=== PATIENT | male | born 1960 | race Caucasian/White ===

== ENCOUNTER 2016-07-09 17:53 | Inpatient (IN) | payer OTHER, MEDICARE ==
[~2016-07-09] VITALS: Ht 167.6 cm; Wt 82.0 kg
[2016-07-09] VITALS (10 sets, daily range): BP systolic 96–157; BP diastolic 60–84; PULSE 72–106; RESP 16; TEMP 97.8–98.2; O2SAT 98–100
[~2016-07-09 17:53] MED LIST: ADDE30TA PO; BUPR150CR PO; KLON2TAB PO; NEUR800T PO; SERO100T PO; SERO400T PO
[2016-07-09] MEDS ORDERED: PROPOFOL 1000 MG/100 ML INJ 100 ML ONE (17:58)
[2016-07-09] MEDS ORDERED: DEXTROSE 10% INJ 1,000 ML IV SCH (18:21)
[2016-07-09 18:30] LABS: BLOOD GAS BASE EXCESS -3.7 mmol/L (-2-2); BLOOD GAS CARBOXYHEMOGLOBIN 3.8 % (0-4); BLOOD GAS HCO3 22 mmol/L (22-26); BLOOD GAS METHEMOGLOBIN 1.9 % (0-2); BLOOD GAS O2 HGB SATURATION 91 % (90-100); BLOOD GAS PCO2 48 mmHg (38-42); BLOOD GAS PO2 96 mmHG (61-120); BLOOD GAS TOTAL HGB 14.8 G/DL (12.0-16.0); CRITICAL VALUE YES; DRAW SITE LT FEMORAL; FIO2 50 %; NUMBER OF ARTERIAL PUNCTURES 1; OXYGEN DEVICE VENTILATOR; STAT YES; TEMP CORR TO 98.6
[2016-07-09] MEDS ORDERED: POTASSIUM CL 40 MEQ/30 ML LIQ UDC PO/TUBE PRN ×2 (18:30)
[2016-07-09] MEDS ORDERED: MISCELLANEOUS NURSING INFORMATION XX SCH (18:30)
[2016-07-09] MEDS ORDERED: MAGNESIUM OXIDE 400 MG TAB PO PRN (18:30)
[2016-07-09] MEDS ORDERED: CHLORHEXIDINE GLUCONATE 2 % 1 PACK (2 CLOTHS) TOP PRN (18:30)
[2016-07-09] MEDS ORDERED: SODIUM CHLORIDE 0.9% FLUSH 5 ML FLUSH IV FLUSH PRN (18:30)
[2016-07-09] MEDS ORDERED: POTASSIUM PHOSPHATE MONOBASIC 500 MG TAB PO/TUBE PRN (18:30)
[2016-07-09] MEDS ORDERED: MAGNESIUM SULFATE INJ 2 GM in SODIUM CHLORIDE 0.9% INJ 96 ML IV PRN (18:30)
[2016-07-09] MEDS ORDERED: MAGNESIUM SULFATE INJ 4 GM in SODIUM CHLORIDE 0.9% INJ 92 ML IV PRN (18:30)
[2016-07-09] MEDS ORDERED: POTASSIUM CHLOR 20 MEQ PREMIX 100 ML IV PRN (18:30)
[2016-07-09] MEDS ORDERED: DEXTROSE 50% IN WATER 50 ML VIAL(D50) IV PUSH PRN (18:30)
[2016-07-09] MEDS ORDERED: RESP: ALBUTEROL 2.5 MG/IPRATROPIUM 0.5 MG NEB (PRN) INH (18:30)
[2016-07-09] MEDS ORDERED: SODIUM PHOSPHATE INJ 30 MMOL in SODIUM CHLOR 0.9% 250 ML INJ 240 ML IV PRN (18:30)
[2016-07-09] MEDS ORDERED: POTASSIUM PHOSPHATE INJ 30 MMOL in SODIUM CHLOR 0.9% 250 ML INJ 250 ML IV PRN (18:30)
[2016-07-09] MEDS ORDERED: POTASSIUM PHOSPHATE MONOBASIC 500 MG TAB PO PRN (18:30)
[2016-07-09] MEDS ORDERED: POTASSIUM CHLOR 40 MEQ PREMIX 100 ML IV PRN ×2 (18:30)
[2016-07-09] MEDS ORDERED: SODIUM CHLOR 0.9% 1000 ML INJ 2,000 ML IV ONE (18:45)
[2016-07-09 19:16] LABS: AUTOMATED NEUTROPHIL # 4.5 TH/MM3 (1.8-7.7); BASOPHIL % 0.6 % (0.0-2.0); EOSINOPHIL # 0.1 TH/MM3 (0-0.4); HEMATOCRIT 45.1 % (39.0-51.0); HEMO FLAGS DIFF FINAL; LYMPH % 31.4 % (9.0-44.0); LYMPHOCYTE # 2.4 TH/MM3 (1.0-4.8); MEAN CELL VOLUME 96.6 FL (80.0-100.0); MEAN CORPUSCULAR HEMOGLOBIN 32.2 PG (27.0-34.0); MEAN CORPUSCULAR HGB CONC 33.3 % (32.0-36.0); MONO % 7.5 % (0.0-8.0); NEUT % 59.5 % (16.0-70.0); PLATELET COUNT 160 TH/MM3 (150-450); RED BLOOD COUNT 4.66 MIL/MM3 (4.50-5.90); RED CELL DISTRIBUTION WIDTH 14.5 % (11.6-17.2); WHITE BLOOD COUNT 7.6 TH/MM3 (4.0-11.0)
--- NOTE | 2016-07-09 19:26 | RADRPT ---
EXAM DATE/TIME: 07/09/2016 19:10 [facility] COMPARISON: CHEST SINGLE AP, December 25, 2015, 2:31. INDICATIONS : Post intubation. MEDICAL HISTORY : Hepatitis C. SURGICAL HISTORY : None. ENCOUNTER: Initial ACUITY: 1 day PAIN SCORE: Non-responsive. LOCATION: Bilateral chest FINDINGS: Endotracheal tube and nasogastric tube are present satisfactory position. Lungs are symmetrically aer ated and grossly clear. Cardiomediastinal contours are satisfactory. CONCLUSION: Satisfactory chest appearance. Fermín More MD on July 09, 2016 at 19:24 Board Certified Radiologist. This report was verified electronically.
[2016-07-09 19:30] LABS: APTT (PATIENT) 25.7 SEC (24.3-30.1); PROTHROMBIN TIME - PATIENT 10.7 SEC (9.8-11.6)
[2016-07-09 19:35] LABS: AMPHETAMINE, URINE NEG (NEG); BARBITURATES, URINE NEG (NEG)
--- NOTE | 2016-07-09 19:35 | HHI.HP ---
[facility] Service Critical Care Medicine Primary Care Physician No Primary Care Physician Admission Diagnosis Overdose Diagnosis: Chief Complaint: Altered Mental Status Travel History International Travel<30 Days: No Contact w/Intl Traveler <30 Da: No Traveled to Known Affected Are: No History of Present Illness This is a 55-year-old male who was found unresponsive after reportedly smoking K2. EMS brought the patient in with a GCS of 3, with active bag valve mask support his respirations. There is visible signs of emesis and probable aspiration at the scene. Patient was emergently intubated in the emergency department. Nothing else is known about the patient, and he is unable to tell us any past medical history given his current clinical status. Critical care medicine was consulted to evaluate and manage his altered mental status and presumed toxic encephalopathy, drug overdose. Review of Systems ROS Limitations: Clinical Condition, Intoxication, Intubated, Altered Mental Status, Unresponsive Past Family Social History Allergies: Coded Allergies: *MDRO Multi-Drug Resistant Organism (Verified Adverse Reaction, Unknown, ) MRSA (elbow & knee wound) - 04/18/16 Past Medical History Unknown secondary to clinical condition of patient Past Surgical History Unknown secondary to clinical condition of patient Reported Medications Unknown secondary to clinical condition of patient Active Ordered Medications See MAR Family History Unknown secondary to clinical condition of patient Social History Unknown secondary to clinical condition of patient Physical Exam Vital Signs Vital Signs Date Time Temp Pulse Resp B/P Pulse Ox O2 Delivery O2 Flow Rate FiO2 07/09/16 19:03 50 07/09/16 19:02 72 16 96/60 100 Ventilator 07/09/16 18:29 98.2 77 16 109/67 99 Ventilator 50 07/09/16 18:29 79 16 99 Ventilator 50 07/09/16 18:00 99 50 07/09/16 17:55 98.2 106 16 138/84 98 Physical Exam GENERAL: Middle-aged male, lying in bed, intubated, sedated. Critically ill HEENT: Normocephalic. Atraumatic. Pupils pinpoint, equal, round, conjugate. Mucous members are dry. NECK: Trachea is midline. No JVD. CHEST: Equal chest rise. Clear to auscultation. Intubated. CARDIOVASCULAR: Normal rate, regular rhythm. S1 and S2 without appreciable murmurs. ABDOMEN: Soft, nontender, nondistended. No guarding. MUSCULOSKELETAL: No peripheral edema. Distal pulses 2+. NEUROLOGICAL: RASS -5. GCS 3. Laboratory Laboratory Tests Test 07/09/16 07/09/16 18:15 18:17 White Blood Count 7.6 Red Blood Count 4.66 Hemoglobin 15.0 Hematocrit 45.1 Mean Corpuscular Volume 96.6 Mean Corpuscular Hemoglobin 32.2 Mean Corpuscular Hemoglobin 33.3 Concent Red Cell Distribution Width 14.5 Platelet Count 160 Mean Platelet Volume 8.3 Neutrophils (%) (Auto) 59.5 Lymphocytes (%) (Auto) 31.4 Monocytes (%) (Auto) 7.5 Eosinophils (%) (Auto) 1.0 Basophils (%) (Auto) 0.6 Neutrophils # (Auto) 4.5 Lymphocytes # (Auto) 2.4 Monocytes # (Auto) 0.6 Eosinophils # (Auto) 0.1 Basophils # (Auto) 0.0 CBC Comment DIFF FINAL Differential Comment Blood Gas Puncture Site LT FEMORAL Blood Gas Patient Temperature 98.6 Blood Gas HCO3 22 Blood Gas Base Excess -3.7 Blood Gas Oxygen Saturation 91 Arterial Blood pH 7.28 Arterial Blood Partial 48 Pressure CO2 Arterial Blood Partial 96 Pressure O2 Arterial Blood Oxygen Content 19.0 Arterial Blood 3.8 Carboxyhemoglobin Arterial Blood Methemoglobin 1.9 Blood Gas Hemoglobin 14.8 Oxygen Delivery Device VENTILATOR Blood Gas Ventilator Setting SEE NOTE Blood Gas Inspired Oxygen 50 Result Diagram: 07/09/161814 Assessment and Plan Assessment and Plan Assessment: This is a 55-year-old male who was brought in by EMS in respiratory arrest with active [id number] reportedly secondary to an overdose of K2. He is intubated and very critically ill. Plan by systems: Neurologic: Toxic encephalopathy Alcohol abuse K2 abuse RASS goal -2 Propofol for goal RASS We'll follow-up urine drug screen Follow-up Tylenol level, aspirin level, ethanol level 500 mg IV daily Daily multivitamin Respiratory: Acute hypoxic and hypercarbic respiratory failure Intubated and sedated. Vent bundle Head of bed 30 Wean FiO2 for goal SPO2 greater than 92% Low tidal volume ventilation targeting 6 cc/kg ideal body weight Does not SBT criteria today given altered mental status Stat ABG and a.m. ABG A.m. chest x-ray Nebs every 6 and every 2 when necessary Cardiovascular: Sinus tachycardia Possible hypovolemic shock Continue telemetry Stat EKG Stat lactic acid and serial lactate at midnight Renal: Possible rhabdomyolysis Place Bland for accurate I's and O's. Every hour urine outputs -- Strict I/Os Stat CK and follow-up CK at midnight FEN/GI: Acute protein calorie malnutritionmild Acute Intravascular hypovolemia Metabolic acidosis Nothing by mouth ICU electric protocol 2 L normal saline IV bolus Maintenance fluids: Lactated Ringer's at 200 cc an hour D10 at 30 cc an hour for dextrose source Stat BMP, LFTs Daily BMP Heme/ID: Leukocytosis Probable aspiration pneumonitis Stat CBC, coags Daily CBC No infectious etiology suspected this time. If the patient spikes a fever after 48 hours we will cover him with antibiotics for presumed aspiration pneumonia. Endocrine: Hyperglycemia of critical illness -- SSI, medium scale, every 6 hours D10 at 30 cc an hour to prevent hypoglycemia. Prophylaxis: GI Prophylaxis Protonix 40 g IV every 24 hours: Anticipated mechanical ventilation of greater than 48 hours duration DVT Prophylaxis -- SCDs Subcutaneous heparin 5000 every 8 Lines: Peripheral IVs. We will maintain 2 large for peripheral IVs at all time. Bland Dispo: admit the patient to the ICU. He is very critically ill this time. This patient remains critically ill with one or more organ systems which are or may become a threat to life. I have spent in excess of 35 minutes discontinuously in the care and management of this patient. This time is exclusive of procedures, and includes, but is not limited to, evaluation of the patient, review of the medical record, discussions with family, consultants, nursing staff, or respiratory therapy, and documentation in the medical record. Code Status Full code Mariusz Burton MD Jul 09, 2016 19:35
--- NOTE | 2016-07-09 19:37 | PD.PROCEDR ---
Procedure Note Procedure Endotracheal Intubation Diagnosis: Toxic overdose Indications: Acute hypoxic respiratory failure Consent: Consent cannot be obtained. Consent is deemed emergent or medically necessary Anesthesia: None. The patient was a GCS of 3 with active [id number] assistance for respiratory arrest Description of the Procedure: The patient was positioned in the sniffing position. Pre-oxygenation was performed using a [id number]-ayqs. A Peyton #4 was used for laryngoscopy and a Grade II view was obtained. A 8.0 cuffed endotracheal tube was inserted atraumatically through the vocal cords. Confirmation of correct endotracheal tube placement was made by equal and bilateral breath sounds and colorimetric CO2 detection. The endotracheal tube was secured at 23 cm at the teeth. There were no immediate complications noted. The patient remained hemodynamically stable throughout the procedure. A chest x-ray has been ordered. I personally performed the procedure. Mariusz Burton MD Jul 09, 2016 19:37
[2016-07-09 19:44] LABS: COCAINE, URINE POS (NEG)
--- NOTE | 2016-07-09 19:56 | PD ---
HPI Chief Complaint: Altered Mental Status Time Seen by Provider: 18:08 Travel History International Travel<30 days: No Contact w/Intl Traveler<30days: No Traveled to known affect area: No History of Present Illness HPI Patient is a 55-year-old male brought in by EMS, unresponsive. Per EMS patient was using K2 and alcohol and was found unresponsive with 2 other people the same symptoms. Patient is being bagged by EMS on arrival. He is unable to provide any history. PFSH Past Medical History Hx Anticoagulant Therapy: No ADD: Yes ADHD: Yes Arthritis: No Asthma: No Blood Disorders: No Bipolar Disorder: Yes Anxiety: Yes Depression: Yes Heart Rhythm Problems: No Cancer: No Cardiovascular Problems: No High Cholesterol: No Chemotherapy: No Chest Pain: No Congestive Heart Failure: No COPD: No Cerebrovascular Accident: No Diabetes: No Diminished Hearing: No Endocrine: No Gastrointestinal Disorders: No (has not ate well since in hospital) GERD: No Genitourinary: Yes (nocturia) Headaches: Yes Hepatitis: Yes (HEP C) Hiatal Hernia: No Hypertension: No Implanted Vascular Access Dvce: No Insomnia: Yes Musculoskeletal: No Neurologic: Yes Psychiatric: Yes Reproductive: No Respiratory: No Immunizations Current: Yes Migraines: Yes Radiation Therapy: No Seizures: No Sleep Apnea: No Thyroid Disease: No Ulcer: No Past Surgical History Abdominal Surgery: Yes AICD: No Arteriovenous Shunt: No Cardiac Surgery: No Ear Surgery: No Endocrine Surgery: No Eye Surgery: No Genitourinary Surgery: No Gynecologic Surgery: No Hysterectomy: No Insulin Pump: No Joint Replacement: No Neurologic Surgery: Yes Oral Surgery: No Pacemaker: No Thoracic Surgery: No Other Surgery: Yes (ABDOMINAL HERNIA REPAIR 10/2014) Social History Alcohol Use: Yes (EVERYDAY, ABOUT 2 LITERS) Tobacco Use: Yes Substance Use: Yes (marijauna) Allergies-Medications (Allergen,Severity, Reaction): Coded Allergies: *MDRO Multi-Drug Resistant Organism (Verified Adverse Reaction, Unknown, ) MRSA (elbow & knee wound) - 04/18/16 Reported Meds & Prescriptions Reported Meds & Active Scripts Active Reported Adderall (Amphetamine-Dextroamphetamine) 30 Mg Tab 90 Mg PO DAILY Avoid late evening doses. Space doses at least 4 to 6 hours if more than once/day dosing. Seroquel (Quetiapine Fumarate) 100 Mg Tab 100 Mg PO DAILY Seroquel (Quetiapine Fumarate) 400 Mg Tab 400 Mg PO HS Wellbutrin SR 12 HR (Bupropion HCl) 150 Mg Tab 150 Mg PO Q12HR Klonopin (Clonazepam) 2 Mg Tab 4 Mg PO DAILY Neurontin (Gabapentin) 800 Mg Tab 800 Mg PO BID Review of Systems ROS Limitations: Clinical Condition, Intoxication, Altered Mental Status Physical Exam Narrative GENERAL: Unresponsive SKIN: Warm and dry. HEAD: Atraumatic. Normocephalic. EYES: Pupils equal and round. No scleral icterus. Pinpoint pupils. ENT: No nasal bleeding or discharge. Mucous membranes pink and moist. NECK: Trachea midline. No JVD. CARDIOVASCULAR: Regular rate and rhythm. No murmur appreciated. RESPIRATORY: No accessory muscle use. Clear to auscultation. Breath sounds equal bilaterally. GASTROINTESTINAL: Abdomen soft, non-tender, nondistended. MUSCULOSKELETAL: No obvious deformities. No clubbing. No cyanosis. No edema. NEUROLOGICAL: Unresponsive, no gag reflex. Data Data Last Documented VS Vital Signs Date Time Temp Pulse Resp B/P Pulse Ox O2 Delivery O2 Flow Rate FiO2 07/09/16 18:00 99 50 07/09/16 17:55 98.2 106 16 138/84 Orders Propofol 1000 Mg/100 Ml Inj (Diprivan 10 (07/09/16 17:58) Admit Order (Ed Use Only) (07/09/16 ) Labs Laboratory Tests Test 07/09/16 18:15 White Blood Count 7.6 TH/MM3 Red Blood Count 4.66 MIL/MM3 Hemoglobin 15.0 GM/DL Hematocrit 45.1 % Mean Corpuscular Volume 96.6 FL Mean Corpuscular Hemoglobin 32.2 PG Mean Corpuscular Hemoglobin 33.3 % Concent Red Cell Distribution Width 14.5 % Platelet Count 160 TH/MM3 Mean Platelet Volume 8.3 FL Neutrophils (%) (Auto) 59.5 % Lymphocytes (%) (Auto) 31.4 % Monocytes (%) (Auto) 7.5 % Eosinophils (%) (Auto) 1.0 % Basophils (%) (Auto) 0.6 % Neutrophils # (Auto) 4.5 TH/MM3 Lymphocytes # (Auto) 2.4 TH/MM3 Monocytes # (Auto) 0.6 TH/MM3 Eosinophils # (Auto) 0.1 TH/MM3 Basophils # (Auto) 0.0 TH/MM3 CBC Comment DIFF FINAL Differential Comment Prothrombin Time 10.7 SEC Prothromb Time International 1.0 RATIO Ratio Activated Partial 25.7 SEC Thromboplast Time Lactic Acid Level 2.5 mmol/L Urine Opiates Screen NEG Urine Barbiturates Screen NEG Urine Amphetamines Screen NEG Urine Benzodiazepines Screen POS Urine Cocaine Screen POS Urine Cannabinoids Screen POS MDM Medical Decision Making Medical Screen Exam Complete: Yes Emergency Medical Condition: Yes Differential Diagnosis Drug intoxication versus electrolyte abnormality versus infection Narrative Course Patient is a 55-year-old male brought in by EMS unresponsive. Patient was intubated on arrival by director of consumer affairs, Dr. Burton. Patient started on propofol for sedation. Labs sent show no acute abnormalities. Patient admitted for further management. Diagnosis Primary Impression: Unresponsive Additional Impression: Intoxication by drug Qualified Code: F19.929 - Intoxication by drug, with unspecified complication Admitting Information Admitting Physician Requests: Admit Alecia Villalobos MD Jul 09, 2016 19:56
[2016-07-09] MEDS ORDERED: ONDANSETRON HCL 4 MG/2 ML VIAL IV PRN (20:00)
[2016-07-09] MEDS: DOCUSATE SODIUM 50 MG/SENNA 8.6 MG TAB PO SCH (21:00)
[2016-07-09] MEDS: POLYETHYLENE GLYCOL 17 GM PKG PO SCH (21:00)
[2016-07-09] MEDS ORDERED: MULTIVITAMIN INJ 10 ML, THIAMINE INJ 100 MG, FOLIC ACID INJ 1 MG in SODIUM CHLOR 0.45% ... IV ONE (21:00)
[2016-07-09] MEDS: SODIUM CHLORIDE 0.9% FLUSH 5 ML FLUSH IV FLUSH SCH (21:00)
[2016-07-09] MEDS: RESP: ALBUTEROL 2.5 MG/IPRATROPIUM 0.5 MG NEB (SCH) INH (21:04)
[2016-07-09] MEDS ORDERED: HEPARIN SODIUM - SQ 10,000 UNITS/ML VIAL SQ SCH (22:00)
[2016-07-09] MEDS: PROPOFOL 1000 MG/100 ML INJ 100 ML IV SCH (22:45)
[2016-07-09] MEDS: CHLORHEXIDINE 0.12% (ORAL KIT) 15 ML CUP MT SCH (23:00)
[2016-07-09] MEDS: LACTATED RINGER'S 1000 ML INJ 1,000 ML IV SCH (23:21)
[2016-07-10] VITALS (18 sets, daily range): BP systolic 105–162; BP diastolic 63–91; PULSE 53–98; RESP 16–41; TEMP 97.5–102; O2SAT 92–100
[2016-07-10] MEDS: LACTATED RINGER'S 1000 ML INJ 1,000 ML IV SCH ×4 (00:04→13:08)
[2016-07-10 00:53] LABS: ANION GAP 12 MEQ/L (5-15); AST (GOT) 61 U/L (15-37); BICARBONATE 21.8 MEQ/L (21.0-32.0); CHLORIDE 111 MEQ/L (98-107); GLOMERULAR FILTRATION RATE 101 ML/MIN (>89); POTASSIUM 3.7 MEQ/L (3.5-5.1); SODIUM (NA) 145 MEQ/L (136-145)
[2016-07-10 00:57] LABS: ACETAMINOPHEN LESS THAN 2.0 MCG/ML (10.0-30.0); ALKALINE PHOSPHATASE 50 U/L (45-117); ALT (GPT) 83 U/L (12-78); BLOOD UREA NITROGEN 9 MG/DL (7-18); CREATINE KINASE 149 U/L (39-308); TOTAL BILIRUBIN ADULT 0.3 MG/DL (0.2-1.0)
--- NOTE | 2016-07-10 02:53 | RADRPT ---
EXAM DATE/TIME: 07/10/2016 02:25 [facility] COMPARISON: CHEST SINGLE AP, July 09, 2016, 19:10. INDICATIONS : Atelectasis MEDICAL HISTORY : Hepatitis C. SURGICAL HISTORY : None. ENCOUNTER: Subsequent ACUITY: 3 days PAIN SCORE: Non-responsive. LOCATION: Bilateral chest FINDINGS: A single portable frontal view the chest shows an endotracheal tube with the tip 2 cm cephalad to the krystina. Nasogastric tube courses off the inferior margin of the film. Lungs are clear without infilt rate or effusion. The costophrenic angles are omitted from the film. Heart is normal in size. CONCLUSION: Lines and tubes. Clear lungs. Fabrice Bernabe Jr., MD on July 10, 2016 at 2:51 Board Certified Radiologist. This report was verified electronically.
[2016-07-10] MEDS: RESP: ALBUTEROL 2.5 MG/IPRATROPIUM 0.5 MG NEB (SCH) INH ×2 (03:36→07:44)
[2016-07-10] MEDS: PROPOFOL 1000 MG/100 ML INJ 100 ML IV SCH ×2 (03:50→07:46)
[2016-07-10] MEDS: THIAMINE INJ 100 MG in SODIUM CHLORIDE 0.9% INJ 100 ML IV SCH (03:52)
[2016-07-10] MEDS: CHLORHEXIDINE GLUCONATE 2 % 1 PACK (2 CLOTHS) TOP SCH (04:00)
[2016-07-10 04:38] LABS: HEMATOCRIT 45.2 % (39.0-51.0); MEAN CELL VOLUME 95.2 FL (80.0-100.0); MEAN CORPUSCULAR HEMOGLOBIN 32.1 PG (27.0-34.0); MEAN CORPUSCULAR HGB CONC 33.7 % (32.0-36.0); PLATELET COUNT 144 TH/MM3 (150-450); RED BLOOD COUNT 4.75 MIL/MM3 (4.50-5.90); RED CELL DISTRIBUTION WIDTH 14.5 % (11.6-17.2); REVIEW FLAG FINAL; WHITE BLOOD COUNT 9.7 TH/MM3 (4.0-11.0)
[2016-07-10] MEDS: INSULIN NovoLIN REGULAR SUPPLEMENTAL SCALE SQ SCH ×4 (06:00→17:35)
[2016-07-10] MEDS ORDERED: DEXMEDETOMIDINE INJ 50 ML IV SCH (07:30)
[2016-07-10] MEDS: DEXMEDETOMIDINE INJ 50 ML IV SCH ×5 (07:45→15:06)
[2016-07-10] MEDS: CHLORHEXIDINE 0.12% (ORAL KIT) 15 ML CUP MT SCH ×2 (08:00→20:00)
[2016-07-10] MEDS: SODIUM CHLORIDE 0.9% FLUSH 5 ML FLUSH IV FLUSH SCH ×2 (08:46→20:24)
[2016-07-10] MEDS: HEPARIN SODIUM - SQ 10,000 UNITS/ML VIAL SQ SCH ×3 (08:47→23:06)
[2016-07-10] MEDS: POLYETHYLENE GLYCOL 17 GM PKG PO SCH ×2 (08:47→20:24)
[2016-07-10] MEDS: MULTIVITAMIN TAB PO SCH (08:47)
[2016-07-10] MEDS: DOCUSATE SODIUM 50 MG/SENNA 8.6 MG TAB PO SCH ×2 (08:48→20:24)
[2016-07-10] MEDS: QUEtiapine FUMARATE 100 MG TAB PO SCH ×2 (08:51→13:08)
[2016-07-10] MEDS ORDERED: PANTOPRAZOLE SODIUM 40 MG VIAL IV SCH (09:00)
--- NOTE | 2016-07-10 11:39 | EKG ---
Date Performed: 07/09/2016 Time Performed: 18:34:44 PTAGE: 55 years EKG: Sinus rhythm NORMAL ECG NO PREVIOUS TRACING DOCTOR: Deandre Perez Interpretating Date/Time 07/10/2016 11:37:45
--- NOTE | 2016-07-10 15:52 | RADRPT ---
EXAM DATE/TIME: 07/10/2016 15:19 [facility] COMPARISON: No previous studies available for comparison. INDICATIONS : Tremors. RADIATION DOSE: 56.35 CTDIvol (mGy) MEDICAL HISTORY : Hepatitis C. Methicillin-resistant Staphylococcus aureus. SURGICAL HISTORY : None. ENCOUNTER: Initial ACUITY: 1 day PAIN SCALE: Non-responsive LOCATION: cranial TECHNIQUE: Multiple contiguous axial images were obtained of the head. Using automated exposure control and adj ustment of the mA and/or kV according to patient size, radiation dose was kept as low as reasonably a chievable to obtain optimal diagnostic quality images. FINDINGS: No intracranial mass, hemorrhage or midline shift. No undersurface but no evidence for recent infarct . There is mucosal thickening in the left frontal sinus, ethmoid air cells and maxillary sinuses. The re is also mucosal thickening in the sphenoid sinus. CONCLUSION: 1. No acute intracranial abnormalities. Pansinus mucosal thickening. Sal Scales MD on July 10, 2016 at 15:48 Board Certified Radiologist. This report was verified electronically.
[2016-07-10] MEDS ORDERED: HALOPERIDOL LACTATE 5 MG/ML AMP IV PRN (16:15)
--- NOTE | 2016-07-10 16:40 | HHI.CCPN ---
Subjective Remarks/Hospital Course Hospital Course: This is a 55-year-old male who was found unresponsive after reportedly smoking K2. EMS brought the patient in with a GCS of 3, with active bag valve mask support his respirations. There is visible signs of emesis and probable aspiration at the scene. Patient was emergently intubated in the emergency department. Nothing else is known about the patient, and he is unable to tell us any past medical history given his current clinical status. Critical care medicine was consulted to evaluate and manage his altered mental status and presumed toxic encephalopathy, drug overdose. Subjective: 07/10: I evaluated the patient at 07:30 and again at 1200. patient remains encephalopathic. the other 2 patients that presented with him are clinically improving neurologically, so it appears that on this time course, the patient should be more awake and alert than he is. hemodynamically, he is stable. his lactate is clearing. his uop is adequate. Objective Vital Signs Date Time Temp Pulse Resp B/P Pulse Ox O2 Delivery O2 Flow Rate FiO2 07/10/16 12:00 97.5 53 16 162/91 100 07/10/16 11:54 35 07/10/16 07:00 Mechanical Ventilator Result Diagram: 07/10/16 0341 07/10/16 0010 Other Results Laboratory Tests Test 07/09/16 18:17 Blood Gas Puncture Site LT FEMORAL Blood Gas Patient Temperature 98.6 Blood Gas HCO3 22 mmol/L (22-26) Blood Gas Base Excess -3.7 mmol/L (-2-2) Blood Gas Oxygen Saturation 91 % (90-100) Arterial Blood pH 7.28 (7.380-7.420) Arterial Blood Partial 48 mmHg (38-42) Pressure CO2 Arterial Blood Partial 96 mmHG Pressure O2 (61-120) Arterial Blood Oxygen Content 19.0 Vol % (12.0-20.0) Arterial Blood 3.8 % (0-4) Carboxyhemoglobin Arterial Blood Methemoglobin 1.9 % (0-2) Blood Gas Hemoglobin 14.8 G/DL (12.0-16.0) Oxygen Delivery Device VENTILATOR Blood Gas Ventilator Setting SEE NOTE Blood Gas Inspired Oxygen 50 % Objective Remarks GENERAL: Middle-aged male, lying in bed, intubated, sedated. Critically ill HEENT: Normocephalic. Atraumatic. Pupils pinpoint, equal, round, conjugate. Mucous members are dry. NECK: Trachea is midline. No JVD. CHEST: Equal chest rise. Clear to auscultation. Intubated. CARDIOVASCULAR: Normal rate, regular rhythm. S1 and S2 without appreciable murmurs. ABDOMEN: Soft, nontender, nondistended. No guarding. MUSCULOSKELETAL: No peripheral edema. Distal pulses 2+. NEUROLOGICAL: RASS -4. moves all extremities spontaneously, but does not withdraw to pain. not purposeful. does not follow commands. +cough, +gag. + corneals. A/P Assessment and Plan Assessment: This is a 55-year-old male who was brought in by EMS in respiratory arrest with active [id number]-fmla reportedly secondary to an overdose of K2. He remains intubated. Based on the other 2 patients that arrived with him who it is suspected overdosed on the same drug, he is not on pathway and has not improved neurologically in the same timecourse. We will send serum ammonia level. we will obtain noncontrasted head CT. if his head CT is normal, we will check a portable EEG. He remains critically ill. We will swap him from propofol to precedex to lighten his sedation and prevent agitated delirium. Plan by systems: Neurologic: Toxic encephalopathy Alcohol abuse K2 abuse RASS goal 0 Precedex for goal RASS UDS positive for benzos, cocaine, cannabinoids. --etoh level 53 at midnight. --tylenol, ASA levels negative. Thiamine 100 mg IV daily Daily multivitamin --f/u head CT --if head CT normal, will order EEG --f/u ammonia level. Respiratory: Acute hypoxic and hypercarbic respiratory failure Intubated and sedated. Vent bundle Head of bed 30 Wean FiO2 for goal SPO2 greater than 92% Low tidal volume ventilation targeting 6 cc/kg ideal body weight Does not SBT criteria today given persistent encephalopathy. Nebs every 6 and every 2 when necessary Cardiovascular: Sinus tachycardia- resolved. Possible hypovolemic shock- resolved. Continue telemetry --lactate downtrending. will stop checking. --continue MIVF. Renal: --continue Bland catheter. Every hour urine outputs -- Strict I/Os FEN/GI: Acute protein calorie malnutritionmild Acute Intravascular hypovolemia Metabolic acidosis if his mental status does not improve, will start tube feeds. ICU electric protocol Maintenance fluids: Lactated Ringer's at 200 cc an hour D10 at 30 cc an hour for dextrose source. will d/c this once TF at goal. Daily BMP Heme/ID: Probable aspiration pneumonitis Daily CBC No infectious etiology suspected this time. If the patient spikes a fever after 48 hours we will cover him with antibiotics for presumed aspiration pneumonia. Endocrine: Hyperglycemia of critical illness -- SSI, medium scale, every 6 hours D10 at 30 cc an hour to prevent hypoglycemia. Prophylaxis: GI Prophylaxis Protonix 40 g IV every 24 hours: Anticipated mechanical ventilation of greater than 48 hours duration DVT Prophylaxis -- SCDs Subcutaneous heparin 5000 every 8 Lines: Peripheral IVs. Bland Dispo: remain in the ICU. he is not on pathway as I would expect. he remains critically ill for now. This patient remains critically ill with one or more organ systems which are or may become a threat to life. I have spent in excess of 38 minutes discontinuously in the care and management of this patient. This time is exclusive of procedures, and includes, but is not limited to, evaluation of the patient, review of the medical record, discussions with family, consultants, nursing staff, or respiratory therapy, and documentation in the medical record. Mariusz Burton MD Jul 10, 2016 16:40
[2016-07-10] MEDS ORDERED: LORazepam 2 MG/ML VIAL IV PUSH PRN ×2 (17:00)
[2016-07-10] MEDS ORDERED: FLUMAZENIL 1 MG/10 ML VIAL IV PUSH PRN (17:00)
[2016-07-10] MEDS ORDERED: LORazepam 1 MG TAB PO PRN (17:00)
[2016-07-10] MEDS ORDERED: LORazepam 2 MG TAB PO PRN (17:00)
[2016-07-10] MEDS: LORazepam 2 MG/ML VIAL IV PUSH PRN ×6 (17:08→23:49)
[2016-07-10] MEDS: HYDROmorphone HCL PF 1 MG/ML VIAL IV PUSH PRN (20:25)
[2016-07-10] MEDS: HALOPERIDOL LACTATE 5 MG/ML AMP IV PRN ×2 (20:50→23:49)
[2016-07-10] MEDS ORDERED: MIDAZOLAM HCL 2 MG/2 ML VIAL IV SCH (21:15)
[2016-07-11] VITALS (14 sets, daily range): BP systolic 90–158; BP diastolic 52–77; PULSE 62–123; RESP 15–24; TEMP 97.8–102; O2SAT 91–97
[2016-07-11] MEDS: HALOPERIDOL LACTATE 5 MG/ML AMP IV PRN ×7 (00:59→15:09)
[2016-07-11] MEDS: LORazepam 2 MG/ML VIAL IV PUSH PRN ×8 (00:59→15:28)
[2016-07-11] MEDS: HYDROmorphone HCL PF 1 MG/ML VIAL IV PUSH PRN ×2 (01:52→06:11)
[2016-07-11] MEDS: THIAMINE INJ 100 MG in SODIUM CHLORIDE 0.9% INJ 100 ML IV SCH (03:53)
[2016-07-11] MEDS: CHLORHEXIDINE GLUCONATE 2 % 1 PACK (2 CLOTHS) TOP SCH (04:00)
[2016-07-11] MEDS ORDERED: ACETAMINOPHEN 1000 MG/100 ML VIAL IV SCH (04:15)
[2016-07-11 05:15] LABS: HEMATOCRIT 42.4 % (39.0-51.0); MEAN CELL VOLUME 94.7 FL (80.0-100.0); MEAN CORPUSCULAR HGB CONC 33.7 % (32.0-36.0); PLATELET COUNT 132 TH/MM3 (150-450); RED BLOOD COUNT 4.48 MIL/MM3 (4.50-5.90); RED CELL DISTRIBUTION WIDTH 14.2 % (11.6-17.2); REVIEW FLAG FINAL
[2016-07-11 05:29] LABS: BICARBONATE 27.3 MEQ/L (21.0-32.0); POTASSIUM 3.5 MEQ/L (3.5-5.1)
[2016-07-11] MEDS: INSULIN NovoLIN REGULAR SUPPLEMENTAL SCALE SQ SCH ×3 (05:35→12:00)
[2016-07-11] MEDS: CHLORHEXIDINE 0.12% (ORAL KIT) 15 ML CUP MT SCH ×2 (07:44→20:00)
[2016-07-11] MEDS: POLYETHYLENE GLYCOL 17 GM PKG PO SCH ×2 (07:46→21:00)
[2016-07-11] MEDS: HEPARIN SODIUM - SQ 10,000 UNITS/ML VIAL SQ SCH ×3 (07:54→23:20)
[2016-07-11] MEDS: DOCUSATE SODIUM 50 MG/SENNA 8.6 MG TAB PO SCH ×2 (08:05→21:00)
[2016-07-11] MEDS: SODIUM CHLORIDE 0.9% FLUSH 5 ML FLUSH IV FLUSH SCH ×2 (08:05→21:00)
[2016-07-11] MEDS: MULTIVITAMIN TAB PO SCH (08:05)
--- NOTE | 2016-07-11 13:32 | HHI.PR ---
Subjective Remarks Patient seen in follow-up for multi-substance overdose. He is still encephalopathy. He gets combative and tries to get out of bed but is very unsteady on his feet. Objective Vitals Vital Signs Date Time Temp Pulse Resp B/P Pulse Ox O2 Delivery O2 Flow Rate FiO2 07/11/16 12:00 98.3 109 22 149/67 91 07/11/16 12:00 109 07/11/16 10:00 100 07/11/16 08:00 107 07/11/16 08:00 99.0 100 15 90/52 96 07/11/16 07:15 94 Nasal Cannula 2.00 07/11/16 06:00 123 07/11/16 04:00 101.4 116 22 122/65 96 07/11/16 04:00 116 07/11/16 02:30 92 Venturi Mask 50 07/11/16 02:00 103 07/11/16 00:00 102.0 109 23 158/77 93 07/11/16 00:00 109 07/10/16 22:00 98 07/10/16 20:24 93 Nasal Cannula 4.00 07/10/16 20:00 98 07/10/16 20:00 102.0 98 41 124/65 92 07/10/16 19:00 94 Nasal Cannula 5.00 07/10/16 18:00 88 07/10/16 16:35 99 Nasal Cannula 3 07/10/16 16:35 96 Nasal Cannula 3.00 07/10/16 16:00 50 07/10/16 16:00 97.7 76 23 161/75 92 07/10/16 16:00 76 07/10/16 15:00 100 100 07/10/16 14:00 67 I/O 07/10/16 07/10/16 07/10/16 07/11/16 07/11/16 07/11/16 07:00 15:00 23:00 07:00 15:00 23:00 Intake Total 1386 ml 2128 ml 510 ml 250 ml Output Total 1875 ml 1050 ml 1075 ml 425 ml Balance -489 ml 1078 ml -565 ml -175 ml Intake IV Total 1386 ml 2128 ml 510 ml 250 ml Output Urine Total 1575 ml 1000 ml 1075 ml 425 ml Gastric Drainage Total 300 ml 50 ml # Bowel Movements 0 0 0 0 Result Diagram: 07/11/16 0413 07/11/16 0413 Imaging Last Impressions Chest X-Ray 07/10/16 0600 Signed Impressions: Service Date/Time: Sunday, July 10, 2016 02:25 - CONCLUSION: Lines and tubes. Clear lungs. Fabrice Bernabe Jr., MD Head CT 07/10/16 0000 Signed Impressions: Service Date/Time: Sunday, July 10, 2016 15:19 - CONCLUSION: 1. No acute intracranial abnormalities. Pansinus mucosal thickening. Sal Scales MD Objective Remarks GENERAL: Confused and at times combative. Does not always follow commands. CARDIOVASCULAR: Normal rate and regular rhythm without murmurs, gallops, or rubs. RESPIRATORY: Good respiratory efforts. Breath sounds equal and clear to auscultation bilaterally. GASTROINTESTINAL: Abdomen soft, non-tender, non-distended. Normal active bowel sounds MUSCULOSKELETAL: Extremities without cyanosis, or edema. NEURO: He is alert to self. He does not answer questions when asked. Attempts to get out of bed on his own and walk to the chair. Moves all ext x4 PSYCH: Anxious A/P Assessment and Plan 55-year-old male who was brought in by EMS in respiratory arrest with active bag -valve-mask reportedly secondary to an overdose of K2. He remains intubated. 2 other patient arrived with him with the same drug overdose. They have since improved. Patient remained encephalopathic. Toxic encephalopathy Alcohol abuse K2 abuse. UDS positive for benzos, cocaine, cannabinoids. - Patient is more awake but remained confused and at times combative. Head CT unremarkable. - Continue supportive care with daily multivitamin, thiamine. - Consult PT - CIWA protocol Acute hypoxic and hypercarbic respiratory failure Patient is not extubated. Doing well on room air. Nebs every 6 and every 2 when necessary Sinus tachycardia-likely related to withdrawal from alcohol and other substance. - Continue hydration with IV fluid. Continue to monitor Continue telemetry Probable aspiration pneumonitis Daily CBC He had a couple episodes of fevers overnight but is afebrile today. Monitor closely. Low threshold to start antibiotics if fever persists. GI Prophylaxis Protonix DVT Prophylaxis -- SCDs Subcutaneous heparin 5000 every 8 Discharge Planning Improving overall but remained encephalopathic. Not sure what his baseline is. Okay to transfer to floor with a sitter. Remove Bland and discontinue Accu- Cheks. Rimpel,Ricardy MD Jul 11, 2016 13:32
[2016-07-11] MEDS ORDERED: MIDAZOLAM HCL 5 MG/ML VIAL (1 ML) ONE (15:33)
[2016-07-11] MEDS ORDERED: QUEtiapine FUMARATE 200 MG TAB PO SCH ×2 (16:00→21:00)
[2016-07-11] MEDS ORDERED: DEXMEDETOMIDINE 200 MCG/50 ML NS IV SCH (16:00)
[2016-07-11] MEDS ORDERED: MIDAZOLAM HCL 10 MG/10 ML VIAL IVP ONE (16:00)
--- NOTE | 2016-07-11 16:14 | HHI.CCPN ---
Subjective Remarks/Hospital Course Hospital Course: This is a 55-year-old male who was found unresponsive after reportedly smoking K2. EMS brought the patient in with a GCS of 3, with active bag valve mask support his respirations. There is visible signs of emesis and probable aspiration at the scene. Patient was emergently intubated in the emergency department. Nothing else is known about the patient, and he is unable to tell us any past medical history given his current clinical status. Critical care medicine was consulted to evaluate and manage his altered mental status and presumed toxic encephalopathy, drug overdose. Subjective: 07/10: I evaluated the patient at 07:30 and again at 1200. patient remains encephalopathic. the other 2 patients that presented with him are clinically improving neurologically, so it appears that on this time course, the patient should be more awake and alert than he is. hemodynamically, he is stable. his lactate is clearing. his uop is adequate. 07/11: was transferred to the hospitalist group and stable for transfer to the floor, but this afternoon was acutely agitated, delirious, RASS +2 and becoming a harm to himself and others due to agitated delirium. initially given 2mg ativan q15m, added 5mg haldol iv, and then transitioned to 10mg versed and seroquel 100mg. despite this, he is still RASS +2, and he was started on a precedex infusion. Objective Vital Signs Date Time Temp Pulse Resp B/P Pulse Ox O2 Delivery O2 Flow Rate FiO2 07/11/16 14:00 100 07/11/16 12:00 98.3 22 149/67 91 07/11/16 07:15 Nasal Cannula 2.00 07/11/16 02:30 50 Intake and Output 07/10/16 07/10/16 07/11/16 08:00 16:00 00:00 Intake Total 1386 ml 2128 ml 510 ml Output Total 1875 ml 1050 ml 1075 ml Balance -489 ml 1078 ml -565 ml Result Diagram: 07/11/16 0413 07/11/16 0413 Objective Remarks GENERAL: Middle-aged male, lying in bed, severely agitated. HEENT: Normocephalic. Atraumatic. mucous membranes moist. NECK: Trachea is midline. No JVD. CHEST: Equal chest rise. tachypneic CARDIOVASCULAR: tachycardic rate, regular rhythm. hypertensive 150s/90s ABDOMEN: Soft, nontender, nondistended. No guarding. MUSCULOSKELETAL: No peripheral edema. Distal pulses 2+. NEUROLOGICAL: RASS +2. CAM +. moves all extremities spontaneously. A/P Assessment and Plan Assessment: This is a 55-year-old male who was brought in by EMS in respiratory arrest with active [id number] reportedly secondary to an overdose of K2. Intubated on 07/10. Was initially doing well and stable for transfer to the floor , but now with severe, life-threatening agitated delirium. This is most likely delirium tremens secondary to STEFAN-ergic withdraw, most likely etoh. The patient was started on CIWA yesterday, but it appears that did not provide adequate STEFAN coverage, and he is now in acute life-threatening agitated delirium. He is now, again, critically ill. Plan by systems: Neurologic: Toxic encephalopathy- resolved. Acute Life-threatening Agitated Delirium Alcohol Withdraw Alcohol abuse K2 abuse RASS goal 0 --ativan 4mg iv q15min prn --haldol 5mg iv q15min prn --restart home Seroquel 100mg qAM, 400mg qHS --Precedex infusion. UDS positive for benzos, cocaine, cannabinoids. Thiamine 100 mg IV daily Daily multivitamin --if we cannot get control of his delirium, he may require intubation and mechanical ventilation for his safety. Respiratory: Acute hypoxic and hypercarbic respiratory failure- resolving. --wean o2 by NC for goal spo2 > 90%. Nebs every 6 and every 2 when necessary Cardiovascular: Sinus tachycardia Hypertension Possible hypovolemic shock- resolved. Continue telemetry --tachycardia and hypertension likely secondary to etoh withdraw Renal: --strict I/Os. FEN/GI: Acute protein calorie malnutritionmild Acute Intravascular hypovolemia Metabolic acidosis continue regular basic diet. If the patient becomes to sedated to tolerate PO, will place him on mivf. ICU electrolyte protocol Daily BMP Heme/ID: Probable aspiration pneumonitis Daily CBC No infectious etiology suspected this time. If the patient spikes a fever after 48 hours we will cover him with antibiotics for presumed aspiration pneumonia. Endocrine: Hyperglycemia of critical illness -- SSI, medium scale, every 6 hours Prophylaxis: GI Prophylaxis -- no evidence based indication for GI prophylaxis at this time. DVT Prophylaxis -- SCDs Subcutaneous heparin 5000 every 8 Lines: Peripheral IVs. Baldo Dispo: remain in the ICU. He remains critically ill given his acute life-threatening agitated delirium. This patient remains critically ill with one or more organ systems which are or may become a threat to life. I have spent in excess of 57 minutes discontinuously in the care and management of this patient. This time is exclusive of procedures, and includes, but is not limited to, evaluation of the patient, review of the medical record, discussions with family, consultants, nursing staff, or respiratory therapy, and documentation in the medical record. Mariusz Burton MD Jul 11, 2016 16:14
[2016-07-11] MEDS: DEXMEDETOMIDINE INJ 1,000 MCG in SODIUM CHLOR 0.9% 250 ML INJ 240 ML IV SCH ×2 (16:16→21:16)
[2016-07-11] MEDS: DIAZEPAM 10 MG TAB PO SCH ×2 (21:05→22:00)
[2016-07-12] VITALS (13 sets, daily range): BP systolic 103–149; BP diastolic 68–86; PULSE 66–148; RESP 22–37; TEMP 97.4–98.7; O2SAT 93–98
[2016-07-12] MEDS: CHLORHEXIDINE GLUCONATE 2 % 1 PACK (2 CLOTHS) TOP SCH (03:49)
[2016-07-12 04:11] LABS: HEMATOCRIT 43.7 % (39.0-51.0); MEAN CELL VOLUME 94.4 FL (80.0-100.0); MEAN CORPUSCULAR HEMOGLOBIN 32.1 PG (27.0-34.0); PLATELET COUNT 133 TH/MM3 (150-450); RED BLOOD COUNT 4.63 MIL/MM3 (4.50-5.90); RED CELL DISTRIBUTION WIDTH 13.8 % (11.6-17.2); REVIEW FLAG FINAL; WHITE BLOOD COUNT 7.2 TH/MM3 (4.0-11.0)
[2016-07-12 04:38] LABS: BICARBONATE 25.7 MEQ/L (21.0-32.0); POTASSIUM 3.5 MEQ/L (3.5-5.1)
[2016-07-12] MEDS: DIAZEPAM 10 MG TAB PO SCH ×3 (06:22→20:54)
[2016-07-12] MEDS: HALOPERIDOL LACTATE 5 MG/ML AMP IV PRN ×4 (07:57→23:58)
[2016-07-12] MEDS: CHLORHEXIDINE 0.12% (ORAL KIT) 15 ML CUP MT SCH ×2 (08:00→20:00)
[2016-07-12] MEDS: POLYETHYLENE GLYCOL 17 GM PKG PO SCH ×2 (08:42→20:54)
[2016-07-12] MEDS: QUEtiapine FUMARATE 100 MG TAB PO SCH (08:43)
[2016-07-12] MEDS: DOCUSATE SODIUM 50 MG/SENNA 8.6 MG TAB PO SCH ×2 (08:43→20:54)
[2016-07-12] MEDS: SODIUM CHLORIDE 0.9% FLUSH 5 ML FLUSH IV FLUSH SCH ×2 (08:43→20:54)
[2016-07-12] MEDS: MULTIVITAMIN TAB PO SCH (08:43)
[2016-07-12] MEDS: HEPARIN SODIUM - SQ 10,000 UNITS/ML VIAL SQ SCH ×3 (08:43→23:23)
[2016-07-12] MEDS: LORazepam 2 MG/ML VIAL IV PUSH PRN ×9 (11:00→23:23)
--- NOTE | 2016-07-12 17:56 | HHI.PR ---
Subjective Remarks Patient in DT. He is very agitated requiring restraints, Haldol, and Ativan. Very confused. Objective Vitals Vital Signs Date Time Temp Pulse Resp B/P Pulse Ox O2 Delivery O2 Flow Rate FiO2 07/12/16 16:00 133 07/12/16 16:00 98.7 133 33 148/73 93 07/12/16 14:00 132 07/12/16 12:00 97.5 137 35 129/68 97 07/12/16 12:00 137 07/12/16 10:00 148 07/12/16 09:58 98 Nasal Cannula 4.00 07/12/16 08:00 113 07/12/16 08:00 98.1 103 25 103/78 97 07/12/16 07:00 95 Nasal Cannula 4.00 07/12/16 06:00 68 07/12/16 04:00 68 07/12/16 04:00 97.4 68 24 136/75 97 07/12/16 02:00 68 07/12/16 00:00 66 07/12/16 00:00 97.9 66 22 149/86 98 07/11/16 22:00 62 07/11/16 20:54 97 Nasal Cannula 4.00 07/11/16 20:00 64 07/11/16 20:00 97.8 64 22 117/65 97 07/11/16 19:00 96 Nasal Cannula 4.00 07/11/16 18:00 75 I/O 07/11/16 07/11/16 07/11/16 07/12/16 07/12/16 07/12/16 07:00 15:00 23:00 07:00 15:00 23:00 Intake Total 250 ml 250 ml 260 ml 295 ml 100 ml Output Total 425 ml 60 ml 300 ml 400 ml 1050 ml Balance -175 ml 190 ml -40 ml -105 ml -950 ml Intake Oral 250 ml 0 ml 60 ml 100 ml IV Total 250 ml 260 ml 235 ml 0 ml Output Urine Total 425 ml 60 ml 300 ml 400 ml 1050 ml # Voids 1 1 # Bowel Movements 0 0 0 0 0 Result Diagram: 07/12/1634607/12/16346 Objective Remarks GENERAL: Confused and combative. Does not always follow commands. CARDIOVASCULAR: Normal rate and regular rhythm without murmurs, gallops, or rubs. RESPIRATORY: Good respiratory efforts. Breath sounds equal and clear to auscultation bilaterally. GASTROINTESTINAL: Abdomen soft, non-tender, non-distended. Normal active bowel sounds MUSCULOSKELETAL: Extremities without cyanosis, or edema. NEURO: He is alert to self. He does not answer questions when asked. Moves all ext x4 PSYCH: Anxious A/P Assessment and Plan 55-year-old male who was brought in by EMS in respiratory arrest with active bag -valve-mask reportedly secondary to an overdose of K2. 2 other patient arrived with him with the same drug overdose. They have since improved. Patient remained encephalopathic and apparently in DTs. Yesterday afternoon he required Precedex drip. Currently maintaining on Haldol, Valium, Ativan. Toxic encephalopathy/DTs Alcohol abuse K2 abuse. UDS positive for benzos, cocaine, cannabinoids. - Head CT unremarkable. - Currently getting Haldol, Valium, Ativan - Continue supportive care with daily multivitamin, thiamine. - CIWA protocol Acute hypoxic and hypercarbic respiratory failure Patient is extubated. Doing well on room air. Nebs every 6 and every 2 when necessary Sinus tachycardia-likely related to withdrawal from alcohol and other substance. - Continue hydration with IV fluid. Continue to monitor Continue telemetry GI Prophylaxis Protonix DVT Prophylaxis -- SCDs Subcutaneous heparin 5000 every 8 Discharge Planning Keep in ICU for Delirium mayi, Ander Castorena MD Jul 12, 2016 17:56
[2016-07-12] MEDS: D5-1/2 NS + KCL 20 MEQ INJ 1,000 ML IV SCH (18:12)
[2016-07-12] MEDS: QUEtiapine FUMARATE 200 MG TAB PO SCH (20:54)
[2016-07-12] MEDS: HYDROmorphone HCL PF 1 MG/ML VIAL IV PUSH PRN (20:55)
--- NOTE | 2016-07-12 22:52 | EKG ---
Date Performed: 07/12/2016 Time Performed: 10:47:02 PTAGE: 55 years EKG: Sinus tachycardia. Possible right atrial abnormality Inferior infarct - age undetermined Ab normal ECG Compared to the PREVIOUS TRACING , rate has increased DOCTOR: Mathew Donohue Interpretating Date/Time 07/12/2016 22:50:56
[2016-07-13] VITALS (13 sets, daily range): BP systolic 125–170; BP diastolic 79–88; PULSE 72–109; RESP 14–25; TEMP 97–99.2; O2SAT 92–99
[2016-07-13] MEDS: HALOPERIDOL LACTATE 5 MG/ML AMP IV PRN ×4 (00:16→23:33)
[2016-07-13] MEDS: D5-1/2 NS + KCL 20 MEQ INJ 1,000 ML IV SCH ×3 (00:27→18:33)
[2016-07-13] MEDS: LORazepam 2 MG/ML VIAL IV PUSH PRN ×7 (00:27→06:33)
[2016-07-13] MEDS: CHLORHEXIDINE GLUCONATE 2 % 1 PACK (2 CLOTHS) TOP SCH (01:34)
[2016-07-13 04:23] LABS: HEMATOCRIT 40.6 % (39.0-51.0); MEAN CELL VOLUME 94.9 FL (80.0-100.0); MEAN CORPUSCULAR HEMOGLOBIN 32.3 PG (27.0-34.0); PLATELET COUNT 130 TH/MM3 (150-450); RED BLOOD COUNT 4.27 MIL/MM3 (4.50-5.90); REVIEW FLAG FINAL; WHITE BLOOD COUNT 5.2 TH/MM3 (4.0-11.0)
[2016-07-13 04:49] LABS: BICARBONATE 23.8 MEQ/L (21.0-32.0); POTASSIUM 3.1 MEQ/L (3.5-5.1)
[2016-07-13] MEDS: DIAZEPAM 10 MG TAB PO SCH ×3 (05:11→20:24)
[2016-07-13] MEDS: POTASSIUM CHLOR 20 MEQ PREMIX 100 ML IV PRN ×4 (05:33→12:50)
[2016-07-13] MEDS: HYDROmorphone HCL PF 1 MG/ML VIAL IV PUSH PRN (05:33)
[2016-07-13] MEDS: CHLORHEXIDINE 0.12% (ORAL KIT) 15 ML CUP MT SCH ×2 (08:00→20:00)
[2016-07-13] MEDS: POLYETHYLENE GLYCOL 17 GM PKG PO SCH ×2 (09:00→20:28)
[2016-07-13] MEDS: DOCUSATE SODIUM 50 MG/SENNA 8.6 MG TAB PO SCH ×2 (10:49→20:24)
[2016-07-13] MEDS: THIAMINE HCL 100 MG TAB PO SCH (10:49)
[2016-07-13] MEDS: MULTIVITAMIN TAB PO SCH (10:50)
[2016-07-13] MEDS: QUEtiapine FUMARATE 100 MG TAB PO SCH (10:50)
[2016-07-13] MEDS: SODIUM CHLORIDE 0.9% FLUSH 5 ML FLUSH IV FLUSH SCH ×2 (10:50→20:28)
[2016-07-13] MEDS: HEPARIN SODIUM - SQ 10,000 UNITS/ML VIAL SQ SCH ×3 (10:55→23:33)
--- NOTE | 2016-07-13 12:28 | HHI.PR ---
Subjective Remarks Patient seen in follow-up for delirium tremens, multiple substance abuse He is improving, requiring less sedating medication. He is aware or self and city. Otherwise he remains confused. Objective Vitals Vital Signs Date Time Temp Pulse Resp B/P Pulse Ox O2 Delivery O2 Flow Rate FiO2 07/13/16 08:27 94 Nasal Cannula 5.00 07/13/16 07:15 99 Nasal Cannula 5.00 07/13/16 06:00 77 07/13/16 04:00 97.0 93 21 128/83 97 07/13/16 04:00 79 07/13/16 02:00 104 07/13/16 00:00 91 07/13/16 00:00 97.9 109 25 125/83 92 07/12/16 22:00 104 07/12/16 21:25 26 07/12/16 20:00 Nasal Cannula 5.00 07/12/16 20:00 120 07/12/16 20:00 97.8 120 37 149/73 95 07/12/16 18:00 135 07/12/16 16:00 133 07/12/16 16:00 98.7 133 33 148/73 93 07/12/16 14:00 132 I/O 07/12/16 07/12/16 07/12/16 07/13/16 07/13/16 07/13/16 07:00 15:00 23:00 07:00 15:00 23:00 Intake Total 295 ml 100 ml 1023 ml 1241 ml Output Total 400 ml 1050 ml 300 ml 500 ml Balance -105 ml -950 ml 723 ml 741 ml Intake Oral 60 ml 100 ml 360 ml 120 ml IV Total 235 ml 0 ml 663 ml 1121 ml Output Urine Total 400 ml 1050 ml 300 ml 500 ml # Voids 1 # Bowel Movements 0 0 0 0 Result Diagram: 07/13/1633007/13/16 033 Objective Remarks GENERAL: Confused. Follows some commands CARDIOVASCULAR: Normal rate and regular rhythm without murmurs, gallops, or rubs. RESPIRATORY: Good respiratory efforts. Breath sounds equal and clear to auscultation bilaterally. GASTROINTESTINAL: Abdomen soft, non-tender, non-distended. Normal active bowel sounds MUSCULOSKELETAL: Extremities without cyanosis, or edema. NEURO: He is alert to self and the city. Moves all ext x4 PSYCH: Anxious A/P Assessment and Plan 55-year-old male who was brought in by EMS in respiratory arrest with active bag -valve-mask reportedly secondary to an overdose of K2. 2 other patient arrived with him with the same drug overdose. They have since improved. Patient remained encephalopathic and apparently in DTs. Yesterday afternoon he required Precedex drip. Currently maintaining on Haldol, Valium, Ativan. Toxic encephalopathy/DTs Alcohol abuse K2 abuse. UDS positive for benzos, cocaine, cannabinoids. - Head CT unremarkable. - Currently getting Haldol, Valium, Ativan. Decrease Valium to 5 mg every 8 hours. Give Ativan when necessary. - Continue supportive care with daily multivitamin, thiamine. - CIWA protocol Acute hypoxic and hypercarbic respiratory failure Patient is extubated. Doing well on room air. Nebs every 6 and every 2 when necessary Sinus tachycardia-likely related to withdrawal from alcohol and other substance. - Continue hydration with IV fluid. Continue to monitor Continue telemetry GI Prophylaxis Protonix DVT Prophylaxis -- SCDs Subcutaneous heparin 5000 every 8 Discharge Planning Okay to transfer to floor with a sitter. Ander Castorena MD Jul 13, 2016 12:28
[2016-07-13] MEDS: QUEtiapine FUMARATE 200 MG TAB PO SCH (20:24)
[2016-07-14] VITALS: BP 127/70; PULSE 109; RESP 18; TEMP 100.4; O2SAT 96
[2016-07-14] MEDS: D5-1/2 NS + KCL 20 MEQ INJ 1,000 ML IV SCH ×2 (02:00)
[2016-07-14] MEDS: HALOPERIDOL LACTATE 5 MG/ML AMP IV PRN (03:06)
[2016-07-14 04:00] VITALS: BP 146/80; PULSE 102; RESP 18; TEMP 99; O2SAT 96
[2016-07-14] MEDS: CHLORHEXIDINE GLUCONATE 2 % 1 PACK (2 CLOTHS) TOP SCH (04:00)
[2016-07-14] MEDS: DIAZEPAM 10 MG TAB PO SCH ×3 (05:22→20:59)
[2016-07-14 08:00] VITALS: BP 154/82; PULSE 102; PULSE 106; RESP 20; TEMP 99; O2SAT 96
[2016-07-14] MEDS: SODIUM CHLORIDE 0.9% FLUSH 5 ML FLUSH IV FLUSH SCH ×2 (08:17→21:00)
[2016-07-14] MEDS: MULTIVITAMIN TAB PO SCH (08:17)
[2016-07-14] MEDS: QUEtiapine FUMARATE 100 MG TAB PO SCH (08:17)
[2016-07-14] MEDS: DOCUSATE SODIUM 50 MG/SENNA 8.6 MG TAB PO SCH ×2 (08:17→20:59)
[2016-07-14] MEDS: THIAMINE HCL 100 MG TAB PO SCH (08:17)
[2016-07-14] MEDS: HEPARIN SODIUM - SQ 10,000 UNITS/ML VIAL SQ SCH ×3 (08:17→23:56)
[2016-07-14] MEDS: POLYETHYLENE GLYCOL 17 GM PKG PO SCH ×2 (08:18→21:00)
[2016-07-14 08:49] LABS: HEMATOCRIT 42.4 % (39.0-51.0); MEAN CORPUSCULAR HEMOGLOBIN 32.3 PG (27.0-34.0); MEAN CORPUSCULAR HGB CONC 34.4 % (32.0-36.0); PLATELET COUNT 180 TH/MM3 (150-450); RED BLOOD COUNT 4.51 MIL/MM3 (4.50-5.90); RED CELL DISTRIBUTION WIDTH 13.6 % (11.6-17.2); REVIEW FLAG FINAL; WHITE BLOOD COUNT 5.6 TH/MM3 (4.0-11.0)
[2016-07-14 09:18] LABS: BICARBONATE 22.3 MEQ/L (21.0-32.0); POTASSIUM 3.5 MEQ/L (3.5-5.1)
[2016-07-14 12:00] VITALS: BP 135/63; PULSE 104; RESP 18; TEMP 99; O2SAT 99
[2016-07-14 16:00] VITALS: BP 122/78; PULSE 97; RESP 18; TEMP 97.7; O2SAT 100
[2016-07-14] MEDS: CHLORHEXIDINE 0.12% (ORAL KIT) 15 ML CUP MT SCH (20:00)
[2016-07-14 20:37] VITALS: BP 134/85; PULSE 96; RESP 18; TEMP 99.7; O2SAT 97
[2016-07-14] MEDS: QUEtiapine FUMARATE 200 MG TAB PO SCH (21:00)
--- NOTE | 2016-07-14 22:21 | HHI.PR ---
Subjective Remarks Patient seen in follow-up for delirium tremens, multiple substance abuse Patient is still agitated and uncooperative most of the time. No acute issues overnight. Objective Vitals Vital Signs Date Time Temp Pulse Resp B/P Pulse Ox O2 Delivery O2 Flow Rate FiO2 07/14/16 20:37 99.7 96 18 134/85 97 07/14/16 16:00 97.7 97 18 122/78 100 07/14/16 12:00 99.0 104 18 135/63 99 07/14/16 08:00 99.0 106 20 154/82 96 07/14/16 08:00 96 Nasal Cannula 3.00 50 07/14/16 08:00 102 07/14/16 04:00 99.0 102 18 146/80 96 07/14/16 00:16 Nasal Cannula 4.00 07/14/16 00:00 100.4 109 18 127/70 96 I/O 07/13/16 07/13/16 07/13/16 07/14/16 07/14/16 07/14/16 07:00 15:00 23:00 07:00 15:00 23:00 Intake Total 1241 ml 1145 ml 2642 ml 0 ml 240 ml Output Total 500 ml 0 ml 1300 ml 1000 ml 600 ml Balance 741 ml 1145 ml 1342 ml -1000 ml -360 ml Intake Oral 120 ml 0 ml 0 ml 240 ml IV Total 1121 ml 1145 ml 2642 ml Output Urine Total 500 ml 1300 ml 1000 ml 600 ml Stool Total 0 ml # Voids 2 # Bowel Movements 0 0 0 Result Diagram: 07/14/16 0652 07/14/16 0652 Objective Remarks GENERAL: Confused. Does not follow commands CARDIOVASCULAR: Normal rate and regular rhythm without murmurs, gallops, or rubs. RESPIRATORY: Good respiratory efforts. Breath sounds equal and clear to auscultation bilaterally. GASTROINTESTINAL: Abdomen soft, non-tender, non-distended. Normal active bowel sounds MUSCULOSKELETAL: Extremities without cyanosis, or edema. NEURO: He is alert to self and the city. Moves all ext x4 PSYCH: Agitated A/P Assessment and Plan 55-year-old male who was brought in by EMS in respiratory arrest with active bag -valve-mask reportedly secondary to an overdose of K2. 2 other patient arrived with him with the same drug overdose. They have since improved. Patient remained encephalopathic and apparently in DTs. Yesterday afternoon he required Precedex drip. Currently maintaining on Haldol, Valium, Ativan. Toxic encephalopathy/DTs Alcohol abuse K2 abuse. UDS positive for benzos, cocaine, cannabinoids. - Head CT unremarkable. - Currently getting Haldol, Valium, Ativan. Decrease Valium to 2 mg every 8 hours. Give Ativan when necessary. - Continue supportive care with daily multivitamin, thiamine. - [facility] protocol Acute hypoxic and hypercarbic respiratory failure Patient is extubated. Doing well on room air. Nebs every 6 and every 2 when necessary Sinus tachycardia-likely related to withdrawal from alcohol and other substance. - Continue hydration with IV fluid. Continue to monitor Continue telemetry GI Prophylaxis Protonix DVT Prophylaxis -- SCDs Subcutaneous heparin 5000 every 8 Ander Castorena MD Jul 14, 2016 22:21
[2016-07-15 00:12] VITALS: BP 125/85; PULSE 125; RESP 18; TEMP 99.7; O2SAT 96
[2016-07-15 04:00] VITALS: BP 124/71; PULSE 115; RESP 18; TEMP 100.3; O2SAT 95
[2016-07-15] MEDS: CHLORHEXIDINE GLUCONATE 2 % 1 PACK (2 CLOTHS) TOP SCH (04:00)
[2016-07-15] MEDS: CHLORHEXIDINE 0.12% (ORAL KIT) 15 ML CUP MT SCH ×2 (08:00→20:00)
[2016-07-15 08:56] VITALS: O2SAT 95
[2016-07-15] MEDS: THIAMINE HCL 100 MG TAB PO SCH (09:00)
[2016-07-15] MEDS: MULTIVITAMIN TAB PO SCH (09:00)
[2016-07-15] MEDS: POLYETHYLENE GLYCOL 17 GM PKG PO SCH ×2 (09:00→20:10)
[2016-07-15] MEDS: DOCUSATE SODIUM 50 MG/SENNA 8.6 MG TAB PO SCH ×2 (09:00→20:10)
[2016-07-15] MEDS: SODIUM CHLORIDE 0.9% FLUSH 5 ML FLUSH IV FLUSH SCH ×2 (09:00→20:10)
[2016-07-15] MEDS: QUEtiapine FUMARATE 100 MG TAB PO SCH (09:53)
[2016-07-15] MEDS: HEPARIN SODIUM - SQ 10,000 UNITS/ML VIAL SQ SCH ×2 (09:54→15:01)
[2016-07-15] MEDS: D5-1/2 NS + KCL 20 MEQ INJ 1,000 ML IV SCH ×3 (11:44→18:00)
[2016-07-15 12:09] VITALS: BP 118/70; PULSE 104; RESP 20; TEMP 97.5; O2SAT 92
[2016-07-15] MEDS: DIAZEPAM 2 MG TAB PO SCH ×2 (15:01→20:10)
--- NOTE | 2016-07-15 15:13 | HHI.PR ---
Subjective Remarks Patient is much more alert and cooperative today. He inquired about going to rehabilitation for alcoholism after his hospitalization. He is aware of self and place. He reports that he still feel drowsy. Discuss with RN. Objective Vitals Vital Signs Date Time Temp Pulse Resp B/P Pulse Ox O2 Delivery O2 Flow Rate FiO2 07/15/16 12:09 97.5 104 20 118/70 92 07/15/16 10:54 Nasal Cannula 3.50 07/15/16 08:56 95 Nasal Cannula 3.50 07/15/16 04:00 100.3 115 18 124/71 95 07/15/16 00:12 99.7 125 18 125/85 96 07/14/16 21:00 Nasal Cannula 3.00 07/14/16 20:37 99.7 96 18 134/85 97 07/14/16 16:00 97.7 97 18 122/78 100 I/O 07/14/16 07/14/16 07/14/16 07/15/16 07/15/16 07/15/16 07:00 15:00 23:00 07:00 15:00 23:00 Intake Total 0 ml 240 ml 1202 ml Output Total 1000 ml 600 ml 400 ml 600 ml Balance -1000 ml -360 ml 802 ml -600 ml Intake Oral 0 ml 240 ml IV Total 1202 ml Output Urine Total 1000 ml 600 ml 400 ml 600 ml # Voids 2 # Bowel Movements 0 0 Result Diagram: 07/14/16 0652 07/14/16 0652 Objective Remarks GENERAL: Awake and Alert. Somewhat drowsy CARDIOVASCULAR: Normal rate and regular rhythm without murmurs, gallops, or rubs. RESPIRATORY: Good respiratory efforts. Breath sounds equal and clear to auscultation bilaterally. GASTROINTESTINAL: Abdomen soft, non-tender, non-distended. Normal active bowel sounds MUSCULOSKELETAL: Extremities without cyanosis, or edema. NEURO: Alert and oriented to self and place. Moves all extremities. Somewhat drowsy. PSYCH: Calm A/P Assessment and Plan 55-year-old male who was brought in by EMS in respiratory arrest with active bag -valve-mask reportedly secondary to an overdose of K2. 2 other patient arrived with him with the same drug overdose. They have since improved. Patient encephalopathy persisted and apparently went in DTs. Patient required Precedex drip. He is improving Currently maintaining on Haldol, Valium, Ativan. Toxic encephalopathy/DTs Alcohol abuse K2 abuse. UDS positive for benzos, cocaine, cannabinoids. - Encephalopathy much improved. - Head CT unremarkable. -Discontinue Valium. Keep Haldol and Give Ativan when necessary. - Continue supportive care with daily multivitamin, thiamine. - CIWA protocol Acute hypoxic and hypercarbic respiratory failure Patient is extubated. Doing well on room air. Nebs every 6 and every 2 when necessary Sinus tachycardia-likely related to withdrawal from alcohol and other substance. - Continue hydration with IV fluid. Continue to monitor Continue telemetry GI Prophylaxis Protonix DVT Prophylaxis -- SCDs Subcutaneous heparin 5000 every 8 Ander Castorena MD Jul 15, 2016 15:13
[2016-07-15 16:13] VITALS: BP 120/76; PULSE 101; RESP 20; TEMP 98.5; O2SAT 92
[2016-07-15 20:00] VITALS: BP 129/77; PULSE 105; RESP 18; TEMP 99; O2SAT 92
[2016-07-15] MEDS: QUEtiapine FUMARATE 200 MG TAB PO SCH (20:10)
[2016-07-15] MEDS ORDERED: DIAZEPAM 2 MG TAB PO PRN (20:30)
[2016-07-16] VITALS (8 sets, daily range): BP systolic 100–134; BP diastolic 56–76; PULSE 82–100; RESP 16–18; TEMP 97.2–98.2; O2SAT 92–95
[2016-07-16] MEDS: HEPARIN SODIUM - SQ 10,000 UNITS/ML VIAL SQ SCH ×3 (00:31→16:10)
[2016-07-16] MEDS: D5-1/2 NS + KCL 20 MEQ INJ 1,000 ML IV SCH ×4 (02:00→21:39)
[2016-07-16] MEDS: CHLORHEXIDINE GLUCONATE 2 % 1 PACK (2 CLOTHS) TOP SCH (03:54)
[2016-07-16 07:47] LABS: HEMATOCRIT 42.2 % (39.0-51.0); MEAN CELL VOLUME 93.9 FL (80.0-100.0); MEAN CORPUSCULAR HEMOGLOBIN 31.8 PG (27.0-34.0); MEAN CORPUSCULAR HGB CONC 33.9 % (32.0-36.0); PLATELET COUNT 203 TH/MM3 (150-450); RED BLOOD COUNT 4.49 MIL/MM3 (4.50-5.90); RED CELL DISTRIBUTION WIDTH 13.8 % (11.6-17.2); REVIEW FLAG FINAL; WHITE BLOOD COUNT 8.8 TH/MM3 (4.0-11.0)
[2016-07-16 08:02] LABS: BICARBONATE 24.3 MEQ/L (21.0-32.0); POTASSIUM 3.7 MEQ/L (3.5-5.1)
[2016-07-16] MEDS: POLYETHYLENE GLYCOL 17 GM PKG PO SCH ×2 (09:12→21:41)
[2016-07-16] MEDS: THIAMINE HCL 100 MG TAB PO SCH (09:12)
[2016-07-16] MEDS: DOCUSATE SODIUM 50 MG/SENNA 8.6 MG TAB PO SCH ×2 (09:13→21:41)
[2016-07-16] MEDS: MULTIVITAMIN TAB PO SCH (09:13)
[2016-07-16] MEDS: QUEtiapine FUMARATE 100 MG TAB PO SCH (09:13)
[2016-07-16] MEDS: CHLORHEXIDINE 0.12% (ORAL KIT) 15 ML CUP MT SCH ×2 (09:20→20:00)
[2016-07-16] MEDS: SODIUM CHLORIDE 0.9% FLUSH 5 ML FLUSH IV FLUSH SCH ×2 (09:21→21:00)
[2016-07-16] MEDS ORDERED: INFLUENZA VIRUS VACCINE (QUADRIVALENT) 0.5 ML SYR IM ONE (10:00)
--- NOTE | 2016-07-16 12:05 | HHI.PR ---
Subjective Remarks Patient is awake and alert. Still somewhat confused but he reiterated again that he needs rehabilitation for his drug and alcohol problems. Objective Vitals Vital Signs Date Time Temp Pulse Resp B/P Pulse Ox O2 Delivery O2 Flow Rate FiO2 07/16/16 10:14 94 Nasal Cannula 3.50 07/16/16 09:25 Nasal Cannula 3.00 07/16/16 08:00 98.2 88 16 107/76 94 07/16/16 04:00 97.5 93 18 110/63 92 07/16/16 00:00 98.2 100 18 104/56 95 07/15/16 21:50 Nasal Cannula 3.50 07/15/16 20:10 Nasal Cannula 3.00 07/15/16 20:00 99.0 105 18 129/77 92 07/15/16 16:13 98.5 101 20 120/76 92 07/15/16 12:09 97.5 104 20 118/70 92 I/O 07/15/16 07/15/16 07/15/16 07/16/16 07/16/16 07/16/16 07:00 15:00 23:00 07:00 15:00 23:00 Intake Total 1924 ml 821 ml 1288 ml Output Total 600 ml 700 ml 400 ml Balance -600 ml 1224 ml 821 ml 888 ml Intake Oral 840 ml 120 ml 360 ml IV Total 1084 ml 701 ml 928 ml Output Urine Total 600 ml 700 ml 400 ml # Voids 3 4 # Bowel Movements 0 0 0 0 Result Diagram: 07/16/16 0621 07/16/16626 Objective Remarks GENERAL: Awake and Alert. Somewhat drowsy CARDIOVASCULAR: Normal rate and regular rhythm without murmurs, gallops, or rubs. RESPIRATORY: Good respiratory efforts. Breath sounds equal and clear to auscultation bilaterally. GASTROINTESTINAL: Abdomen soft, non-tender, non-distended. Normal active bowel sounds MUSCULOSKELETAL: Extremities without cyanosis, or edema. NEURO: Oriented to self and place. Moves all extremities. Somewhat drowsy. At times confused. PSYCH: Calm A/P Assessment and Plan 55-year-old male who was brought in by EMS in respiratory arrest with active bag -valve-mask reportedly secondary to an overdose of K2. 2 other patient arrived with him with the same drug overdose. They have since improved. Patient encephalopathy persisted and apparently went in DTs. Patient required Precedex drip. He is improving Currently maintaining on Haldol, Valium, Ativan. Toxic encephalopathy/DTs Alcohol abuse K2 abuse. UDS positive for benzos, cocaine, cannabinoids. - Encephalopathy improving - Head CT unremarkable. -Discontinue Valium. Keep Haldol and Give Ativan when necessary. - Continue supportive care with daily multivitamin, thiamine. - CIOR protocol - DW RN to get him up and start sitting on the chair. Acute hypoxic and hypercarbic respiratory failure Patient is extubated. Doing well on room air. Nebs every 6 and every 2 when necessary Sinus tachycardia-likely related to withdrawal from alcohol and other substance. - Continue hydration with IV fluid. Continue to monitor Continue telemetry GI Prophylaxis Protonix DVT Prophylaxis -- SCDs Subcutaneous heparin 5000 every 8 Discharge Planning Will likely need rehab. CM following. Ander Castorena MD Jul 16, 2016 12:05
[2016-07-16] MEDS: QUEtiapine FUMARATE 200 MG TAB PO SCH (21:42)
[2016-07-17] VITALS (7 sets, daily range): BP systolic 94–115; BP diastolic 58–70; PULSE 82–93; RESP 17–20; TEMP 97.2–98.6; O2SAT 93–97
[2016-07-17] MEDS: HEPARIN SODIUM - SQ 10,000 UNITS/ML VIAL SQ SCH ×3 (02:12→16:01)
[2016-07-17] MEDS: CHLORHEXIDINE GLUCONATE 2 % 1 PACK (2 CLOTHS) TOP SCH (03:12)
[2016-07-17] MEDS: CHLORHEXIDINE 0.12% (ORAL KIT) 15 ML CUP MT SCH ×2 (08:00→20:00)
[2016-07-17] MEDS: POLYETHYLENE GLYCOL 17 GM PKG PO SCH ×2 (08:17→20:56)
[2016-07-17] MEDS: QUEtiapine FUMARATE 100 MG TAB PO SCH (08:18)
[2016-07-17] MEDS: THIAMINE HCL 100 MG TAB PO SCH (08:18)
[2016-07-17] MEDS: DOCUSATE SODIUM 50 MG/SENNA 8.6 MG TAB PO SCH ×2 (08:18→20:56)
[2016-07-17] MEDS: SODIUM CHLORIDE 0.9% FLUSH 5 ML FLUSH IV FLUSH SCH ×2 (08:18→20:56)
[2016-07-17] MEDS: MULTIVITAMIN TAB PO SCH (08:18)
[2016-07-17] MEDS: D5-1/2 NS + KCL 20 MEQ INJ 1,000 ML IV SCH ×2 (08:19→16:01)
[2016-07-17] MEDS ORDERED: KLON2TAB PO (11:06)
[2016-07-17] MEDS ORDERED: THERTAB15 PO (11:07)
--- NOTE | 2016-07-17 11:07 | HHI.DS ---
Discharge Summary Admission Date Jul 09, 2016 at 18:15 Discharge Date: Jul 17, 2016 Admitting Diagnosis Overdose (1) Toxic encephalopathy ICD Code: G92 (2) Alcohol dependence ICD Code: F10.20 (3) Polysubstance overdose ICD Code: T50.901A (4) Bipolar disorder ICD Code: F31.9 (5) Tobacco abuse ICD Code: Z72.0 Procedures Intubation/extubation Brief History - From Admission This is a 55-year-old male who was found unresponsive after reportedly smoking K2. EMS brought the patient in with a GCS of 3, with active bag valve mask support his respirations. There is visible signs of emesis and probable aspiration at the scene. Patient was emergently intubated in the emergency department. Nothing else is known about the patient, and he is unable to tell us any past medical history given his current clinical status. Critical care medicine was consulted to evaluate and manage his altered mental status and presumed toxic encephalopathy, drug overdose. CBC/BMP: 07/16/16 0621 07/16/16 0627 Significant Findings Laboratory Tests Test 07/16/16 07/16/16 06:21 06:27 Red Blood Count 4.49 MIL/MM3 (4.50-5.90) Estimat Glomerular Filtration 86 ML/MIN (>89) Rate Random Glucose 127 MG/DL (74-106) Imaging Last Impressions Chest X-Ray 07/10/16 0600 Signed Impressions: Service Date/Time: Sunday, July 10, 2016 02:25 - CONCLUSION: Lines and tubes. Clear lungs. Fabrice Bernabe Jr., MD Head CT 07/10/16 0000 Signed Impressions: Service Date/Time: Sunday, July 10, 2016 15:19 - CONCLUSION: 1. No acute intracranial abnormalities. Pansinus mucosal thickening. Sal Scales MD PE at Discharge GENERAL: Awake, alert and oriented CARDIOVASCULAR: Normal rate and regular rhythm without murmurs, gallops, or rubs. RESPIRATORY: Good respiratory efforts. Breath sounds equal and clear to auscultation bilaterally. GASTROINTESTINAL: Abdomen soft, non-tender, non-distended. Normal active bowel sounds MUSCULOSKELETAL: Extremities without cyanosis, or edema. NEURO: Oriented to self place and time and situation. PSYCH: Calm Pt update on day of discharge Patient reports that he is feeling much better today. He understand that he needs physical rehabilitation. He also inquired about rehabilitation for his alcohol and drug addiction. We had a long discussion about the detrimental effects of drugs on his health. Case management advised to help him identify a rehabilitation facility. Hospital Course 55-year-old male who was brought in by EMS in respiratory arrest with active bag -valve-mask reportedly secondary to an overdose of K2. 2 other patient arrived with him with the same drug overdose. They have since improved. Patient encephalopathy persisted and apparently went in DTs. Patient required Precedex drip. The patient eventually improved on Haldol, volume, and Ativan. These were weaned off. However he remains physically decondition. His discharge to rehabilitation. The patient will certainly benefit from alcohol and drug rehabilitation program. Evaluation and treatment course detailed below: Toxic encephalopathy/DTs Alcohol abuse K2 abuse. UDS positive for benzos, cocaine, cannabinoids. - Encephalopathy resolved - Head CT unremarkable. -Valium, Ativan, and Haldol were weaned off. Patient was treated per [facility] protocol. Acute hypoxic and hypercarbic respiratory failure Patient was intubated on arrival. He was later extubated and weaned down to nasal cannula. I suspect some COPD. He can continue breathing treatments as needed. The patient was extensively counseled on the need for alcohol and drug rehabilitation program. Pt Condition on Discharge: Good Discharge Disposition: Discharge to SNF Discharge Time: > 30 minutes Discharge Instructions DIET: Follow Instructions for: As Tolerated, No Restrictions Speech Therapy-Diet Recommends: Regular Activities you can perform: See Additionl Instruction Other Activity Instructions: Per PT instructions. Use assistance. Follow up Referrals: Psychiatry Adult - 2 Weeks New Medications: Multiple Vitamin (Thera/Beta-Carotene) 1 Tab Tab 1 TAB PO DAILY #30 TAB Changed Medications: Clonazepam (Klonopin) 2 Mg Tab 2 MG PO DAILY #20 Ref 0 TAB (Changed from: 4 MG; 60) Continued Medications: Bupropion HCl ER 12 HR (Wellbutrin SR 12 HR) 150 Mg Tab 150 MG PO Q12HR Control Depression Ref 0 TAB Gabapentin (Neurontin) 800 Mg Tab 800 MG PO BID #90 Ref 0 TAB Quetiapine (Seroquel) 400 Mg Tab 400 MG PO HS #30 Ref 0 TAB Quetiapine (Seroquel) 100 Mg Tab 100 MG PO DAILY #60 Ref 0 TAB Discontinued Medications: Amphetamine-Dextroamphetamine (Adderall) 30 Mg Tab 90 MG PO DAILY Avoid late evening doses. Space doses at least 4 to 6 hours if more than once/day dosing. Hyperactivity Control #60 Ref 0 TAB Ander Castorena MD Jul 17, 2016 11:07
[2016-07-17] MEDS: QUEtiapine FUMARATE 200 MG TAB PO SCH (20:58)
[2016-07-18] VITALS: BP 98/53; PULSE 89; RESP 18; TEMP 98.2; O2SAT 92
[2016-07-18] MEDS: HEPARIN SODIUM - SQ 10,000 UNITS/ML VIAL SQ SCH ×4 (01:09→23:18)
[2016-07-18 04:00] VITALS: BP 92/53; PULSE 82; RESP 18; TEMP 97.1; O2SAT 92
[2016-07-18] MEDS: CHLORHEXIDINE GLUCONATE 2 % 1 PACK (2 CLOTHS) TOP SCH (04:00)
[2016-07-18] MEDS: D5-1/2 NS + KCL 20 MEQ INJ 1,000 ML IV SCH ×3 (04:45→16:32)
[2016-07-18 08:00] VITALS: BP 127/74; PULSE 89; RESP 20; TEMP 97.9; O2SAT 95
[2016-07-18] MEDS: CHLORHEXIDINE 0.12% (ORAL KIT) 15 ML CUP MT SCH ×2 (08:00→20:00)
[2016-07-18] MEDS: DOCUSATE SODIUM 50 MG/SENNA 8.6 MG TAB PO SCH ×2 (09:08→21:18)
[2016-07-18] MEDS: SODIUM CHLORIDE 0.9% FLUSH 5 ML FLUSH IV FLUSH SCH ×2 (09:09→21:19)
[2016-07-18] MEDS: THIAMINE HCL 100 MG TAB PO SCH (09:09)
[2016-07-18] MEDS: MULTIVITAMIN TAB PO SCH (09:09)
[2016-07-18] MEDS: QUEtiapine FUMARATE 100 MG TAB PO SCH (09:09)
[2016-07-18] MEDS: POLYETHYLENE GLYCOL 17 GM PKG PO SCH ×2 (09:09→21:00)
--- NOTE | 2016-07-18 11:02 | HHI.PR ---
Subjective Remarks resting comfortably with no distress. denies pain, sob. no fever. Objective Vitals Vital Signs Date Time Temp Pulse Resp B/P Pulse Ox O2 Delivery O2 Flow Rate FiO2 07/18/16 08:00 97.9 89 20 127/74 95 07/18/16 08:00 Nasal Cannula 3.00 07/18/16 04:00 97.1 82 18 92/53 92 07/18/16 00:00 98.2 89 18 98/53 92 07/17/16 20:00 98.4 93 18 114/70 94 07/17/16 20:00 Nasal Cannula 3.00 07/17/16 16:00 97.3 86 20 115/60 97 07/17/16 12:00 97.5 90 20 94/59 94 I/O 07/17/16 07/17/16 07/17/16 07/18/16 07/18/16 07/18/16 07:00 15:00 23:00 07:00 15:00 23:00 Intake Total 1753 ml 720 ml 240 ml 2046 ml Output Total 900 ml 400 ml 400 ml 725 ml Balance 853 ml 320 ml -160 ml 1321 ml Intake Oral 100 ml 720 ml 240 ml 240 ml IV Total 1653 ml 1806 ml Output Urine Total 900 ml 400 ml 400 ml 725 ml # Voids 1 # Bowel Movements 0 1 0 0 Result Diagram: 07/16/16 0621 07/16/16 0627 Imaging Last Impressions Chest X-Ray 07/10/16 0600 Signed Impressions: Service Date/Time: Sunday, July 10, 2016 02:25 - CONCLUSION: Lines and tubes. Clear lungs. Fabrice Bernabe Jr., MD Head CT 07/10/16 0000 Signed Impressions: Service Date/Time: Sunday, July 10, 2016 15:19 - CONCLUSION: 1. No acute intracranial abnormalities. Pansinus mucosal thickening. Sal Scales MD Objective Remarks GENERAL: This is a well-nourished, well-developed patient, in no apparent distress. CARDIOVASCULAR: Regular rate and regular rhythm without murmurs, gallops, or rubs. RESPIRATORY: Clear to auscultation. Breath sounds equal bilaterally. No wheezes , rales, or rhonchi. GASTROINTESTINAL: Abdomen soft, non-tender, nondistended. Normal, active bowel sounds MUSCULOSKELETAL: Extremities without clubbing, cyanosis, or edema. NEURO: awake and alert.oriented to person, place and partly to time. Procedures Intubation/extubation Medications and IVs Current Medications Propofol (Diprivan 1000 Mg/100ml Inj) 100 ml @ As Directed STK-MED ONCE .ROUTE Last administered on 07/09/16 18:38; Start 07/09/16 at 17:58; Stop 07/09/16 at 17:59; Status DC Magnesium Oxide 800 mg 800 mg UNSCH PRN PO For Magnesium 1.2 - 1.6 mg/dL; Start 07/09/16 at 18:30; Stop 07/14/16 at 10:15; Status DC Magnesium Sulfate 4 gm/Sodium Chloride 100 ml @ 50 mls/hr UNSCH PRN IV For Magnesium 0.9 - 1.1 mg/dL; Start 07/09/16 at 18:30; Stop 07/14/16 at 10:15; Status DC Magnesium Sulfate 2 gm/Sodium Chloride 100 ml @ 50 mls/hr UNSCH PRN IV For Magnesium 1.2 - 1.6 mg/dL; Start 07/09/16 at 18:30; Stop 07/14/16 at 10:15; Status DC Potassium Chloride 100 ml @ 50 mls/hr Q2H PRN IV For Potassium 2.8 - 3.2 mEq/ L Last administered on 07/13/16 12:50; Start 07/09/16 at 18:30; Stop 07/14/16 at 10:15; Status DC Potassium Chloride 100 ml @ 50 mls/hr Q2H PRN IV For Potassium 3.3 - 3.5 mEq/L ; Start 07/09/16 at 18:30; Stop 07/14/16 at 10:15; Status DC Potassium Chloride 100 ml @ 50 mls/hr Q2H PRN IV For Potassium 2.8 - 3.2 mEq/L ; Start 07/09/16 at 18:30; Stop 07/14/16 at 10:15; Status DC Potassium Chloride (KCl 40 Meq Premix Inj) 100 ml @ 25 mls/hr UNSCH PRN IV For Potassium 3.3 - 3.5 mEq/L; Start 07/09/16 at 18:30; Stop 07/14/16 at 10:15; Status DC Potassium Chloride (KCl 40 Meq/30 ml Liq) 40 meq UNSCH PRN PO/TUBE For Potassium 3.3 - 3.5 mEq/L; Start 07/09/16 at 18:30; Stop 07/14/16 at 10:15; Status DC Potassium Chloride (KCl 40 Meq/30 ml Liq) 40 meq UNSCH PRN PO/TUBE SEE LABEL COMMENTS; Start 07/09/16 at 18:30; Stop 07/14/16 at 10:15; Status DC Potassium Phosphate (K-Phos) 2,000 mg Q4H PRN PO For Phosphorus < 2.5 mg/dL; Start 07/09/16 at 18:30; Stop 07/14/16 at 10:15; Status DC Potassium Phosphate 2000 mg 2,000 mg UNSCH PRN PO/TUBE SEE LABEL COMMENTS; Start 07/09/16 at 18:30; Stop 07/14/16 at 10:15; Status DC Potassium Phosphate 30 mmol/ Sodium Chloride 260 ml @ 42 mls/hr UNSCH PRN IV SEE LABEL COMMENTS; Start 07/09/16 at 18:30; Stop 07/14/16 at 10:15; Status DC Sodium Phosphate/ Sodium Chloride (Sodium Phosphate Inj/NS 250 ml Inj) 250 ml @ 42 mls/hr UNSCH PRN IV For Phosphorus < 2.5 mg/dL; Start 07/09/16 at 18:30; Stop 07/14/16 at 10:15; Status DC Dextrose (D50w (Vial) Inj) 25 ml UNSCH PRN IV PUSH HYPOGLYCEMIA-SEE COMMENTS; Start 07/09/16 at 18:30; Stop 07/11/16 at 13:25; Status DC Insulin Human Regular (NovoLIN R SUPPLEMENTAL SCALE) 1 Q6HR SQ ; Start 07/10/16 at 00:00; Stop 07/11/16 at 13:25; Status DC Albuterol/ Ipratropium (Duoneb Neb) 1 ampule Q6HR NEB INH Last administered on 07/10/16 07:44; Start 07/09/16 at 22:00; Stop 07/10/16 at 16:45; Status DC Albuterol/ Ipratropium 1 ampule 1 ampule Q2HR NEB PRN INH WHEEZING; Start at 18:30 Propofol 100 ml @ 0 mls/hr TITRATE IV Last administered on 07/10/16 07:46; Start 07/09/16 at 18:30; Stop 07/10/16 at 16:45; Status DC Dextrose 1,000 ml @ 30 mls/hr Q24H IV Last administered on 07/10/16 00:04; Start 07/09/16 at 18:21; Stop 07/10/16 at 16:45; Status DC Lactated Ringer's 1,000 ml @ 200 mls/hr Q5H IV Last administered on 07/10/16 13:08; Start 07/09/16 at 18:21; Stop 07/10/16 at 16:46; Status DC Thiamine HCl/ Sodium Chloride (Thiamine Inj/NS Inj) 101 ml @ 101 mls/hr Q24H IV Last administered on 07/11/16 03:53; Start 07/10/16 at 02:00; Stop 07/11/16 at 02:59; Status DC Thiamine HCl 100 mg 100 mg DAILY PO Last administered on 07/18/16 09:09; Start 07/13/16 at 09:00 Multivitamins/ Thiamine HCl/ Folic Acid/Sodium Chloride (Mvi-12 Inj/ Thiamine Inj/ Folvite Inj/1/2 NS 500 ml Inj) 511.2 ml @ 125 mls/hr ONCE ONCE IV Last administered on 07/10/16 00:38; Start 07/09/16 at 21:00; Stop 07/10/16 at 01:05; Status DC Multivitamins (Theragran) 1 tab DAILY PO Last administered on 07/18/16 09:09; Start 07/10/16 at 09:00 IV Flush (NS Flush) 2 ml UNSCH PRN IV FLUSH FLUSH AFTER USING IV ACCESS; Start 07/09/16 at 18:30 IV Flush (NS Flush) 2 ml BID IV FLUSH Last administered on 07/18/16 09:09; Start 07/09/16 at 21:00 Pantoprazole Sodium (Protonix Inj) 40 mg DAILY IV Last administered on 08:46; Start 07/10/16 at 09:00; Stop 07/10/16 at 16:46; Status DC Ondansetron HCl (Zofran Inj) 4 mg Q6HR PRN IV NAUSEA OR VOMITING; Start at 20:00 Senna/Docusate Sodium (Candy-Colace) 2 tab BID PO Last administered on 09:08; Start 07/09/16 at 21:00 Miscellaneous Information 1 Q361D XX ; Start 07/09/16 at 18:30 Chlorhexidine Gluconate (Chlorhexidine 2% Cloth) Taper DAILY@04 TOP Last administered on 07/14/16 04:00; Start 07/10/16 at 04:00; Stop 07/06/17 at 03:59 Chlorhexidine Gluconate (Chlorhexidine 2% Cloth) 3 pack UNSCH PRN TOP HYGIENIC CARE; Start 07/09/16 at 18:30 Chlorhexidine Gluconate (Peridex 0.12% Liq) 15 ml BID@08,20 MT Last administered on 07/17/16 08:00; Start 07/09/16 at 20:00 Polyethylene Glycol 17 gm 17 gm BID PO Last administered on 07/18/16 09:09; Start 07/09/16 at 21:00 Sodium Chloride (NS 1000 ml Inj) 2,000 ml @ 999 mls/hr BOLUS ONCE IV ; Start 07/09/16 at 18:45; Stop 07/09/16 at 20:45; Status DC Heparin Sodium (Porcine) (Heparin Inj) 5,000 units Q8HR SQ Last administered on 07/10/16 00:21; Start 07/09/16 at 22:00; Stop 07/10/16 at 05:11; Status DC Heparin Sodium (Porcine) 5000 units 5,000 units Q8H SQ Last administered on 09:09; Start 07/10/16 at 08:00 Dexmedetomidine HCl (Precedex Inj) 50 ml @ 0 mls/hr TITRATE IV Last administered on 07/10/16 15:06; Start 07/10/16 at 05:15; Stop 07/10/16 at 16:46; Status DC Quetiapine Fumarate 150 mg 150 mg Q8HR PO Last administered on 07/10/16 13:08; Start 07/10/16 at 08:00; Stop 07/10/16 at 16:04; Status DC Dexmedetomidine HCl (Precedex Inj) 50 ml @ 0 mls/hr TITRATE IV ; Start 07/10/16 at 07:30; Stop 07/10/16 at 16:46; Status DC Haloperidol Lactate (Haldol Inj) 5 mg Q4H PRN IV agitation Last administered on 07/10/16 16:46; Start 07/10/16 at 16:15; Stop 07/10/16 at 16:46; Status DC Haloperidol Lactate (Haldol Inj) 5 mg Q15M PRN IV agitation Last administered on 07/14/16 03:06; Start 07/10/16 at 16:45 Oxycodone HCl (Roxicodone) 5 mg Q4H PRN PO pain 1-7 Last administered on 20:55; Start 07/10/16 at 16:30 Hydromorphone HCl (Dilaudid Pf Inj) 0.5 mg Q4H PRN IV PUSH pain 8-10 or not taking po Last administered on 07/13/16 05:33; Start 07/10/16 at 16:30 Flumazenil (Romazicon Inj) 0.2 mg Q1M PRN IV PUSH SEE LABEL COMMENTS; Start 07/10/16 at 17:00; Stop 07/10/16 at 17:19; Status DC Lorazepam (Ativan) 1 mg Q4H PRN PO CIWA 8 - 10; Start 07/10/16 at 17:00 Lorazepam (Ativan Inj) 1 mg Q4H PRN IV PUSH CIWA 8 - 10 Last administered on 09:46; Start 07/10/16 at 17:00 Lorazepam (Ativan) 2 mg Q2H PRN PO CIWA 11-14; Start 07/10/16 at 17:00 Lorazepam (Ativan Inj) 2 mg Q2H PRN IV PUSH CIWA 11-14 Last administered on 07/11 14:28; Start 07/10/16 at 17:00 Lorazepam (Ativan Inj) 2 mg Q1H PRN IV PUSH CIWA 15-20 Last administered on 07/13 06:33; Start 07/10/16 at 17:00 Lorazepam (Ativan Inj) 2 mg Q15M PRN IV PUSH CIWA > 20 Last administered on 07/11 15:28; Start 07/10/16 at 17:00; Stop 07/11/16 at 15:51; Status DC Midazolam HCl (Versed Inj) 2 mg NOW IV Last administered on 07/10/16 22:42; Start 07/10/16 at 21:15; Stop 07/10/16 at 23:29; Status DC Acetaminophen (Ofirmev Inj) DOSE PER MD NOW IV Last administered on 07/11/16 05 :34; Start 07/11/16 at 04:15; Stop 07/11/16 at 05:20; Status DC Quetiapine Fumarate (SEROquel) 400 mg HS PO ; Start 07/11/16 at 21:00; Stop at 21:00; Status DC Quetiapine Fumarate (SEROquel) 100 mg DAILY PO Last administered on 07/18/16 09:09; Start 07/12/16 at 09:00 Quetiapine Fumarate (SEROquel) 400 mg HS PO Last administered on 07/11/16 15:47 ; Start 07/11/16 at 16:00; Stop 07/11/16 at 16:01; Status DC Quetiapine Fumarate (SEROquel) 400 mg HS PO Last administered on 07/17/16 20: 58; Start 07/12/16 at 21:00 Midazolam HCl (Versed Inj) 10 mg STK-MED ONCE .ROUTE Last administered on 15:47; Start 07/11/16 at 15:33; Stop 07/11/16 at 15:34; Status DC Diazepam (Valium) 10 mg Q8HR PO Last administered on 07/13/16 05:11; Start 07/11 at 22:00; Stop 07/13/16 at 12:25; Status DC Midazolam HCl (Versed Inj) 10 mg NOW ONCE IVP ; Start 07/11/16 at 16:00; Stop at 16:01; Status DC Lorazepam 4 mg 4 mg Q15M PRN IV PUSH CIWA > 20 Last administered on 07/13/16 01 :04; Start 07/11/16 at 15:51 Dexmedetomidine HCl 50 ml @ 0 mls/hr TITRATE IV ; Start 07/11/16 at 16:00; Stop 07/11/16 at 16:14; Status DC Dexmedetomidine HCl 1000 mcg/ Sodium Chloride 250 ml @ 0 mls/hr TITRATE IV Last administered on 07/11/16 21:16; Start 07/11/16 at 16:15; Stop 07/13/16 at 12: 24; Status DC Potassium Chloride/Dextrose/ Sod Cl (D5-1/2 NS + KCl 20 Meq Inj) 1,000 ml @ 125 mls/hr Q8H IV Last administered on 07/18/16 10:00; Start 07/12/16 at 18:00 Diazepam (Valium) 5 mg Q8HR PO Last administered on 07/14/16 20:59; Start at 14:00; Stop 07/14/16 at 22:17; Status DC Diazepam (Valium) 2 mg Q8HR PO Last administered on 07/15/16 20:10; Start at 06:00; Stop 07/15/16 at 20:26; Status DC Influenza Virus Vaccine (Flu (Quadrivalent) Vaccine Inj) 0.5 ml ONCE ONCE IM ; Start 07/16/16 at 10:00; Stop 07/16/16 at 10:01; Status DC Diazepam (Valium) 2 mg Q8HR PRN PO AGITATION/WITHDRAWAL; Start 07/15/16 at 20:30 A/P Assessment and Plan A/P Toxic encephalopathy/DTs Alcohol abuse K2 abuse. UDS positive for benzos, cocaine, cannabinoids. - Encephalopathy improving - Head CT unremarkable. - Keep Haldol and Give Ativan when necessary. - Continue supportive care with daily multivitamin, thiamine. Acute hypoxic and hypercarbic respiratory failure-resolved -s/p intubation/ extubation Nebs every 6 and every 2 when necessary Sinus tachycardia-likely related to withdrawal from alcohol and other substance. - Continue to monitor Continue telemetry GI Prophylaxis Protonix DVT Prophylaxis -- SCDs Subcutaneous heparin 5000 every 8 Discharge Planning not a safe discharge at this time. continue with PT. d/w case management. Michelle Reyes MD Jul 18, 2016 11:02
[2016-07-18 12:00] VITALS: BP 110/57; PULSE 98; RESP 18; TEMP 98; O2SAT 97
[2016-07-18 16:00] VITALS: BP 132/78; PULSE 96; RESP 18; TEMP 97; O2SAT 94
[2016-07-18 20:00] VITALS: BP 115/80; PULSE 103; RESP 18; TEMP 98.4; O2SAT 93
[2016-07-18] MEDS: QUEtiapine FUMARATE 200 MG TAB PO SCH (21:19)
[2016-07-19] VITALS (7 sets, daily range): BP systolic 107–121; BP diastolic 61–71; PULSE 92–98; RESP 17–18; TEMP 97.8–98.7; O2SAT 91–96
[2016-07-19] MEDS: D5-1/2 NS + KCL 20 MEQ INJ 1,000 ML IV SCH ×3 (01:38→17:45)
[2016-07-19] MEDS: CHLORHEXIDINE GLUCONATE 2 % 1 PACK (2 CLOTHS) TOP SCH (04:00)
--- NOTE | 2016-07-19 07:47 | HHI.PR ---
Subjective Remarks overall doing fine. no new complaints. Objective Vitals Vital Signs Date Time Temp Pulse Resp B/P Pulse Ox O2 Delivery O2 Flow Rate FiO2 07/19/16 04:00 97.8 95 18 114/61 94 07/19/16 00:00 98.1 98 18 110/64 96 07/18/16 20:00 Nasal Cannula 3.00 07/18/16 20:00 98.4 103 18 115/80 93 07/18/16 16:00 97.0 96 18 132/78 94 07/18/16 12:00 98.0 98 18 110/57 97 07/18/16 08:00 97.9 89 20 127/74 95 07/18/16 08:00 Nasal Cannula 3.00 I/O 07/18/16 07/18/16 07/18/16 07/19/16 07/19/16 07/19/16 07:00 15:00 23:00 07:00 15:00 23:00 Intake Total 2046 ml 2211 ml 1360 ml 1000 ml Output Total 725 ml 1700 ml 600 ml Balance 1321 ml 511 ml 760 ml 1000 ml Intake Oral 240 ml 960 ml 360 ml IV Total 1806 ml 1251 ml 1000 ml 1000 ml Output Urine Total 725 ml 1700 ml 600 ml # Bowel Movements 0 1 1 Result Diagram: 07/16/16 0621 07/16/16 0627 Imaging Last Impressions Chest X-Ray 07/10/16 0600 Signed Impressions: Service Date/Time: Sunday, July 10, 2016 02:25 - CONCLUSION: Lines and tubes. Clear lungs. Fabrice Bernabe Jr., MD Head CT 07/10/16 0000 Signed Impressions: Service Date/Time: Sunday, July 10, 2016 15:19 - CONCLUSION: 1. No acute intracranial abnormalities. Pansinus mucosal thickening. Sal Scales MD Objective Remarks GENERAL: This is a well-nourished, well-developed patient, in no apparent distress. CARDIOVASCULAR: Regular rate and regular rhythm without murmurs, gallops, or rubs. RESPIRATORY: Clear to auscultation. Breath sounds equal bilaterally. No wheezes , rales, or rhonchi. GASTROINTESTINAL: Abdomen soft, non-tender, nondistended. Normal, active bowel sounds MUSCULOSKELETAL: Extremities without clubbing, cyanosis, or edema. NEURO: awake and alert.oriented to person, place and partly to time. Procedures Intubation/extubation Medications and IVs Current Medications Propofol (Diprivan 1000 Mg/100ml Inj) 100 ml @ As Directed STK-MED ONCE .ROUTE Last administered on 07/09/16 18:38; Start 07/09/16 at 17:58; Stop 07/09/16 at 17:59; Status DC Magnesium Oxide 800 mg 800 mg UNSCH PRN PO For Magnesium 1.2 - 1.6 mg/dL; Start 07/09/16 at 18:30; Stop 07/14/16 at 10:15; Status DC Magnesium Sulfate 4 gm/Sodium Chloride 100 ml @ 50 mls/hr UNSCH PRN IV For Magnesium 0.9 - 1.1 mg/dL; Start 07/09/16 at 18:30; Stop 07/14/16 at 10:15; Status DC Magnesium Sulfate 2 gm/Sodium Chloride 100 ml @ 50 mls/hr UNSCH PRN IV For Magnesium 1.2 - 1.6 mg/dL; Start 07/09/16 at 18:30; Stop 07/14/16 at 10:15; Status DC Potassium Chloride 100 ml @ 50 mls/hr Q2H PRN IV For Potassium 2.8 - 3.2 mEq/ L Last administered on 07/13/16 12:50; Start 07/09/16 at 18:30; Stop 07/14/16 at 10:15; Status DC Potassium Chloride 100 ml @ 50 mls/hr Q2H PRN IV For Potassium 3.3 - 3.5 mEq/L ; Start 07/09/16 at 18:30; Stop 07/14/16 at 10:15; Status DC Potassium Chloride 100 ml @ 50 mls/hr Q2H PRN IV For Potassium 2.8 - 3.2 mEq/L ; Start 07/09/16 at 18:30; Stop 07/14/16 at 10:15; Status DC Potassium Chloride (KCl 40 Meq Premix Inj) 100 ml @ 25 mls/hr UNSCH PRN IV For Potassium 3.3 - 3.5 mEq/L; Start 07/09/16 at 18:30; Stop 07/14/16 at 10:15; Status DC Potassium Chloride (KCl 40 Meq/30 ml Liq) 40 meq UNSCH PRN PO/TUBE For Potassium 3.3 - 3.5 mEq/L; Start 07/09/16 at 18:30; Stop 07/14/16 at 10:15; Status DC Potassium Chloride (KCl 40 Meq/30 ml Liq) 40 meq UNSCH PRN PO/TUBE SEE LABEL COMMENTS; Start 07/09/16 at 18:30; Stop 07/14/16 at 10:15; Status DC Potassium Phosphate (K-Phos) 2,000 mg Q4H PRN PO For Phosphorus < 2.5 mg/dL; Start 07/09/16 at 18:30; Stop 07/14/16 at 10:15; Status DC Potassium Phosphate 2000 mg 2,000 mg UNSCH PRN PO/TUBE SEE LABEL COMMENTS; Start 07/09/16 at 18:30; Stop 07/14/16 at 10:15; Status DC Potassium Phosphate 30 mmol/ Sodium Chloride 260 ml @ 42 mls/hr UNSCH PRN IV SEE LABEL COMMENTS; Start 07/09/16 at 18:30; Stop 07/14/16 at 10:15; Status DC Sodium Phosphate/ Sodium Chloride (Sodium Phosphate Inj/NS 250 ml Inj) 250 ml @ 42 mls/hr UNSCH PRN IV For Phosphorus < 2.5 mg/dL; Start 07/09/16 at 18:30; Stop 07/14/16 at 10:15; Status DC Dextrose (D50w (Vial) Inj) 25 ml UNSCH PRN IV PUSH HYPOGLYCEMIA-SEE COMMENTS; Start 07/09/16 at 18:30; Stop 07/11/16 at 13:25; Status DC Insulin Human Regular (NovoLIN R SUPPLEMENTAL SCALE) 1 Q6HR SQ ; Start 07/10/16 at 00:00; Stop 07/11/16 at 13:25; Status DC Albuterol/ Ipratropium (Duoneb Neb) 1 ampule Q6HR NEB INH Last administered on 07/10/16 07:44; Start 07/09/16 at 22:00; Stop 07/10/16 at 16:45; Status DC Albuterol/ Ipratropium 1 ampule 1 ampule Q2HR NEB PRN INH WHEEZING; Start at 18:30 Propofol 100 ml @ 0 mls/hr TITRATE IV Last administered on 07/10/16 07:46; Start 07/09/16 at 18:30; Stop 07/10/16 at 16:45; Status DC Dextrose 1,000 ml @ 30 mls/hr Q24H IV Last administered on 07/10/16 00:04; Start 07/09/16 at 18:21; Stop 07/10/16 at 16:45; Status DC Lactated Ringer's 1,000 ml @ 200 mls/hr Q5H IV Last administered on 07/10/16 13:08; Start 07/09/16 at 18:21; Stop 07/10/16 at 16:46; Status DC Thiamine HCl/ Sodium Chloride (Thiamine Inj/NS Inj) 101 ml @ 101 mls/hr Q24H IV Last administered on 07/11/16 03:53; Start 07/10/16 at 02:00; Stop 07/11/16 at 02:59; Status DC Thiamine HCl 100 mg 100 mg DAILY PO Last administered on 07/18/16 09:09; Start 07/13/16 at 09:00 Multivitamins/ Thiamine HCl/ Folic Acid/Sodium Chloride (Mvi-12 Inj/ Thiamine Inj/ Folvite Inj/1/2 NS 500 ml Inj) 511.2 ml @ 125 mls/hr ONCE ONCE IV Last administered on 07/10/16 00:38; Start 07/09/16 at 21:00; Stop 07/10/16 at 01:05; Status DC Multivitamins (Theragran) 1 tab DAILY PO Last administered on 07/18/16 09:09; Start 07/10/16 at 09:00 IV Flush (NS Flush) 2 ml UNSCH PRN IV FLUSH FLUSH AFTER USING IV ACCESS; Start 07/09/16 at 18:30 IV Flush (NS Flush) 2 ml BID IV FLUSH Last administered on 07/18/16 21:19; Start 07/09/16 at 21:00 Pantoprazole Sodium (Protonix Inj) 40 mg DAILY IV Last administered on 08:46; Start 07/10/16 at 09:00; Stop 07/10/16 at 16:46; Status DC Ondansetron HCl (Zofran Inj) 4 mg Q6HR PRN IV NAUSEA OR VOMITING; Start at 20:00 Senna/Docusate Sodium (Candy-Colace) 2 tab BID PO Last administered on 21:18; Start 07/09/16 at 21:00 Miscellaneous Information 1 Q361D XX ; Start 07/09/16 at 18:30 Chlorhexidine Gluconate (Chlorhexidine 2% Cloth) Taper DAILY@04 TOP Last administered on 07/14/16 04:00; Start 07/10/16 at 04:00; Stop 07/06/17 at 03:59 Chlorhexidine Gluconate (Chlorhexidine 2% Cloth) 3 pack UNSCH PRN TOP HYGIENIC CARE; Start 07/09/16 at 18:30 Chlorhexidine Gluconate (Peridex 0.12% Liq) 15 ml BID@08,20 MT Last administered on 07/17/16 08:00; Start 07/09/16 at 20:00 Polyethylene Glycol 17 gm 17 gm BID PO Last administered on 07/18/16 09:09; Start 07/09/16 at 21:00 Sodium Chloride (NS 1000 ml Inj) 2,000 ml @ 999 mls/hr BOLUS ONCE IV ; Start 07/09/16 at 18:45; Stop 07/09/16 at 20:45; Status DC Heparin Sodium (Porcine) (Heparin Inj) 5,000 units Q8HR SQ Last administered on 07/10/16 00:21; Start 07/09/16 at 22:00; Stop 07/10/16 at 05:11; Status DC Heparin Sodium (Porcine) 5000 units 5,000 units Q8H SQ Last administered on 23:18; Start 07/10/16 at 08:00 Dexmedetomidine HCl (Precedex Inj) 50 ml @ 0 mls/hr TITRATE IV Last administered on 07/10/16 15:06; Start 07/10/16 at 05:15; Stop 07/10/16 at 16:46; Status DC Quetiapine Fumarate 150 mg 150 mg Q8HR PO Last administered on 07/10/16 13:08; Start 07/10/16 at 08:00; Stop 07/10/16 at 16:04; Status DC Dexmedetomidine HCl (Precedex Inj) 50 ml @ 0 mls/hr TITRATE IV ; Start 07/10/16 at 07:30; Stop 07/10/16 at 16:46; Status DC Haloperidol Lactate (Haldol Inj) 5 mg Q4H PRN IV agitation Last administered on 07/10/16 16:46; Start 07/10/16 at 16:15; Stop 07/10/16 at 16:46; Status DC Haloperidol Lactate (Haldol Inj) 5 mg Q15M PRN IV agitation Last administered on 07/14/16 03:06; Start 07/10/16 at 16:45 Oxycodone HCl (Roxicodone) 5 mg Q4H PRN PO pain 1-7 Last administered on 05:03; Start 07/10/16 at 16:30 Hydromorphone HCl (Dilaudid Pf Inj) 0.5 mg Q4H PRN IV PUSH pain 8-10 or not taking po Last administered on 07/13/16 05:33; Start 07/10/16 at 16:30 Flumazenil (Romazicon Inj) 0.2 mg Q1M PRN IV PUSH SEE LABEL COMMENTS; Start 07/10/16 at 17:00; Stop 07/10/16 at 17:19; Status DC Lorazepam (Ativan) 1 mg Q4H PRN PO CIWA 8 - 10; Start 07/10/16 at 17:00 Lorazepam (Ativan Inj) 1 mg Q4H PRN IV PUSH CIWA 8 - 10 Last administered on 09:46; Start 07/10/16 at 17:00 Lorazepam (Ativan) 2 mg Q2H PRN PO CIWA 11-14; Start 07/10/16 at 17:00 Lorazepam (Ativan Inj) 2 mg Q2H PRN IV PUSH CIWA 11-14 Last administered on 07/11 14:28; Start 07/10/16 at 17:00 Lorazepam (Ativan Inj) 2 mg Q1H PRN IV PUSH CIWA 15-20 Last administered on 07/13 06:33; Start 07/10/16 at 17:00 Lorazepam (Ativan Inj) 2 mg Q15M PRN IV PUSH CIWA > 20 Last administered on 07/11 15:28; Start 07/10/16 at 17:00; Stop 07/11/16 at 15:51; Status DC Midazolam HCl (Versed Inj) 2 mg NOW IV Last administered on 07/10/16 22:42; Start 07/10/16 at 21:15; Stop 07/10/16 at 23:29; Status DC Acetaminophen (Ofirmev Inj) DOSE PER MD NOW IV Last administered on 07/11/16 05 :34; Start 07/11/16 at 04:15; Stop 07/11/16 at 05:20; Status DC Quetiapine Fumarate (SEROquel) 400 mg HS PO ; Start 07/11/16 at 21:00; Stop at 21:00; Status DC Quetiapine Fumarate (SEROquel) 100 mg DAILY PO Last administered on 07/18/16 09:09; Start 07/12/16 at 09:00 Quetiapine Fumarate (SEROquel) 400 mg HS PO Last administered on 07/11/16 15:47 ; Start 07/11/16 at 16:00; Stop 07/11/16 at 16:01; Status DC Quetiapine Fumarate (SEROquel) 400 mg HS PO Last administered on 07/18/16 21: 19; Start 07/12/16 at 21:00 Midazolam HCl (Versed Inj) 10 mg STK-MED ONCE .ROUTE Last administered on 15:47; Start 07/11/16 at 15:33; Stop 07/11/16 at 15:34; Status DC Diazepam (Valium) 10 mg Q8HR PO Last administered on 07/13/16 05:11; Start 07/11 at 22:00; Stop 07/13/16 at 12:25; Status DC Midazolam HCl (Versed Inj) 10 mg NOW ONCE IVP ; Start 07/11/16 at 16:00; Stop at 16:01; Status DC Lorazepam 4 mg 4 mg Q15M PRN IV PUSH CIWA > 20 Last administered on 07/13/16 01 :04; Start 07/11/16 at 15:51 Dexmedetomidine HCl 50 ml @ 0 mls/hr TITRATE IV ; Start 07/11/16 at 16:00; Stop 07/11/16 at 16:14; Status DC Dexmedetomidine HCl 1000 mcg/ Sodium Chloride 250 ml @ 0 mls/hr TITRATE IV Last administered on 07/11/16 21:16; Start 07/11/16 at 16:15; Stop 07/13/16 at 12: 24; Status DC Potassium Chloride/Dextrose/ Sod Cl (D5-1/2 NS + KCl 20 Meq Inj) 1,000 ml @ 125 mls/hr Q8H IV Last administered on 07/19/16 01:38; Start 07/12/16 at 18:00 Diazepam (Valium) 5 mg Q8HR PO Last administered on 07/14/16 20:59; Start at 14:00; Stop 07/14/16 at 22:17; Status DC Diazepam (Valium) 2 mg Q8HR PO Last administered on 07/15/16 20:10; Start at 06:00; Stop 07/15/16 at 20:26; Status DC Influenza Virus Vaccine (Flu (Quadrivalent) Vaccine Inj) 0.5 ml ONCE ONCE IM ; Start 07/16/16 at 10:00; Stop 07/16/16 at 10:01; Status DC Diazepam (Valium) 2 mg Q8HR PRN PO AGITATION/WITHDRAWAL; Start 07/15/16 at 20:30 A/P Assessment and Plan A/P Toxic encephalopathy/DTs Alcohol abuse K2 abuse. UDS positive for benzos, cocaine, cannabinoids. - Encephalopathy improving - Head CT unremarkable. - Keep Haldol and Give Ativan when necessary. - Continue supportive care with daily multivitamin, thiamine. Acute hypoxic and hypercarbic respiratory failure-resolved -s/p intubation/ extubation Nebs every 6 and every 2 when necessary Sinus tachycardia-likely related to withdrawal from alcohol and other substance. - Continue to monitor Continue telemetry GI Prophylaxis Protonix DVT Prophylaxis -- SCDs Subcutaneous heparin 5000 every 8 Discharge Planning not a safe discharge at this time. continue with PT. previously d/w case management. Michelle Reyes MD Jul 19, 2016 07:47
[2016-07-19] MEDS: CHLORHEXIDINE 0.12% (ORAL KIT) 15 ML CUP MT SCH (07:54)
[2016-07-19] MEDS: MULTIVITAMIN TAB PO SCH (07:56)
[2016-07-19] MEDS: QUEtiapine FUMARATE 100 MG TAB PO SCH (07:56)
[2016-07-19] MEDS: DOCUSATE SODIUM 50 MG/SENNA 8.6 MG TAB PO SCH (07:56)
[2016-07-19] MEDS: POLYETHYLENE GLYCOL 17 GM PKG PO SCH (07:56)
[2016-07-19] MEDS: HEPARIN SODIUM - SQ 10,000 UNITS/ML VIAL SQ SCH ×2 (07:56→15:48)
[2016-07-19] MEDS: THIAMINE HCL 100 MG TAB PO SCH (07:57)
[2016-07-19] MEDS: SODIUM CHLORIDE 0.9% FLUSH 5 ML FLUSH IV FLUSH SCH (08:34)
== END 2016-07-19 21:00 | disposition left against medical advice (07) | DRG 917 ==
LOC: NEPE 17:53 → NEDA 18:15 → N03B 22:22 → N04B 07-13 18:13
PROVIDERS: ADMIT Internal Medicine; ATTEND Internal Medicine
PROC: 0BH17EZ Insertion of Endotracheal Airway into Trachea, Via Natural or Artificial Opening (ICD-10-PCS; principal; 2016-07-09)
PROC: 5A1945Z Respiratory Ventilation, 24-96 Consecutive Hours (ICD-10-PCS; 2016-07-09)
DX: T43.621A Poisoning by amphetamines, accidental (unintentional), initial encounter (principal); G92 Toxic encephalopathy; J69.0 Pneumonitis due to inhalation of food and vomit; J96.01 Acute respiratory failure with hypoxia; J96.02 Acute respiratory failure with hypercapnia; F10.231 Alcohol dependence with withdrawal delirium; E44.1 Mild protein-calorie malnutrition; E87.2 Acidosis; F31.9 Bipolar disorder, unspecified; Z72.0 Tobacco use; R40.2430 Glasgow coma scale score 3-8, unspecified time; Y92.9 Unspecified place or not applicable; E86.1 Hypovolemia; I10 Essential (primary) hypertension; Y90.2 Blood alcohol level of 40-59 mg/100 ml; F90.9 Attention-deficit hyperactivity disorder, unspecified type; Z78.1 Physical restraint status
CPT/HCPCS: 31500; 36600; 70450; 71010; 80048; 80053; 80307; 80320; 80329; 80346; 80353; 82140; 82550; 82805; 82948; 83605; 83789; 85025; 85027; 85610; 85730; 87040; 87641; 93005; 94002; 94003; 94640; 94664; 94667; 94668; C9113; C9399; G0480; J0131; J1170; J1630; J1644; J2060; J2250; J3411; J3480; J7050; J7120

== ENCOUNTER 2016-07-29 20:03 | Emergency (ER) | payer OTHER ==
[~2016-07-29] VITALS: Ht 177.8 cm; Wt 80.0 kg
[~2016-07-29 20:03] MED LIST changes: -ADDE30TA PO; +THERTAB15 PO
[2016-07-29 20:17] VITALS: BP 111/78; PULSE 95; RESP 20; TEMP 98.1; O2SAT 92
--- NOTE | 2016-07-29 20:39 | PD ---
HPI Chief Complaint: Alcohol/Drug Intoxication Time Seen by Provider: 20:31 Travel History International Travel<30 days: No Contact w/Intl Traveler<30days: No Traveled to known affect area: No History of Present Illness HPI 55-year-old white male presents to emergency department by EMS requesting evaluation so he can get some R&R. The patient admits to drinking heavily today. Review the medical record indicates a history of polysubstance abuse and alcohol abuse. 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 He states that he can check his record and that he has had this issue in the past. He denies any suicidal ideation. He denies any toxic ingestion. He states that he needs a place to stay. Patient is unable to give a complete history due to his degree of intoxication. PFSH Past Medical History Hx Anticoagulant Therapy: No ADD: Yes ADHD: Yes Arthritis: No Asthma: No Blood Disorders: No Bipolar Disorder: Yes Anxiety: Yes Depression: Yes Heart Rhythm Problems: No Cancer: No Cardiovascular Problems: No High Cholesterol: No Chemotherapy: No Chest Pain: No Congestive Heart Failure: No COPD: No Cerebrovascular Accident: No Diabetes: No Diminished Hearing: No Endocrine: No Gastrointestinal Disorders: No (has not ate well since in hospital) GERD: No Genitourinary: Yes (nocturia) Headaches: Yes Hepatitis: Yes (HEP C) Hiatal Hernia: No Hypertension: No Implanted Vascular Access Dvce: No Insomnia: Yes Musculoskeletal: No Neurologic: Yes Psychiatric: Yes Reproductive: No Respiratory: No Immunizations Current: Yes Migraines: Yes Radiation Therapy: No Seizures: No Sleep Apnea: No Thyroid Disease: No Ulcer: No Past Surgical History Abdominal Surgery: Yes AICD: No Arteriovenous Shunt: No Cardiac Surgery: No Ear Surgery: No Endocrine Surgery: No Eye Surgery: No Genitourinary Surgery: No Gynecologic Surgery: No Hysterectomy: No Insulin Pump: No Joint Replacement: No Neurologic Surgery: Yes Oral Surgery: No Pacemaker: No Thoracic Surgery: No Other Surgery: Yes (ABDOMINAL HERNIA REPAIR 10/2014) Social History Alcohol Use: Yes (EVERYDAY, ABOUT 2 LITERS) Tobacco Use: Yes Substance Use: Yes (binu) Allergies-Medications (Allergen,Severity, Reaction): Coded Allergies: *MDRO Multi-Drug Resistant Organism (Verified Adverse Reaction, Unknown, ) 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 Voice is very slurred and appears intoxicated. Patient is disheveled. He has urine-soaked pants. SKIN: Warm and dry. HEAD: Normocephalic and atraumatic. EYES: No scleral icterus. No injection or drainage. ENT: No nasal drainage noted. Mucous membranes pink. Airway patent. NECK: Supple, trachea midline. Moves head freely without obvious discomfort. CARDIOVASCULAR: Regular rate and rhythm without murmurs, gallops, or rubs. RESPIRATORY: Breath sounds equal bilaterally. No accessory muscle use. GASTROINTESTINAL: Abdomen soft, non-tender, nondistended. EXTREMITIES: No cyanosis or edema. BACK: Nontender without obvious deformity. No CVA tenderness. NEURO: Patient is alert and oriented. no sensorimotor deficits. Nonfocal. Slurred speech. PSYCH: No delusions. No auditory or visual hallucinations. Data Data Last Documented VS Vital Signs Date Time Temp Pulse Resp B/P Pulse Ox O2 Delivery O2 Flow Rate FiO2 07/29/16 20:17 98.1 95 20 111/78 92 Room Air Orders Drug Screen, Random Urine (07/29/16 20:30) Alcohol (Ethanol) (07/29/16 20:30) Psych Screen (07/29/16 20:30) Labs Laboratory Tests Test 07/29/16 07/29/16 20:42 21:18 Urine Opiates Screen NEG Urine Barbiturates Screen NEG Urine Amphetamines Screen NEG Urine Benzodiazepines Screen POS Urine Cocaine Screen NEG Urine Cannabinoids Screen NEG Ethyl Alcohol Level 285 MG/DL MDM Medical Decision Making Medical Screen Exam Complete: Yes Emergency Medical Condition: Yes Medical Record Reviewed: Yes Interpretation(s) Laboratory Tests Test 07/29/16 07/29/16 20:42 21:18 Urine Opiates Screen NEG Urine Barbiturates Screen NEG Urine Amphetamines Screen NEG Urine Benzodiazepines Screen POS Urine Cocaine Screen NEG Urine Cannabinoids Screen NEG Ethyl Alcohol Level 285 MG/DL Differential Diagnosis MDM: High Differential diagnoses: Schizophrenia, schizoaffective disorder, bipolar, anxiety, depression, adjustment reaction, mood disorder NOS, ODD, depressive disorder NOS, dementia, dementia with agitation, psychosis NOS, substance induced mood disorder, intermittent explosive disorder, Asperger syndrome, infection,electrolyte abnormality, malingering. Narrative Course Mental health screening discussed with the patient. Psychiatric screen ordered. We will obtain a alcohol and tox screen. I suspect this is a malingering action on the patient to obtain a domicile. The patient will be seen by the psych screener. The patient is been medically cleared. This is alcohol intoxication Diagnosis Primary Impression: Alcohol intoxication Qualified Code: F10.129 - Alcohol intoxication, with unspecified complication Condition: Stable Sal Carson Jul 29, 2016 20:39
[2016-07-29 21:56] LABS: AMPHETAMINE, URINE NEG (NEG); BARBITURATES, URINE NEG (NEG); COCAINE, URINE NEG (NEG)
[2016-07-30 02:00] VITALS: BP 117/59; PULSE 113; RESP 19; TEMP 97.6; O2SAT 95
[2016-07-30 06:28] VITALS: BP 103/52; PULSE 113; RESP 18; O2SAT 98
[2016-07-30 10:26] VITALS: BP 127/62; PULSE 114; RESP 18; O2SAT 95
[2016-07-30] MEDS ORDERED: IBUPROFEN 400 MG TAB PO ONE (12:15)
[2016-07-30 15:17] LABS: AUTOMATED NEUTROPHIL # 3.9 TH/MM3 (1.8-7.7); BASOPHIL # 0.1 TH/MM3 (0-0.2); EOSINOPHIL # 0.1 TH/MM3 (0-0.4); HEMATOCRIT 45.4 % (39.0-51.0); HEMO FLAGS DIFF FINAL; LYMPH % 23.6 % (9.0-44.0); LYMPHOCYTE # 1.7 TH/MM3 (1.0-4.8); MEAN CORPUSCULAR HEMOGLOBIN 31.9 PG (27.0-34.0); MONO % 17.8 % (0.0-8.0); NEUT % 55.6 % (16.0-70.0); PLATELET COUNT 325 TH/MM3 (150-450); RED BLOOD COUNT 4.83 MIL/MM3 (4.50-5.90); RED CELL DISTRIBUTION WIDTH 13.6 % (11.6-17.2); WHITE BLOOD COUNT 7.1 TH/MM3 (4.0-11.0)
[2016-07-30] MEDS: LORazepam 1 MG TAB PO PRN ×2 (15:20→21:56)
[2016-07-30 15:33] LABS: ALT (GPT) 38 U/L (12-78); ANION GAP 7 MEQ/L (5-15); AST (GOT) 24 U/L (15-37); BICARBONATE 28.8 MEQ/L (21.0-32.0); BLOOD UREA NITROGEN 9 MG/DL (7-18); CHLORIDE 101 MEQ/L (98-107); GLOMERULAR FILTRATION RATE 78 ML/MIN (>89); POTASSIUM 4.3 MEQ/L (3.5-5.1); SODIUM (NA) 137 MEQ/L (136-145)
[2016-07-30 15:34] LABS: ALKALINE PHOSPHATASE 65 U/L (45-117); TOTAL BILIRUBIN ADULT 0.2 MG/DL (0.2-1.0)
--- NOTE | 2016-07-30 15:54 | PD ---
History of Present Illness Chief Complaint: Alcohol/Drug Intoxication Time Seen by Provider: 11:05 Travel History International Travel<30 Days: No Contact w/Intl Traveler<30days: No Known affected area: No Legal Status Legal Status: [facility] History of Present Illness: History of Present Illness HPI 55-year-old white male presents to emergency department by EMS under a [place] initiated by police dept. As per police documentation the patient was found intoxicated in the streets. He presents with BAL 285. Positive toxicology for benzodiazepines. The patient admits to drinking heavily today but reports he has not been drinking every day. Upon review of the EMR this patient has had at least 20 visits to ED for alcohol related complaints in the last year. He has had 4 admissions to the [facility] [place] [facility] for substance induced mood disorder with last one being in 2015. He was hospitalized after a serious drug overdose on Jul 09, 2016after he smoked K2 and was found unresponsive. Patient is seen in J pod. Awake, alert, oriented. Speech is clear. he is now clinically sober. He is not exhibiting any signs of withdrawal. He reports that he is angry and that " I feel homicidal and suicidal. The police keep harassing me and I can get a gun and shoot several of them. He then begins to cry as he reports that he has been feeling increasingly depressed since he has been off his medications x 2 months. At this time he has no insight into his alcohol and substance abuse and the negative impact on his emotional and physical health. He minimizes his recent serious and unintentional overdose. PFSH Past Medical History Hx Anticoagulant Therapy: No ADD: Yes ADHD: Yes Arthritis: No Asthma: No Blood Disorders: No Bipolar Disorder: Yes Anxiety: Yes Depression: Yes Heart Rhythm Problems: No Cancer: No Cardiovascular Problems: No High Cholesterol: No Chemotherapy: No Chest Pain: No Congestive Heart Failure: No COPD: No Cerebrovascular Accident: No Diabetes: No Diminished Hearing: No Endocrine: No Gastrointestinal Disorders: No (has not ate well since in hospital) GERD: No Genitourinary: Yes (nocturia) Headaches: Yes Hepatitis: Yes (HEP C) Hiatal Hernia: No Hypertension: No Implanted Vascular Access Dvce: No Insomnia: Yes Musculoskeletal: No Neurologic: Yes Psychiatric: Yes Reproductive: No Respiratory: No Immunizations Current: Yes Migraines: Yes Radiation Therapy: No Seizures: No Sleep Apnea: No Thyroid Disease: No Ulcer: No Past Surgical History Abdominal Surgery: Yes AICD: No Arteriovenous Shunt: No Cardiac Surgery: No Ear Surgery: No Endocrine Surgery: No Eye Surgery: No Genitourinary Surgery: No Gynecologic Surgery: No Hysterectomy: No Insulin Pump: No Joint Replacement: No Neurologic Surgery: Yes Oral Surgery: No Pacemaker: No Thoracic Surgery: No Other Surgery: Yes (ABDOMINAL HERNIA REPAIR 10/2014) Psychiatric History Psychiatric History Hx Psychiatric Treatment: Has a long history of psych hospitalzations in [place], last admission to [facility] [place]/20/16- 04/30/16. Most are alcohol related / substance induced mood diisorder History of Inpatient Treatment: Yes Social History Patient is homeless. He has adrian and believes he is still . has not had contact with his in 5 years. He completed high school. Has 3 children. Hx Alcohol Use: Yes (EVERYDAY, ABOUT 2 LITERS) Hx Tobacco Use: Yes Hx Substance Use: Yes (binu) Substance Use Type: Alcohol, Marijuana, Nicotine/Cigarettes Other Substances Used: USES DAILY Hx of Substance Use Treatment: Yes ([facility]) Family Psychiatric History Unknown. Allergies-Medications (Allergen,Severity, Reaction): Coded Allergies: *MDRO Multi-Drug Resistant Organism (Verified Adverse Reaction, Unknown, ) MRSA (elbow & knee wound) - 04/18/16 Reported Meds & Prescriptions Reported Meds & Active Scripts Active Thera/Beta-Carotene (Multiple Vitamin) 1 Tab Tab 1 Tab PO DAILY Klonopin (Clonazepam) 2 Mg Tab 2 Mg PO DAILY Reported Seroquel (Quetiapine Fumarate) 100 Mg Tab 100 Mg PO DAILY Seroquel (Quetiapine Fumarate) 400 Mg Tab 400 Mg PO HS Wellbutrin SR 12 HR (Bupropion HCl) 150 Mg Tab 150 Mg PO Q12HR Neurontin (Gabapentin) 800 Mg Tab 800 Mg PO BID Review of Systems Constitutional: DENIES: Diaphoretic episodes, Fatigue, Fever, Weight gain, Weight loss, Chills, Dizziness, Change in appetite, Night Sweats Endocrine: DENIES: Heat/cold intolerance, Polydipsia, Polyuria, Polyphagia Eyes: DENIES: Blurred vision, Diplopia, Eye inflammation, Eye pain, Vision loss , Photosensitivity, Double Vision Ears, nose, mouth, throat: DENIES: Tinnitus, Hearing loss, Vertigo, Nasal discharge, Oral lesions, Throat pain, Hoarseness, Ear Pain, Running Nose, Epistaxis, Sinus Pain, Toothache, Odynophagia Respiratory: DENIES: Apneas, Cough, Snoring, Wheezing, Hemoptysis, Sputum production, Shortness of breath Gastrointestinal: COMPLAINS OF: Diarrhea (in context of alcohol withdrawal), Nausea Genitourinary: DENIES: Sexual dysfunction, Urinary frequency, Urinary incontinence, Urgency, Hematuria, Dysuria, Nocturia, Penile Discharge, Testicular Pain, Testicular Swelling Musculoskeletal: DENIES: Joint pain, Muscle aches, Stiffness, Joint Swelling, Back pain, Neck pain Integumentary: DENIES: Abnormal pigmentation, Nail changes, Pruritus, Rash Hematologic/lymphatic: DENIES: Bruising, Lymphadenopathy Immunologic/allergic: DENIES: Eczema, Urticaria Neurologic: DENIES: Abnormal gait, Headache, Localized weakness, Paresthesias, Seizures, Speech Problems, Tremor, Poor Balance Psychiatric: COMPLAINS OF: Depression, Suicidal Ideation, Homicidal Ideation Exam Alert: Yes [place]: Person (ox4) Mood: Calm Affect: Euthymic Speech: Clear, Logical Eye Contact: Normal Memory Intact: Comment (not impaired) Hallucinations: Other (negative) Delusions: No Delusion Type: Other (suspicious of police) Suicidal: Ideation (positive) Homicidal: Ideation (positive towards police) Insight/Judgement poor. poor MDM Medical Decision Making Medical Record Reviewed: Yes Assessment/Plan 55 year old male with history of substance use disorder, alcohol dependence adn substance induced mood disorder . He has had multiple visits to ed usually in context of alcohol or drug intoxication. Most recently discharged after a serious unintentional drug overdose. At this time there exist enough concern for his lack of insight into his dependency and I will consult with Dr. Lobo to recommend that patient be placed under a physician certificate. He will be placed on SMA list for further treatment of his substance abuse.. Orders Drug Screen, Random Urine (07/29/16 20:30) Alcohol (Ethanol) (07/29/16 20:30) Psych Screen (07/29/16 20:30) Diet Regular Basic (07/30/16 Breakfast) Diet Regular Basic (07/30/16 Lunch) Ibuprofen (Motrin) (07/30/16 12:15) Complete Blood Count With Diff (07/30/16 12:13) Comprehensive Metabolic Panel (07/30/16 12:13) Lorazepam (Ativan) (07/30/16 15:15) Diet Regular Basic (07/30/16 Dinner) Results Vital Signs Date Time Temp Pulse Resp B/P Pulse Ox O2 Delivery O2 Flow Rate FiO2 07/30/16 10:26 114 18 127/62 95 07/30/16 06:28 113 18 103/52 98 Room Air 07/30/16 02:00 97.6 113 19 117/59 95 Room Air 07/29/16 20:17 98.1 95 20 111/78 92 Room Air 07/29/16 20:17 20 Laboratory Tests Test 07/29/16 07/29/16 07/30/16 20:42 21:18 15:04 Urine Opiates Screen NEG Urine Barbiturates Screen NEG Urine Amphetamines Screen NEG Urine Benzodiazepines Screen POS Urine Cocaine Screen NEG Urine Cannabinoids Screen NEG Ethyl Alcohol Level 285 White Blood Count 7.1 Red Blood Count 4.83 Hemoglobin 15.4 Hematocrit 45.4 Mean Corpuscular Volume 94.0 Mean Corpuscular Hemoglobin 31.9 Mean Corpuscular Hemoglobin 34.0 Concent Red Cell Distribution Width 13.6 Platelet Count 325 Mean Platelet Volume 7.5 Neutrophils (%) (Auto) 55.6 Lymphocytes (%) (Auto) 23.6 Monocytes (%) (Auto) 17.8 Eosinophils (%) (Auto) 2.0 Basophils (%) (Auto) 1.0 Neutrophils # (Auto) 3.9 Lymphocytes # (Auto) 1.7 Monocytes # (Auto) 1.3 Eosinophils # (Auto) 0.1 Basophils # (Auto) 0.1 CBC Comment DIFF FINAL Differential Comment Sodium Level 137 Potassium Level 4.3 Chloride Level 101 Carbon Dioxide Level 28.8 Anion Gap 7 Blood Urea Nitrogen 9 Creatinine 0.99 Estimat Glomerular Filtration 78 Rate Random Glucose 96 Calcium Level 8.5 Total Bilirubin 0.2 Aspartate Amino Transf 24 (AST/SGOT) Alanine Aminotransferase 38 (ALT/SGPT) Alkaline Phosphatase 65 Total Protein 7.7 Albumin 3.0 Diagnosis Primary Impression: Alcohol dependence Additional Impression: Alcohol intoxication Condition: Stable Problem Qualifiers Primary Impression: Alcohol dependence Qualified Code: F10.220 - Alcohol dependence with uncomplicated intoxication Additional Impression: Alcohol intoxication Qualified Code: F10.129 - Alcohol intoxication, with unspecified complication Anisa Bonds Jul 30, 2016 15:54
[2016-07-30 17:36] VITALS: BP_SYST 120; BP_SYST 150; BP_DIAS 71; PULSE 95; RESP 18; O2SAT 98
[2016-07-30 22:18] VITALS: BP 132/66; PULSE 79; RESP 18; O2SAT 98
[2016-07-31] MEDS ORDERED: IBUPROFEN 600 MG TAB PO ONE (01:15)
[2016-07-31 02:00] VITALS: BP 128/72; PULSE 88; RESP 18; O2SAT 96
[2016-07-31 06:49] VITALS: BP 160/68; PULSE 90; RESP 17; O2SAT 100
[2016-07-31] MEDS ORDERED: IBUPROFEN 800 MG TAB PO ONE ×2 (08:30→17:15)
[2016-07-31 12:03] VITALS: BP 127/82; PULSE 91
[2016-07-31 17:06] VITALS: BP 130/81; PULSE 83; RESP 18; O2SAT 96
[2016-07-31 17:52] VITALS: BP 130/81; PULSE 83; RESP 18; O2SAT 96
== END 2016-07-31 19:07 ==
LOC: NEPB 20:03 → NEPJ 07-31 19:07
DX: F10.220 Alcohol dependence with intoxication, uncomplicated (principal); Y90.8 Blood alcohol level of 240 mg/100 ml or more; F90.9 Attention-deficit hyperactivity disorder, unspecified type; F31.9 Bipolar disorder, unspecified; F41.8 Other specified anxiety disorders; B19.20 Unspecified viral hepatitis C without hepatic coma; F12.10 Cannabis abuse, uncomplicated; Z72.0 Tobacco use
CPT/HCPCS: 80053; 80307; 80320; 85025; 99284

== ENCOUNTER 2016-09-08 20:26 | Emergency (ER) | payer OTHER ==
[~2016-09-08] VITALS: Ht 180.3 cm; Wt 75.0 kg
[2016-09-08 20:37] VITALS: BP 135/75; PULSE 108; RESP 17; TEMP 98.4; O2SAT 95
--- NOTE | 2016-09-08 21:02 | PD ---
HPI Chief Complaint: Psychiatric Symptoms Time Seen by Provider: 20:50 Travel History International Travel<30 days: No Contact w/Intl Traveler<30days: No Traveled to known affect area: No History of Present Illness HPI 55 her old male presents under Valdes act initiated by the police department. The valdes act says that the patient is intoxicated and he is off of his medications and he wants to kill himself by running in front of a bus. He also apparently has stated that he is "homicidal." The patient admits to suicidal or homicidal feelings. He says that symptoms started today. He says that he is hungry. History is somewhat limited because the patient is intoxicated. He admits to drinking vodka, 4-loco, smoking k2 today. He says that he is hungry. The nurse says that she receive report from the police that the patient was sleeping in the yard and he woke up when the sprinkler system activated. The patient does not recall falling but he does have some abrasions to his forehead. He has no other complaints. PFSH Past Medical History Hx Anticoagulant Therapy: No ADD: Yes ADHD: Yes Arthritis: No Asthma: No Blood Disorders: No Bipolar Disorder: Yes Anxiety: Yes Depression: Yes Heart Rhythm Problems: No Cancer: No Cardiovascular Problems: No High Cholesterol: No Chemotherapy: No Chest Pain: No Congestive Heart Failure: No COPD: No Cerebrovascular Accident: No Diabetes: No Diminished Hearing: No Endocrine: No Gastrointestinal Disorders: No (has not ate well since in hospital) GERD: No Genitourinary: Yes (nocturia) Headaches: Yes Hepatitis: Yes (HEP C) Hiatal Hernia: No Hypertension: No Implanted Vascular Access Dvce: No Insomnia: Yes Musculoskeletal: No Neurologic: Yes Psychiatric: Yes Reproductive: No Respiratory: No Immunizations Current: Yes Migraines: Yes Radiation Therapy: No Seizures: No Sleep Apnea: No Thyroid Disease: No Ulcer: No Past Surgical History Abdominal Surgery: Yes AICD: No Arteriovenous Shunt: No Cardiac Surgery: No Ear Surgery: No Endocrine Surgery: No Eye Surgery: No Genitourinary Surgery: No Gynecologic Surgery: No Hysterectomy: No Insulin Pump: No Joint Replacement: No Neurologic Surgery: Yes Oral Surgery: No Pacemaker: No Thoracic Surgery: No Other Surgery: Yes (ABDOMINAL HERNIA REPAIR 10/2014) Social History Alcohol Use: Yes (EVERYDAY, ABOUT 2 LITERS) Tobacco Use: Yes Substance Use: Yes (binu) Allergies-Medications (Allergen,Severity, Reaction): Coded Allergies: *MDRO Multi-Drug Resistant Organism (Verified Adverse Reaction, Unknown, ) MRSA (elbow & knee wound) - 04/18/16 Reported Meds & Prescriptions Reported Meds & Active Scripts Active Thera/Beta-Carotene (Multiple Vitamin) 1 Tab Tab 1 Tab PO DAILY Klonopin (Clonazepam) 2 Mg Tab 2 Mg PO DAILY Reported Seroquel (Quetiapine Fumarate) 100 Mg Tab 100 Mg PO DAILY Seroquel (Quetiapine Fumarate) 400 Mg Tab 400 Mg PO HS Wellbutrin SR 12 HR (Bupropion HCl) 150 Mg Tab 150 Mg PO Q12HR Neurontin (Gabapentin) 800 Mg Tab 800 Mg PO BID Review of Systems Except as stated in HPI: all other systems reviewed are Neg Physical Exam Narrative GENERAL: Disheveled appearing male in no acute distress. SKIN: Warm and dry. Abrasion to the forehead. HEAD: Skin as noted above.. Normocephalic. EYES: Pupils equal and round. No scleral icterus. No injection or drainage. ENT: No nasal bleeding or discharge. Mucous membranes pink and moist. NECK: Trachea midline. No JVD. CARDIOVASCULAR: Regular rate and rhythm. No murmur appreciated. RESPIRATORY: No accessory muscle use. Clear to auscultation. Breath sounds equal bilaterally. GASTROINTESTINAL: Abdomen soft, non-tender, nondistended. Hepatic and splenic margins not palpable. MUSCULOSKELETAL: No obvious deformities. No clubbing. No cyanosis. No edema. NEUROLOGICAL: Awake and alert. No obvious cranial nerve deficits. Motor grossly within normal limits. Slurred, delayed speech consistent with intoxication. PSYCHIATRIC: Insight and judgment are limited because of intoxication. Data Data Last Documented VS Vital Signs Date Time Temp Pulse Resp B/P Pulse Ox O2 Delivery O2 Flow Rate FiO2 09/08/16 20:47 17 09/08/16 20:37 98.4 108 135/75 95 Orders Complete Blood Count With Diff (09/08/16 20:46) Comprehensive Metabolic Panel (09/08/16 20:46) Psych Screen (09/08/16 20:46) Drug Screen, Random Urine (09/08/16 20:46) Alcohol (Ethanol) (09/08/16 20:46) Salicylates (Aspirin) (09/08/16 20:46) Tylenol (Acetaminophen) (09/08/16 20:46) Ct Brain W/O Iv Contrast(Rout) (09/08/16 ) Labs Laboratory Tests Test 09/08/16 20:45 White Blood Count 10.1 TH/MM3 Red Blood Count 5.30 MIL/MM3 Hemoglobin 16.4 GM/DL Hematocrit 49.3 % Mean Corpuscular Volume 93.0 FL Mean Corpuscular Hemoglobin 30.9 PG Mean Corpuscular Hemoglobin 33.3 % Concent Red Cell Distribution Width 15.2 % Platelet Count 281 TH/MM3 Mean Platelet Volume 8.0 FL Neutrophils (%) (Auto) 63.7 % Lymphocytes (%) (Auto) 28.1 % Monocytes (%) (Auto) 6.7 % Eosinophils (%) (Auto) 0.6 % Basophils (%) (Auto) 0.9 % Neutrophils # (Auto) 6.4 TH/MM3 Lymphocytes # (Auto) 2.8 TH/MM3 Monocytes # (Auto) 0.7 TH/MM3 Eosinophils # (Auto) 0.1 TH/MM3 Basophils # (Auto) 0.1 TH/MM3 CBC Comment DIFF FINAL Differential Comment Sodium Level 144 MEQ/L Potassium Level 4.1 MEQ/L Chloride Level 107 MEQ/L Carbon Dioxide Level 25.8 MEQ/L Anion Gap 11 MEQ/L Blood Urea Nitrogen 7 MG/DL Creatinine 0.97 MG/DL Estimat Glomerular Filtration 80 ML/MIN Rate Random Glucose 135 MG/DL Calcium Level 8.5 MG/DL Total Bilirubin 0.2 MG/DL Aspartate Amino Transf 105 U/L (AST/SGOT) Alanine Aminotransferase 87 U/L (ALT/SGPT) Alkaline Phosphatase 67 U/L Total Protein 8.7 GM/DL Albumin 3.6 GM/DL Salicylates Level 2.7 MG/DL Acetaminophen Level LESS THAN 2.0 MCG/ML Ethyl Alcohol Level 326 MG/DL [facility] Medical Decision Making Medical Screen Exam Complete: Yes Emergency Medical Condition: Yes Medical Record Reviewed: Yes Differential Diagnosis Polysubstance abuse, malingering, homelessness, acute psychosis, substance induced mood disorder, major depressive disorder Narrative Course 55 year old male presents under Valdes act for evaluation of intoxication, suicidal or homicidal ideation. He has been seen here multiple times in the past for similar symptoms. He is quite intoxicated and he does have an abrasion on the forehead. Therefore CT of the brain has been ordered because his history is poor. Basic lab work has been ordered. Mental health screening discussed with the patient. Psychiatric screen ordered. Medically cleared for psychiatric disposition. Diagnosis Primary Impression: Alcohol intoxication Qualified Code: F10.120 - Alcohol intoxication, uncomplicated Additional Impression: Suicidal ideation Andrew Kiser Sep 08, 2016 21:02
[2016-09-08 21:12] LABS: AUTOMATED NEUTROPHIL # 6.4 TH/MM3 (1.8-7.7); BASOPHIL # 0.1 TH/MM3 (0-0.2); BASOPHIL % 0.9 % (0.0-2.0); EOSINOPHIL # 0.1 TH/MM3 (0-0.4); EOSINOPHIL % 0.6 % (0.0-4.0); HEMATOCRIT 49.3 % (39.0-51.0); HEMO FLAGS DIFF FINAL; LYMPH % 28.1 % (9.0-44.0); LYMPHOCYTE # 2.8 TH/MM3 (1.0-4.8); MEAN CORPUSCULAR HEMOGLOBIN 30.9 PG (27.0-34.0); MEAN CORPUSCULAR HGB CONC 33.3 % (32.0-36.0); MONO % 6.7 % (0.0-8.0); NEUT % 63.7 % (16.0-70.0); PLATELET COUNT 281 TH/MM3 (150-450); RED CELL DISTRIBUTION WIDTH 15.2 % (11.6-17.2); WHITE BLOOD COUNT 10.1 TH/MM3 (4.0-11.0)
[2016-09-08 21:17] LABS: ANION GAP 11 MEQ/L (5-15); AST (GOT) 105 U/L (15-37); BICARBONATE 25.8 MEQ/L (21.0-32.0); BLOOD UREA NITROGEN 7 MG/DL (7-18); CHLORIDE 107 MEQ/L (98-107); GLOMERULAR FILTRATION RATE 80 ML/MIN (>89); POTASSIUM 4.1 MEQ/L (3.5-5.1); SODIUM (NA) 144 MEQ/L (136-145)
--- NOTE | 2016-09-08 21:31 | RADRPT ---
EXAM DATE/TIME: 09/08/2016 21:17 [facility] COMPARISON: CT BRAIN W/O CONTRAST, July 10, 2016, 15:19. INDICATIONS : Altered mental status. ETOH. RADIATION DOSE: 49.89 CTDIvol (mGy) MEDICAL HISTORY : Hepatitis C. Head trauma. Substance abuse. SURGICAL HISTORY : Hernia repair. ENCOUNTER: Initial ACUITY: 1 day PAIN SCALE: 0/10 LOCATION: cranial TECHNIQUE: Multiple contiguous axial images were obtained of the head. Using automated exposure control and adj ustment of the mA and/or kV according to patient size, radiation dose was kept as low as reasonably a chievable to obtain optimal diagnostic quality images. FINDINGS: CEREBRUM: The ventricles are normal for age. No evidence of midline shift, mass lesion, hemorrhage or acute in farction. No extra-axial fluid collections are seen. POSTERIOR FOSSA: The cerebellum and brainstem are intact. The 4th ventricle is midline. The cerebellopontine angle i s unremarkable. EXTRACRANIAL: The visualized portion of the orbits is intact. SKULL: The calvaria is intact. No evidence of skull fracture. CONCLUSION: Normal examination. Parveen Man MD on September 08, 2016 at 21:29 Board Certified Radiologist. This report was verified electronically.
[2016-09-08 21:51] LABS: ACETAMINOPHEN LESS THAN 2.0 MCG/ML (10.0-30.0); ALKALINE PHOSPHATASE 67 U/L (45-117); ALT (GPT) 87 U/L (12-78); TOTAL BILIRUBIN ADULT 0.2 MG/DL (0.2-1.0)
[2016-09-09 01:08] LABS: AMPHETAMINE, URINE NEG (NEG); BARBITURATES, URINE NEG (NEG); COCAINE, URINE NEG (NEG)
[2016-09-09 04:00] VITALS: BP 117/78; PULSE 99; RESP 16; O2SAT 96
[2016-09-09 07:18] VITALS: BP 125/63; PULSE 94; RESP 16; TEMP 98.4; O2SAT 95
== END 2016-09-09 10:31 | disposition short-term general hospital (02) ==
LOC: NEPA 20:26
DX: F10.94 Alcohol use, unspecified with alcohol-induced mood disorder (principal); R45.851 Suicidal ideations; S00.81XA Abrasion of other part of head, initial encounter; Z72.0 Tobacco use; F12.10 Cannabis abuse, uncomplicated; X58.XXXA Exposure to other specified factors, initial encounter
CPT/HCPCS: 70450; 80053; 80307; 80320; 85025

== ENCOUNTER 2016-10-31 20:19 | Emergency (ER) | payer OTHER ==
[~2016-10-31] VITALS: Ht 170.2 cm; Wt 78.0 kg
[2016-10-31 20:22] VITALS: BP 169/82; PULSE 91; RESP 16; TEMP 98.1; O2SAT 96
[2016-11-01] MEDS ORDERED: SODIUM CHLOR 0.9% 1000 ML INJ 1,000 ML IV SCH (00:25)
[2016-11-01] MEDS ORDERED: SODIUM CHLORIDE 0.9% FLUSH 10 ML FLUSH IV FLUSH PRN (00:30)
--- NOTE | 2016-11-01 00:34 | PD ---
HPI Chief Complaint: Musculoskeletal Complaint Time Seen by Provider: 00:10 Travel History International Travel<30 days: No Contact w/Intl Traveler<30days: No Traveled to known affect area: No History of Present Illness HPI Patient is a 55-year-old male who presents to emergency room with multiple complaints. Patient states that he has history of MRSA to his legs, reports that for the past 3 days, he has been having increased lower extremity pain and cramping to his calves. Patient reports that he is concerned that he may have MRSA. Reports that he has been feeling overall weak. Denies fever/chills. Denies n/v. Denies chest pain/sob. Denies abdominal pain. Patient with no other complaints. PFSH Past Medical History Hx Anticoagulant Therapy: No ADD: Yes ADHD: Yes Arthritis: No Asthma: No Blood Disorders: No Bipolar Disorder: Yes Anxiety: Yes Depression: Yes Heart Rhythm Problems: No Cancer: No Cardiovascular Problems: No High Cholesterol: No Chemotherapy: No Chest Pain: No Congestive Heart Failure: No COPD: No Cerebrovascular Accident: No Diabetes: No Diminished Hearing: No Endocrine: No GERD: No Genitourinary: Yes (nocturia) Headaches: Yes Hepatitis: Yes (HEP C) Hiatal Hernia: No Hypertension: No Implanted Vascular Access Dvce: No Insomnia: Yes Musculoskeletal: No Neurologic: Yes Psychiatric: Yes Reproductive: No Respiratory: No Immunizations Current: Yes Migraines: Yes Radiation Therapy: No Seizures: No Sleep Apnea: No Thyroid Disease: No Ulcer: No Tetanus Vaccination: > 5 Years Past Surgical History Abdominal Surgery: Yes AICD: No Arteriovenous Shunt: No Cardiac Surgery: No Ear Surgery: No Endocrine Surgery: No Eye Surgery: No Genitourinary Surgery: No Gynecologic Surgery: No Hysterectomy: No Insulin Pump: No Joint Replacement: No Neurologic Surgery: Yes Oral Surgery: No Pacemaker: No Thoracic Surgery: No Other Surgery: Yes (ABDOMINAL HERNIA REPAIR 10/2014) Social History Alcohol Use: Yes (EVERYDAY, ABOUT 2 LITERS) Tobacco Use: Yes (1ppd) Substance Use: Yes (marijuana) Allergies-Medications (Allergen,Severity, Reaction): Coded Allergies: *MDRO Multi-Drug Resistant Organism (Verified Adverse Reaction, Unknown, ) MRSA (elbow & knee wound) - 04/18/16 Reported Meds & Prescriptions Reported Meds & Active Scripts Active Thera/Beta-Carotene (Multiple Vitamin) 1 Tab Tab 1 Tab PO DAILY Klonopin (Clonazepam) 2 Mg Tab 2 Mg PO DAILY Reported Seroquel (Quetiapine Fumarate) 100 Mg Tab 100 Mg PO DAILY Seroquel (Quetiapine Fumarate) 400 Mg Tab 400 Mg PO HS Wellbutrin SR 12 HR (Bupropion HCl) 150 Mg Tab 150 Mg PO Q12HR Neurontin (Gabapentin) 800 Mg Tab 800 Mg PO BID Review of Systems General / Constitutional: No: Fever Eyes: No: Visual changes HENT: No: Headaches Cardiovascular: No: Chest Pain or Discomfort Respiratory: No: Shortness of Breath Gastrointestinal: No: Abdominal Pain Genitourinary: No: Dysuria Musculoskeletal: Positive: Pain (calf pain) Skin: No Rash Neurologic: No: Weakness Psychiatric: No: Depression Endocrine: No: Polydipsia Hematologic/Lymphatic: No: Easy Bruising Physical Exam Narrative GENERAL: nad, nontoxic SKIN: Focused skin assessment warm/dry. HEAD: Atraumatic. Normocephalic. EYES: Pupils equal and round. No scleral icterus. No injection or drainage. ENT: No nasal bleeding or discharge. Mucous membranes pink and moist. NECK: Trachea midline. No JVD. CARDIOVASCULAR: Regular rate and rhythm. No murmur appreciated. RESPIRATORY: No accessory muscle use. Clear to auscultation. Breath sounds equal bilaterally. GASTROINTESTINAL: Abdomen soft, non-tender, nondistended. Hepatic and splenic margins not palpable. MUSCULOSKELETAL: No obvious deformities. No clubbing. No cyanosis. No edema. Patient with b/l calf tenderness, patient with discolored skin to le's, no obvious signs of infection NEUROLOGICAL: Awake and alert. No obvious cranial nerve deficits. Motor grossly within normal limits. Normal speech. PSYCHIATRIC: Appropriate mood and affect; insight and judgment normal. Data Data Last Documented VS Vital Signs Date Time Temp Pulse Resp B/P Pulse Ox O2 Delivery O2 Flow Rate FiO2 10/31/16 20:22 98.1 91 16 169/82 96 Room Air Orders Complete Blood Count With Diff (11/01/16 00:25) Comprehensive Metabolic Panel (11/01/16 00:25) Prothrombin Time / Inr (Pt) (11/01/16 00:25) Act Partial Throm Time (Ptt) (11/01/16 00:25) Urinalysis - C+S If Indicated (11/01/16 00:25) Iv Access Insert/Monitor (11/01/16 00:25) Sodium Chlor 0.9% 1000 Ml Inj (Ns 1000 M (11/01/16 00:25) Sodium Chloride 0.9% Flush (Ns Flush) (11/01/16 00:30) Us Leg Venous Doppler Bilat (11/01/16 ) Urine Culture (11/01/16 00:35) Labs Laboratory Tests Test 11/01/16 00:35 White Blood Count 6.3 TH/MM3 Red Blood Count 4.51 MIL/MM3 Hemoglobin 13.7 GM/DL Hematocrit 41.7 % Mean Corpuscular Volume 92.4 FL Mean Corpuscular Hemoglobin 30.5 PG Mean Corpuscular Hemoglobin 33.0 % Concent Red Cell Distribution Width 15.4 % Platelet Count 159 TH/MM3 Mean Platelet Volume 8.4 FL Neutrophils (%) (Auto) 62.7 % Lymphocytes (%) (Auto) 24.3 % Monocytes (%) (Auto) 9.5 % Eosinophils (%) (Auto) 2.6 % Basophils (%) (Auto) 0.9 % Neutrophils # (Auto) 3.9 TH/MM3 Lymphocytes # (Auto) 1.5 TH/MM3 Monocytes # (Auto) 0.6 TH/MM3 Eosinophils # (Auto) 0.2 TH/MM3 Basophils # (Auto) 0.1 TH/MM3 CBC Comment DIFF FINAL Differential Comment Urine Color YELLOW Urine Turbidity CLOUDY Urine pH 6.0 Urine Specific [place] 1.023 Urine Protein 30 mg/dL Urine Glucose (UA) NEG mg/dL Urine Ketones NEG mg/dL Urine Occult Blood SMALL Urine Nitrite NEG Urine Bilirubin NEG Urine Urobilinogen 4.0 MG/DL Urine Leukocyte Esterase LARGE Urine RBC 12 /hpf Urine WBC /hpf Urine WBC Clumps MOD Urine Bacteria FEW /hpf Urine Mucus FEW /lpf Microscopic Urinalysis Comment CULTURE INDICATED MDM Medical Decision Making Medical Screen Exam Complete: Yes Emergency Medical Condition: Yes Interpretation(s) Vital Signs Date Time Temp Pulse Resp B/P Pulse Ox O2 Delivery O2 Flow Rate FiO2 10/31/16 20:22 98.1 91 16 169/82 96 Room Air Differential Diagnosis DVT, electrolyte abnormality, alcohol intoxication Narrative Course Patient is a 55 year old male who presents to ER with c/o of lower extremity pain and cramping. Reports that he suffers from MRSA to his legs -reports concern that he may have MRSA. On exam, patient with no obvious signs of infection. He is complaining of leg cramping - plan to obtain US of legs to rule out dvt. care transferred to Dr. So at end of shift at 1AM Diagnosis Primary Impression: Leg cramping Qualified Code: R25.2 - Cramp of both lower extremities Additional Impression: UTI (urinary tract infection) Patient Instructions: General Instructions Additional Instructions: Please follow-up with your primary care doctor Return to the emergency room if symptoms worsen or progress Returns to emergency room in 1 week if symptoms continue Sherice Shaikh DO Nov 01, 2016 00:34
[2016-11-01 00:53] LABS: BACTERIA, URINE FEW /hpf; BLOOD, URINE SMALL (NEG); COMMENT (UR) CULTURE INDICATED; CULTURE IF INDICATED CULTURE INDICATED; GLUCOSE,URINE NEG (NEG); KETONE, URINE NEG (NEG); MUCUS URINE FEW /lpf (OCC); NITRITE,URINE NEG (NEG); URINE COLOR YELLOW (YELLW/STRAW)
[2016-11-01 00:54] LABS: AUTOMATED NEUTROPHIL # 3.9 TH/MM3 (1.8-7.7); BASOPHIL # 0.1 TH/MM3 (0-0.2); BASOPHIL % 0.9 % (0.0-2.0); EOSINOPHIL # 0.2 TH/MM3 (0-0.4); EOSINOPHIL % 2.6 % (0.0-4.0); HEMATOCRIT 41.7 % (39.0-51.0); HEMO FLAGS DIFF FINAL; LYMPH % 24.3 % (9.0-44.0); LYMPHOCYTE # 1.5 TH/MM3 (1.0-4.8); MEAN CELL VOLUME 92.4 FL (80.0-100.0); MEAN CORPUSCULAR HEMOGLOBIN 30.5 PG (27.0-34.0); MONO % 9.5 % (0.0-8.0); NEUT % 62.7 % (16.0-70.0); PLATELET COUNT 159 TH/MM3 (150-450); RED BLOOD COUNT 4.51 MIL/MM3 (4.50-5.90); RED CELL DISTRIBUTION WIDTH 15.4 % (11.6-17.2); WHITE BLOOD COUNT 6.3 TH/MM3 (4.0-11.0)
[2016-11-01] MEDS ORDERED: cefTRIAXone INJ 1,000 MG in SODIUM CHLORIDE 0.9% INJ 25 ML IV ONE (01:00)
[2016-11-01 01:02] LABS: APTT (PATIENT) 26.4 SEC (24.3-30.1); PROTHROMBIN TIME - PATIENT 10.7 SEC (9.8-11.6)
[2016-11-01 01:09] LABS: ALKALINE PHOSPHATASE 56 U/L (45-117); ALT (GPT) 104 U/L (12-78); ANION GAP 8 MEQ/L (5-15); AST (GOT) 100 U/L (15-37); BICARBONATE 27.4 MEQ/L (21.0-32.0); BLOOD UREA NITROGEN 12 MG/DL (7-18); CHLORIDE 104 MEQ/L (98-107); GLOMERULAR FILTRATION RATE 93 ML/MIN (>89); POTASSIUM 3.5 MEQ/L (3.5-5.1); SODIUM (NA) 139 MEQ/L (136-145); TOTAL BILIRUBIN ADULT 0.6 MG/DL (0.2-1.0)
--- NOTE | 2016-11-01 01:59 | RADRPT ---
EXAM DATE/TIME: 11/01/2016 01:26 [facility] COMPARISON: ELBOW LEFT COMPLETE (4 VWS), April 17, 2016, 21:25. INDICATIONS : Bilateral leg pain. MEDICAL HISTORY : Hepatitis C. Head trauma. Migraines. Nocturia. Liver disease. Bipolar disorder. Substance abuse. SURGICAL HISTORY : Hernia repair. ENCOUNTER: Initial ACUITY: 3 days PAIN SCORE: 2/10 LOCATION: Bilateral legs. TECHNIQUE: Venous ultrasound of the left and right leg was performed from the inguinal ligament to the proximal calf. Real-time, color Doppler and spectral tracing, compression and augmentation techniques were us ed. FINDINGS: RIGHT LEG: There is normal compressibility of the deep venous system from the inguinal region to the proximal ca lf. No echogenic clot is seen in the lumen of the common femoral, femoral, popliteal, and posterior tibial veins. There is a normal response of the venous system to proximal and distal augmentation an d respiration. Upper limits of normal size, reactive appearing right inguinal lymph nodes. LEFT LEG: There is normal compressibility of the deep venous system from the inguinal region to the proximal ca lf. No echogenic clot is seen in the lumen of the common femoral, femoral, popliteal, and posterior tibial veins. There is a normal response of the venous system to proximal and distal augmentation an d respiration. CONCLUSION: No DVT of either lower extremity. Fermín Wagner MD on November 01, 2016 at 1:56 Board Certified Radiologist. This report was verified electronically.
[2016-11-01] MEDS ORDERED: MACR100C2 PO (03:35)
[2016-11-01] MEDS ORDERED: IBUP400T20 PO (03:35)
--- NOTE | 2016-11-01 03:36 | PD ---
Physical Exam Narrative Received sign out from previous team to follow up ultrasound result and give macrobid for UTI. Please see providers note for further details. 55yo M with bilateral leg pain. Labs reviewed, no leukocytosis. Elevated AST/ ALT but similar to last time on 09/08/16. Abd: soft, NT/ND. UA showed large leukocyte. Moderate WBC clumps. Will give prescription for macrobid. US bilateral lower ext showed no DVT of either lower extremity. Return precautions given. Pt requesting bus pass. Data Data Last Documented VS Vital Signs Date Time Temp Pulse Resp B/P Pulse Ox O2 Delivery O2 Flow Rate FiO2 10/31/16 20:22 98.1 91 16 169/82 96 Room Air Orders Complete Blood Count With Diff (11/01/16 00:25) Comprehensive Metabolic Panel (11/01/16 00:25) Prothrombin Time / Inr (Pt) (11/01/16 00:25) Act Partial Throm Time (Ptt) (11/01/16 00:25) Urinalysis - C+S If Indicated (11/01/16 00:25) Iv Access Insert/Monitor (11/01/16 00:25) Sodium Chlor 0.9% 1000 Ml Inj (Ns 1000 M (11/01/16 00:25) Sodium Chloride 0.9% Flush (Ns Flush) (11/01/16 00:30) Us Leg Venous Doppler Bilat (11/01/16 ) Urine Culture (11/01/16 00:35) Ceftriaxone Inj (Rocephin Inj) (11/01/16 01:00) Labs Laboratory Tests Test 11/01/16 00:35 White Blood Count 6.3 TH/MM3 Red Blood Count 4.51 MIL/MM3 Hemoglobin 13.7 GM/DL Hematocrit 41.7 % Mean Corpuscular Volume 92.4 FL Mean Corpuscular Hemoglobin 30.5 PG Mean Corpuscular Hemoglobin 33.0 % Concent Red Cell Distribution Width 15.4 % Platelet Count 159 TH/MM3 Mean Platelet Volume 8.4 FL Neutrophils (%) (Auto) 62.7 % Lymphocytes (%) (Auto) 24.3 % Monocytes (%) (Auto) 9.5 % Eosinophils (%) (Auto) 2.6 % Basophils (%) (Auto) 0.9 % Neutrophils # (Auto) 3.9 TH/MM3 Lymphocytes # (Auto) 1.5 TH/MM3 Monocytes # (Auto) 0.6 TH/MM3 Eosinophils # (Auto) 0.2 TH/MM3 Basophils # (Auto) 0.1 TH/MM3 CBC Comment DIFF FINAL Differential Comment Prothrombin Time 10.7 SEC Prothromb Time International 1.0 RATIO Ratio Activated Partial 26.4 SEC Thromboplast Time Urine Color YELLOW Urine Turbidity CLOUDY Urine pH 6.0 Urine Specific [place] 1.023 Urine Protein 30 mg/dL Urine Glucose (UA) NEG mg/dL Urine Ketones NEG mg/dL Urine Occult Blood SMALL Urine Nitrite NEG Urine Bilirubin NEG Urine Urobilinogen 4.0 MG/DL Urine Leukocyte Esterase LARGE Urine RBC 12 /hpf Urine WBC /hpf Urine WBC Clumps MOD Urine Bacteria FEW /hpf Urine Mucus FEW /lpf Microscopic Urinalysis Comment CULTURE INDICATED Sodium Level 139 MEQ/L Potassium Level 3.5 MEQ/L Chloride Level 104 MEQ/L Carbon Dioxide Level 27.4 MEQ/L Anion Gap 8 MEQ/L Blood Urea Nitrogen 12 MG/DL Creatinine 0.85 MG/DL Estimat Glomerular Filtration 93 ML/MIN Rate Random Glucose 123 MG/DL Calcium Level 8.4 MG/DL Total Bilirubin 0.6 MG/DL Aspartate Amino Transf 100 U/L (AST/SGOT) Alanine Aminotransferase 104 U/L (ALT/SGPT) Alkaline Phosphatase 56 U/L Total Protein 7.2 GM/DL Albumin 3.0 GM/DL MDM Supervised Visit with JOSE ARMANDO: No Diagnosis Primary Impression: Leg cramping Qualified Code: R25.2 - Cramp of both lower extremities Additional Impression: UTI (urinary tract infection) Qualified Code: N39.0 - Urinary tract infection with hematuria, site unspecified Patient Instructions: General Instructions Departure Forms: Tests/Procedures Additional Instruction: Please follow-up with your primary care doctor Return to the emergency room if symptoms worsen or progress Returns to emergency room in 1 week if symptoms continue Med/Other Pt SpecificInfo: Prescription(s) given Scripts Ibuprofen 400 Mg [id number] Mg PO Q8H PRN (PAIN SCALE 1 TO 4) #20 TAB Ref 0 Prov:Janie So DO 11/01/16 Nitrofurantoin Monohydrate Macrocrystals (Macrobid)100 Mg [id number] Mg PO BID 7 Days Ref 0 Prov:Janie So DO 11/01/16 Disposition: 01 DISCHARGE HOME Janie So DO Nov 01, 2016 03:35
[2016-11-01 04:02] VITALS: BP 152/77
[2016-11-01] MEDS ORDERED: IBUPROFEN 600 MG TAB PO ONE (04:15)
== END 2016-11-01 04:26 | disposition home or self-care (01) ==
LOC: NEPD 20:19 → NEPE 11-01 04:26
DX: R25.2 Cramp and spasm (principal); N39.0 Urinary tract infection, site not specified; B96.29 Other Escherichia coli [E. coli] as the cause of diseases classified elsewhere; M79.606 Pain in leg, unspecified
CPT/HCPCS: 80053; 81001; 85025; 85610; 85730; 87077; 87086; 87186; 93970; 96361; 96374; 99284; J0696; J7030

== ENCOUNTER 2016-11-05 00:06 | Emergency (ER) | payer OTHER ==
[~2016-11-05] VITALS: Ht 172.7 cm; Wt 90.0 kg
[~2016-11-05 00:06] MED LIST changes: +IBUP400T20 PO; +MACR100C2 PO
[2016-11-05 00:09] VITALS: BP 148/102; PULSE 104; RESP 23; TEMP 97.9; O2SAT 96
[2016-11-05] MEDS ORDERED: SODIUM CHLOR 0.9% 1000 ML INJ 1,000 ML IV SCH (00:14)
[2016-11-05] MEDS ORDERED: SODIUM CHLORIDE 0.9% FLUSH 10 ML FLUSH IVF PRN (00:15)
[2016-11-05] MEDS ORDERED: ceFAZolin 2 GM PREMIX 50 ML IV ONE (00:15)
[2016-11-05] MEDS ORDERED: THIAMINE INJ 100 MG in SODIUM CHLORIDE 0.9% INJ 100 ML IV ONE (00:15)
[2016-11-05] MEDS ORDERED: DIPHTH/TETANUS/ACEL PERTUSSIS (BOOSTER) 0.5 ML VIAL/PFS IM ONE (00:15)
[2016-11-05] MEDS ORDERED: ADDE30TA PO (00:16)
[2016-11-05 00:20] VITALS: BP 120/80; PULSE 97; RESP 18; O2SAT 100
[2016-11-05] MEDS ORDERED: LIDOCAINE 1%/EPINEPHrine 1:100,000 SOLN 20 ML VIAL INFIL ONE (00:30)
[2016-11-05 00:37] LABS: AUTOMATED NEUTROPHIL # 2.7 TH/MM3 (1.8-7.7); BASOPHIL % 0.4 % (0.0-2.0); EOSINOPHIL # 0.1 TH/MM3 (0-0.4); EOSINOPHIL % 1.9 % (0.0-4.0); HEMATOCRIT 42.1 % (39.0-51.0); HEMO FLAGS DIFF FINAL; LYMPH % 48.7 % (9.0-44.0); LYMPHOCYTE # 3.4 TH/MM3 (1.0-4.8); MEAN CELL VOLUME 92.3 FL (80.0-100.0); MEAN CORPUSCULAR HEMOGLOBIN 31.3 PG (27.0-34.0); MEAN CORPUSCULAR HGB CONC 33.9 % (32.0-36.0); MONO % 11.2 % (0.0-8.0); NEUT % 37.8 % (16.0-70.0); PLATELET COUNT 189 TH/MM3 (150-450); RED BLOOD COUNT 4.57 MIL/MM3 (4.50-5.90); RED CELL DISTRIBUTION WIDTH 15.9 % (11.6-17.2); WHITE BLOOD COUNT 7.1 TH/MM3 (4.0-11.0)
--- NOTE | 2016-11-05 00:49 | PD ---
HPI Chief Complaint: Fall Time Seen by Provider: 00:11 Travel History International Travel<30 days: No Contact w/Intl Traveler<30days: No Traveled to known affect area: No History of Present Illness HPI The patient is a 55 year old male who presents to the [facility] emergency department with a history of reportedly falling prior to arrival. The patient reports that he "relapsed". The patient refuses to stay exactly what he relapsed on, however after reviewing the electronic medical records the patient has a history of K2 use, cannabinoid use, and alcohol abuse. The patient reports that he has a headache. The patient is brought in by ambulance services in full C-spine immobilization on a backboard. The patient was noted by ambulance services to have a laceration to the occipital scalp. The patient unfortunately is a poor historian and has a strong odor of alcohol about him. He is moving all extremities equally with 5 over 5 strength. He denies having any extremity weakness, numbness, or tingling. He denies having any chest pain , chest pressure, or shortness of breath. He is unsure whether he had any loss of consciousness related to the head injury. [facility] Past Medical History Narrative Medical The patient's past medical history is significant for polysubstance abuse, hepatitis C, attention deficit disorder, bipolar disorder, headaches Hx Anticoagulant Therapy: No ADD: Yes ADHD: Yes Arthritis: No Asthma: No Blood Disorders: No Bipolar Disorder: Yes Anxiety: Yes Depression: Yes Heart Rhythm Problems: No Cancer: No Cardiovascular Problems: No High Cholesterol: No Chemotherapy: No Chest Pain: No Congestive Heart Failure: No COPD: No Cerebrovascular Accident: No Diabetes: No Diminished Hearing: No Endocrine: No GERD: No Genitourinary: Yes (nocturia) Headaches: Yes Hepatitis: Yes (HEP C) Hiatal Hernia: No Hypertension: No Implanted Vascular Access Dvce: No Insomnia: Yes Musculoskeletal: No Neurologic: Yes Psychiatric: Yes Reproductive: No Respiratory: No Immunizations Current: Yes Migraines: Yes Radiation Therapy: No Seizures: No Sleep Apnea: No Thyroid Disease: No Ulcer: No Past Surgical History Narrative Surgical The patient has a history of abdominal hernia surgery in 2014. Abdominal Surgery: Yes (HERNIA REPAIR 10/2014) AICD: No Arteriovenous Shunt: No Cardiac Surgery: No Ear Surgery: No Endocrine Surgery: No Eye Surgery: No Genitourinary Surgery: No Gynecologic Surgery: No Hysterectomy: No Insulin Pump: No Joint Replacement: No Neurologic Surgery: Yes Oral Surgery: No Pacemaker: No Thoracic Surgery: No Other Surgery: Yes (ABDOMINAL HERNIA REPAIR 10/2014) Social History Alcohol Use: Yes (EVERYDAY, ABOUT 2 LITERS) Tobacco Use: Yes (1ppd) Substance Use: Yes (marijuana) Allergies-Medications (Allergen,Severity, Reaction): Coded Allergies: *MDRO Multi-Drug Resistant Organism (Verified Adverse Reaction, Unknown, ) MRSA (elbow & knee wound) - 04/18/16 ESBL E.Coli (urine)-11/01/16 Reported Meds & Prescriptions Reported Meds & Active Scripts Active Keflex (Cephalexin) 500 Mg Cap 500 Mg PO Q6H Ibuprofen 400 Mg Tab 400 Mg PO Q8H PRN Thera/Beta-Carotene (Multiple Vitamin) 1 Tab Tab 1 Tab PO DAILY Klonopin (Clonazepam) 2 Mg Tab 2 Mg PO DAILY Reported Adderall (Amphetamine-Dextroamphetamine) 30 Mg Tab 30 Mg PO TID Avoid late evening doses. Space doses at least 4 to 6 hours if more than once/day dosing. Seroquel (Quetiapine Fumarate) 100 Mg Tab 100 Mg PO DAILY Seroquel (Quetiapine Fumarate) 400 Mg Tab 400 Mg PO HS Wellbutrin SR 12 HR (Bupropion HCl) 150 Mg Tab 150 Mg PO Q12HR Neurontin (Gabapentin) 800 Mg Tab 800 Mg PO BID Review of Systems Except as stated in HPI: all other systems reviewed are Neg General / Constitutional: No: Fever Eyes: No: Visual changes HENT: No: Neck Stiffness, Neck Pain Cardiovascular: No: Chest Pain or Discomfort Respiratory: No: Shortness of Breath Gastrointestinal: No: Abdominal Pain Genitourinary: No: Dysuria Musculoskeletal: No: Pain Skin: No Rash Neurologic: Positive: Headache, Slurred Speech, No: Weakness, Focal Abnormalities, Change in Mentation, Sensory Disturbance Psychiatric: Positive: Substance Abuse, No: Depression Endocrine: No: Polydipsia Hematologic/Lymphatic: No: Easy Bruising Physical Exam Narrative General: The patient is a well-developed well-nourished male in no acute distress. The patient is brought in on a back board in full c-spine immobilization by emergency services. Head and Neck exam: Head is normocephalic, evidence of trauma with a scalp laceration on the occipital scalp, bleeding is controlled, further examination is deferred to after the patient's cervical collar is able to be removed. No facial bone tenderness or increased facial bone mobility noted on palpation. The patient on reexamination after the cervical collar could be removed was noted to have a laceration that was a proximal a 7 cm along the occipital scalp. Eyes: EOMI, pupils are equal round and reactive to light. Nose: Midline septum with pink mucous membranes Mouth: Dentition unremarkable. Moist mucus membranes. Posterior oropharynx is not erythematous. No tonsillar hypertrophy. Uvula midline. Airway patent. Neck: The patient is immobilized in a cervical collar. No tracheal deviation. The trachea appears midline. Cardiovascular: Regular rate and rhythm without murmurs, gallops, or rubs. Lungs: Clear to auscultation bilaterally. No wheezes, rhonchi, or rales. No chest wall tenderness to palpation. No erythema or ecchymosis noted. No crepitus , step off, or flail segment noted. Abdomen: Soft, without tenderness to palpation in all 4 quadrants of the abdomen. No guarding, rebound, or rigidity. No erythema or ecchymosis noted. Extremities: No instability or pain noted on pelvic rock. No clubbing, cyanosis , or edema. 2+ pulses in all 4 extremities. No extremity tenderness or deformity noted on palpation or passive/ active range of motion, except Back: The patient was log rolled off of the back board. No spinous process tenderness to palpation. No stepoff or crepitus noted. No costovertebral angle tenderness to palpation. No erythema or ecchymosis. Neurologic Exam: Cranial nerves 2-12 were intact on exam. Strength is 5/5 in all 4 extremities. No sensory deficits noted. The patient has slightly slurred speech with an odor of alcohol about him. Skin Exam: The patient has areas of patchy hypopigmentation. Intact skin that is warm and dry. Data Data Last Documented VS Vital Signs Date Time Temp Pulse Resp B/P Pulse Ox O2 Delivery O2 Flow Rate FiO2 11/05/16 01:19 100 17 111/57 98 Room Air 11/05/16 00:09 97.9 Orders Alcohol (Ethanol) (11/05/16 00:14) Chest, Single Ap (11/05/16 00:14) Pelvis, Ap Only (Routine) (11/05/16 00:14) Ct Brain W/O Iv Contrast(Rout) (11/05/16 00:14) Ct Cerv Spine W/O Contrast (11/05/16 00:14) Ct Facial Bones W/O Iv Cont (11/05/16 00:14) Iv Access Insert/Monitor (11/05/16 00:14) Ecg Monitoring (11/05/16 00:14) Oximetry (11/05/16 00:14) Oxygen Administration (11/05/16:14) Cefazolin 2 Gm Premix (Ancef 2 Gm Premix (11/05/16 00:15) Hffs-Gig-Pojcqd (Booster) Inj (Boostrix (11/05/16 00:15) Sodium Chlor 0.9% 1000 Ml Inj (Ns 1000 M (11/05/16 00:14) Sodium Chloride 0.9% Flush (Ns Flush) (11/05/16 00:15) Electrocardiogram (11/05/16 00:14) Complete Blood Count With Diff (11/05/16 00:14) Comprehensive Metabolic Panel (11/05/16 00:14) Prothrombin Time / Inr (Pt) (11/05/16 00:14) Act Partial Throm Time (Ptt) (11/05/16 00:14) Magnesium (Mg) (11/05/16 00:14) Sodium Chlor 0.9% 1000 Ml Inj (Ns 1000 M (11/05/16 00:15) Thiamine Inj (Thiamine Inj) (11/05/16 00:15) Lidocai-Epi 1%-1:100,000 Inj (Xylocaine- (11/05/16 00:30) Wound Care (11/05/16 02:15) Labs Laboratory Tests Test 11/05/16 00:20 White Blood Count 7.1 TH/MM3 Red Blood Count 4.57 MIL/MM3 Hemoglobin 14.3 GM/DL Hematocrit 42.1 % Mean Corpuscular Volume 92.3 FL Mean Corpuscular Hemoglobin 31.3 PG Mean Corpuscular Hemoglobin 33.9 % Concent Red Cell Distribution Width 15.9 % Platelet Count 189 TH/MM3 Mean Platelet Volume 8.0 FL Neutrophils (%) (Auto) 37.8 % Lymphocytes (%) (Auto) 48.7 % Monocytes (%) (Auto) 11.2 % Eosinophils (%) (Auto) 1.9 % Basophils (%) (Auto) 0.4 % Neutrophils # (Auto) 2.7 TH/MM3 Lymphocytes # (Auto) 3.4 TH/MM3 Monocytes # (Auto) 0.8 TH/MM3 Eosinophils # (Auto) 0.1 TH/MM3 Basophils # (Auto) 0.0 TH/MM3 CBC Comment DIFF FINAL Differential Comment Prothrombin Time 10.0 SEC Prothromb Time International 0.9 RATIO Ratio Activated Partial 26.1 SEC Thromboplast Time Sodium Level 145 MEQ/L Potassium Level 4.5 MEQ/L Chloride Level 110 MEQ/L Carbon Dioxide Level 30.2 MEQ/L Anion Gap 5 MEQ/L Blood Urea Nitrogen 11 MG/DL Creatinine 0.90 MG/DL Estimat Glomerular Filtration 87 ML/MIN Rate Random Glucose 94 MG/DL Calcium Level 8.4 MG/DL Magnesium Level 2.4 MG/DL Total Bilirubin 0.2 MG/DL Aspartate Amino Transf 200 U/L (AST/SGOT) Alanine Aminotransferase 153 U/L (ALT/SGPT) Alkaline Phosphatase 68 U/L Total Protein 8.0 GM/DL Albumin 3.5 GM/DL Ethyl Alcohol Level 353 MG/DL MDM Medical Decision Making Medical Screen Exam Complete: Yes Emergency Medical Condition: Yes Medical Record Reviewed: Yes Interpretation(s) Last Impressions Pelvis X-Ray 11/05/1613 Signed Impressions: Service Date/Time: Saturday, November 05, 2016 00:41 - CONCLUSION: 1. There is no evidence of acute fracture. Tommy Marcial MD Maxillofacial CT 11/05/1613 Signed Impressions: Service Date/Time: Saturday, November 05, 2016 00:48 - CONCLUSION: 1. Nondisplaced nasal bone fracture Tommy Marcial MD Head CT 11/05/1613 Signed Impressions: Service Date/Time: Saturday, November 05, 2016 00:48 - CONCLUSION: 1. No evidence of acute intracranial pathology. No masses are identified. Tommy Marcial MD Chest X-Ray 11/05/1613 Signed Impressions: Service Date/Time: Saturday, November 05, 2016 00:42 - CONCLUSION: 1. No acute cardiopulmonary disease. Tommy Marcial MD Cervical Spine CT 11/05/1613 Signed Impressions: Service Date/Time: Saturday, November 05, 2016 00:48 - CONCLUSION: 1. Mild degenerative changes as described above. There is no evidence of acute fracture. Tommy Marcial MD Differential Diagnosis Intracranial hemorrhage, versus cervical spine injury, versus skull fracture, versus facial bone fracture, versus alcohol intoxication, versus other substance intoxication Narrative Course During the course of the patients emergency department visit, the patients history, examination, and differential diagnosis were reviewed with the patient. The patient had IV access obtained and blood work sent for analysis. The patient was placed on a potato peeling machine operator with oximetry and blood pressure monitoring. The patient had an EKG done on arrival that shows a sinus rhythm heart rate of 96, no acute ST segment elevation or depression. The patient was initially provided Ancef 1 g IV, thiamine 100 mg IV, normal saline 1 L IV fluid bolus. The patient had his tetanus updated. The patients laboratory studies were reviewed and remarkable for a white count of 7.1, hemoglobin 14.3, platelets 189 with lymphocytes 48.7, monos 11.2, CMP is remarkable for chloride of 110, GFR of 87, calcium 8.4, AST 200, ALT 153, PT 10, PTT 26.1, alcohol level CCCLIII. Radiology studies were reviewed and remarkable for CT scan of the brain that showed no acute abnormality. CT scan of the C-spine showed degenerative changes , no other acute abnormality. CT scan of the facial bones showed a nondisplaced nasal bone fracture. A chest x-ray and pelvic x-ray showed no acute abnormality. The patient's wound was cleaned, irrigated. The patient's wound was then stapled by me. The patient will be observed in the emergency department until he has improvement in his mentation and is able to walk without assistance due to his acute alcohol intoxication. The patient is resting comfortably and feels better, is alert and in no distress. The patients results and examination findings were discussed with the patient. The repeat examination is unremarkable and benign. The history, exam, diagnostic testing, and current condition do not suggest any significant pathology to warrant further testing, continued ED treatment, admission, or surgical evaluation at this point. The vital signs have been stable. The patient does not have uncontrollable pain, intractable vomiting, or other significant symptoms. The patient's condition is stable and appropriate for discharge. The patient will pursue further outpatient evaluation with a primary care physician or other designated or consulting physician as indicated in the discharge instructions. The patient expressed understanding and was agreeable with this plan. Procedures Procedure Narrative LACERATION LOCATION: Left occipital scalp LENGTH: 7 cm NUMBER OF STITCHES/FCO: 10 Fco REPAIR: The area of the laceration was prepped with Betadine and sterilely draped. The laceration was infiltrated with 1% lidocaine with epinephrine. The wound was copiously irrigated and explored without evidence of foreign body, tendon injury or neurovascular injury. The wound was closed using single layer closure of stable. A sterile dressing was applied. The patient was advised to keep the dressing clean and dry. Patient tolerated the procedure well. Diagnosis Primary Impression: Head injury Qualified Code: S09.90XA - Head injury, initial encounter Additional Impressions: Occipital scalp laceration Qualified Code: S01.01XA - Occipital scalp laceration, initial encounter Nasal bone fracture Qualified Code: S02.2XXA - Closed fracture of nasal bone, initial encounter Alcohol intoxication Qualified Code: F10.129 - Alcohol intoxication, with unspecified complication Referrals: Primary Care Physician Patient Instructions: Alcohol Intoxication (ED), General Instructions, Laceration (ED), Nasal Fracture (ED), Scalp Contusion in Adults (ED) Additional Instructions: The patient is instructed to follow-up in the emergency department to have his fco removed in 7 days. Med/Other Pt SpecificInfo: Prescription(s) given Scripts Cephalexin (Keflex)500 Mg [id number] Mg PO Q6H #40 CAP Ref 0 Prov:Sara Craig MD 11/05/16 Disposition: 01 DISCHARGE HOME Condition: Stable Sara Craig MD November 05, 2016 00:49
[2016-11-05 00:51] LABS: APTT (PATIENT) 26.1 SEC (24.3-30.1); INTERNATIONAL NORMALIZED RATIO 0.9 RATIO
--- NOTE | 2016-11-05 01:02 | RADRPT ---
EXAM DATE/TIME: 11/05/2016 00:48 [facility] COMPARISON: CT BRAIN W/O CONTRAST, September 08, 2016, 21:17. INDICATIONS : Trauma, found unresponsive on ground. RADIATION DOSE: 46.04 CTDIvol (mGy) MEDICAL HISTORY : Hepatitis C. Substance abuse. SURGICAL HISTORY : None. ENCOUNTER: Initial ACUITY: 1 day PAIN SCALE: 0/10 LOCATION: cranial TECHNIQUE: Multiple contiguous axial images were obtained of the head. Using automated exposure control and adj ustment of the mA and/or kV according to patient size, radiation dose was kept as low as reasonably a chievable to obtain optimal diagnostic quality images. FINDINGS: CEREBRUM: The ventricles are normal for age. No evidence of midline shift, mass lesion, hemorrhage or acute in farction. No extra-axial fluid collections are seen. POSTERIOR FOSSA: The cerebellum and brainstem are intact. The 4th ventricle is midline. The cerebellopontine angle i s unremarkable. EXTRACRANIAL: The visualized portion of the orbits is intact. There is benign-appearing mucosal disease in the left maxillary sinus. SKULL: The calvaria is intact. No evidence of skull fracture. CONCLUSION: 1. No evidence of acute intracranial pathology. No masses are identified. Tommy Marcial MD on November 05, 2016 at 0:59 Board Certified Radiologist. This report was verified electronically.
[2016-11-05 01:11] LABS: ALKALINE PHOSPHATASE 68 U/L (45-117); TOTAL BILIRUBIN ADULT 0.2 MG/DL (0.2-1.0)
--- NOTE | 2016-11-05 01:17 | RADRPT ---
EXAM DATE/TIME: 11/05/2016 00:41 [facility] COMPARISON: PELVIS AP ONLY, December 25, 2015, 2:31. INDICATIONS : Fall. MEDICAL HISTORY : None. SURGICAL HISTORY : None. ENCOUNTER: Initial ACUITY: 1 day PAIN SCORE: 0/10 LOCATION: Bilateral chest FINDINGS: A single frontal view of the pelvis demonstrates no evidence of fracture. The bony pelvic ring is in tact. Bony mineralization is normal. The soft tissues are intact. CONCLUSION: 1. There is no evidence of acute fracture. Tommy Marcial MD on November 05, 2016 at 1:06 Board Certified Radiologist. This report was verified electronically.
--- NOTE | 2016-11-05 01:18 | RADRPT ---
EXAM DATE/TIME: 11/05/2016 00:42 [facility] COMPARISON: CHEST SINGLE AP, July 10, 2016, 2:25. INDICATIONS : Fall. MEDICAL HISTORY : SURGICAL HISTORY : None. ENCOUNTER: Initial ACUITY: 1 day PAIN SCORE: 0/10 LOCATION: Bilateral chest FINDINGS: A single view of the chest demonstrates the lungs to be symmetrically aerated without evidence of mas s, infiltrate or effusion. The cardiomediastinal contours are unremarkable. Osseous structures are intact. CONCLUSION: 1. No acute cardiopulmonary disease. Tommy Marcial MD on November 05, 2016 at 1:16 Board Certified Radiologist. This report was verified electronically.
[2016-11-05 01:19] VITALS: BP 111/57; PULSE 100; RESP 17; O2SAT 98
[2016-11-05 01:25] LABS: ALT (GPT) 153 U/L (12-78); ANION GAP 5 MEQ/L (5-15); AST (GOT) 200 U/L (15-37); BICARBONATE 30.2 MEQ/L (21.0-32.0); BLOOD UREA NITROGEN 11 MG/DL (7-18); CHLORIDE 110 MEQ/L (98-107); GLOMERULAR FILTRATION RATE 87 ML/MIN (>89); MAGNESIUM 2.4 MG/DL (1.5-2.5); POTASSIUM 4.5 MEQ/L (3.5-5.1); SODIUM (NA) 145 MEQ/L (136-145)
--- NOTE | 2016-11-05 01:26 | RADRPT ---
EXAM DATE/TIME: 11/05/2016 00:48 [facility] COMPARISON: CT CERVICAL SPINE W/O CONTRAST, December 25, 2015, 2:47. INDICATIONS : Trauma, found unresponsive on ground. RADIATION DOSE: 21.08 CTDIvol (mGy) MEDICAL HISTORY : Hepatitis C. Substance abuse. SURGICAL HISTORY : None. ENCOUNTER: Initial ACUITY: 1 day PAIN SCALE: 0/10 LOCATION: neck TECHNIQUE: Volumetric scanning of the cervical spine was performed. Multiplanar reconstructions in the sagittal, coronal and oblique axial planes were performed. Using automated exposure control and adjustment o f the mA and/or kV according to patient size, radiation dose was kept as low as reasonably achievable to obtain optimal diagnostic quality images. FINDINGS: Sagittal images demonstrate normal vertebral body alignment and curvature. The odontoid is intact. Th e occipital condyles and lateral masses of C1 are intact. Axial images were performed from C2-C3 to C7-T1. 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 Emphysematous changes are present in both upper lobes. C2-C3: No significant abnormalities identified. C3-C4: There is osteophytic ridging along the posterior aspect of vertebral body. A central disc protrusion is present impinging on the thecal sac. There is moderate spinal canal stenosis. C4-C5: A small central protrusion is present impinging on the thecal sac but not significantly deforming the cord. There is no significant spinal canal stenosis. The neural foramina are clear bilaterally. C5-C6: There is osteophytic ridging along the posterior aspect of vertebral body. There is mild facet arthri tis on the left. There is no significant spinal canal stenosis. C6-C7: There is no evidence of disc protrusion or spinal canal stenosis. There is mild facet arthritis bilat erally. C7-T1: No significant abnormalities identified. CONCLUSION: 1. Mild degenerative changes as described above. There is no evidence of acute fracture. Tommy Marcial MD on November 05, 2016 at 1:17 Board Certified Radiologist. This report was verified electronically.
[2016-11-05] MEDS: SODIUM CHLOR 0.9% 1000 ML INJ 1,000 ML IV SCH ×2 (01:29→08:15)
--- NOTE | 2016-11-05 01:35 | RADRPT ---
EXAM DATE/TIME: 11/05/2016 00:48 [facility] COMPARISON: CT FACIAL BONES W/O CONTRAST, May 11, 2016, 11:56. INDICATIONS : Trauma, found unresponsive on ground. RADIATION DOSE: 42.54 CTDIvol (mGy) MEDICAL HISTORY : Hepatitis C. Substance abuse. SURGICAL HISTORY : None. ENCOUNTER: Initial ACUITY: 1 day PAIN SCORE: 0/10 LOCATION: facial TECHNIQUE: Volumetric scanning of the facial bones was performed. Using automated exposure control and adjustme nt of the mA and/or kV according to patient size, radiation dose was kept as low as reasonably achiev able to obtain optimal diagnostic quality images. FINDINGS: A spur projects off the nasal septum to the right. There is mucosal disease involving the frontal sin uses and left maxillary sinus with obstruction of the ethmoid infundibula bilaterally. The orbits are intact. There is a nondisplaced fracture the nasal bones. The zygomatic arches are intact. The mandible demon strates no evidence of fracture. The condylar heads are intact. CONCLUSION: 1. Nondisplaced nasal bone fracture Tommy Marcial MD on November 05, 2016 at 1:25 Board Certified Radiologist. This report was verified electronically.
[2016-11-05] MEDS ORDERED: CEPH-460 PO (03:16)
--- NOTE | 2016-11-05 11:54 | EKG ---
Date Performed: 11/05/2016 Time Performed: 01:08:59 PTAGE: 55 years EKG: Sinus rhythm NORMAL ECG PREVIOUS TRACING : 07/12/2016 10.47 No significant change from previous tracing noted. DOCTOR: Darryl Smith Interpretating Date/Time 11/05/2016 11:51:45
== END 2016-11-05 11:39 | disposition home or self-care (01) ==
LOC: NEPE 00:06
DX: S01.01XA Laceration without foreign body of scalp, initial encounter (principal); S09.90XA Unspecified injury of head, initial encounter; S02.2XXA Fracture of nasal bones, initial encounter for closed fracture; F10.129 Alcohol abuse with intoxication, unspecified; Y90.8 Blood alcohol level of 240 mg/100 ml or more; X58.XXXA Exposure to other specified factors, initial encounter
CPT/HCPCS: 12002; 70450; 70486; 71010; 72125; 72170; 80053; 80307; 83735; 85025; 85610; 85730; 93005; 96361; 96365; 96367; 99285; J0690; J3411; J7030

== ENCOUNTER 2016-11-06 19:33 | Emergency (ER) | payer OTHER ==
[~2016-11-06] VITALS: Ht 172.7 cm; Wt 90.0 kg
[~2016-11-06 19:33] MED LIST changes: +ADDE30TA PO; +CEPH-460 PO; -MACR100C2 PO
[2016-11-06 20:05] VITALS: BP 109/69; PULSE 92; RESP 18; TEMP 98.7; O2SAT 96
--- NOTE | 2016-11-06 20:13 | PD ---
HPI . Alcohol intoxication Chief Complaint: Alcohol/Drug Intoxication Time Seen by Provider: 20:01 Travel History International Travel<30 days: No Contact w/Intl Traveler<30days: No History of Present Illness HPI Patient was brought to us for public intoxication. He is under the Starr Act. Patient is unable to provide any further history. PFSH Past Medical History Hx Anticoagulant Therapy: No ADD: Yes ADHD: Yes Arthritis: No Asthma: No Blood Disorders: No Bipolar Disorder: Yes Anxiety: Yes Depression: Yes Heart Rhythm Problems: No Cancer: No Cardiovascular Problems: No High Cholesterol: No Chemotherapy: No Chest Pain: No Congestive Heart Failure: No COPD: No Cerebrovascular Accident: No Diabetes: No Diminished Hearing: No Endocrine: No GERD: No Genitourinary: Yes (nocturia) Headaches: Yes Hepatitis: Yes (HEP C) Hiatal Hernia: No Hypertension: No Implanted Vascular Access Dvce: No Insomnia: Yes Musculoskeletal: No Neurologic: Yes Psychiatric: Yes Reproductive: No Respiratory: No Immunizations Current: Yes Migraines: Yes Radiation Therapy: No Seizures: No Sleep Apnea: No Thyroid Disease: No Ulcer: No Past Surgical History Abdominal Surgery: Yes (HERNIA REPAIR 10/2014) AICD: No Arteriovenous Shunt: No Cardiac Surgery: No Ear Surgery: No Endocrine Surgery: No Eye Surgery: No Genitourinary Surgery: No Gynecologic Surgery: No Hysterectomy: No Insulin Pump: No Joint Replacement: No Neurologic Surgery: Yes Oral Surgery: No Pacemaker: No Thoracic Surgery: No Other Surgery: Yes (ABDOMINAL HERNIA REPAIR 10/2014) Social History Alcohol Use: Yes (EVERYDAY, ABOUT 2 LITERS) Tobacco Use: Yes (1ppd) Substance Use: Yes (marijuana) Allergies-Medications (Allergen,Severity, Reaction): Coded Allergies: *MDRO Multi-Drug Resistant Organism (Verified Adverse Reaction, Unknown, ) MRSA (elbow & knee wound) - 04/18/16 ESBL E.Coli (urine)-11/01/16 Reported Meds & Prescriptions Reported Meds & Active Scripts Active Keflex (Cephalexin) 500 Mg Cap 500 Mg PO Q6H Ibuprofen 400 Mg Tab 400 Mg PO Q8H PRN Thera/Beta-Carotene (Multiple Vitamin) 1 Tab Tab 1 Tab PO DAILY Klonopin (Clonazepam) 2 Mg Tab 2 Mg PO DAILY Reported Adderall (Amphetamine-Dextroamphetamine) 30 Mg Tab 30 Mg PO TID Avoid late evening doses. Space doses at least 4 to 6 hours if more than once/day dosing. Seroquel (Quetiapine Fumarate) 100 Mg Tab 100 Mg PO DAILY Seroquel (Quetiapine Fumarate) 400 Mg Tab 400 Mg PO HS Wellbutrin SR 12 HR (Bupropion HCl) 150 Mg Tab 150 Mg PO Q12HR Neurontin (Gabapentin) 800 Mg Tab 800 Mg PO BID Review of Systems ROS Limitations: Intoxication Physical Exam Exam Limitations: Intoxication Narrative GENERAL: Sounds asleep and in no acute distress. SKIN: Warm and dry. HEAD: Scalp landry from an injury which occurred last night. EYES: Pupils equal and round. NECK: Trachea midline. CARDIOVASCULAR: Regular rate and rhythm. RESPIRATORY: No accessory muscle use. MUSCULOSKELETAL: No obvious deformities. No edema. NEUROLOGICAL: Asleep. PSYCHIATRIC: Unable to assess. Data Data Last Documented VS Vital Signs Date Time Temp Pulse Resp B/P Pulse Ox O2 Delivery O2 Flow Rate FiO2 11/06/16 20:05 98.7 92 18 109/69 96 Room Air Orders Alcohol (Ethanol) (11/06/16 20:03) Labs Laboratory Tests Test 11/06/16 20:05 Ethyl Alcohol Level 356 MG/DL [facility] Medical Decision Making Medical Screen Exam Complete: Yes Emergency Medical Condition: Yes Medical Record Reviewed: Yes (patient was here last night after falling and injuring his head.) Differential Diagnosis Differential diagnosis of altered mental status includes but is not limited to infection, electrolyte abnormality, neurological event, intoxication Narrative Course This patient was brought to us after being found publicly intoxicated. He is under the Miley's Act. Alcohol level is 356. He will be observed until he is sober enough for discharge. Diagnosis Primary Impression: Alcohol intoxication Qualified Code: F10.120 - Alcohol intoxication, uncomplicated Disposition: DISCHARGE HOME Condition: Stable Heather Barnett MD November 06, 2016 20:13
[2016-11-07 04:52] VITALS: BP 145/88
== END 2016-11-07 04:55 | disposition home or self-care (01) ==
LOC: NEPD 19:33
DX: F10.120 Alcohol abuse with intoxication, uncomplicated (principal); Y90.8 Blood alcohol level of 240 mg/100 ml or more; Z79.899 Other long term (current) drug therapy
CPT/HCPCS: 80307; 99284

== ENCOUNTER 2016-11-09 07:44 | Emergency (ER) | payer OTHER ==
[~2016-11-09] VITALS: Ht 160 cm; Wt 68.0 kg
[2016-11-09 07:50] VITALS: BP 130/81; PULSE 98; RESP 17; TEMP 98; O2SAT 97
[2016-11-09] MEDS ORDERED: HALOPERIDOL LACTATE 5 MG/ML AMP IM ONE (08:00)
[2016-11-09] MEDS ORDERED: LORazepam 2 MG/ML VIAL IM ONE (08:00)
[2016-11-09] MEDS ORDERED: SODIUM CHLOR 0.9% 1000 ML INJ 1,000 ML IV ONE (08:00)
[2016-11-09] MEDS ORDERED: SODIUM CHLORIDE 0.9% FLUSH 10 ML FLUSH IVF PRN (08:00)
--- NOTE | 2016-11-09 08:16 | PD ---
HPI Chief Complaint: Alcohol/Drug Intoxication Time Seen by Provider: 07:54 Travel History International Travel<30 days: No Contact w/Intl Traveler<30days: No Traveled to known affect area: No History of Present Illness HPI Patient is a 55-year-old male brought to the emergency room by EMS for alcohol intoxication and drug abuse. EMS reports that they were called by someone as they found patient asleep on the side walk and were concerned that patient "may be ." When they arrived on scene, patient was found to be intoxicated, reports that he use Floca last night - reports that he was just sleeping on the side walk. Patient at this time denies suicidal idealizations. Patient denies homicidal idealizations. Patient with no complaints at this time PFSH Past Medical History Hx Anticoagulant Therapy: No ADD: Yes ADHD: Yes Arthritis: No Asthma: No Blood Disorders: No Bipolar Disorder: Yes Anxiety: Yes Depression: Yes Heart Rhythm Problems: No Cancer: No Cardiovascular Problems: No High Cholesterol: No Chemotherapy: No Chest Pain: No Congestive Heart Failure: No COPD: No Cerebrovascular Accident: No Diabetes: No Diminished Hearing: No Endocrine: No GERD: No Genitourinary: Yes (nocturia) Headaches: Yes Hepatitis: Yes (HEP C) Hiatal Hernia: No Hypertension: No Implanted Vascular Access Dvce: No Insomnia: Yes Musculoskeletal: No Neurologic: Yes Psychiatric: Yes Reproductive: No Respiratory: No Immunizations Current: Yes Migraines: Yes Radiation Therapy: No Seizures: No Sleep Apnea: No Thyroid Disease: No Ulcer: No Past Surgical History Abdominal Surgery: Yes (HERNIA REPAIR 10/2014) AICD: No Arteriovenous Shunt: No Cardiac Surgery: No Ear Surgery: No Endocrine Surgery: No Eye Surgery: No Genitourinary Surgery: No Gynecologic Surgery: No Hysterectomy: No Insulin Pump: No Joint Replacement: No Neurologic Surgery: Yes Oral Surgery: No Pacemaker: No Thoracic Surgery: No Other Surgery: Yes (ABDOMINAL HERNIA REPAIR 10/2014) Social History Alcohol Use: Yes (EVERYDAY, ABOUT 2 LITERS) Tobacco Use: Yes (1ppd) Substance Use: Yes (marijuana) Allergies-Medications (Allergen,Severity, Reaction): Coded Allergies: *MDRO Multi-Drug Resistant Organism (Verified Adverse Reaction, Unknown, ) MRSA (elbow & knee wound) - 04/18/16 ESBL E.Coli (urine)-11/01/16 Reported Meds & Prescriptions Reported Meds & Active Scripts Active Ibuprofen 400 Mg Tab 400 Mg PO Q8H PRN Thera/Beta-Carotene (Multiple Vitamin) 1 Tab Tab 1 Tab PO DAILY Klonopin (Clonazepam) 2 Mg Tab 2 Mg PO DAILY Reported Adderall (Amphetamine-Dextroamphetamine) 30 Mg Tab 30 Mg PO TID Avoid late evening doses. Space doses at least 4 to 6 hours if more than once/day dosing. Seroquel (Quetiapine Fumarate) 100 Mg Tab 100 Mg PO DAILY Seroquel (Quetiapine Fumarate) 400 Mg Tab 400 Mg PO HS Wellbutrin SR 12 HR (Bupropion HCl) 150 Mg Tab 150 Mg PO Q12HR Neurontin (Gabapentin) 800 Mg Tab 800 Mg PO BID Review of Systems General / Constitutional: No: Fever Eyes: No: Visual changes HENT: No: Headaches Cardiovascular: No: Chest Pain or Discomfort Respiratory: No: Shortness of Breath Gastrointestinal: No: Abdominal Pain Genitourinary: No: Dysuria Musculoskeletal: No: Pain Skin: No Rash Neurologic: No: Weakness Psychiatric: Positive: Substance Abuse, No: Depression Endocrine: No: Polydipsia Hematologic/Lymphatic: No: Easy Bruising Physical Exam Narrative GENERAL: patient intoxicated SKIN: Focused skin assessment warm/dry. HEAD: Atraumatic. Normocephalic. EYES: Pupils equal and round.. No injection or drainage. ENT: No nasal bleeding or discharge. Mucous membranes pink and moist. NECK: Trachea midline. No JVD. CARDIOVASCULAR: Regular rate and rhythm. No murmur appreciated. RESPIRATORY: No accessory muscle use. Clear to auscultation. Breath sounds equal bilaterally. GASTROINTESTINAL: Abdomen soft, non-tender, nondistended. Hepatic and splenic margins not palpable. MUSCULOSKELETAL: No obvious deformities. No clubbing. No cyanosis. No edema. NEUROLOGICAL: Awake and alert. Motor grossly within normal limits. Normal speech. PSYCHIATRIC: Patient intoxicated Data Data Last Documented VS Vital Signs Date Time Temp Pulse Resp B/P Pulse Ox O2 Delivery O2 Flow Rate FiO2 11/09/16 13:00 97.8 89 18 136/84 98 Room Air Orders Complete Blood Count With Diff (11/09/16 07:53) Comprehensive Metabolic Panel (11/09/16 07:53) Iv Access Insert/Monitor (11/09/16 07:53) Psych Screen (11/09/16 07:53) Sodium Chloride 0.9% Flush (Ns Flush) (11/09/16 08:00) Haloperidol Inj (Haldol Inj) (11/09/16 08:00) Lorazepam Inj (Ativan Inj) (11/09/16 08:00) Drug Screen, Random Urine (11/09/16 07:53) Alcohol (Ethanol) (11/09/16 07:53) Sodium Chlor 0.9% 1000 Ml Inj (Ns 1000 M (11/09/16 08:00) Labs Laboratory Tests Test 11/09/16 08:10 White Blood Count 10.4 TH/MM3 Red Blood Count 5.02 MIL/MM3 Hemoglobin 15.8 GM/DL Hematocrit 46.4 % Mean Corpuscular Volume 92.5 FL Mean Corpuscular Hemoglobin 31.4 PG Mean Corpuscular Hemoglobin 33.9 % Concent Red Cell Distribution Width 16.1 % Platelet Count 218 TH/MM3 Mean Platelet Volume 7.7 FL Neutrophils (%) (Auto) 71.1 % Lymphocytes (%) (Auto) 18.4 % Monocytes (%) (Auto) 9.9 % Eosinophils (%) (Auto) 0.1 % Basophils (%) (Auto) 0.5 % Neutrophils # (Auto) 7.4 TH/MM3 Lymphocytes # (Auto) 1.9 TH/MM3 Monocytes # (Auto) 1.0 TH/MM3 Eosinophils # (Auto) 0.0 TH/MM3 Basophils # (Auto) 0.0 TH/MM3 CBC Comment DIFF FINAL Differential Comment Sodium Level 143 MEQ/L Potassium Level 4.6 MEQ/L Chloride Level 104 MEQ/L Carbon Dioxide Level 28.7 MEQ/L Anion Gap 10 MEQ/L Blood Urea Nitrogen 7 MG/DL Creatinine 0.77 MG/DL Estimat Glomerular Filtration 105 ML/MIN Rate Random Glucose 88 MG/DL Calcium Level 8.5 MG/DL Total Bilirubin 0.4 MG/DL Aspartate Amino Transf 175 U/L (AST/SGOT) Alanine Aminotransferase 144 U/L (ALT/SGPT) Alkaline Phosphatase 79 U/L Total Protein 8.8 GM/DL Albumin 3.7 GM/DL Urine Opiates Screen NEG Urine Barbiturates Screen NEG Urine Amphetamines Screen NEG Urine Benzodiazepines Screen NEG Urine Cocaine Screen NEG Urine Cannabinoids Screen NEG Ethyl Alcohol Level 354 MG/DL MDM Medical Decision Making Medical Screen Exam Complete: Yes Emergency Medical Condition: Yes Interpretation(s) Vital Signs Date Time Temp Pulse Resp B/P Pulse Ox O2 Delivery O2 Flow Rate FiO2 11/09/16 07:50 98.0 98 17 130/81 97 Differential Diagnosis Alcohol abuse, alcohol intoxication, electrolyte abnormality Narrative Course Patient is a 55-year-old male who presents to emergency room via EMS for alcohol intoxication. Patient was found on the sidewalk sleeping, bystanders report that they weren't sure patient was alive and called EMS for help. Patient reports that he drank last night and used drugs, patient denies suicidal or homicidal ideations at this time. Patient required chemical sedation as he is refusing workup and is combative to staff. Vital Signs Date Time Temp Pulse Resp B/P Pulse Ox O2 Delivery O2 Flow Rate FiO2 11/09/16 13:00 97.8 89 18 136/84 98 Room Air 11/09/16 09:55 98.0 92 18 128/81 99 Room Air 11/09/16 08:00 96 18 98 Room Air 11/09/16 07:50 98.0 98 17 130/81 97 Laboratory Tests Test 11/09/16 08:10 White Blood Count 10.4 TH/MM3 (4.0-11.0) Red Blood Count 5.02 MIL/MM3 (4.50-5.90) Hemoglobin 15.8 GM/DL (13.0-17.0) Hematocrit 46.4 % (39.0-51.0) Mean Corpuscular Volume 92.5 FL (80.0-100.0) Mean Corpuscular Hemoglobin 31.4 PG (27.0-34.0) Mean Corpuscular Hemoglobin 33.9 % Concent (32.0-36.0) Red Cell Distribution Width 16.1 % (11.6-17.2) Platelet Count 218 TH/MM3 (150-450) Mean Platelet Volume 7.7 FL (7.0-11.0) Neutrophils (%) (Auto) 71.1 % (16.0-70.0) Lymphocytes (%) (Auto) 18.4 % (9.0-44.0) Monocytes (%) (Auto) 9.9 % (0.0-8.0) Eosinophils (%) (Auto) 0.1 % (0.0-4.0) Basophils (%) (Auto) 0.5 % (0.0-2.0) Neutrophils # (Auto) 7.4 TH/MM3 (1.8-7.7) Lymphocytes # (Auto) 1.9 TH/MM3 (1.0-4.8) Monocytes # (Auto) 1.0 TH/MM3 (0-0.9) Eosinophils # (Auto) 0.0 TH/MM3 (0-0.4) Basophils # (Auto) 0.0 TH/MM3 (0-0.2) CBC Comment DIFF FINAL Differential Comment Sodium Level 143 MEQ/L (136-145) Potassium Level 4.6 MEQ/L (3.5-5.1) Chloride Level 104 MEQ/L (98-107) Carbon Dioxide Level 28.7 MEQ/L (21.0-32.0) Anion Gap 10 MEQ/L (5-15) Blood Urea Nitrogen 7 MG/DL (7-18) Creatinine 0.77 MG/DL (0.60-1.30) Estimat Glomerular Filtration 105 ML/MIN Rate (>89) Random Glucose 88 MG/DL (74-106) Calcium Level 8.5 MG/DL (8.5-10.1) Total Bilirubin 0.4 MG/DL (0.2-1.0) Aspartate Amino Transf 175 U/L (15-37) (AST/SGOT) Alanine Aminotransferase 144 U/L (12-78) (ALT/SGPT) Alkaline Phosphatase 79 U/L (45-117) Total Protein 8.8 GM/DL (6.4-8.2) Albumin 3.7 GM/DL (3.4-5.0) Urine Opiates Screen NEG (NEG) Urine Barbiturates Screen NEG (NEG) Urine Amphetamines Screen NEG (NEG) Urine Benzodiazepines Screen NEG (NEG) Urine Cocaine Screen NEG (NEG) Urine Cannabinoids Screen NEG (NEG) Ethyl Alcohol Level 354 MG/DL (0-5) atient now awake and alert and oriented 3, patient ambulating in the emergency room with normal gait. Patient requesting to be discharged home. Patient denies suicidal or homicidal ideations at this time, patient reports that he likes drinking and likes "the craziness of Floca" reports "i don't want to stop using it." I encouraged patient to drink responsibly and I encouraged him to stop using drugs. Patient will follow-up with his primary care doctor and will return to emergency room as needed Critical Care Narrative Aggregate critical care time was 30 minutes. Time to perform other separately billable procedures was not included in the critical care time. My time did not include minutes spent treating any other patients simultaneously or on activities that did not directly contribute to the patient's treatment. The services I provided to this patient were to treat and/or prevent clinically significant deterioration that could result in: , decompensation, deterioration I provided critical care services requiring my management, as noted below: Chart data review, documentation time, medication orders and management, vital sign assessments/reviewing monitor data, ordering and reviewing lab tests, ordering and interpreting/reviewing x-rays and diagnostic studies, care of the patient and discussion of the patient with the admitting physicians. Diagnosis Primary Impression: Alcohol intoxication Qualified Code: F10.920 - Alcohol intoxication, uncomplicated Additional Impression: Drug abuse Patient Instructions: General Instructions Additional Instructions: Please stop using drugs Drink alcohol responsibly Return to ER as needed Disposition: 01 DISCHARGE HOME Condition: Stable Sherice Shaikh DO November 09, 2016 08:16
[2016-11-09 08:21] LABS: AUTOMATED NEUTROPHIL # 7.4 TH/MM3 (1.8-7.7); BASOPHIL % 0.5 % (0.0-2.0); EOSINOPHIL % 0.1 % (0.0-4.0); HEMATOCRIT 46.4 % (39.0-51.0); HEMO FLAGS DIFF FINAL; LYMPH % 18.4 % (9.0-44.0); LYMPHOCYTE # 1.9 TH/MM3 (1.0-4.8); MEAN CELL VOLUME 92.5 FL (80.0-100.0); MEAN CORPUSCULAR HEMOGLOBIN 31.4 PG (27.0-34.0); MEAN CORPUSCULAR HGB CONC 33.9 % (32.0-36.0); MONO % 9.9 % (0.0-8.0); NEUT % 71.1 % (16.0-70.0); PLATELET COUNT 218 TH/MM3 (150-450); RED BLOOD COUNT 5.02 MIL/MM3 (4.50-5.90); RED CELL DISTRIBUTION WIDTH 16.1 % (11.6-17.2); WHITE BLOOD COUNT 10.4 TH/MM3 (4.0-11.0)
[2016-11-09 08:35] LABS: ALT (GPT) 144 U/L (12-78); ANION GAP 10 MEQ/L (5-15); AST (GOT) 175 U/L (15-37); BICARBONATE 28.7 MEQ/L (21.0-32.0); BLOOD UREA NITROGEN 7 MG/DL (7-18); CHLORIDE 104 MEQ/L (98-107); GLOMERULAR FILTRATION RATE 105 ML/MIN (>89); POTASSIUM 4.6 MEQ/L (3.5-5.1); SODIUM (NA) 143 MEQ/L (136-145)
[2016-11-09 08:39] LABS: ALKALINE PHOSPHATASE 79 U/L (45-117); TOTAL BILIRUBIN ADULT 0.4 MG/DL (0.2-1.0)
[2016-11-09 08:40] LABS: AMPHETAMINE, URINE NEG (NEG); BARBITURATES, URINE NEG (NEG); COCAINE, URINE NEG (NEG)
[2016-11-09 09:55] VITALS: BP 128/81; PULSE 92; RESP 18; TEMP 98; O2SAT 99
[2016-11-09 13:00] VITALS: BP 136/84; PULSE 89; RESP 18; TEMP 97.8; O2SAT 98
[2016-11-09 15:15] VITALS: BP 128/81; TEMP 98
== END 2016-11-09 15:15 | disposition home or self-care (01) ==
LOC: NEPE 07:44
DX: F10.120 Alcohol abuse with intoxication, uncomplicated (principal); F12.19 Cannabis abuse with unspecified cannabis-induced disorder; F17.210 Nicotine dependence, cigarettes, uncomplicated; F31.9 Bipolar disorder, unspecified
CPT/HCPCS: 80053; 80307; 85025; 96360; 96372; 99285; J1630; J2060; J7030

== ENCOUNTER 2016-11-10 21:13 | Emergency (ER) | payer OTHER ==
[~2016-11-10] VITALS: Ht 170.2 cm; Wt 90.0 kg
[2016-11-10 21:32] VITALS: BP 131/68; PULSE 84; RESP 16; TEMP 98.2; O2SAT 99
--- NOTE | 2016-11-10 21:56 | PD ---
HPI Chief Complaint: Alcohol/Drug Intoxication Time Seen by Provider: 21:56 Travel History International Travel<30 days: No Contact w/Intl Traveler<30days: No Traveled to known affect area: No History of Present Illness HPI 55-year-old male with long-standing history of alcohol dependency and frequent visits to the emergency department for alcohol intoxication, presents today under a Starr act for alcohol intoxication. Patient states he has been drinking alcohol. States he would like to place to sleep this evening. Denies any suicidal or homicidal ideations. Denies any other acute medical needs at this time. PFSH Past Medical History Hx Anticoagulant Therapy: No ADD: Yes ADHD: Yes Arthritis: No Asthma: No Blood Disorders: No Bipolar Disorder: Yes Anxiety: Yes Depression: Yes Heart Rhythm Problems: No Cancer: No Cardiovascular Problems: No High Cholesterol: No Chemotherapy: No Chest Pain: No Congestive Heart Failure: No COPD: No Cerebrovascular Accident: No Diabetes: No Diminished Hearing: No Endocrine: No GERD: No Genitourinary: Yes Headaches: Yes Hepatitis: Yes (HEP C) Hiatal Hernia: No Hypertension: No Implanted Vascular Access Dvce: No Insomnia: Yes Musculoskeletal: No Neurologic: Yes Psychiatric: Yes Reproductive: No Respiratory: No Immunizations Current: Yes Migraines: Yes Radiation Therapy: No Seizures: No Sleep Apnea: No Thyroid Disease: No Ulcer: No Tetanus Vaccination: < 5 Years Influenza Vaccination: Yes Past Surgical History Abdominal Surgery: Yes (HERNIA REPAIR 10/2014) AICD: No Arteriovenous Shunt: No Cardiac Surgery: No Ear Surgery: No Endocrine Surgery: No Eye Surgery: No Genitourinary Surgery: No Gynecologic Surgery: No Hysterectomy: No Insulin Pump: No Joint Replacement: No Neurologic Surgery: Yes Oral Surgery: No Pacemaker: No Thoracic Surgery: No Other Surgery: Yes (ABDOMINAL HERNIA REPAIR 10/2014) Social History Alcohol Use: Yes (EVERYDAY, ABOUT 2 LITERS) Tobacco Use: Yes (1ppd) Substance Use: Yes (marijuana/FLAKKA) Allergies-Medications (Allergen,Severity, Reaction): Coded Allergies: *MDRO Multi-Drug Resistant Organism (Verified Adverse Reaction, Unknown, ) MRSA (elbow & knee wound) - 04/18/16 ESBL E.Coli (urine)-11/01/16 Reported Meds & Prescriptions Reported Meds & Active Scripts Active Ibuprofen 400 Mg Tab 400 Mg PO Q8H PRN Thera/Beta-Carotene (Multiple Vitamin) 1 Tab Tab 1 Tab PO DAILY Klonopin (Clonazepam) 2 Mg Tab 2 Mg PO DAILY Reported Adderall (Amphetamine-Dextroamphetamine) 30 Mg Tab 30 Mg PO TID Avoid late evening doses. Space doses at least 4 to 6 hours if more than once/day dosing. Seroquel (Quetiapine Fumarate) 100 Mg Tab 100 Mg PO DAILY Seroquel (Quetiapine Fumarate) 400 Mg Tab 400 Mg PO HS Wellbutrin SR 12 HR (Bupropion HCl) 150 Mg Tab 150 Mg PO Q12HR Neurontin (Gabapentin) 800 Mg Tab 800 Mg PO BID Review of Systems ROS Limitations: Intoxication Except as stated in HPI: all other systems reviewed are Neg Physical Exam Exam Limitations: Intoxication Narrative GENERAL: Unkempt male patient with a strong smell of alcohol on his breath but in no acute distress. Patient is arousable with slurred speech. He answers my questions appropriately. SKIN: Focused skin assessment warm/dry. HEAD: Normocephalic. EYES: No scleral icterus. No injection or drainage. NECK: Supple, trachea midline. No JVD or lymphadenopathy. CARDIOVASCULAR: Regular rate and rhythm without murmurs, gallops, or rubs. RESPIRATORY: Breath sounds equal bilaterally. No accessory muscle use. GASTROINTESTINAL: Abdomen soft, non-tender, nondistended. MUSCULOSKELETAL: No cyanosis, or edema. BACK: Nontender without obvious deformity. No CVA tenderness. Data Data Last Documented VS Vital Signs Date Time Temp Pulse Resp B/P Pulse Ox O2 Delivery O2 Flow Rate FiO2 11/10/16 21:34 16 98 Room Air 11/10/16 21:32 98.2 84 131/68 Orders Alcohol Withdrawal Asmt-Ciwa ONCE (11/10/16 23:01) Flumazenil Inj (Romazicon Inj) (11/10/16 23:15) Lorazepam (Ativan) (11/10/16 23:15) Lorazepam Inj (Ativan Inj) (11/10/16 23:15) Lorazepam (Ativan) (11/10/16 23:15) Lorazepam Inj (Ativan Inj) (11/10/16 23:15) Lorazepam Inj (Ativan Inj) (11/10/16 23:15) Lorazepam Inj (Ativan Inj) (5/7/17 23:15) [facility] Medical Decision Making Medical Screen Exam Complete: Yes Emergency Medical Condition: Yes Medical Record Reviewed: Yes Differential Diagnosis Intoxication versus substance abuse versus mood disorder versus personality disorder versus electrolyte abnormality Narrative Course 55-year-old male presents to the emergency department for evaluation of intoxication. Patient is clinically intoxicated. He'll be monitored until he is clinically sober at which time he'll be discharged home. Diagnosis Primary Impression: Alcohol intoxication Qualified Code: F10.929 - Alcohol intoxication, with unspecified complication Referrals: [facility] (Out patient) Patient Instructions: Alcohol Intoxication (ED), General Instructions Additional Instructions: It is important that you consume alcohol in moderation Follow-up with primary care provider Return immediately with any acute worsening of symptoms Med/Other Pt SpecificInfo: No Meds Exist/No RX given Disposition: 01 DISCHARGE HOME Condition: Stable Pili Christianson November 10, 2016 21:56
[2016-11-10] MEDS: LORazepam 2 MG/ML VIAL IV PUSH PRN (23:10)
[2016-11-10] MEDS ORDERED: LORazepam 2 MG TAB PO PRN (23:15)
[2016-11-10] MEDS ORDERED: LORazepam 2 MG/ML VIAL IV PUSH PRN ×3 (23:15)
[2016-11-10] MEDS ORDERED: LORazepam 1 MG TAB PO PRN (23:15)
[2016-11-10] MEDS ORDERED: FLUMAZENIL 0.5 MG/5 ML VIAL IV PUSH PRN (23:15)
[2016-11-11] MEDS: LORazepam 2 MG/ML VIAL IV PUSH PRN ×2 (01:45→04:32)
[2016-11-11 06:41] VITALS: BP 122/73; PULSE 95; RESP 14; O2SAT 96
[2016-11-11 09:33] VITALS: BP 120/71; PULSE 92; RESP 14; TEMP 98.3; O2SAT 96
== END 2016-11-11 09:35 | disposition home or self-care (01) ==
LOC: NEPD 21:13
DX: F10.229 Alcohol dependence with intoxication, unspecified (principal); B19.20 Unspecified viral hepatitis C without hepatic coma; F17.210 Nicotine dependence, cigarettes, uncomplicated; F12.90 Cannabis use, unspecified, uncomplicated
CPT/HCPCS: 96374; 96376; 99284; J2060

== ENCOUNTER 2016-11-15 22:49 | Emergency (ER) | payer OTHER ==
[~2016-11-15] VITALS: Ht 172.7 cm; Wt 80.0 kg
[~2016-11-15 22:49] MED LIST changes: -CEPH-460 PO
--- NOTE | 2016-11-15 23:05 | PD ---
HPI Chief Complaint: Alcohol/Drug Intoxication Time Seen by Provider: 22:59 Travel History International Travel<30 days: No Contact w/Intl Traveler<30days: No History of Present Illness HPI Patient is a homeless alcoholic male frequent visitor to emergency Department here for intoxication. Patient apparently was intoxicated in public area and was approached by police who were "laughing at me". Patient reportedly too inebriated to ambulate and was brought here. He noted complaints of "homicidal ideation, wanting to kill the police officers who were laughing at me". Denies other complaints at this time. Per chart review patient seen here recently for closed head injury and had fco to the scalp. PFSH Past Medical History Hx Anticoagulant Therapy: No ADD: Yes ADHD: Yes Arthritis: No Asthma: No Blood Disorders: No Bipolar Disorder: Yes Anxiety: Yes Depression: Yes Heart Rhythm Problems: No Cancer: No Cardiovascular Problems: No High Cholesterol: No Chemotherapy: No Chest Pain: No Congestive Heart Failure: No COPD: No Cerebrovascular Accident: No Diabetes: No Diminished Hearing: No Endocrine: No GERD: No Genitourinary: Yes Headaches: Yes Hepatitis: Yes (HEP C) Hiatal Hernia: No Hypertension: No Implanted Vascular Access Dvce: No Insomnia: Yes Musculoskeletal: No Neurologic: Yes Psychiatric: Yes Reproductive: No Respiratory: No Immunizations Current: Yes Migraines: Yes Radiation Therapy: No Seizures: No Sleep Apnea: No Thyroid Disease: No Ulcer: No Past Surgical History Abdominal Surgery: Yes (HERNIA REPAIR 10/2014) AICD: No Arteriovenous Shunt: No Cardiac Surgery: No Ear Surgery: No Endocrine Surgery: No Eye Surgery: No Genitourinary Surgery: No Gynecologic Surgery: No Hysterectomy: No Insulin Pump: No Joint Replacement: No Neurologic Surgery: Yes Oral Surgery: No Pacemaker: No Thoracic Surgery: No Other Surgery: Yes (ABDOMINAL HERNIA REPAIR 10/2014) Social History Alcohol Use: Yes (EVERYDAY, ABOUT 2 LITERS) Tobacco Use: Yes (1ppd) Substance Use: Yes (marijuana/FLAKKA) Allergies-Medications (Allergen,Severity, Reaction): Coded Allergies: *MDRO Multi-Drug Resistant Organism (Verified Adverse Reaction, Unknown, ) MRSA (elbow & knee wound) - 04/18/16 ESBL E.Coli (urine)-11/01/16 Reported Meds & Prescriptions Reported Meds & Active Scripts Active Ibuprofen 400 Mg Tab 400 Mg PO Q8H PRN Thera/Beta-Carotene (Multiple Vitamin) 1 Tab Tab 1 Tab PO DAILY Klonopin (Clonazepam) 2 Mg Tab 2 Mg PO DAILY Reported Adderall (Amphetamine-Dextroamphetamine) 30 Mg Tab 30 Mg PO TID Avoid late evening doses. Space doses at least 4 to 6 hours if more than once/day dosing. Seroquel (Quetiapine Fumarate) 100 Mg Tab 100 Mg PO DAILY Seroquel (Quetiapine Fumarate) 400 Mg Tab 400 Mg PO HS Wellbutrin SR 12 HR (Bupropion HCl) 150 Mg Tab 150 Mg PO Q12HR Neurontin (Gabapentin) 800 Mg Tab 800 Mg PO BID Review of Systems ROS Limitations: Intoxication, Poor Historian Physical Exam Exam Limitations: Intoxication, Poor Historian Narrative GENERAL: Clinically intoxicated disheveled middle-aged male in no acute distress SKIN: Focused skin assessment warm/dry. HEAD: Scalp laceration well healed, fco still in place Normocephalic. EYES: No scleral icterus. No injection or drainage. ENT: Mucous membranes pink and moist. CARDIOVASCULAR: Regular rate and rhythm. RESPIRATORY: No accessory muscle use. MUSCULOSKELETAL: Moves all extremities normally NEUROLOGICAL: Awake and alert. Answers questions and follows commands appropriately, normal gait. Speech is slurred, clinically intoxicated PSYCHIATRIC: insight and judgment poor. Complaints of homicidal ideation wanting to kill the police officers who are laughing at him MDM Medical Decision Making Medical Screen Exam Complete: Yes Emergency Medical Condition: Yes Medical Record Reviewed: Yes Differential Diagnosis 55-year-old homeless alcoholic male here with public intoxication. Patient notes that he feels homicidal towards the police officers were laughing at him and "I want to be admitted to the psych [facility]". Patient exhibits multiple malingering type statements requesting to be admitted. Clinically is intoxicated but denies any other complaints. The fco on his scalp are still in place and the wound is well healed. Narrative Course Fco were removed. Patient was encouraged to follow up as an outpatient for alcohol counseling and treatment. I do not feel as though he is a danger to police officers. Diagnosis Primary Impression: Alcohol intoxication Qualified Code: F10.920 - Alcohol intoxication, uncomplicated Additional Impressions: Malingering Removal of staple Referrals: [facility] for appointment Additional Instructions: Seek outpatient treatment for your alcoholism. Med/Other Pt SpecificInfo: No Change to Meds Disposition: 01 DISCHARGE HOME Condition: Stable Kaylee Farris MD November 15, 2016 23:05
[2016-11-15 23:14] VITALS: BP 141/68; PULSE 88; RESP 18; TEMP 98; O2SAT 99
== END 2016-11-15 23:24 | disposition home or self-care (01) ==
LOC: NEPD 22:49
DX: F10.129 Alcohol abuse with intoxication, unspecified (principal); S09.90XD Unspecified injury of head, subsequent encounter; F41.9 Anxiety disorder, unspecified; B19.20 Unspecified viral hepatitis C without hepatic coma; F17.210 Nicotine dependence, cigarettes, uncomplicated; F12.90 Cannabis use, unspecified, uncomplicated; X58.XXXD Exposure to other specified factors, subsequent encounter; Z48.02 Encounter for removal of sutures; Z76.5 Malingerer [conscious simulation]; Z59.0 Homelessness
CPT/HCPCS: 99283; 99284

== ENCOUNTER 2016-11-15 23:46 | Emergency (ER) | payer OTHER ==
[2016-11-15 23:49] VITALS: BP 113/87; PULSE 92; RESP 18; TEMP 97.5; O2SAT 96
--- NOTE | 2016-11-16 00:26 | PD ---
HPI Chief Complaint: Psychiatric Symptoms Time Seen by Provider: 00:20 Travel History International Travel<30 days: No Contact w/Intl Traveler<30days: No Traveled to known affect area: No History of Present Illness HPI Patient is a 55-year-old homeless alcoholic male just seen by myself in our emergency department who checked back into triage with complaints of being a homicidal" possibly suicidal". When evaluated by myself patient states "I'm not suicidal, I just want to kill a copy". Referring back to previous ED visits patient stated that he wanted to kill police lieutenant because they were laughing at him. He makes multiple requests to be admitted for various complaints, wanting food, detention, etc. Patient does not have any plans on how he would kill said police lieutenant and is not suicidal at this time. Clinically intoxicated. PFSH Past Medical History Hx Anticoagulant Therapy: No ADD: Yes ADHD: Yes Arthritis: No Asthma: No Blood Disorders: No Bipolar Disorder: Yes Anxiety: Yes Depression: Yes Heart Rhythm Problems: No Cancer: No Cardiovascular Problems: No High Cholesterol: No Chemotherapy: No Chest Pain: No Congestive Heart Failure: No COPD: No Cerebrovascular Accident: No Diabetes: No Diminished Hearing: No Endocrine: No GERD: No Genitourinary: Yes Headaches: Yes Hepatitis: Yes (HEP C) Hiatal Hernia: No Hypertension: No Implanted Vascular Access Dvce: No Insomnia: Yes Musculoskeletal: No Neurologic: Yes Psychiatric: Yes Reproductive: No Respiratory: No Immunizations Current: Yes Migraines: Yes Radiation Therapy: No Seizures: No Sleep Apnea: No Thyroid Disease: No Ulcer: No Past Surgical History Abdominal Surgery: Yes (HERNIA REPAIR 10/2014) AICD: No Arteriovenous Shunt: No Cardiac Surgery: No Ear Surgery: No Endocrine Surgery: No Eye Surgery: No Genitourinary Surgery: No Gynecologic Surgery: No Hysterectomy: No Insulin Pump: No Joint Replacement: No Neurologic Surgery: Yes Oral Surgery: No Pacemaker: No Thoracic Surgery: No Other Surgery: Yes (ABDOMINAL HERNIA REPAIR 10/2014) Social History Alcohol Use: Yes (EVERYDAY, ABOUT 2 LITERS) Tobacco Use: Yes (1ppd) Substance Use: Yes (marijuana/FLAKKA) Allergies-Medications (Allergen,Severity, Reaction): Coded Allergies: *MDRO Multi-Drug Resistant Organism (Verified Adverse Reaction, Unknown, ) MRSA (elbow & knee wound) - 04/18/16 ESBL E.Coli (urine)-11/01/16 Reported Meds & Prescriptions Reported Meds & Active Scripts Active Ibuprofen 400 Mg Tab 400 Mg PO Q8H PRN Thera/Beta-Carotene (Multiple Vitamin) 1 Tab Tab 1 Tab PO DAILY Klonopin (Clonazepam) 2 Mg Tab 2 Mg PO DAILY Reported Adderall (Amphetamine-Dextroamphetamine) 30 Mg Tab 30 Mg PO TID Avoid late evening doses. Space doses at least 4 to 6 hours if more than once/day dosing. Seroquel (Quetiapine Fumarate) 100 Mg Tab 100 Mg PO DAILY Seroquel (Quetiapine Fumarate) 400 Mg Tab 400 Mg PO HS Wellbutrin SR 12 HR (Bupropion HCl) 150 Mg Tab 150 Mg PO Q12HR Neurontin (Gabapentin) 800 Mg Tab 800 Mg PO BID Review of Systems ROS Limitations: Intoxication, Poor Historian Physical Exam Exam Limitations: Intoxication, Poor Historian Narrative GENERAL: Disheveled male in no acute distress SKIN: Focused skin assessment warm/dry. HEAD: Normocephalic. EYES: No scleral icterus. No injection or drainage. ENT: Mucous membranes pink and moist. CARDIOVASCULAR: Regular rate and rhythm. RESPIRATORY: No accessory muscle use. MUSCULOSKELETAL: Normal gait NEUROLOGICAL: Awake and alert. Normal speech. PSYCHIATRIC: Poor insight and judgment. Complains of homicidal ideation lying to kill a police lieutenant but does not have a plan. Data Data Last Documented VS Vital Signs Date Time Temp Pulse Resp B/P Pulse Ox O2 Delivery O2 Flow Rate FiO2 11/15/16 23:49 97.5 92 18 113/87 96 MDM Medical Decision Making Medical Screen Exam Complete: Yes Emergency Medical Condition: Yes Medical Record Reviewed: Yes Differential Diagnosis 55-year-old homeless alcoholic male here for the second time this evening with complaints of homicidal ideation and making multiple statements wanting to be admitted for various complaints, wanting food, etc. Symptoms are classic with malingering. I do not feel is the patient's complaints of homicidal ideation are real. Please officer was in the emergency department and spoke with patient. They do not have any desire to press charges and patient will be discharged. Narrative Course See above Diagnosis Primary Impression: Malingering Referrals: [facility] call for appointment Med/Other Pt SpecificInfo: No Change to Meds Disposition: 01 DISCHARGE HOME Condition: Stable Kaylee Farris MD November 16, 2016 00:26
== END 2016-11-16 00:37 | disposition home or self-care (01) ==
LOC: NEPD 23:46
DX: Z76.5 Malingerer [conscious simulation] (principal); B19.20 Unspecified viral hepatitis C without hepatic coma; F17.210 Nicotine dependence, cigarettes, uncomplicated; Z59.0 Homelessness; F10.129 Alcohol abuse with intoxication, unspecified
CPT/HCPCS: 99283

== ENCOUNTER 2017-01-03 01:58 | Emergency (ER) | payer OTHER ==
[2017-01-03 02:00] VITALS: BP 126/80; PULSE 92; RESP 18; TEMP 97.8; O2SAT 94
[2017-01-03] MEDS ORDERED: SODIUM CHLOR 0.9% 1000 ML INJ 1,000 ML IV SCH (02:23)
[2017-01-03] MEDS ORDERED: AMPICILLIN-SULBACTAM INJ 3 GM in SODIUM CHLORIDE 0.9% INJ 100 ML IV ONE (02:30)
[2017-01-03] MEDS ORDERED: SODIUM CHLORIDE 0.9% FLUSH 10 ML FLUSH IVF PRN (02:30)
--- NOTE | 2017-01-03 02:55 | RADRPT ---
EXAM DATE/TIME: 01/03/2017 02:43 [facility] COMPARISON: CT BRAIN W/O CONTRAST, May 11, 2016, 11:56. CT BRAIN W/O CONTRAST, November 05, 2016, 0:48. INDICATIONS : Possible fall. RADIATION DOSE: 56.35 CTDIvol (mGy) MEDICAL HISTORY : Non-responsive. SURGICAL HISTORY : Non-responsive. ENCOUNTER: Initial ACUITY: 1 day PAIN SCALE: Non-responsive LOCATION: cranial TECHNIQUE: Multiple contiguous axial images were obtained of the head. Using automated exposure control and adj ustment of the mA and/or kV according to patient size, radiation dose was kept as low as reasonably a chievable to obtain optimal diagnostic quality images. DICOM format image data is available electro nically for review and comparison. FINDINGS: There is no evidence for intracranial hemorrhage, mass effect, mass lesions, edema, or extra-axial fl uid collections. The visualized bony structures appear intact. The ventricles are normal size for t he patient's age. There are no signs of acute infarction for technique. There are facial bone fractu res discussed on the patient's facial CT. CONCLUSION: There is no evidence of any significant hemorrhage or mass effect. Carlos Hernandez MD on January 03, 2017 at 2:51 Board Certified Radiologist. This report was verified electronically.
--- NOTE | 2017-01-03 03:04 | RADRPT ---
EXAM DATE/TIME: 01/03/2017 02:44 [facility] COMPARISON: INDICATIONS : Possible fall. RADIATION DOSE: 23.94 CTDIvol (mGy) MEDICAL HISTORY : Non-responsive. SURGICAL HISTORY : Non-responsive. ENCOUNTER: Initial ACUITY: 1 day PAIN SCALE: Non-responsive LOCATION: neck TECHNIQUE: Volumetric scanning of the cervical spine was performed. Multiplanar reconstructions in the sagittal, coronal and oblique axial planes were performed. Using automated exposure control and adjustment o f the mA and/or kV according to patient size, radiation dose was kept as low as reasonably achievable to obtain optimal diagnostic quality images. DICOM format image data is available electronically f or review and comparison. FINDINGS: No evidence of subluxation. No definite fracture is seen for technique. C2-C3: There is no evidence for any significant compromise to the thecal sac, or the exiting nerve roots. N o appreciable thecal sac stenosis is seen. The neural foramina and lateral recess appear patent bila terally. C3-C4: Slight degenerative changes are seen within the disc space and facets. Slight to moderate overall the demetris sac stenosis is seen due to central disc/osteophyte complex and hypertrophic changes. The neural foramina are patent bilaterally. C4-C5: Slight degenerative changes are seen within the disc space and facets. Slight bulging disc and hypert rophic changes are seen with indentation on the thecal sac and no significant compromise to the theca l sac or the exiting nerve roots. C5-C6: Slight bulging disc and hypertrophic changes are seen with indentation on the thecal sac and no signi ficant compromise to the thecal sac or the exiting nerve roots. Slight degenerative changes are seen within the disc space and facets. C6-C7: Slight degenerative changes are seen within the disc space and facets. Slight bulging disc and hypert rophic changes are seen with indentation on the thecal sac and no significant compromise to the theca l sac or the exiting nerve roots. C7-T1: There is no evidence for any significant compromise to the thecal sac, or the exiting nerve roots. N o appreciable thecal sac stenosis is seen. The neural foramina and lateral recess appear patent bila terally. CONCLUSION: No appreciable change in slight to moderate thecal sac stenosis C3-4. Carlos Hernandez MD on January 03, 2017 at 2:58 Board Certified Radiologist. This report was verified electronically.
--- NOTE | 2017-01-03 03:10 | RADRPT ---
EXAM DATE/TIME: 01/03/2017 02:46 [facility] COMPARISON: CT FACIAL BONES W/O CONTRAST, November 05, 2016, 0:48. CT BRAIN W/O CONTRAST, January 03, 2017, 2:43. INDICATIONS : Possible fall. RADIATION DOSE: 21.96 CTDIvol (mGy) MEDICAL HISTORY : Non-responsive. SURGICAL HISTORY : Non-responsive. ENCOUNTER: Initial ACUITY: 1 day PAIN SCORE: Non-responsive LOCATION: facial TECHNIQUE: Volumetric scanning of the facial bones was performed. Using automated exposure control and adjustme nt of the mA and/or kV according to patient size, radiation dose was kept as low as reasonably achiev able to obtain optimal diagnostic quality images. DICOM format image data is available electronicall y for review and comparison. FINDINGS: Nasal bone fractures are present and present on the prior study from 11/2016. There is slight fluid wi thin bilateral maxillary sinuses not present previously, however there is additional mucoperiosteal t hickening within the frontal sinuses, eithmoid sinuses and maxillary sinuses chronic in nature. The n lionel septum is deviated towards the right. There is an approximate 5.5 mm radiopaque density in the s ubcutaneous tissues in a submental location partially outside of the skin. CONCLUSION: 1. Nasal bone fractures present on the prior exam. 2. Radiopaque density in the submental subcutaneous tissues not present previously. 3. Mucoperiosteal thickening within multiple sinuses and slightly worse within the maxillary sinuses since the prior exam. Carlos Hernandez MD on January 03, 2017 at 3:03 Board Certified Radiologist. This report was verified electronically.
--- NOTE | 2017-01-03 03:12 | RADRPT ---
EXAM DATE/TIME: 01/03/2017 02:40 [facility] COMPARISON: CHEST SINGLE AP, November 05, 2016, 0:42. INDICATIONS : Possible Fall. Patient unresponsive. MEDICAL HISTORY : Unubtainable SURGICAL HISTORY : Unubtainable ENCOUNTER: Initial ACUITY: 1 day PAIN SCORE: Non-responsive. LOCATION: Bilateral chest FINDINGS: The lungs are clear without infiltrate, nodule, or mass. There is no appreciable pleural effusion fo r technique. Heart and mediastinum are unremarkable. There is prominence of the perivascular marking s with crowding of the bronchovascular markings particularly in the lung bases may be due to expirato ry state of this radiograph, however slight interstitial process is not excluded. CONCLUSION: No acute cardiopulmonary disease. Carlos Hernandez MD on January 03, 2017 at 3:09 Board Certified Radiologist. This report was verified electronically.
[2017-01-03 03:24] LABS: HEMATOCRIT 41.8 % (39.0-51.0); MEAN CORPUSCULAR HEMOGLOBIN 31.2 PG (27.0-34.0); MEAN CORPUSCULAR HGB CONC 34.3 % (32.0-36.0); PLATELET COUNT 239 TH/MM3 (150-450); RED BLOOD COUNT 4.59 MIL/MM3 (4.50-5.90); RED CELL DISTRIBUTION WIDTH 13.7 % (11.6-17.2); WHITE BLOOD COUNT 8.3 TH/MM3 (4.0-11.0)
[2017-01-03 03:31] LABS: APTT (PATIENT) 25.9 SEC (24.3-30.1); PROTHROMBIN TIME - PATIENT 10.5 SEC (9.8-11.6)
[2017-01-03 03:34] LABS: HEMO FLAGS AUTO DIFF
[2017-01-03 03:41] LABS: BICARBONATE 23.7 MEQ/L (21.0-32.0)
[2017-01-03 04:02] LABS: BANDS 1 % (0-6); EOSINOPHILS 2 % (0-4); NEUTROPHIL # MANUAL DIFF 5.3 TH/MM3 (1.8-7.7); POLYS (SEG NEUTROPHILS) 63 % (16-70); SCAN/DIFF FINAL DIFF MANUAL; WBC DIFF SAMPLE 100
[2017-01-03 04:03] LABS: HELMET CELLS 1+ (NORMAL); PLATELET ESTIMATE SMEAR NORMAL (NORMAL); PLATELET MORPHOLOGY NORMAL (NORMAL)
--- NOTE | 2017-01-03 04:11 | PD ---
Physical Exam Date Seen by Provider: Jan 03, 2017 Time Seen by Provider: 04:09 Narrative Skin: Patient has a 1 cm laceration to the bridge of the nose. Data Data Last Documented VS Vital Signs Date Time Temp Pulse Resp B/P Pulse Ox O2 Delivery O2 Flow Rate FiO2 01/03/17 02:00 97.8 92 18 126/80 94 Orders Basic Metabolic Panel (Bmp) (01/03/17 02:23) Complete Blood Count With Diff (01/03/17 02:23) Prothrombin Time / Inr (Pt) (01/03/17 02:23) Act Partial Throm Time (Ptt) (01/03/17 02:23) Alcohol (Ethanol) (01/03/17 02:23) Chest, Single Ap (01/03/17 02:23) Ct Brain W/O Iv Contrast(Rout) (01/03/17 02:23) Ct Cerv Spine W/O Contrast (01/03/17 02:23) Ct Facial Bones W/O Iv Cont (01/03/17 02:23) Iv Access Insert/Monitor (01/03/17 02:23) Sodium Chlor 0.9% 1000 Ml Inj (Ns 1000 M (01/03/17 02:23) Sodium Chloride 0.9% Flush (Ns Flush) (01/03/17 02:30) Drug Screen, Random Urine (01/03/17 02:23) Ampicillin-Sulbactam Inj (Unasyn Inj) (01/03/17 02:30) Labs Laboratory Tests Test 01/03/17 02:30 White Blood Count 8.3 TH/MM3 Red Blood Count 4.59 MIL/MM3 Hemoglobin 14.4 GM/DL Hematocrit 41.8 % Mean Corpuscular Volume 91.0 FL Mean Corpuscular Hemoglobin 31.2 PG Mean Corpuscular Hemoglobin 34.3 % Concent Red Cell Distribution Width 13.7 % Platelet Count 239 TH/MM3 Mean Platelet Volume 7.9 FL Neutrophils (%) (Auto) % Lymphocytes (%) (Auto) % Monocytes (%) (Auto) % Eosinophils (%) (Auto) % Basophils (%) (Auto) % Neutrophils # (Auto) TH/MM3 Lymphocytes # (Auto) TH/MM3 Monocytes # (Auto) TH/MM3 Eosinophils # (Auto) TH/MM3 Basophils # (Auto) TH/MM3 CBC Comment AUTO DIFF Differential Total Cells 100 Counted Neutrophils % (Manual) 63 % Band Neutrophils % 1 % Lymphocytes % 28 % Monocytes % 6 % Eosinophils % 2 % Neutrophils # (Manual) 5.3 TH/MM3 Differential Comment FINAL DIFF MANUAL Platelet Estimate NORMAL Platelet Morphology Comment NORMAL Helmet Cells 1+ Prothrombin Time 10.5 SEC Prothromb Time International 1.0 RATIO Ratio Activated Partial 25.9 SEC Thromboplast Time Sodium Level 137 MEQ/L Potassium Level 4.0 MEQ/L Chloride Level 102 MEQ/L Carbon Dioxide Level 23.7 MEQ/L Anion Gap 11 MEQ/L Blood Urea Nitrogen 10 MG/DL Creatinine 0.84 MG/DL Estimat Glomerular Filtration 94 ML/MIN Rate Random Glucose 91 MG/DL Calcium Level 8.3 MG/DL Ethyl Alcohol Level 368 MG/DL MDM Medical Record Reviewed: Yes Supervised Visit with JOSE ARMANDO: Yes Interpretation(s) CBC & BMP Diagram 01/03/17 02:30 Last [address] 01/03/17222 Signed Impressions: Service Date/Time: Tuesday, January 03, 2017 02:46 - CONCLUSION: 1. Nasal bone fractures present on the prior exam. 2. Radiopaque density in the submental subcutaneous tissues not present previously. 3. Mucoperiosteal thickening within multiple sinuses and slightly worse within the maxillary sinuses since the prior exam. Carlos Hernandez MD Head CT 01/03/17222 Signed Impressions: Service Date/Time: Tuesday, January 03, 2017 02:43 - CONCLUSION: There is no evidence of any significant hemorrhage or mass effect. Carlos Hernandez MD Chest X-Ray 01/03/17222 Signed Impressions: Service Date/Time: Tuesday, January 03, 2017 02:40 - CONCLUSION: No acute cardiopulmonary disease. Carlos Hernandez MD Cervical Spine CT 01/03/17222 Signed Impressions: Service Date/Time: Tuesday, January 03, 2017 02:44 - CONCLUSION: No appreciable change in slight to moderate thecal sac stenosis C3-4. Carlos Hernandez MD Differential Diagnosis MDM: High Differential diagnoses: Fracture, sprain, strain, dislocation, contusion, neurovascular injury Narrative Course Patient's laceration is closed with Dermabond. Procedures Procedure Narrative LACERATION LOCATION: Bridge of the nose LENGTH: 1 cm NUMBER OF STITCHES/SOFIYA: Not applicable REPAIR: The area of the laceration was prepped with Betadine and sterilely draped. The wound was copiously irrigated and explored without evidence of foreign body, tendon injury or neurovascular injury. The wound was closed using Dermabond. This was a simple single layer repair. The patient was advised to keep the dressing clean and dry. Patient tolerated the procedure well. Sal Carson Jan 03, 2017 04:11
[2017-01-03 05:27] VITALS: BP 110/56; PULSE 88; RESP 18; O2SAT 94
--- NOTE | 2017-01-03 21:17 | PD ---
HPI Chief Complaint: Fall Time Seen by Provider: 02:19 Travel History International Travel<30 days: No Contact w/Intl Traveler<30days: No Traveled to known affect area: No History of Present Illness HPI 56 year old male brought to ER by [facility] intoxicated. Reports that patient was found outside on the ground intoxicated with his face bleeding. Patient denies si/hi. Patient reports that he "drank alot today." Patient with no c/o. PFSH Past Medical History Hx Anticoagulant Therapy: No ADD: Yes ADHD: Yes Arthritis: No Asthma: No Blood Disorders: No Bipolar Disorder: Yes Anxiety: Yes Depression: Yes Heart Rhythm Problems: No Cancer: No Cardiovascular Problems: No High Cholesterol: No Chemotherapy: No Chest Pain: No Congestive Heart Failure: No COPD: No Cerebrovascular Accident: No Diabetes: No Diminished Hearing: No Endocrine: No GERD: No Genitourinary: Yes Headaches: Yes Hepatitis: Yes (HEP C) Hiatal Hernia: No Hypertension: No Implanted Vascular Access Dvce: No Insomnia: Yes Musculoskeletal: No Neurologic: Yes Psychiatric: Yes Reproductive: No Respiratory: No Immunizations Current: Yes Migraines: Yes Radiation Therapy: No Seizures: No Sleep Apnea: No Thyroid Disease: No Ulcer: No Past Surgical History Abdominal Surgery: Yes (HERNIA REPAIR 10/2014) AICD: No Arteriovenous Shunt: No Cardiac Surgery: No Ear Surgery: No Endocrine Surgery: No Eye Surgery: No Genitourinary Surgery: No Gynecologic Surgery: No Hysterectomy: No Insulin Pump: No Joint Replacement: No Neurologic Surgery: Yes Oral Surgery: No Pacemaker: No Thoracic Surgery: No Other Surgery: Yes (ABDOMINAL HERNIA REPAIR 10/2014) Social History Alcohol Use: Yes (EVERYDAY, ABOUT 2 LITERS) Tobacco Use: Yes (1ppd) Substance Use: Yes (marijuana/FLAKKA) Allergies-Medications (Allergen,Severity, Reaction): Coded Allergies: *MDRO Multi-Drug Resistant Organism (Verified Adverse Reaction, Unknown, ) MRSA (elbow & knee wound) - 04/18/16 ESBL E.Coli (urine)-11/01/16 Reported Meds & Prescriptions Reported Meds & Active Scripts Active Ibuprofen 400 Mg Tab 400 Mg PO Q8H PRN Thera/Beta-Carotene (Multiple Vitamin) 1 Tab Tab 1 Tab PO DAILY Klonopin (Clonazepam) 2 Mg Tab 2 Mg PO DAILY Reported Adderall (Amphetamine-Dextroamphetamine) 30 Mg Tab 30 Mg PO TID Avoid late evening doses. Space doses at least 4 to 6 hours if more than once/day dosing. Seroquel (Quetiapine Fumarate) 100 Mg Tab 100 Mg PO DAILY Seroquel (Quetiapine Fumarate) 400 Mg Tab 400 Mg PO HS Wellbutrin SR 12 HR (Bupropion HCl) 150 Mg Tab 150 Mg PO Q12HR Neurontin (Gabapentin) 800 Mg Tab 800 Mg PO BID Review of Systems ROS Limitations: Intoxication Physical Exam Narrative GENERAL: No acute distress SKIN: Focused skin assessment warm/dry. HEAD: Atraumatic. Normocephalic. Patient with facial abrasions and 1cm laceration to bridge of nose EYES: Pupils equal and round. No scleral icterus. No injection or drainage. ENT: No nasal bleeding or discharge. Mucous membranes pink and moist. NECK: Trachea midline. No JVD. CARDIOVASCULAR: Regular rate and rhythm. No murmur appreciated. RESPIRATORY: No accessory muscle use. Clear to auscultation. Breath sounds equal bilaterally. GASTROINTESTINAL: Abdomen soft, non-tender, nondistended. Hepatic and splenic margins not palpable. MUSCULOSKELETAL: No obvious deformities. No clubbing. No cyanosis. No edema. NEUROLOGICAL: Awake and alert. PSYCHIATRIC: patient intoxicated Data Data Last Documented VS Vital Signs Date Time Temp Pulse Resp B/P Pulse Ox O2 Delivery O2 Flow Rate FiO2 01/03/17 05:27 88 18 110/56 94 01/03/17 02:00 97.8 Orders Basic Metabolic Panel (Bmp) (01/03/17 02:23) Complete Blood Count With Diff (01/03/17 02:23) Prothrombin Time / Inr (Pt) (01/03/17 02:23) Act Partial Throm Time (Ptt) (01/03/17 02:23) Alcohol (Ethanol) (01/03/17 02:23) Chest, Single Ap (01/03/17 02:23) Ct Brain W/O Iv Contrast(Rout) (01/03/17 02:23) Ct Cerv Spine W/O Contrast (01/03/17 02:23) Ct Facial Bones W/O Iv Cont (01/03/17 02:23) Iv Access Insert/Monitor (01/03/17 02:23) Sodium Chlor 0.9% 1000 Ml Inj (Ns 1000 M (01/03/17 02:23) Sodium Chloride 0.9% Flush (Ns Flush) (01/03/17 02:30) Ampicillin-Sulbactam Inj (Unasyn Inj) (01/03/17 02:30) Labs Laboratory Tests Test 01/03/17 02:30 White Blood Count 8.3 TH/MM3 Red Blood Count 4.59 MIL/MM3 Hemoglobin 14.4 GM/DL Hematocrit 41.8 % Mean Corpuscular Volume 91.0 FL Mean Corpuscular Hemoglobin 31.2 PG Mean Corpuscular Hemoglobin 34.3 % Concent Red Cell Distribution Width 13.7 % Platelet Count 239 TH/MM3 Mean Platelet Volume 7.9 FL Neutrophils (%) (Auto) % Lymphocytes (%) (Auto) % Monocytes (%) (Auto) % Eosinophils (%) (Auto) % Basophils (%) (Auto) % Neutrophils # (Auto) TH/MM3 Lymphocytes # (Auto) TH/MM3 Monocytes # (Auto) TH/MM3 Eosinophils # (Auto) TH/MM3 Basophils # (Auto) TH/MM3 CBC Comment AUTO DIFF Differential Total Cells 100 Counted Neutrophils % (Manual) 63 % Band Neutrophils % 1 % Lymphocytes % 28 % Monocytes % 6 % Eosinophils % 2 % Neutrophils # (Manual) 5.3 TH/MM3 Differential Comment FINAL DIFF MANUAL Platelet Estimate NORMAL Platelet Morphology Comment NORMAL Helmet Cells 1+ Prothrombin Time 10.5 SEC Prothromb Time International 1.0 RATIO Ratio Activated Partial 25.9 SEC Thromboplast Time Sodium Level 137 MEQ/L Potassium Level 4.0 MEQ/L Chloride Level 102 MEQ/L Carbon Dioxide Level 23.7 MEQ/L Anion Gap 11 MEQ/L Blood Urea Nitrogen 10 MG/DL Creatinine 0.84 MG/DL Estimat Glomerular Filtration 94 ML/MIN Rate Random Glucose 91 MG/DL Calcium Level 8.3 MG/DL Ethyl Alcohol Level 368 MG/DL [facility] Medical Decision Making Medical Screen Exam Complete: Yes Emergency Medical Condition: Yes Interpretation(s) Vital Signs Date Time Temp Pulse Resp B/P Pulse Ox O2 Delivery O2 Flow Rate FiO2 01/03/17 05:27 88 18 110/56 94 01/03/17 02:00 97.8 92 18 126/80 94 Laboratory Tests Test 01/03/17 02:30 White Blood Count 8.3 TH/MM3 (4.0-11.0) Red Blood Count 4.59 MIL/MM3 (4.50-5.90) Hemoglobin 14.4 GM/DL (13.0-17.0) Hematocrit 41.8 % (39.0-51.0) Mean Corpuscular Volume 91.0 FL (80.0-100.0) Mean Corpuscular Hemoglobin 31.2 PG (27.0-34.0) Mean Corpuscular Hemoglobin 34.3 % Concent (32.0-36.0) Red Cell Distribution Width 13.7 % (11.6-17.2) Platelet Count 239 TH/MM3 (150-450) Mean Platelet Volume 7.9 FL (7.0-11.0) Neutrophils (%) (Auto) % (16.0-70.0) Lymphocytes (%) (Auto) % (9.0-44.0) Monocytes (%) (Auto) % (0.0-8.0) Eosinophils (%) (Auto) % (0.0-4.0) Basophils (%) (Auto) % (0.0-2.0) Neutrophils # (Auto) TH/MM3 (1.8-7.7) Lymphocytes # (Auto) TH/MM3 (1.0-4.8) Monocytes # (Auto) TH/MM3 (0-0.9) Eosinophils # (Auto) TH/MM3 (0-0.4) Basophils # (Auto) TH/MM3 (0-0.2) CBC Comment AUTO DIFF Differential Total Cells 100 Counted Neutrophils % (Manual) 63 % (16-70) Band Neutrophils % 1 % (0-6) Lymphocytes % 28 % (9-44) Monocytes % 6 % (0-8) Eosinophils % 2 % (0-4) Neutrophils # (Manual) 5.3 TH/MM3 (1.8-7.7) Differential Comment FINAL DIFF MANUAL Platelet Estimate NORMAL (NORMAL) Platelet Morphology Comment NORMAL (NORMAL) Helmet Cells 1+ (NORMAL) Prothrombin Time 10.5 SEC (9.8-11.6) Prothromb Time International 1.0 RATIO Ratio Activated Partial 25.9 SEC Thromboplast Time (24.3-30.1) Sodium Level 137 MEQ/L (136-145) Potassium Level 4.0 MEQ/L (3.5-5.1) Chloride Level 102 MEQ/L (98-107) Carbon Dioxide Level 23.7 MEQ/L (21.0-32.0) Anion Gap 11 MEQ/L (5-15) Blood Urea Nitrogen 10 MG/DL (7-18) Creatinine 0.84 MG/DL (0.60-1.30) Estimat Glomerular Filtration 94 ML/MIN (>89) Rate Random Glucose 91 MG/DL (74-106) Calcium Level 8.3 MG/DL (8.5-10.1) Ethyl Alcohol Level 368 MG/DL (0-5) Last Impressions Maxillofacial CT 01/03/17222 Signed Impressions: Service Date/Time: Tuesday, January 03, 2017 02:46 - CONCLUSION: 1. Nasal bone fractures present on the prior exam. 2. Radiopaque density in the submental subcutaneous tissues not present previously. 3. Mucoperiosteal thickening within multiple sinuses and slightly worse within the maxillary sinuses since the prior exam. Carlos Hernandez MD Head CT 01/03/17222 Signed Impressions: Service Date/Time: Tuesday, January 03, 2017 02:43 - CONCLUSION: There is no evidence of any significant hemorrhage or mass effect. Carlos Hernandez MD Chest X-Ray 01/03/17222 Signed Impressions: Service Date/Time: Tuesday, January 03, 2017 02:40 - CONCLUSION: No acute cardiopulmonary disease. Carlos Hernandez MD Cervical Spine CT 01/03/17222 Signed Impressions: Service Date/Time: Tuesday, January 03, 2017 02:44 - CONCLUSION: No appreciable change in slight to moderate thecal sac stenosis C3-4. Carlos Hernandez MD Differential Diagnosis alcohol Intoxication, facial fractures, intracranial hemorrhage Narrative Course Patient presents to emergency room have plain intoxicated, patient with dried blood around his face, he does have a 1cm nasal bridge laceration. laceration was repaired by Ron WHYTE. CT of facial bone/head and neck ordered. IVF ordered. Labs reviewed, etoh 368, no acute fx's on ct's Last Impressions Maxillofacial CT 01/03/17222 Signed Impressions: Service Date/Time: Tuesday, January 03, 2017 02:46 - CONCLUSION: 1. Nasal bone fractures present on the prior exam. 2. Radiopaque density in the submental subcutaneous tissues not present previously. 3. Mucoperiosteal thickening within multiple sinuses and slightly worse within the maxillary sinuses since the prior exam. Carlos Hernandez MD Head CT 01/03/17222 Signed Impressions: Service Date/Time: Tuesday, January 03, 2017 02:43 - CONCLUSION: There is no evidence of any significant hemorrhage or mass effect. Carlos Hernandez MD Chest X-Ray 01/03/17222 Signed Impressions: Service Date/Time: Tuesday, January 03, 2017 02:40 - CONCLUSION: No acute cardiopulmonary disease. Carlos Hernandez MD Cervical Spine CT 01/03/17222 Signed Impressions: Service Date/Time: Tuesday, January 03, 2017 02:44 - CONCLUSION: No appreciable will change in slight to moderate thecal sac stenosis C3-4. Carlos Hernandez MD will have patient sleep it off and dc when sober Diagnosis Primary Impression: Alcohol intoxication Additional Impression: Facial laceration Referrals: NON-STAFF (PCP) Patient Instructions: General Instructions Departure Forms: Tests/Procedures Disposition: 07 AGAINST MEDICAL ADVICE Condition: Stable Sherice Shaikh DO Jan 03, 2017 21:17
== END 2017-01-03 07:42 | disposition left against medical advice (07) ==
LOC: NEPE 01:58
DX: F10.129 Alcohol abuse with intoxication, unspecified (principal); S01.21XA Laceration without foreign body of nose, initial encounter; F90.9 Attention-deficit hyperactivity disorder, unspecified type; F31.9 Bipolar disorder, unspecified; F41.9 Anxiety disorder, unspecified; B19.20 Unspecified viral hepatitis C without hepatic coma; F17.200 Nicotine dependence, unspecified, uncomplicated; Z79.899 Other long term (current) drug therapy; X58.XXXA Exposure to other specified factors, initial encounter
CPT/HCPCS: 12011; 70450; 70486; 71010; 72125; 80048; 80307; 85007; 85027; 85610; 85730; 96365; 96366; 99285; J0295; J7030

== ENCOUNTER 2017-01-03 13:21 | Emergency (ER) | payer OTHER ==
[~2017-01-03] VITALS: Ht 172.7 cm; Wt 75.0 kg
--- NOTE | 2017-01-03 14:16 | PD ---
HPI Chief Complaint: psychiatric symptoms Time Seen by Provider: 14:07 Travel History International Travel<30 days: No Contact w/Intl Traveler<30days: No History of Present Illness HPI 56 YO M presents to the ED under Valdes Act for evaluation of homicidal ideation. Per the paperwork the patient told a sales ledger clerk at the [facility] and the apprehending officer that he was going to kill them. On presentation the patient states that he said that he was going to kill the sales ledger clerk because she asked him to leave and wants to kill the officer because he brought him back to the ED. He admits that he has no weapons. He complains of chronic right knee pain, worsened today after he fell to the ground. He has been ambulatory of the leg. He admits to being intoxicated, unwilling to quantify how much he drank today. PFSH Past Medical History Hx Anticoagulant Therapy: No ADD: Yes ADHD: Yes Arthritis: No Asthma: No Blood Disorders: No Bipolar Disorder: Yes Anxiety: Yes Depression: Yes Heart Rhythm Problems: No Cancer: No Cardiovascular Problems: No High Cholesterol: No Chemotherapy: No Chest Pain: No Congestive Heart Failure: No COPD: No Cerebrovascular Accident: No Diabetes: No Diminished Hearing: No Endocrine: No GERD: No Genitourinary: Yes Headaches: Yes Hepatitis: Yes (HEP C) Hiatal Hernia: No Hypertension: No Implanted Vascular Access Dvce: No Insomnia: Yes Musculoskeletal: No Neurologic: Yes Psychiatric: Yes Reproductive: No Respiratory: No Immunizations Current: Yes Migraines: Yes Radiation Therapy: No Seizures: No Sleep Apnea: No Thyroid Disease: No Ulcer: No Past Surgical History Abdominal Surgery: Yes (HERNIA REPAIR 10/2014) AICD: No Arteriovenous Shunt: No Cardiac Surgery: No Ear Surgery: No Endocrine Surgery: No Eye Surgery: No Genitourinary Surgery: No Gynecologic Surgery: No Hysterectomy: No Insulin Pump: No Joint Replacement: No Neurologic Surgery: Yes Oral Surgery: No Pacemaker: No Thoracic Surgery: No Other Surgery: Yes (ABDOMINAL HERNIA REPAIR 10/2014) Social History Alcohol Use: Yes (EVERYDAY, ABOUT 2 LITERS) Tobacco Use: Yes (1ppd) Substance Use: Yes (marijuana/FLAKKA) Allergies-Medications (Allergen,Severity, Reaction): Coded Allergies: *MDRO Multi-Drug Resistant Organism (Verified Adverse Reaction, Unknown, ) MRSA (elbow & knee wound) - 04/18/16 ESBL E.Coli (urine)-11/01/16 Reported Meds & Prescriptions Reported Meds & Active Scripts Active Ibuprofen 400 Mg Tab 400 Mg PO Q8H PRN Thera/Beta-Carotene (Multiple Vitamin) 1 Tab Tab 1 Tab PO DAILY Klonopin (Clonazepam) 2 Mg Tab 2 Mg PO DAILY Reported Adderall (Amphetamine-Dextroamphetamine) 30 Mg Tab 30 Mg PO TID Avoid late evening doses. Space doses at least 4 to 6 hours if more than once/day dosing. Seroquel (Quetiapine Fumarate) 100 Mg Tab 100 Mg PO DAILY Seroquel (Quetiapine Fumarate) 400 Mg Tab 400 Mg PO HS Wellbutrin SR 12 HR (Bupropion HCl) 150 Mg Tab 150 Mg PO Q12HR Neurontin (Gabapentin) 800 Mg Tab 800 Mg PO BID Review of Systems Except as stated in HPI: all other systems reviewed are Neg Physical Exam Narrative GENERAL: Well-nourished, well-developed disheveled white male in NAD. SKIN: Focused skin assessment warm/dry. laceration of the bridge of the nose. Fresh abrasion of the right knee. Multiple healing crusts with no signs of infection. HEAD: Normocephalic. EYES: No scleral icterus. No injection or drainage. PERRLA. EOMI NECK: Supple, trachea midline. No JVD or lymphadenopathy. CARDIOVASCULAR: Regular rate and rhythm without murmurs, gallops, or rubs. RESPIRATORY: Breath sounds equal bilaterally. No accessory muscle use. GASTROINTESTINAL: Abdomen soft, non-tender, nondistended. MUSCULOSKELETAL: No cyanosis, or edema. Chronic deformity of the right knee. BACK: Nontender without obvious deformity. No CVA tenderness. Data Data Last Documented VS Vital Signs Date Time Temp Pulse Resp B/P Pulse Ox O2 Delivery O2 Flow Rate FiO2 01/03/17 14:47 98.6 89 18 126/63 92 Orders MDM Medical Decision Making Medical Screen Exam Complete: Yes Emergency Medical Condition: Yes Differential Diagnosis chronic alcohol abuse versus acute alcohol intoxication versus malingering versus Adjustment disorder versus anxiety versus bipolar versus depression versus dementia versus electrolyte disorder versus malingering versus mood disorder versus ODD versus psychosis versus PTSD versus schizophrenia versus schizoaffective disorder versus substance-induced mood disorder versus other Narrative Course 56 YO M presents to the ED under Valdes Act for evaluation of homicidal ideation. Per the paperwork the patient told a sales ledger clerk at the [facility] and the apprehending officer that he was going to kill them. On presentation the patient states that he said that he was going to kill the sales ledger clerk because she asked him to leave and wants to kill the officer because he brought him back to the ED. He admits that he has no weapons. He complains of chronic right knee pain, worsened today after he fell to the ground. He has been ambulatory of the leg. He admits to being intoxicated today, unwilling to quantify how much he drank today. Review of the record reveals patient was discharged overnight. Don't feel labs are warranted today. Clean and dress his wounds. He is medically cleared for psych eval. The patient was evaluated by Lucio Mello act was lifted. This is malingering, alcohol intoxication, abrasion of the right knee. He is stable and discharged. Diagnosis Primary Impression: Malingering Additional Impressions: Alcohol intoxication Qualified Code: F10.920 - Alcohol intoxication, uncomplicated Abrasion, right knee, initial encounter Referrals: [facility] (Out patient) Additional Instructions: Seek outpatient treatment for your chronic alcohol abuse. Disposition: 01 DISCHARGE HOME Condition: Stable Odette Willett Jan 03, 2017 14:16
[2017-01-03 14:47] VITALS: BP 126/63; PULSE 89; RESP 18; TEMP 98.6; O2SAT 92
== END 2017-01-03 15:21 | disposition home or self-care (01) ==
LOC: NEDAMB 13:21
DX: Z76.5 Malingerer [conscious simulation] (principal); F10.129 Alcohol abuse with intoxication, unspecified; S80.211A Abrasion, right knee, initial encounter; M25.561 Pain in right knee; G89.29 Other chronic pain; F31.9 Bipolar disorder, unspecified; F41.9 Anxiety disorder, unspecified; F17.200 Nicotine dependence, unspecified, uncomplicated; X58.XXXA Exposure to other specified factors, initial encounter
CPT/HCPCS: 99283

== ENCOUNTER 2017-01-07 06:46 | Emergency (ER) | payer OTHER ==
[~2017-01-07] VITALS: Ht 167.6 cm; Wt 60.0 kg
[2017-01-07 06:56] VITALS: BP 134/82; PULSE 86; RESP 18; TEMP 97.7; O2SAT 98
[2017-01-07 07:00] VITALS: BP 134/82; PULSE 86; RESP 18; TEMP 97.7; O2SAT 99
[2017-01-07] MEDS ORDERED: SODIUM CHLOR 0.9% 1000 ML INJ 1,000 ML IV ONE (07:00)
[2017-01-07] MEDS ORDERED: THIAMINE HCL 100 MG TAB PO ONE (07:00)
[2017-01-07] MEDS ORDERED: SODIUM CHLOR 0.9% 1000 ML INJ 1,000 ML IV SCH (07:00)
--- NOTE | 2017-01-07 07:06 | PD ---
HPI Chief Complaint: Alcohol/Drug Intoxication Time Seen by Provider: 06:56 Travel History International Travel<30 days: No Contact w/Intl Traveler<30days: No Traveled to known affect area: No History of Present Illness HPI patient brought in by [facility] FOR PUBLIC INTOXICATION. PATIENT HAS NO ACTIVE COMPLAINT AND JUST WANTS TO EAT PFSH Past Medical History Hx Anticoagulant Therapy: No ADD: Yes ADHD: Yes Arthritis: No Asthma: No Blood Disorders: No Bipolar Disorder: Yes Anxiety: Yes Depression: Yes Heart Rhythm Problems: No Cancer: No Cardiovascular Problems: No High Cholesterol: No Chemotherapy: No Chest Pain: No Congestive Heart Failure: No COPD: No Cerebrovascular Accident: No Diabetes: No Diminished Hearing: No Endocrine: No GERD: No Genitourinary: Yes Headaches: Yes Hepatitis: Yes (HEP C) Hiatal Hernia: No Hypertension: No Implanted Vascular Access Dvce: No Insomnia: Yes Musculoskeletal: No Neurologic: Yes Psychiatric: Yes Reproductive: No Respiratory: No Immunizations Current: Yes Migraines: Yes Radiation Therapy: No Seizures: No Sleep Apnea: No Thyroid Disease: No Ulcer: No ?: Not Past Surgical History Abdominal Surgery: Yes (HERNIA REPAIR 10/2014) AICD: No Arteriovenous Shunt: No Cardiac Surgery: No Ear Surgery: No Endocrine Surgery: No Eye Surgery: No Genitourinary Surgery: No Gynecologic Surgery: No Hysterectomy: No Insulin Pump: No Joint Replacement: No Neurologic Surgery: Yes Oral Surgery: No Pacemaker: No Thoracic Surgery: No Other Surgery: Yes (ABDOMINAL HERNIA REPAIR 10/2014) Social History Alcohol Use: Yes (EVERYDAY, ABOUT 2 LITERS) Tobacco Use: Yes (1ppd) Substance Use: Yes (marijuana/FLAKKA) Allergies-Medications (Allergen,Severity, Reaction): Coded Allergies: *MDRO Multi-Drug Resistant Organism (Verified Adverse Reaction, Unknown, ) MRSA (elbow & knee wound) - 04/18/16 ESBL E.Coli (urine)-11/01/16 Reported Meds & Prescriptions Reported Meds & Active Scripts Active Ibuprofen 400 Mg Tab 400 Mg PO Q8H PRN Thera/Beta-Carotene (Multiple Vitamin) 1 Tab Tab 1 Tab PO DAILY Klonopin (Clonazepam) 2 Mg Tab 2 Mg PO DAILY Reported Adderall (Amphetamine-Dextroamphetamine) 30 Mg Tab 30 Mg PO TID Avoid late evening doses. Space doses at least 4 to 6 hours if more than once/day dosing. Seroquel (Quetiapine Fumarate) 100 Mg Tab 100 Mg PO DAILY Seroquel (Quetiapine Fumarate) 400 Mg Tab 400 Mg PO HS Wellbutrin SR 12 HR (Bupropion HCl) 150 Mg Tab 150 Mg PO Q12HR Neurontin (Gabapentin) 800 Mg Tab 800 Mg PO BID Review of Systems ROS Limitations: Intoxication Except as stated in HPI: all other systems reviewed are Neg Physical Exam Narrative GENERAL: SLURRING WORDS, ETOH SMELL ON BREATH, URINATED ON HIS SHORTS, STANDING AND STAGGERED TO BED ON OWN YELLING "I WANT FOOD" SKIN: Warm and dry. HEAD: Atraumatic. Normocephalic. EYES: Pupils equal and round. No scleral icterus. No injection or drainage. ENT: No nasal bleeding or discharge. Mucous membranes pink and moist. NECK: Trachea midline. No JVD. CARDIOVASCULAR: Regular rate and rhythm. RESPIRATORY: No accessory muscle use. Clear to auscultation. Breath sounds equal bilaterally. GASTROINTESTINAL: Abdomen soft, non-tender, nondistended. Hepatic and splenic margins not palpable. MUSCULOSKELETAL: Extremities without clubbing, cyanosis, or edema. No obvious deformities. NEUROLOGICAL: Awake and alert. No obvious cranial nerve deficits. Motor grossly within normal limits. Five out of 5 muscle strength in the arms and legs. Normal speech. PSYCHIATRIC: Appropriate mood and affect; insight and judgment normal. Data Data Last Documented VS Vital Signs Date Time Temp Pulse Resp B/P Pulse Ox O2 Delivery O2 Flow Rate FiO2 01/07/17 14:57 82 28 119/56 100 Nasal Cannula 2 01/07/17 07:00 97.7 Orders Basic Metabolic Panel (Bmp) (01/07/17 07:00) Complete Blood Count With Diff (01/07/17 07:00) Prothrombin Time / Inr (Pt) (01/07/17 07:00) Act Partial Throm Time (Ptt) (01/07/17 07:00) Blood Glucose (01/07/17 07:00) Ecg Monitoring (01/07/17 07:00) Iv Access Insert/Monitor (01/07/17 07:00) Sodium Chlor 0.9% 1000 Ml Inj (Ns 1000 M (01/07/17 07:00) Drug Screen, Random Urine (01/07/17 07:00) Alcohol (Ethanol) (01/07/17 07:00) Tylenol (Acetaminophen) (01/07/17 07:00) Salicylates (Aspirin) (01/07/17 07:00) Sodium Chlor 0.9% 1000 Ml Inj (Ns 1000 M (01/07/17 07:00) Thiamine (Vit B1) (Vitamin B1) (01/07/17 07:00) Lipase (01/07/17 07:06) Ct Brain W/O Iv Contrast(Rout) (01/07/17 ) Lorazepam Inj (Ativan Inj) (01/07/17 08:00) Haloperidol Inj (Haldol Inj) (01/07/17 08:00) Haloperidol Inj (Haldol Inj) (01/07/17 07:52) Lorazepam Inj (Ativan Inj) (01/07/17 07:52) Haloperidol Inj (Haldol Inj) (01/07/17 08:30) Lorazepam Inj (Ativan Inj) (01/07/17 08:30) Labs Laboratory Tests Test 01/07/17 07:15 White Blood Count 6.4 TH/MM3 Red Blood Count 4.77 MIL/MM3 Hemoglobin 14.6 GM/DL Hematocrit 43.6 % Mean Corpuscular Volume 91.4 FL Mean Corpuscular Hemoglobin 30.7 PG Mean Corpuscular Hemoglobin 33.6 % Concent Red Cell Distribution Width 13.9 % Platelet Count 215 TH/MM3 Mean Platelet Volume 7.8 FL Neutrophils (%) (Auto) 45.0 % Lymphocytes (%) (Auto) 44.8 % Monocytes (%) (Auto) 7.8 % Eosinophils (%) (Auto) 1.7 % Basophils (%) (Auto) 0.7 % Neutrophils # (Auto) 2.9 TH/MM3 Lymphocytes # (Auto) 2.9 TH/MM3 Monocytes # (Auto) 0.5 TH/MM3 Eosinophils # (Auto) 0.1 TH/MM3 Basophils # (Auto) 0.0 TH/MM3 CBC Comment DIFF FINAL Differential Comment Prothrombin Time 10.5 SEC Prothromb Time International 1.0 RATIO Ratio Activated Partial 25.8 SEC Thromboplast Time Sodium Level 140 MEQ/L Potassium Level 3.8 MEQ/L Chloride Level 105 MEQ/L Carbon Dioxide Level 24.3 MEQ/L Anion Gap 11 MEQ/L Blood Urea Nitrogen 6 MG/DL Creatinine 0.86 MG/DL Estimat Glomerular Filtration 92 ML/MIN Rate Random Glucose 98 MG/DL Calcium Level 8.3 MG/DL Lipase 184 U/L Salicylates Level LESS THAN 1.7 MG/DL Acetaminophen Level LESS THAN 2.0 MCG/ML Ethyl Alcohol Level 324 MG/DL [facility] Medical Decision Making Medical Screen Exam Complete: Yes Emergency Medical Condition: Yes Medical Record Reviewed: Yes Differential Diagnosis ETOH INTOX V ELECTROLYTE ABNL V ICH V COMPLICATIONS (PANCREATITIS, DEHYDRATION) Narrative Course patient belligerent, verbally aggressive and abusive, personally threatened to "beat my ass" he arrived as a bass act by PD. initiated medical clearance protocol, patient interfering with medical clearance, decision made to partially sedate patient to allow staff to fulfill medical clearance (including blood work, ivf and ct head) Diagnosis Primary Impression: ALCOHOL INTOXICATION S/P SOBRIETY Patient Instructions: Alcohol Dependence (GEN), General Instructions Disposition: 01 DISCHARGE HOME Condition: Stable Charly Keene MD Jan 07, 2017 07:06
[2017-01-07 07:28] LABS: AUTOMATED NEUTROPHIL # 2.9 TH/MM3 (1.8-7.7); BASOPHIL % 0.7 % (0.0-2.0); EOSINOPHIL # 0.1 TH/MM3 (0-0.4); EOSINOPHIL % 1.7 % (0.0-4.0); HEMATOCRIT 43.6 % (39.0-51.0); HEMO FLAGS DIFF FINAL; LYMPH % 44.8 % (9.0-44.0); LYMPHOCYTE # 2.9 TH/MM3 (1.0-4.8); MEAN CELL VOLUME 91.4 FL (80.0-100.0); MEAN CORPUSCULAR HEMOGLOBIN 30.7 PG (27.0-34.0); MEAN CORPUSCULAR HGB CONC 33.6 % (32.0-36.0); MONO % 7.8 % (0.0-8.0); PLATELET COUNT 215 TH/MM3 (150-450); RED BLOOD COUNT 4.77 MIL/MM3 (4.50-5.90); RED CELL DISTRIBUTION WIDTH 13.9 % (11.6-17.2); WHITE BLOOD COUNT 6.4 TH/MM3 (4.0-11.0)
[2017-01-07 07:35] LABS: APTT (PATIENT) 25.8 SEC (24.3-30.1); PROTHROMBIN TIME - PATIENT 10.5 SEC (9.8-11.6)
[2017-01-07] MEDS ORDERED: HALOPERIDOL LACTATE 5 MG/ML AMP ONE (07:52)
[2017-01-07] MEDS ORDERED: LORazepam 2 MG/ML VIAL ONE (07:52)
[2017-01-07] MEDS ORDERED: HALOPERIDOL LACTATE 5 MG/ML AMP IV ONE (08:00)
[2017-01-07] MEDS ORDERED: LORazepam 2 MG/ML VIAL IV PUSH ONE (08:00)
[2017-01-07] MEDS ORDERED: LORazepam 2 MG/ML VIAL IM ONE (08:30)
[2017-01-07] MEDS ORDERED: HALOPERIDOL LACTATE 5 MG/ML AMP IM ONE (08:30)
[2017-01-07 08:35] LABS: ANION GAP 11 MEQ/L (5-15)
[2017-01-07 08:39] LABS: BICARBONATE 24.3 MEQ/L (21.0-32.0); BLOOD UREA NITROGEN 6 MG/DL (7-18); CHLORIDE 105 MEQ/L (98-107); GLOMERULAR FILTRATION RATE 92 ML/MIN (>89); POTASSIUM 3.8 MEQ/L (3.5-5.1); SODIUM (NA) 140 MEQ/L (136-145)
[2017-01-07 08:40] LABS: ACETAMINOPHEN LESS THAN 2.0 MCG/ML (10.0-30.0)
--- NOTE | 2017-01-07 09:30 | RADRPT ---
EXAM DATE/TIME: 01/07/2017 09:14 [place] COMPARISON: CT BRAIN W/O CONTRAST, January 03, 2017, 2:43. INDICATIONS : Altered mental status. RADIATION DOSE: 42.33 CTDIvol (mGy) MEDICAL HISTORY : None SURGICAL HISTORY : None. ENCOUNTER: Initial ACUITY: 1 day PAIN SCALE: 0/10 LOCATION: cranial TECHNIQUE: Multiple contiguous axial images were obtained of the head. Using automated exposure control and adj ustment of the mA and/or kV according to patient size, radiation dose was kept as low as reasonably a chievable to obtain optimal diagnostic quality images. DICOM format image data is available electro nically for review and comparison. FINDINGS: No signs of acute infarct, hemorrhage or mass. 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 Nasal bone fra ctures are appreciated. CONCLUSION: No significant change has occurred. Parveen Man MD on January 07, 2017 at 9:26 Board Certified Radiologist. This report was verified electronically.
[2017-01-07 14:57] VITALS: BP 119/56; PULSE 82; RESP 28; O2SAT 100
== END 2017-01-07 15:24 | disposition home or self-care (01) ==
LOC: NEPC 06:46
DX: F10.129 Alcohol abuse with intoxication, unspecified (principal); F17.210 Nicotine dependence, cigarettes, uncomplicated; F12.10 Cannabis abuse, uncomplicated; B19.20 Unspecified viral hepatitis C without hepatic coma; F31.9 Bipolar disorder, unspecified; Y90.8 Blood alcohol level of 240 mg/100 ml or more
CPT/HCPCS: 70450; 80048; 80307; 83690; 85025; 85610; 85730; 96360; 96361; 96372; 99285; J1630; J2060; J7030

== ENCOUNTER 2017-03-08 03:33 | Emergency (ER) | payer OTHER ==
[2017-03-08 03:53] VITALS: BP 147/87; PULSE 101; RESP 18; O2SAT 98
[2017-03-08] MEDS ORDERED: LORazepam 2 MG/ML VIAL IM ONE (04:00)
[2017-03-08] MEDS ORDERED: HALOPERIDOL LACTATE 5 MG/ML AMP IM ONE (04:00)
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
--- NOTE | 2017-03-08 06:08 | RADRPT ---
EXAM DATE/TIME: 03/08/2017 05:41 [facility] COMPARISON: CT BRAIN W/O CONTRAST, January 07, 2017, 9:14. INDICATIONS : Trauma. Fall. RADIATION DOSE: 34.51 CTDIvol (mGy) MEDICAL HISTORY : None SURGICAL HISTORY : None. ENCOUNTER: Initial ACUITY: 1 day PAIN SCALE: 0/10 LOCATION: cranial TECHNIQUE: Multiple contiguous axial images were obtained of the head. Using automated exposure control and adj ustment of the mA and/or kV according to patient size, radiation dose was kept as low as reasonably a chievable to obtain optimal diagnostic quality images. DICOM format image data is available electro nically for review and comparison. FINDINGS: CEREBRUM: The ventricles are normal for age. No evidence of midline shift, mass lesion, hemorrhage or acute in farction. No extra-axial fluid collections are seen. POSTERIOR FOSSA: The cerebellum and brainstem are intact. The 4th ventricle is midline. The cerebellopontine angle i s unremarkable. EXTRACRANIAL: The visualized portion of the orbits is intact. Right parietal scalp hematoma. SKULL: The calvaria is intact. No evidence of skull fracture. CONCLUSION: 1. Right parietal scalp hematoma. No acute intracranial abnormalities. Remote nasal bone fractures. Sal Scales MD on March 08, 2017 at 6:05 Board Certified Radiologist. This report was verified electronically.
== END 2017-03-08 09:55 | disposition home or self-care (01) ==
LOC: NEPD 03:33
DX: S01.01XA Laceration without foreign body of scalp, initial encounter (principal); Y35.813A Legal intervention involving manhandling, suspect injured, initial encounter
CPT/HCPCS: 12002; 70450; 96372; 99285; J1630; J2060

== ENCOUNTER 2017-04-24 08:50 | Emergency (ER) | payer OTHER ==
[~2017-04-24] VITALS: Ht 175.3 cm; Wt 80.0 kg
[2017-04-24 09:04] VITALS: BP 124/76; PULSE 90; RESP 16; TEMP 98.4; O2SAT 94
--- NOTE | 2017-04-24 14:18 | PD ---
HPI Chief Complaint: Alcohol/Drug Intoxication Time Seen by Provider: 09:07 Travel History International Travel<30 days: No Contact w/Intl Traveler<30days: No Traveled to known affect area: No History of Present Illness HPI This is a 56-year-old male with a history of alcoholism who presents to the emergency department intoxicated brought in under [employer] He denies any suicidal or homicidal ideation. He has no other medical complaints. He is a poor historian because he is intoxicated. PFSH Past Medical History Hx Anticoagulant Therapy: No ADD: Yes ADHD: Yes Arthritis: No Asthma: No Blood Disorders: No Bipolar Disorder: Yes Anxiety: Yes Depression: Yes Heart Rhythm Problems: No Cancer: No Cardiovascular Problems: No High Cholesterol: No Chemotherapy: No Chest Pain: No Congestive Heart Failure: No COPD: No Cerebrovascular Accident: No Diabetes: No Diminished Hearing: No Endocrine: No GERD: No Genitourinary: Yes Headaches: Yes Hepatitis: Yes (HEP C) Hiatal Hernia: No Hypertension: No Implanted Vascular Access Dvce: No Insomnia: Yes Musculoskeletal: No Neurologic: Yes Psychiatric: Yes Reproductive: No Respiratory: No Immunizations Current: Yes Migraines: Yes Radiation Therapy: No Seizures: No Sleep Apnea: No Thyroid Disease: No Ulcer: No Tetanus Vaccination: < 5 Years Influenza Vaccination: No Past Surgical History Abdominal Surgery: Yes (HERNIA REPAIR 10/2014) AICD: No Arteriovenous Shunt: No Cardiac Surgery: No Ear Surgery: No Endocrine Surgery: No Eye Surgery: No Genitourinary Surgery: No Gynecologic Surgery: No Hysterectomy: No Insulin Pump: No Joint Replacement: No Neurologic Surgery: Yes Oral Surgery: No Pacemaker: No Thoracic Surgery: No Other Surgery: Yes (ABDOMINAL HERNIA REPAIR 10/2014) Social History Alcohol Use: Yes (EVERYDAY, ABOUT 2 LITERS) Tobacco Use: Yes (1ppd) Substance Use: Yes (FLAKKA AND K2) Allergies-Medications (Allergen,Severity, Reaction): Coded Allergies: *MDRO Multi-Drug Resistant Organism (Verified Adverse Reaction, Unknown, ) MRSA (elbow & knee wound) - 04/18/16 ESBL E.Coli (urine)-11/01/16 Reported Meds & Prescriptions Reported Meds & Active Scripts Active Ibuprofen 400 Mg Tab 400 Mg PO Q8H PRN Thera/Beta-Carotene (Multiple Vitamin) 1 Tab Tab 1 Tab PO DAILY Klonopin (Clonazepam) 2 Mg Tab 2 Mg PO DAILY Reported Adderall (Amphetamine-Dextroamphetamine) 30 Mg Tab 30 Mg PO TID Avoid late evening doses. Space doses at least 4 to 6 hours if more than once/day dosing. Seroquel (Quetiapine Fumarate) 100 Mg Tab 100 Mg PO DAILY Seroquel (Quetiapine Fumarate) 400 Mg Tab 400 Mg PO HS Wellbutrin SR 12 HR (Bupropion HCl) 150 Mg Tab 150 Mg PO Q12HR Neurontin (Gabapentin) 800 Mg Tab 800 Mg PO BID Review of Systems ROS Limitations: Intoxication Physical Exam Narrative GENERAL: Smells of alcohol, disheveled SKIN: Focused skin assessment warm and dry. HEAD: Atraumatic. Normocephalic. EYES: Pupils equal and round. No injection or drainage. ENT: Moist mucous membranes NECK: Trachea midline. CARDIOVASCULAR: Regular rate and rhythm. No murmur appreciated. RESPIRATORY: Clear to auscultation. Breath sounds equal bilaterally. GASTROINTESTINAL: Abdomen soft, non-tender, nondistended. MUSCULOSKELETAL: No obvious deformities. NEUROLOGICAL: Awake and alert. No obvious cranial nerve deficits. Moving all extremities. PSYCHIATRIC: Appropriate mood and affect; insight and judgment normal. Data Data Last Documented VS Vital Signs Date Time Temp Pulse Resp B/P (MAP) Pulse Ox O2 Delivery O2 Flow Rate FiO2 04/24/17 09:04 98.4 90 16 124/76 (92) 94 Orders Orders Diet Regular Basic (04/24/17 Lunch) [facility] Medical Decision Making Medical Screen Exam Complete: Yes Emergency Medical Condition: Yes Differential Diagnosis Alcohol intoxication, substance abuse, substance-induced mood disorder Narrative Course This is a 56-year-old male who presents to the emergency department with acute alcohol intoxication brought in under [employer]. Patient was observed and was clinically sober, able to make his own decisions appropriately, walk without difficulty and speak clearly. I think he can be discharged home. Diagnosis Primary Impression: Acute alcohol intoxication Qualified Codes: F10.929 - Alcohol use, unspecified with intoxication, unspecified Patient Instructions: General Instructions Additional Instructions: Follow up with Waqar Ghosh in regards to psychiatric or substance related issues at: [address] [place], [place] [id number] Med/Other Pt SpecificInfo: No Change to Meds Disposition: 01 DISCHARGE HOME Condition: Stable Highet,Annette H. MD Apr 24, 2017 14:18
--- NOTE | 2017-04-24 14:18 | PD ---
HPI Chief Complaint: Alcohol/Drug Intoxication Time Seen by Provider: 09:07 Travel History International Travel<30 days: No Contact w/Intl Traveler<30days: No Traveled to known affect area: No History of Present Illness HPI This is a 56-year-old male with a history of alcoholism who presents to the emergency department intoxicated brought in under [employer]. He denies any suicidal or homicidal ideation. He has no other medical complaints. He is a poor historian because he is intoxicated. PFSH Past Medical History Hx Anticoagulant Therapy: No ADD: Yes ADHD: Yes Arthritis: No Asthma: No Blood Disorders: No Bipolar Disorder: Yes Anxiety: Yes Depression: Yes Heart Rhythm Problems: No Cancer: No Cardiovascular Problems: No High Cholesterol: No Chemotherapy: No Chest Pain: No Congestive Heart Failure: No COPD: No Cerebrovascular Accident: No Diabetes: No Diminished Hearing: No Endocrine: No GERD: No Genitourinary: Yes Headaches: Yes Hepatitis: Yes (HEP C) Hiatal Hernia: No Hypertension: No Implanted Vascular Access Dvce: No Insomnia: Yes Musculoskeletal: No Neurologic: Yes Psychiatric: Yes Reproductive: No Respiratory: No Immunizations Current: Yes Migraines: Yes Radiation Therapy: No Seizures: No Sleep Apnea: No Thyroid Disease: No Ulcer: No Tetanus Vaccination: < 5 Years Influenza Vaccination: No Past Surgical History Abdominal Surgery: Yes (HERNIA REPAIR 10/2014) AICD: No Arteriovenous Shunt: No Cardiac Surgery: No Ear Surgery: No Endocrine Surgery: No Eye Surgery: No Genitourinary Surgery: No Gynecologic Surgery: No Hysterectomy: No Insulin Pump: No Joint Replacement: No Neurologic Surgery: Yes Oral Surgery: No Pacemaker: No Thoracic Surgery: No Other Surgery: Yes (ABDOMINAL HERNIA REPAIR 10/2014) Social History Alcohol Use: Yes (EVERYDAY, ABOUT 2 LITERS) Tobacco Use: Yes (1ppd) Substance Use: Yes (FLAKKA AND K2) Allergies-Medications (Allergen,Severity, Reaction): Coded Allergies: *MDRO Multi-Drug Resistant Organism (Verified Adverse Reaction, Unknown, ) MRSA (elbow & knee wound) - 04/18/16 ESBL E.Coli (urine)-11/01/16 Reported Meds & Prescriptions Reported Meds & Active Scripts Active Ibuprofen 400 Mg Tab 400 Mg PO Q8H PRN Thera/Beta-Carotene (Multiple Vitamin) 1 Tab Tab 1 Tab PO DAILY Klonopin (Clonazepam) 2 Mg Tab 2 Mg PO DAILY Reported Adderall (Amphetamine-Dextroamphetamine) 30 Mg Tab 30 Mg PO TID Avoid late evening doses. Space doses at least 4 to 6 hours if more than once/day dosing. Seroquel (Quetiapine Fumarate) 100 Mg Tab 100 Mg PO DAILY Seroquel (Quetiapine Fumarate) 400 Mg Tab 400 Mg PO HS Wellbutrin SR 12 HR (Bupropion HCl) 150 Mg Tab 150 Mg PO Q12HR Neurontin (Gabapentin) 800 Mg Tab 800 Mg PO BID Review of Systems ROS Limitations: Intoxication Physical Exam Narrative GENERAL: Smells of alcohol, disheveled SKIN: Focused skin assessment warm and dry. HEAD: Atraumatic. Normocephalic. EYES: Pupils equal and round. No injection or drainage. ENT: Moist mucous membranes NECK: Trachea midline. CARDIOVASCULAR: Regular rate and rhythm. No murmur appreciated. RESPIRATORY: Clear to auscultation. Breath sounds equal bilaterally. GASTROINTESTINAL: Abdomen soft, non-tender, nondistended. MUSCULOSKELETAL: No obvious deformities. NEUROLOGICAL: Awake and alert. No obvious cranial nerve deficits. Moving all extremities. PSYCHIATRIC: Appropriate mood and affect; insight and judgment normal. Data Data Last Documented VS Vital Signs Date Time Temp Pulse Resp B/P (MAP) Pulse Ox O2 Delivery O2 Flow Rate FiO2 04/24/17 09:04 98.4 90 16 124/76 (92) 94 Orders Orders Diet Regular Basic (04/24/17 Lunch) [facility] Medical Decision Making Medical Screen Exam Complete: Yes Emergency Medical Condition: Yes Differential Diagnosis Alcohol intoxication, substance abuse, substance-induced mood disorder Narrative Course This is a 56-year-old male who presents to the emergency department with acute alcohol intoxication brought in under [employer]. Patient was observed and was clinically sober, able to make his own decisions appropriately, walk without difficulty and speak clearly. I think he can be discharged home. Diagnosis Primary Impression: Acute alcohol intoxication Qualified Codes: F10.929 - Alcohol use, unspecified with intoxication, unspecified Patient Instructions: General Instructions Additional Instructions: Follow up with Waqar Ghosh in regards to psychiatric or substance related issues at: [address] [place], [place] [id number] Med/Other Pt SpecificInfo: No Change to Meds Disposition: 01 DISCHARGE HOME Condition: Stable Highet,Annette H. MD Apr 24, 2017 14:18
--- NOTE | 2017-04-24 14:18 | PD ---
HPI Chief Complaint: Alcohol/Drug Intoxication Time Seen by Provider: 09:07 Travel History International Travel<30 days: No Contact w/Intl Traveler<30days: No Traveled to known affect area: No History of Present Illness HPI This is a 56-year-old male with a history of alcoholism who presents to the emergency department intoxicated brought in under [employer]. He denies any suicidal or homicidal ideation. He has no other medical complaints. He is a poor historian because he is intoxicated. PFSH Past Medical History Hx Anticoagulant Therapy: No ADD: Yes ADHD: Yes Arthritis: No Asthma: No Blood Disorders: No Bipolar Disorder: Yes Anxiety: Yes Depression: Yes Heart Rhythm Problems: No Cancer: No Cardiovascular Problems: No High Cholesterol: No Chemotherapy: No Chest Pain: No Congestive Heart Failure: No COPD: No Cerebrovascular Accident: No Diabetes: No Diminished Hearing: No Endocrine: No GERD: No Genitourinary: Yes Headaches: Yes Hepatitis: Yes (HEP C) Hiatal Hernia: No Hypertension: No Implanted Vascular Access Dvce: No Insomnia: Yes Musculoskeletal: No Neurologic: Yes Psychiatric: Yes Reproductive: No Respiratory: No Immunizations Current: Yes Migraines: Yes Radiation Therapy: No Seizures: No Sleep Apnea: No Thyroid Disease: No Ulcer: No Tetanus Vaccination: < 5 Years Influenza Vaccination: No Past Surgical History Abdominal Surgery: Yes (HERNIA REPAIR 10/2014) AICD: No Arteriovenous Shunt: No Cardiac Surgery: No Ear Surgery: No Endocrine Surgery: No Eye Surgery: No Genitourinary Surgery: No Gynecologic Surgery: No Hysterectomy: No Insulin Pump: No Joint Replacement: No Neurologic Surgery: Yes Oral Surgery: No Pacemaker: No Thoracic Surgery: No Other Surgery: Yes (ABDOMINAL HERNIA REPAIR 10/2014) Social History Alcohol Use: Yes (EVERYDAY, ABOUT 2 LITERS) Tobacco Use: Yes (1ppd) Substance Use: Yes (FLAKKA AND K2) Allergies-Medications (Allergen,Severity, Reaction): Coded Allergies: *MDRO Multi-Drug Resistant Organism (Verified Adverse Reaction, Unknown, ) MRSA (elbow & knee wound) - 04/18/16 ESBL E.Coli (urine)-11/01/16 Reported Meds & Prescriptions Reported Meds & Active Scripts Active Ibuprofen 400 Mg Tab 400 Mg PO Q8H PRN Thera/Beta-Carotene (Multiple Vitamin) 1 Tab Tab 1 Tab PO DAILY Klonopin (Clonazepam) 2 Mg Tab 2 Mg PO DAILY Reported Adderall (Amphetamine-Dextroamphetamine) 30 Mg Tab 30 Mg PO TID Avoid late evening doses. Space doses at least 4 to 6 hours if more than once/day dosing. Seroquel (Quetiapine Fumarate) 100 Mg Tab 100 Mg PO DAILY Seroquel (Quetiapine Fumarate) 400 Mg Tab 400 Mg PO HS Wellbutrin SR 12 HR (Bupropion HCl) 150 Mg Tab 150 Mg PO Q12HR Neurontin (Gabapentin) 800 Mg Tab 800 Mg PO BID Review of Systems ROS Limitations: Intoxication Physical Exam Narrative GENERAL: Smells of alcohol, disheveled SKIN: Focused skin assessment warm and dry. HEAD: Atraumatic. Normocephalic. EYES: Pupils equal and round. No injection or drainage. ENT: Moist mucous membranes NECK: Trachea midline. CARDIOVASCULAR: Regular rate and rhythm. No murmur appreciated. RESPIRATORY: Clear to auscultation. Breath sounds equal bilaterally. GASTROINTESTINAL: Abdomen soft, non-tender, nondistended. MUSCULOSKELETAL: No obvious deformities. NEUROLOGICAL: Awake and alert. No obvious cranial nerve deficits. Moving all extremities. PSYCHIATRIC: Appropriate mood and affect; insight and judgment normal. Data Data Last Documented VS Vital Signs Date Time Temp Pulse Resp B/P (MAP) Pulse Ox O2 Delivery O2 Flow Rate FiO2 04/24/17 09:04 98.4 90 16 124/76 (92) 94 Orders Orders Diet Regular Basic (04/24/17 Lunch) [facility] Medical Decision Making Medical Screen Exam Complete: Yes Emergency Medical Condition: Yes Differential Diagnosis Alcohol intoxication, substance abuse, substance-induced mood disorder Narrative Course This is a 56-year-old male who presents to the emergency department with acute alcohol intoxication brought in under [employer]. Patient was observed and was clinically sober, able to make his own decisions appropriately, walk without difficulty and speak clearly. I think he can be discharged home. Diagnosis Primary Impression: Acute alcohol intoxication Qualified Codes: F10.929 - Alcohol use, unspecified with intoxication, unspecified Patient Instructions: General Instructions Additional Instructions: Follow up with Waqar Ghosh in regards to psychiatric or substance related issues at: [address] [place], [place] [id number] Med/Other Pt SpecificInfo: No Change to Meds Disposition: 01 DISCHARGE HOME Condition: Stable Highet,Annette H. MD Apr 24, 2017 14:18
== END 2017-04-24 14:39 | disposition home or self-care (01) ==
LOC: NEPD 08:50
DX: F10.929 Alcohol use, unspecified with intoxication, unspecified (principal); F17.200 Nicotine dependence, unspecified, uncomplicated; Z86.59 Personal history of other mental and behavioral disorders; Z87.448 Personal history of other diseases of urinary system; Z86.19 Personal history of other infectious and parasitic diseases; Z86.69 Personal history of other diseases of the nervous system and sense organs
CPT/HCPCS: 99283

== ENCOUNTER 2017-04-27 05:22 | Emergency (ER) | payer OTHER ==
[~2017-04-27] VITALS: Ht 172.7 cm; Wt 80.0 kg
[2017-04-27 05:28] VITALS: BP 147/83; PULSE 83; RESP 16; TEMP 98.4; O2SAT 95
[2017-04-27 06:35] LABS: ALT (GPT) 183 U/L (12-78); ANION GAP 9 MEQ/L (5-15); AST (GOT) 230 U/L (15-37); BICARBONATE 23.6 MEQ/L (21.0-32.0); BLOOD UREA NITROGEN 5 MG/DL (7-18); CHLORIDE 103 MEQ/L (98-107); GLOMERULAR FILTRATION RATE 109 ML/MIN (>89); POTASSIUM 3.4 MEQ/L (3.5-5.1); SODIUM (NA) 136 MEQ/L (136-145)
[2017-04-27 06:38] LABS: AUTOMATED NEUTROPHIL # 2.4 TH/MM3 (1.8-7.7); BASOPHIL % 0.8 % (0.0-2.0); EOSINOPHIL # 0.1 TH/MM3 (0-0.4); EOSINOPHIL % 1.7 % (0.0-4.0); HEMATOCRIT 45.3 % (39.0-51.0); HEMO FLAGS DIFF FINAL; LYMPH % 39.5 % (9.0-44.0); LYMPHOCYTE # 2.1 TH/MM3 (1.0-4.8); MEAN CELL VOLUME 96.4 FL (80.0-100.0); MEAN CORPUSCULAR HEMOGLOBIN 32.4 PG (27.0-34.0); MEAN CORPUSCULAR HGB CONC 33.6 % (32.0-36.0); MONO % 14.6 % (0.0-8.0); NEUT % 43.4 % (16.0-70.0); PLATELET COUNT 166 TH/MM3 (150-450); RED CELL DISTRIBUTION WIDTH 14.4 % (11.6-17.2); WHITE BLOOD COUNT 5.4 TH/MM3 (4.0-11.0)
[2017-04-27 06:39] LABS: ALKALINE PHOSPHATASE 77 U/L (45-117); TOTAL BILIRUBIN ADULT 0.4 MG/DL (0.2-1.0)
[2017-04-27 06:57] LABS: ALCOHOL 286 MG/DL (0-5)
--- NOTE | 2017-04-27 07:39 | PD ---
HPI Chief Complaint: Psychiatric Symptoms Time Seen by Provider: 07:06 Travel History International Travel<30 days: No Contact w/Intl Traveler<30days: No Traveled to known affect area: No History of Present Illness HPI 56-year-old male with a history of alcoholism and malingering, well-known to the emergency room presents to the emergency room under Valdes act initiated by Police Department. According to Valdes act, patient continuously threatened to kill people but stated who he wanted to kill is confidential. Patient denies suicidal or homicidal ideations at this time. He is a poor historian because of intoxication. Denies any medical complaints. Patient admits to drinking alcohol daily and states he drank 1 L of vodka today. Denies any other drug use. PFSH Past Medical History Hx Anticoagulant Therapy: No ADD: Yes ADHD: Yes Arthritis: No Asthma: No Blood Disorders: No Bipolar Disorder: Yes Anxiety: Yes Depression: Yes Heart Rhythm Problems: No Cancer: No Cardiovascular Problems: No High Cholesterol: No Chemotherapy: No Chest Pain: No Congestive Heart Failure: No COPD: No Cerebrovascular Accident: No Diabetes: No Diminished Hearing: No Endocrine: No GERD: No Genitourinary: Yes Headaches: Yes Hepatitis: Yes (HEP C) Hiatal Hernia: No Hypertension: No Implanted Vascular Access Dvce: No Insomnia: Yes Musculoskeletal: No Neurologic: Yes Psychiatric: Yes Reproductive: No Respiratory: No Immunizations Current: Yes Migraines: Yes Radiation Therapy: No Seizures: No Sleep Apnea: No Thyroid Disease: No Ulcer: No Tetanus Vaccination: < 5 Years Influenza Vaccination: Yes Past Surgical History Abdominal Surgery: Yes (HERNIA REPAIR 10/2014) AICD: No Arteriovenous Shunt: No Cardiac Surgery: No Ear Surgery: No Endocrine Surgery: No Eye Surgery: No Genitourinary Surgery: No Gynecologic Surgery: No Hysterectomy: No Insulin Pump: No Joint Replacement: No Neurologic Surgery: Yes Oral Surgery: No Pacemaker: No Thoracic Surgery: No Other Surgery: Yes (ABDOMINAL HERNIA REPAIR 10/2014) Social History Alcohol Use: Yes (EVERYDAY, ABOUT 2 LITERS) Tobacco Use: Yes (1ppd) Substance Use: Yes (FLAKKA AND K2) Allergies-Medications (Allergen,Severity, Reaction): Coded Allergies: *MDRO Multi-Drug Resistant Organism (Verified Adverse Reaction, Unknown, 04/27/17) MRSA (elbow & knee wound) - 04/18/16 ESBL E.Coli (urine)-11/01/16 Reported Meds & Prescriptions Reported Meds & Active Scripts Active Ibuprofen 400 Mg Tab 400 Mg PO Q8H PRN Thera/Beta-Carotene (Multiple Vitamin) 1 Tab Tab 1 Tab PO DAILY Klonopin (Clonazepam) 2 Mg Tab 2 Mg PO DAILY Reported Adderall (Amphetamine-Dextroamphetamine) 30 Mg Tab 30 Mg PO TID Avoid late evening doses. Space doses at least 4 to 6 hours if more than once/day dosing. Seroquel (Quetiapine Fumarate) 100 Mg Tab 100 Mg PO DAILY Seroquel (Quetiapine Fumarate) 400 Mg Tab 400 Mg PO HS Wellbutrin SR 12 HR (Bupropion HCl) 150 Mg Tab 150 Mg PO Q12HR Neurontin (Gabapentin) 800 Mg Tab 800 Mg PO BID Review of Systems Except as stated in HPI: all other systems reviewed are Neg Physical Exam Narrative GENERAL: Well-nourished, unkempt male in no acute distress. Occasionally ambulatory. Otherwise sleeping. SKIN: Focused skin assessment warm/dry. Multiple well-healed abrasions on face , elbow, and hands. HEAD: Normocephalic. EYES: No scleral icterus. No injection or drainage. NECK: Supple, trachea midline. No JVD or lymphadenopathy. CARDIOVASCULAR: Regular rate and rhythm without murmurs, gallops, or rubs. RESPIRATORY: Breath sounds equal bilaterally. No accessory muscle use. PSYCHIATRIC: No delusional thought processes. No hallucinations. Data Data Last Documented VS Vital Signs Date Time Temp Pulse Resp B/P (MAP) Pulse Ox O2 Delivery O2 Flow Rate FiO2 04/27/17 08:15 Nasal Cannula 2.00 04/27/17 08:04 83 16 88 04/27/17 05:28 98.4 Orders Orders Complete Blood Count With Diff (04/27/17 05:53) Comprehensive Metabolic Panel (04/27/17 05:53) Alcohol (Ethanol) (04/27/17 05:53) Psych Screen (04/27/17 05:53) Urinalysis - C+S If Indicated (04/27/17 05:53) Drug Screen, Random Urine (04/27/17 05:53) Diet Regular Basic (04/27/17 Breakfast) Urine Culture (04/27/17 08:06) Ciprofloxacin (Cipro) (04/27/17 09:00) Labs Laboratory Tests Test 04/27/17 05:45 04/27/17 08:06 White Blood Count 5.4 TH/MM3 Red Blood Count 4.70 MIL/MM3 Hemoglobin 15.2 GM/DL Hematocrit 45.3 % Mean Corpuscular Volume 96.4 FL Mean Corpuscular Hemoglobin 32.4 PG Mean Corpuscular Hemoglobin Concent 33.6 % Red Cell Distribution Width 14.4 % Platelet Count 166 TH/MM3 Mean Platelet Volume 8.2 FL Neutrophils (%) (Auto) 43.4 % Lymphocytes (%) (Auto) 39.5 % Monocytes (%) (Auto) 14.6 % Eosinophils (%) (Auto) 1.7 % Basophils (%) (Auto) 0.8 % Neutrophils # (Auto) 2.4 TH/MM3 Lymphocytes # (Auto) 2.1 TH/MM3 Monocytes # (Auto) 0.8 TH/MM3 Eosinophils # (Auto) 0.1 TH/MM3 Basophils # (Auto) 0.0 TH/MM3 CBC Comment DIFF FINAL Differential Comment Blood Urea Nitrogen 5 MG/DL Creatinine 0.74 MG/DL Random Glucose 84 MG/DL Total Protein 8.5 GM/DL Albumin 3.3 GM/DL Calcium Level 8.4 MG/DL Alkaline Phosphatase 77 U/L Aspartate Amino Transf (AST/SGOT) 230 U/L Alanine Aminotransferase (ALT/SGPT) 183 U/L Total Bilirubin 0.4 MG/DL Sodium Level 136 MEQ/L Potassium Level 3.4 MEQ/L Chloride Level 103 MEQ/L Carbon Dioxide Level 23.6 MEQ/L Anion Gap 9 MEQ/L Estimat Glomerular Filtration Rate 109 ML/MIN Ethyl Alcohol Level 286 MG/DL Urine Color LIGHT-YELLOW Urine Turbidity HAZY Urine pH 5.5 Urine Specific [place] 1.004 Urine Protein NEG mg/dL Urine Glucose (UA) NEG mg/dL Urine Ketones NEG mg/dL Urine Occult Blood NEG Urine Nitrite NEG Urine Bilirubin NEG Urine Urobilinogen LESS THAN 2.0 MG/DL Urine Leukocyte Esterase LARGE Urine RBC LESS THAN 1 /hpf Urine WBC 30 /hpf Urine Amorphous Sediment RARE Urine Bacteria OCC /hpf Urine Mucus FEW /lpf Microscopic Urinalysis Comment CULTURE INDICATED MDM Medical Decision Making Medical Screen Exam Complete: Yes Emergency Medical Condition: Yes Medical Record Reviewed: Yes Differential Diagnosis Bipolar disorder, alcohol abuse, alcohol intoxication, malingering Narrative Course 56-year-old male with history of bipolar disorder and alcohol dependence presents to the emergency room under a Valdes act for evaluation of homicidal statements made in the presence of the bsa officer. Patient is well-known to the emergency room for malingering and alcohol intoxication. He has no medical complaints. Denies suicidal or homicidal ideations at this time. He is a poor historian because of his intoxication but is arousable. He was able to stand at bedside and use the urinal and get back in bed without assistance. Vital signs stable. Physical exam limited because of noncooperation. CBC unremarkable. CMP shows mildly elevated liver enzymes which are consistent from previous. EtOH is 286. UA is evident of UTI. Patient given Cipro 250 in ED. Should be discharged with Rx for Cipro 250 BID for 3 days. Patient is medically cleared for psychiatric evaluation and disposition of this time. Diagnosis Primary Impression: UTI (urinary tract infection) Qualified Codes: N30.00 - Acute cystitis without hematuria Condition: Stable Layla Weldon Apr 27, 2017 07:39
[2017-04-27 08:04] VITALS: BP 109/63; PULSE 83; RESP 16; O2SAT 88
[2017-04-27 08:54] LABS: BACTERIA, URINE OCC /hpf; BLOOD, URINE NEG (NEG); COMMENT (UR) CULTURE INDICATED; CULTURE IF INDICATED CULTURE INDICATED; GLUCOSE,URINE NEG (NEG); KETONE, URINE NEG (NEG); MUCUS URINE FEW /lpf (OCC); NITRITE,URINE NEG (NEG); PH, URINE 5.5 (5.0-8.5); URINE COLOR LIGHT-YELLOW (YELLW/STRAW)
[2017-04-27] MEDS ORDERED: CIPROFLOXACIN 250 MG TAB PO ONE (09:00)
[2017-04-27] MEDS ORDERED: CIPR250T52 PO (10:45)
[2017-04-27 11:01] VITALS: BP 108/61; PULSE 92; RESP 14; O2SAT 97
--- NOTE | 2017-04-27 12:25 | PD ---
History of Present Illness Chief Complaint: Psychiatric Symptoms Time Seen by Provider: 11:15 Travel History International Travel<30 Days: No Contact w/Intl Traveler<30days: No Known affected area: No Legal Status Legal Status: [employer] History of Present Illness: History of Present Illness HPI 56-year-old male with a history of alcoholism, record history of bipolar disorder, mdd who is known to the emergency room due to multiple visits for alcohol intoxication who presents to the emergency room under [employer]otted act initiated by Police Department. According to JustSpotted act, patient continuously threatened to kill people but would not disclose who. He was intoxicated when he was placed under the JustSpotted act and his BAL on arrival [id number]. Patient denies suicidal or homicidal ideations at this time. EMR reviewed. Numerous visits to ED under influence of ETOH as well as other substances. Patient at this time remains intoxicated. He is slurring his words. He states that he is tired of drinking and wants to go to [facility]. His motivation is that he saw his son earlier in the week. he had not had contact with his children in a long time. He is not suicidal or homicidal and is wanting to go into detox. . PFSH Past Medical History Hx Anticoagulant Therapy: No ADD: Yes ADHD: Yes Arthritis: No Asthma: No Blood Disorders: No Bipolar Disorder: Yes Anxiety: Yes Depression: Yes Heart Rhythm Problems: No Cancer: No Cardiovascular Problems: No High Cholesterol: No Chemotherapy: No Chest Pain: No Congestive Heart Failure: No COPD: No Cerebrovascular Accident: No Diabetes: No Diminished Hearing: No Endocrine: No GERD: No Genitourinary: Yes Headaches: Yes Hepatitis: Yes (HEP C) Hiatal Hernia: No Hypertension: No Implanted Vascular Access Dvce: No Insomnia: Yes Musculoskeletal: No Neurologic: Yes Psychiatric: Yes Reproductive: No Respiratory: No Immunizations Current: Yes Migraines: Yes Radiation Therapy: No Seizures: No Sleep Apnea: No Thyroid Disease: No Ulcer: No Tetanus Vaccination: < 5 Years Influenza Vaccination: Yes Past Surgical History Abdominal Surgery: Yes (HERNIA REPAIR 10/2014) AICD: No Arteriovenous Shunt: No Cardiac Surgery: No Ear Surgery: No Endocrine Surgery: No Eye Surgery: No Genitourinary Surgery: No Gynecologic Surgery: No Hysterectomy: No Insulin Pump: No Joint Replacement: No Neurologic Surgery: Yes Oral Surgery: No Pacemaker: No Thoracic Surgery: No Other Surgery: Yes (ABDOMINAL HERNIA REPAIR 10/2014) Psychiatric History Psychiatric History Hx Psychiatric Treatment: PATIENT WAS ADMITTED TO [facility] FROM 07/09/16 TO 07/19/16 FOR unintentional OVERDOSE. HX: DEPRESSION History of Inpatient Treatment: Yes Guns or firearms in home: No Social History He is . has 3 children but no contact with them. He is homeless. Hx Alcohol Use: Yes (EVERYDAY, ABOUT 2 LITERS) Hx Tobacco Use: Yes (1ppd) Hx Substance Use: Yes (FLAKKA AND K2) Substance Use Type: Alcohol, Marijuana Other Substances Used: USES DAILY Hx of Substance Use Treatment: Yes Family Psychiatric History Some unknown family hx of psychiatric illness Allergies-Medications (Allergen,Severity, Reaction): Coded Allergies: *MDRO Multi-Drug Resistant Organism (Verified Adverse Reaction, Unknown, 04/27/17) MRSA (elbow & knee wound) - 04/18/16 ESBL E.Coli (urine)-11/01/16 Reported Meds & Prescriptions Reported Meds & Active Scripts Active Cipro (Ciprofloxacin HCl) 250 Mg Tab 250 Mg PO BID 3 Days Ibuprofen 400 Mg Tab 400 Mg PO Q8H PRN Thera/Beta-Carotene (Multiple Vitamin) 1 Tab Tab 1 Tab PO DAILY Klonopin (Clonazepam) 2 Mg Tab 2 Mg PO DAILY Reported Adderall (Amphetamine-Dextroamphetamine) 30 Mg Tab 30 Mg PO TID Avoid late evening doses. Space doses at least 4 to 6 hours if more than once/day dosing. Seroquel (Quetiapine Fumarate) 100 Mg Tab 100 Mg PO DAILY Seroquel (Quetiapine Fumarate) 400 Mg Tab 400 Mg PO HS Wellbutrin SR 12 HR (Bupropion HCl) 150 Mg Tab 150 Mg PO Q12HR Neurontin (Gabapentin) 800 Mg Tab 800 Mg PO BID Review of Systems Except as stated in HPI: all other systems reviewed are Neg Mental Status Examination Appearance: Dirty, Malodorous Consciousness: Alert Orientation: x4 Motor Activity: Abnormal gait Speech: Other (slurred) Language: Adequate Fund of Knowledge: Adequate Attention and Concentration: Adequate Memory: Unremarkable Mood: Appropriate Affect: Appropriate Thought Process & Associations: Intact Thought Content: Appropriate Hallucination Type: None Delusion Type: None Suicidal Ideation: No Suicidal Plan: No Suicidal Intention: No Homicidal Ideation: No Homicidal Plan: No Homicidal Intention: No Insight: Poor Judgment: Impulsive MDM Medical Decision Making Medical Record Reviewed: Yes Assessment/Plan History of Present Illness 56-year-old male with a history of alcoholism, record history of bipolar disorder, mdd who is known to the emergency room due to multiple visits for alcohol intoxication who presents to the emergency room under Valdes act initiated by Police Department. According to Valdes act, patient continuously threatened to kill people but would not disclose who. He was intoxicated when he was placed under the Valdes act and his BAL on arrival [id number]. Patient denies suicidal or homicidal ideations at this time. Case is discussed with Dr. Sinha. he has placed the patient under a PC. He will be transported to [facility] for detox and treatment. Has been accepted to [facility] for treatment Orders Orders Complete Blood Count With Diff (04/27/17 05:53) Comprehensive Metabolic Panel (04/27/17 05:53) Alcohol (Ethanol) (04/27/17 05:53) Psych Screen (04/27/17 05:53) Urinalysis - C+S If Indicated (04/27/17 05:53) Drug Screen, Random Urine (04/27/17 05:53) Diet Regular Basic (04/27/17 Breakfast) Urine Culture (04/27/17 08:06) Ciprofloxacin (Cipro) (04/27/17 09:00) Diet Regular Basic (04/27/17 Lunch) Results Vital Signs Date Time Temp Pulse Resp B/P (MAP) Pulse Ox O2 Delivery O2 Flow Rate FiO2 04/27/17 11:01 92 14 108/61 (77) 97 Room Air 04/27/17 08:15 Nasal Cannula 2.00 04/27/17 08:04 83 16 109/63 (78) 88 Room Air 04/27/17 05:28 98.4 83 16 147/83 (104) 95 Laboratory Tests Test 04/27/17 05:45 04/27/17 08:06 White Blood Count 5.4 Red Blood Count 4.70 Hemoglobin 15.2 Hematocrit 45.3 Mean Corpuscular Volume 96.4 Mean Corpuscular Hemoglobin 32.4 Mean Corpuscular Hemoglobin Concent 33.6 Red Cell Distribution Width 14.4 Platelet Count 166 Mean Platelet Volume 8.2 Neutrophils (%) (Auto) 43.4 Lymphocytes (%) (Auto) 39.5 Monocytes (%) (Auto) 14.6 Eosinophils (%) (Auto) 1.7 Basophils (%) (Auto) 0.8 Neutrophils # (Auto) 2.4 Lymphocytes # (Auto) 2.1 Monocytes # (Auto) 0.8 Eosinophils # (Auto) 0.1 Basophils # (Auto) 0.0 CBC Comment DIFF FINAL Differential Comment Blood Urea Nitrogen 5 Creatinine 0.74 Random Glucose 84 Total Protein 8.5 Albumin 3.3 Calcium Level 8.4 Alkaline Phosphatase 77 Aspartate Amino Transf (AST/SGOT) 230 Alanine Aminotransferase (ALT/SGPT) 183 Total Bilirubin 0.4 Sodium Level 136 Potassium Level 3.4 Chloride Level 103 Carbon Dioxide Level 23.6 Anion Gap 9 Estimat Glomerular Filtration Rate 109 Ethyl Alcohol Level 286 Urine Color LIGHT-YELLOW Urine Turbidity HAZY Urine pH 5.5 Urine Specific [place] 1.004 Urine Protein NEG Urine Glucose (UA) NEG Urine Ketones NEG Urine Occult Blood NEG Urine Nitrite NEG Urine Bilirubin NEG Urine Urobilinogen LESS THAN 2.0 Urine Leukocyte Esterase LARGE Urine RBC LESS THAN 1 Urine WBC 30 Urine Amorphous Sediment RARE Urine Bacteria OCC Urine Mucus FEW Microscopic Urinalysis Comment CULTURE INDICATED Urine Opiates Screen NEG Urine Barbiturates Screen NEG Urine Amphetamines Screen NEG Urine Benzodiazepines Screen NEG Urine Cocaine Screen NEG Urine Cannabinoids Screen NEG Date/Time Source Procedure Growth Status 04/27/17 08:06 Urine Clean Catch Urine Culture Pending Received Diagnosis Primary Impression: Alcohol dependence Psychiatrically Cleared: Yes Departure Forms: Tests/Procedures Patient Instructions: General Instructions, Alcohol Intoxication (ED) Prescriptions Ciprofloxacin (Cipro) 250 Mg Tab 250 MG PO BID for Infection for 3 Days, #6 TAB 0 Refills Prov: Sherice Shaikh 04/27/17 Disposition: 65 DISC TO PSYCH CARE FACILITY ([facility]) Condition: Stable Problem Qualifiers Primary Impression: Alcohol dependence Qualified Codes: F10.220 - Alcohol dependence with intoxication, uncomplicated BondsAnisa Anna Iniguez [facility] Apr 27, 2017 12:25
== END 2017-04-27 12:52 ==
LOC: NEPD 05:22 → NEPJ 12:52
DX: Z02.89 Encounter for other administrative examinations (principal); F10.220 Alcohol dependence with intoxication, uncomplicated; F31.9 Bipolar disorder, unspecified; F98.8 Other specified behavioral and emotional disorders with onset usually occurring in childhood and adolescence; N30.00 Acute cystitis without hematuria; B96.20 Unspecified Escherichia coli [E. coli] as the cause of diseases classified elsewhere; Z59.0 Homelessness; F17.290 Nicotine dependence, other tobacco product, uncomplicated; F19.90 Other psychoactive substance use, unspecified, uncomplicated
CPT/HCPCS: 80053; 80307; 81001; 85025; 87077; 87086; 87186; 99285

== ENCOUNTER 2017-05-23 16:26 | Emergency (ER) | payer OTHER ==
[~2017-05-23] VITALS: Ht 167.6 cm; Wt 75.0 kg
[~2017-05-23 16:26] MED LIST changes: +CIPR250T52 PO; +IBUP1TAB5 PO; -IBUP400T20 PO
[2017-05-23 16:34] VITALS: BP 129/77; PULSE 84; RESP 15; TEMP 98.2; O2SAT 99
--- NOTE | 2017-05-23 16:41 | PD ---
HPI Chief Complaint: Medical Clearance Time Seen by Provider: 16:38 Travel History International Travel<30 days: No Contact w/Intl Traveler<30days: No History of Present Illness HPI 56-year-old man arrives to the ED in police custody for medical clearance. Patient has a small wound on his head and was refused at the group home until he is medically cleared. On presentation the patient has no complaints. He states that he "hit my head in the back of the paddy wagon." He denies loss of consciousness. He denies headaches, vision changes, dizziness. He smells of alcohol. When questioned if he has alcohol onboard he says "not much." I question the patient regarding his tetanus status and he states "I don't take the tetanus shot." No other somatic complaints. PFSH Past Medical History Hx Anticoagulant Therapy: No ADD: Yes ADHD: Yes Arthritis: No Asthma: No Blood Disorders: No Bipolar Disorder: Yes Anxiety: Yes Depression: Yes Heart Rhythm Problems: No Cancer: No Cardiovascular Problems: No High Cholesterol: No Chemotherapy: No Chest Pain: No Congestive Heart Failure: No COPD: No Cerebrovascular Accident: No Diabetes: No Diminished Hearing: No Endocrine: No GERD: No Genitourinary: Yes Headaches: Yes Hepatitis: Yes (HEP C) Hiatal Hernia: No Hypertension: No Implanted Vascular Access Dvce: No Insomnia: Yes Musculoskeletal: No Neurologic: Yes Psychiatric: Yes Reproductive: No Respiratory: No Immunizations Current: Yes Migraines: Yes Radiation Therapy: No Seizures: No Sleep Apnea: No Thyroid Disease: No Ulcer: No Past Surgical History Abdominal Surgery: Yes (HERNIA REPAIR 10/2014) AICD: No Arteriovenous Shunt: No Cardiac Surgery: No Ear Surgery: No Endocrine Surgery: No Eye Surgery: No Genitourinary Surgery: No Gynecologic Surgery: No Hysterectomy: No Insulin Pump: No Joint Replacement: No Neurologic Surgery: Yes Oral Surgery: No Pacemaker: No Thoracic Surgery: No Other Surgery: Yes (ABDOMINAL HERNIA REPAIR 10/2014) Social History Alcohol Use: Yes (EVERYDAY, ABOUT 2 LITERS) Tobacco Use: Yes (1ppd) Substance Use: Yes (FLAKKA AND K2) Allergies-Medications (Allergen,Severity, Reaction): Coded Allergies: *MDRO Multi-Drug Resistant Organism (Verified Adverse Reaction, Unknown, 04/27/17) MRSA (elbow & knee wound) - 04/18/16 ESBL E.Coli (urine)-11/01/16 Reported Meds & Prescriptions Reported Meds & Active Scripts Active Cipro (Ciprofloxacin HCl) 250 Mg Tab 250 Mg PO BID 3 Days Ibuprofen 400 Mg Tab 400 Mg PO Q8H PRN Thera/Beta-Carotene (Multiple Vitamin) 1 Tab Tab 1 Tab PO DAILY Klonopin (Clonazepam) 2 Mg Tab 2 Mg PO DAILY Reported Adderall (Amphetamine-Dextroamphetamine) 30 Mg Tab 30 Mg PO TID Avoid late evening doses. Space doses at least 4 to 6 hours if more than once/day dosing. Seroquel (Quetiapine Fumarate) 100 Mg Tab 100 Mg PO DAILY Seroquel (Quetiapine Fumarate) 400 Mg Tab 400 Mg PO HS Wellbutrin SR 12 HR (Bupropion HCl) 150 Mg Tab 150 Mg PO Q12HR Neurontin (Gabapentin) 800 Mg Tab 800 Mg PO BID Review of Systems Except as stated in HPI: all other systems reviewed are Neg Physical Exam Narrative GENERAL: Well-nourished, well-developed disheveled white male in no acute distress. SKIN: Focused skin assessment warm/dry. 1.5 cm laceration at the apex of the scalp. Questionable chronicity. HEAD: Normocephalic. EYES: No scleral icterus. No injection or drainage. NECK: Supple, trachea midline. No JVD or lymphadenopathy. CARDIOVASCULAR: Regular rate and rhythm without murmurs, gallops, or rubs. RESPIRATORY: Breath sounds clear and equal bilaterally. No accessory muscle use. GASTROINTESTINAL: Abdomen soft, non-tender, nondistended. MUSCULOSKELETAL: No cyanosis, or edema. Moves extremities spontaneously. BACK: Nontender without obvious deformity. No CVA tenderness. Data Data Last Documented VS Vital Signs Date Time Temp Pulse Resp B/P (MAP) Pulse Ox O2 Delivery O2 Flow Rate FiO2 05/23/17 16:34 98.2 84 15 129/77 (94) 99 Orders Orders Ed Discharge Order (05/23/17 16:42) [facility] Medical Decision Making Medical Screen Exam Complete: Yes Emergency Medical Condition: Yes Differential Diagnosis Laceration versus contusion versus need for this immunization versus alcohol intoxication versus other Narrative Course 56-year-old man arrives to the ED in police custody for medical clearance. Patient has a small wound on his head and was refused at the group home until he is medically cleared. On presentation the patient has no complaints. He states that he "hit my head in the back of the paddy wagon." He denies loss of consciousness. He denies headaches, vision changes, dizziness. When questioned if he has alcohol onboard he says "not much." Patient states "I don' t take the tetanus shot." No other somatic complaints. Vitals reviewed. Physical exam reveals an intoxicated white male in no acute distress. There is a 1.5 cm laceration at the apex of the scalp with no active bleeding. I'm unsure if this is a new wound. Laceration repair was performed. Please see my procedure note for details. Patient is medically cleared for incarceration. Procedures Procedure Narrative LACERATION LOCATION: [place] of the scalp LENGTH: 1.5 cm NUMBER OF STITCHES/LANDRY: 2 REPAIR: The wound was copiously irrigated and explored without evidence of foreign body, tendon injury or neurovascular injury. The wound was closed using surgical landry. This was a single layer repair. The patient was advised to keep the wound clean and dry. Patient tolerated the procedure well. Diagnosis Primary Impression: Medical clearance for incarceration Additional Impression: Scalp laceration Qualified Codes: S01.01XA - Laceration without foreign body of scalp, initial encounter Referrals: Primary Care Physician Patient Instructions: General Instructions, Laceration (ED) Additional Instructions: Keep the wound clean and dry. Staple removal in 10-14 days. Follow-up with primary care provider. Return to the ED for any urgent or emergent medical condition. Disposition: [address] LAW ENFORCEMNT Condition: Stable Odette Willett May 23, 2017 16:41
== END 2017-05-23 17:31 ==
LOC: NEDAMB 16:26
DX: S01.01XA Laceration without foreign body of scalp, initial encounter (principal); W22.8XXA Striking against or struck by other objects, initial encounter
CPT/HCPCS: 12001

== ENCOUNTER 2017-06-24 22:11 | Emergency (ER) | payer OTHER ==
[~2017-06-24] VITALS: Ht 172.7 cm; Wt 77.3 kg
[2017-06-24 22:27] VITALS: BP 118/54; PULSE 96; RESP 16; TEMP 98.4; O2SAT 99
--- NOTE | 2017-06-24 22:30 | PD ---
HPI Chief Complaint: Marchman act Time Seen by Provider: 22:13 Travel History International Travel<30 days: No Contact w/Intl Traveler<30days: No Traveled to known affect area: No History of Present Illness HPI The patient is a 56-year-old male who presents to the emergency department via EMS for alcohol intoxication. [facility] intoxicated, unable to ambulate. Therefore, the patient was placed under a Marchman act by police. Patient has a history of chronic alcohol abuse and intoxication. Upon arrival the patient is somewhat aggressive with staff, is able to tell me his name, however, is unable to tell me the current location, or year. He does admit to drinking alcohol earlier today, but will not quantify the amount of alcohol he drank. He denies any physical complaints including chest, shortness breath, nausea, vomiting, or abdominal pain. Symptoms are moderate, exacerbated by chronic alcohol use, and there are no current alleviating factors. PFSH Past Medical History Hx Anticoagulant Therapy: No ADD: Yes ADHD: Yes Arthritis: No Asthma: No Blood Disorders: No Bipolar Disorder: Yes Anxiety: Yes Depression: Yes Heart Rhythm Problems: No Cancer: No Cardiovascular Problems: No High Cholesterol: No Chemotherapy: No Chest Pain: No Congestive Heart Failure: No COPD: No Cerebrovascular Accident: No Diabetes: No Diminished Hearing: No Endocrine: No GERD: No Genitourinary: Yes Headaches: Yes Hepatitis: Yes (HEP C) Hiatal Hernia: No Hypertension: No Implanted Vascular Access Dvce: No Insomnia: Yes Musculoskeletal: No Neurologic: Yes Psychiatric: Yes Reproductive: No Respiratory: No Immunizations Current: Yes Migraines: Yes Radiation Therapy: No Seizures: No Sleep Apnea: No Thyroid Disease: No Ulcer: No Past Surgical History Abdominal Surgery: Yes (HERNIA REPAIR 10/2014) AICD: No Arteriovenous Shunt: No Cardiac Surgery: No Ear Surgery: No Endocrine Surgery: No Eye Surgery: No Genitourinary Surgery: No Gynecologic Surgery: No Hysterectomy: No Insulin Pump: No Joint Replacement: No Neurologic Surgery: Yes Oral Surgery: No Pacemaker: No Thoracic Surgery: No Other Surgery: Yes (ABDOMINAL HERNIA REPAIR 10/2014) Social History Alcohol Use: Yes (EVERYDAY, ABOUT 2 LITERS) Tobacco Use: Yes (1ppd) Substance Use: Yes (FLAKKA AND K2) Allergies-Medications (Allergen,Severity, Reaction): Coded Allergies: *MDRO Multi-Drug Resistant Organism (Verified Adverse Reaction, Unknown, 06/24/17) MRSA (elbow & knee wound) - 04/18/16 ESBL E.Coli (urine)-11/01/16 Reported Meds & Prescriptions Reported Meds & Active Scripts Active Cipro (Ciprofloxacin HCl) 250 Mg Tab 250 Mg PO BID 3 Days Ibuprofen 400 Mg Tab 400 Mg PO Q8H PRN Thera/Beta-Carotene (Multiple Vitamin) 1 Tab Tab 1 Tab PO DAILY Klonopin (Clonazepam) 2 Mg Tab 2 Mg PO DAILY Reported Adderall (Amphetamine-Dextroamphetamine) 30 Mg Tab 30 Mg PO TID Avoid late evening doses. Space doses at least 4 to 6 hours if more than once/day dosing. Seroquel (Quetiapine Fumarate) 100 Mg Tab 100 Mg PO DAILY Seroquel (Quetiapine Fumarate) 400 Mg Tab 400 Mg PO HS Wellbutrin SR 12 HR (Bupropion HCl) 150 Mg Tab 150 Mg PO Q12HR Neurontin (Gabapentin) 800 Mg Tab 800 Mg PO BID Review of Systems Except as stated in HPI: all other systems reviewed are Neg General / Constitutional: No: Fever HENT: No: Headaches Cardiovascular: No: Chest Pain or Discomfort Respiratory: No: Shortness of Breath Gastrointestinal: No: Nausea, Vomiting, Abdominal Pain Psychiatric: Positive: Substance Abuse (alcohol abuse), No: Suicidal Ideations , Homicidal Ideation Physical Exam Narrative GENERAL: Awake, alert, intoxicated 56-year-old male appears older than his stated age and is in no acute respiratory distress. SKIN: Focused skin assessment warm/dry. HEAD: Atraumatic. Normocephalic. EYES: Pupils equal and round. 2 mm bilateral, bilateral injection. ENT: No nasal bleeding or discharge. One visible tooth. NECK: Trachea midline. No JVD. CARDIOVASCULAR: Regular rate and rhythm. No murmur appreciated. RESPIRATORY: No accessory muscle use. Clear to auscultation. Breath sounds equal bilaterally. GASTROINTESTINAL: Abdomen soft, non-tender, nondistended. White patches noted over the abdomen, no rebound tenderness. MUSCULOSKELETAL: No obvious deformities. No clubbing. No cyanosis. No edema. NEUROLOGICAL: Awake and alert. No obvious cranial nerve deficits. Motor grossly within normal limits. Normal speech. Oriented to person but not location or year. PSYCHIATRIC: Appears intoxicated. Data Data Last Documented VS Vital Signs Date Time Temp Pulse Resp B/P (MAP) Pulse Ox O2 Delivery O2 Flow Rate FiO2 06/24/17 22:27 98.4 96 16 118/54 (75) 99 Orders Orders Alcohol (Ethanol) (06/24/17 22:19) Basic Metabolic Panel (Bmp) (06/24/17 22:19) Labs Laboratory Tests Test 06/24/17 22:26 Blood Urea Nitrogen 13 MG/DL Creatinine 1.04 MG/DL Random Glucose 108 MG/DL Calcium Level 8.4 MG/DL Sodium Level 137 MEQ/L Potassium Level 4.9 MEQ/L Chloride Level 102 MEQ/L Carbon Dioxide Level 26.8 MEQ/L Anion Gap 8 MEQ/L Estimat Glomerular Filtration Rate 74 ML/MIN Ethyl Alcohol Level 187 MG/DL [facility] Medical Decision Making Medical Screen Exam Complete: Yes Emergency Medical Condition: Yes Medical Record Reviewed: Yes Interpretation(s) Laboratory Tests Test 06/24/17 22:26 Blood Urea Nitrogen 13 MG/DL Creatinine 1.04 MG/DL Random Glucose 108 MG/DL Calcium Level 8.4 MG/DL Sodium Level 137 MEQ/L Potassium Level 4.9 MEQ/L Chloride Level 102 MEQ/L Carbon Dioxide Level 26.8 MEQ/L Anion Gap 8 MEQ/L Estimat Glomerular Filtration Rate 74 ML/MIN Ethyl Alcohol Level 187 MG/DL Differential Diagnosis Differential diagnosis includes alcohol intoxication substance ingestion, chronic alcohol abuse, delirium, DVTs, malingering. Narrative Course BMP and alcohol level were sent to lab. BMP is unremarkable. Alcohol level is 187. The patient will be discharged home he is able to ambulate and is no longer a threat to fall or to walk into traffic. He is advised to stop drinking alcohol. Diagnosis Primary Impression: Alcohol dependence Qualified Codes: F10.220 - Alcohol dependence with intoxication, uncomplicated Additional Impression: Alcohol intoxication Qualified Codes: F10.920 - Alcohol use, unspecified with intoxication, uncomplicated Patient Instructions: General Instructions Additional Instructions: Decrease alcohol intake. Follow-up with her primary physician. Med/Other Pt SpecificInfo: No Change to Meds Disposition: 01 DISCHARGE HOME Condition: Stable Miles Bahena MD Jun 24, 2017 22:30
[2017-06-24 22:55] LABS: BICARBONATE 26.8 MEQ/L (21.0-32.0); CALCIUM 8.4 MG/DL (8.5-10.1); CREATININE 1.04 MG/DL (0.60-1.30)
[2017-06-25] MEDS ORDERED: HALOPERIDOL LACTATE 5 MG/ML AMP IV ONE (01:00)
[2017-06-25] MEDS ORDERED: HALOPERIDOL LACTATE 5 MG/ML AMP IM ONE (01:00)
== END 2017-06-25 05:25 | disposition home or self-care (01) ==
LOC: NEPD 22:11
DX: F10.220 Alcohol dependence with intoxication, uncomplicated (principal); Y90.6 Blood alcohol level of 120-199 mg/100 ml; Z79.899 Other long term (current) drug therapy
CPT/HCPCS: 80048; 80307; 96372; 96374; 99283; J1630

== ENCOUNTER 2017-07-15 13:23 | Emergency (ER) | payer OTHER ==
[2017-07-15 13:34] VITALS: BP 127/84; PULSE 90; RESP 16; TEMP 98.1; O2SAT 98
[2017-07-15 17:35] VITALS: BP 114/79; PULSE 92; RESP 16; O2SAT 96
--- NOTE | 2017-07-15 19:05 | PD ---
HPI Chief Complaint: Alcohol/Drug Intoxication Time Seen by Provider: 17:56 Travel History International Travel<30 days: No Contact w/Intl Traveler<30days: No Traveled to known affect area: No History of Present Illness HPI 56-year-old male patient presents to our facility for evaluation and help with his "addiction". Patient is well-known to our medical staff as he is here frequently. Patient is an alcoholic. Patient states he has not drank any alcohol the day however he smells like alcohol. Patient states he has been having a lot of suicidal thoughts and wants to kill himself. Patient states he would do a jumping in front of a bus or train. Patient is denying any homicidal thoughts to me at this time although he told the triage nurse that he had homicidal thoughts. Patient smokes a pack cigarettes a day. Patient states he has a history of using K2 and IV Dilaudid. Patient denies any physiological complaints at this time. PFSH Past Medical History Hx Anticoagulant Therapy: No ADD: Yes ADHD: Yes Arthritis: No Asthma: No Blood Disorders: No Bipolar Disorder: Yes Anxiety: Yes Depression: Yes Heart Rhythm Problems: No Cancer: No Cardiovascular Problems: No High Cholesterol: No Chemotherapy: No Chest Pain: No Congestive Heart Failure: No COPD: No Cerebrovascular Accident: No Diabetes: No Diminished Hearing: No Endocrine: No GERD: No Genitourinary: Yes Headaches: Yes Hepatitis: Yes (HEP C) Hiatal Hernia: No Hypertension: No Implanted Vascular Access Dvce: No Insomnia: Yes Musculoskeletal: No Neurologic: Yes Psychiatric: Yes Reproductive: No Respiratory: No Immunizations Current: Yes Migraines: Yes Radiation Therapy: No Seizures: No Sleep Apnea: No Thyroid Disease: No Ulcer: No Tetanus Vaccination: < 5 Years Past Surgical History Abdominal Surgery: Yes (HERNIA REPAIR 10/2014) AICD: No Arteriovenous Shunt: No Cardiac Surgery: No Ear Surgery: No Endocrine Surgery: No Eye Surgery: No Genitourinary Surgery: No Gynecologic Surgery: No Hysterectomy: No Insulin Pump: No Joint Replacement: No Neurologic Surgery: Yes Oral Surgery: No Pacemaker: No Thoracic Surgery: No Other Surgery: Yes (ABDOMINAL HERNIA REPAIR 10/2014) Social History Alcohol Use: Yes (denies) Tobacco Use: Yes (2ppd) Substance Use: Yes (FLAKKA AND K2) Allergies-Medications (Allergen,Severity, Reaction): Coded Allergies: *MDRO Multi-Drug Resistant Organism (Verified Adverse Reaction, Unknown, 06/24/17) MRSA (elbow & knee wound) - 04/18/16 ESBL E.Coli (urine)-11/01/16 Reported Meds & Prescriptions Reported Meds & Active Scripts Active Klonopin (Clonazepam) 2 Mg Tab 2 Mg PO DAILY Reported Adderall (Amphetamine-Dextroamphetamine) 30 Mg Tab 30 Mg PO TID Avoid late evening doses. Space doses at least 4 to 6 hours if more than once/day dosing. Seroquel (Quetiapine Fumarate) 100 Mg Tab 100 Mg PO DAILY Seroquel (Quetiapine Fumarate) 400 Mg Tab 400 Mg PO HS Wellbutrin SR 12 HR (Bupropion HCl) 150 Mg Tab 150 Mg PO Q12HR Neurontin (Gabapentin) 800 Mg Tab 800 Mg PO BID Review of Systems Except as stated in HPI: all other systems reviewed are Neg Physical Exam Narrative GENERAL: Unkempt disheveled 56-year-old male patient in no acute distress SKIN: Dark thick skin looks like chronic sun exposure multiple small abrasions on upper and lower extremities. HEAD: Normocephalic. Atraumatic. EYES: No scleral icterus. No injection or drainage. NECK: Supple, trachea midline. No JVD or lymphadenopathy. CARDIOVASCULAR: Regular rate and rhythm without murmurs, gallops, or rubs. RESPIRATORY: Breath sounds equal bilaterally. No accessory muscle use. GASTROINTESTINAL: Abdomen soft, non-tender, nondistended. MUSCULOSKELETAL: No cyanosis, or edema. BACK: Nontender without obvious deformity. No CVA tenderness. Data Data Last Documented VS Vital Signs Date Time Temp Pulse Resp B/P (MAP) Pulse Ox O2 Delivery O2 Flow Rate FiO2 07/15/17 17:35 92 16 114/79 (91) 96 Room Air 07/15/17 13:34 98.1 Orders Orders Complete Blood Count With Diff (07/15/17 18:33) Comprehensive Metabolic Panel (07/15/17 18:33) Alcohol (Ethanol) (07/15/17 18:55) Psych Screen (07/15/17 18:55) Tylenol (Acetaminophen) (07/15/17 18:55) Salicylates (Aspirin) (07/15/17 18:55) MDM Medical Decision Making Medical Screen Exam Complete: Yes Emergency Medical Condition: Yes Differential Diagnosis Differential diagnoses include but are not limited to psychiatric evaluation, suicidal ideation, alcohol abuse, malingering Narrative Course IV obtained and blood work sent to the lab. CBC, CMP, salicylate, Tylenol, alcohol level ordered and pending. Psych screen ordered and pending. PATO Austin assumed care for this patient. Please see her documentation for further details and disposition. Alecia Cortes Jul 15, 2017 19:05
[2017-07-15 19:32] LABS: EOSINOPHIL # 0.1 TH/MM3 (0-0.4); EOSINOPHIL % 1.6 % (0.0-4.0); HEMATOCRIT 46.7 % (39.0-51.0); HEMOGLOBIN 15.6 GM/DL (13.0-17.0); LYMPH % 45.7 % (9.0-44.0); LYMPHOCYTE # 2.2 TH/MM3 (1.0-4.8); MEAN CELL VOLUME 94.7 FL (80.0-100.0); MEAN CORPUSCULAR HEMOGLOBIN 31.6 PG (27.0-34.0); MEAN CORPUSCULAR HGB CONC 33.4 % (32.0-36.0); MEAN PLATELET VOLUME 8.1 FL (7.0-11.0); MONO % 10.4 % (0.0-8.0); MONOCYTE # 0.5 TH/MM3 (0-0.9); NEUT % 41.3 % (16.0-70.0); PLATELET COUNT 189 TH/MM3 (150-450); RED BLOOD COUNT 4.93 MIL/MM3 (4.50-5.90); RED CELL DISTRIBUTION WIDTH 14.3 % (11.6-17.2); WHITE BLOOD COUNT 4.8 TH/MM3 (4.0-11.0)
[2017-07-15 20:12] LABS: ALBUMIN 3.3 GM/DL (3.4-5.0); ALT (GPT) 134 U/L (12-78); AST (GOT) 167 U/L (15-37); BICARBONATE 23.6 MEQ/L (21.0-32.0); BLOOD UREA NITROGEN 9 MG/DL (7-18); CALCIUM 8.3 MG/DL (8.5-10.1); CHLORIDE 107 MEQ/L (98-107); CREATININE 1.18 MG/DL (0.60-1.30); GLOMERULAR FILTRATION RATE 64 ML/MIN (>89); GLUCOSE,RANDOM 74 MG/DL (74-106); SODIUM (NA) 140 MEQ/L (136-145)
[2017-07-15 20:14] LABS: ALKALINE PHOSPHATASE 67 U/L (45-117); TOTAL BILIRUBIN ADULT 0.2 MG/DL (0.2-1.0); TOTAL PROTEIN 8.2 GM/DL (6.4-8.2)
--- NOTE | 2017-07-15 21:01 | PD ---
Physical Exam Date Seen by Provider: Jul 15, 2017 Time Seen by Provider: 21:00 Data Data Last Documented VS Vital Signs Date Time Temp Pulse Resp B/P (MAP) Pulse Ox O2 Delivery O2 Flow Rate FiO2 07/15/17 17:35 92 16 114/79 (91) 96 Room Air 07/15/17 13:34 98.1 Orders Orders Complete Blood Count With Diff (07/15/17 18:33) Comprehensive Metabolic Panel (07/15/17 18:33) Alcohol (Ethanol) (07/15/17 18:55) Psych Screen (07/15/17 18:55) Tylenol (Acetaminophen) (07/15/17 18:55) Salicylates (Aspirin) (07/15/17 18:55) Labs Laboratory Tests Test 07/15/17 18:53 White Blood Count 4.8 TH/MM3 Red Blood Count 4.93 MIL/MM3 Hemoglobin 15.6 GM/DL Hematocrit 46.7 % Mean Corpuscular Volume 94.7 FL Mean Corpuscular Hemoglobin 31.6 PG Mean Corpuscular Hemoglobin Concent 33.4 % Red Cell Distribution Width 14.3 % Platelet Count 189 TH/MM3 Mean Platelet Volume 8.1 FL Neutrophils (%) (Auto) 41.3 % Lymphocytes (%) (Auto) 45.7 % Monocytes (%) (Auto) 10.4 % Eosinophils (%) (Auto) 1.6 % Basophils (%) (Auto) 1.0 % Neutrophils # (Auto) 2.0 TH/MM3 Lymphocytes # (Auto) 2.2 TH/MM3 Monocytes # (Auto) 0.5 TH/MM3 Eosinophils # (Auto) 0.1 TH/MM3 Basophils # (Auto) 0.0 TH/MM3 CBC Comment DIFF FINAL Differential Comment Blood Urea Nitrogen 9 MG/DL Creatinine 1.18 MG/DL Random Glucose 74 MG/DL Total Protein 8.2 GM/DL Albumin 3.3 GM/DL Calcium Level 8.3 MG/DL Alkaline Phosphatase 67 U/L Aspartate Amino Transf (AST/SGOT) 167 U/L Alanine Aminotransferase (ALT/SGPT) 134 U/L Total Bilirubin 0.2 MG/DL Sodium Level 140 MEQ/L Potassium Level 4.0 MEQ/L Chloride Level 107 MEQ/L Carbon Dioxide Level 23.6 MEQ/L Anion Gap 9 MEQ/L Estimat Glomerular Filtration Rate 64 ML/MIN MDM Supervised Visit with JOSE ARMANDO: No Narrative Course 56-year-old male presents to the ED for voluntary psychiatric evaluation. He is initially seen by YEHUDA Pandya and signed out to me with lab work pending. Please see her note for those details. Patient's a chronic alcoholic and liver functions reflect this. Lab work otherwise unremarkable. Patient's medically clear for psychiatric evaluation. Odette Willett Jul 15, 2017 21:01
[2017-07-15 23:00] VITALS: BP 121/72; PULSE 110; RESP 16; O2SAT 92
[2017-07-16 01:39] LABS: ACETAMINOPHEN LESS THAN 2.0 MCG/ML (10.0-30.0)
[2017-07-16] MEDS ORDERED: LORazepam 1 MG TAB PO PRN (02:00)
[2017-07-16] MEDS ORDERED: FLUMAZENIL 0.5 MG/5 ML VIAL IV PUSH PRN (02:00)
[2017-07-16] MEDS ORDERED: LORazepam 2 MG/ML VIAL IV PUSH PRN ×4 (02:00)
[2017-07-16 07:44] VITALS: BP 160/96; PULSE 95; RESP 18; O2SAT 95
[2017-07-16] MEDS: LORazepam 2 MG TAB PO PRN ×2 (07:49→12:37)
--- NOTE | 2017-07-16 12:58 | PD ---
Physical Exam Date Seen by Provider: Jul 16, 2017 Time Seen by Provider: 12:54 Narrative Patient was initially assessed by myself and then medically cleared by PATO Austin yesterday. Patient has been psychiatrically cleared at this time. Patient will be discharged to [facility] for further follow-up regarding his detox for alcoholism. Data Data Last Documented VS Vital Signs Date Time Temp Pulse Resp B/P (MAP) Pulse Ox O2 Delivery O2 Flow Rate FiO2 07/16/17 12:37 07/16/17 07:44 95 18 95 Room Air 07/15/17 23:00 3.00 07/15/17 13:34 98.1 Orders Orders Complete Blood Count With Diff (07/15/17 18:33) Comprehensive Metabolic Panel (07/15/17 18:33) Alcohol (Ethanol) (07/15/17 18:55) Psych Screen (07/15/17 18:55) Tylenol (Acetaminophen) (07/15/17 18:55) Salicylates (Aspirin) (07/15/17 18:55) Alcohol Withdrawal Asmt-Ciwa ONCE (07/16/17 01:59) Flumazenil Inj (Romazicon Inj) (07/16/17 02:00) Lorazepam (Ativan) (07/16/17 02:00) Lorazepam Inj (Ativan Inj) (07/16/17 02:00) Lorazepam (Ativan) (07/16/17 02:00) Lorazepam Inj (Ativan Inj) (07/16/17 02:00) Lorazepam Inj (Ativan Inj) (07/16/17 02:00) Lorazepam Inj (Ativan Inj) (07/16/17 02:00) Diet Regular Basic (07/16/17 Breakfast) Labs Laboratory Tests Test 07/15/17 18:53 White Blood Count 4.8 TH/MM3 Red Blood Count 4.93 MIL/MM3 Hemoglobin 15.6 GM/DL Hematocrit 46.7 % Mean Corpuscular Volume 94.7 FL Mean Corpuscular Hemoglobin 31.6 PG Mean Corpuscular Hemoglobin Concent 33.4 % Red Cell Distribution Width 14.3 % Platelet Count 189 TH/MM3 Mean Platelet Volume 8.1 FL Neutrophils (%) (Auto) 41.3 % Lymphocytes (%) (Auto) 45.7 % Monocytes (%) (Auto) 10.4 % Eosinophils (%) (Auto) 1.6 % Basophils (%) (Auto) 1.0 % Neutrophils # (Auto) 2.0 TH/MM3 Lymphocytes # (Auto) 2.2 TH/MM3 Monocytes # (Auto) 0.5 TH/MM3 Eosinophils # (Auto) 0.1 TH/MM3 Basophils # (Auto) 0.0 TH/MM3 CBC Comment DIFF FINAL Differential Comment Blood Urea Nitrogen 9 MG/DL Creatinine 1.18 MG/DL Random Glucose 74 MG/DL Total Protein 8.2 GM/DL Albumin 3.3 GM/DL Calcium Level 8.3 MG/DL Alkaline Phosphatase 67 U/L Aspartate Amino Transf (AST/SGOT) 167 U/L Alanine Aminotransferase (ALT/SGPT) 134 U/L Total Bilirubin 0.2 MG/DL Sodium Level 140 MEQ/L Potassium Level 4.0 MEQ/L Chloride Level 107 MEQ/L Carbon Dioxide Level 23.6 MEQ/L Anion Gap 9 MEQ/L Estimat Glomerular Filtration Rate 64 ML/MIN Salicylates Level 2.8 MG/DL Acetaminophen Level LESS THAN 2.0 MCG/ML Ethyl Alcohol Level 187 MG/DL MDM Supervised Visit with JOSE ARMANDO: Yes Narrative Course Patient was initially assessed by myself and then medically cleared by PATO Austin yesterday. Patient has been psychiatrically cleared at this time. Patient will be discharged to [facility] for further follow-up regarding his detox for alcoholism. No homicidal or suicidal ideation at this time. Patient given a bus pass and is planning to go to [facility] upon discharge. Patient stable and discharged at this time with return precautions given. Diagnosis Primary Impression: Alcohol abuse Referrals: [facility] Patient Instructions: Abuse of Alcohol (ED), General Instructions Additional Instruction: Please return to emergency department if your symptoms return or worsen. Follow up at [facility]. Disposition: 01 DISCHARGE HOME Condition: Stable Alecia Cortes Jul 16, 2017 12:58
--- NOTE | 2017-07-16 13:15 | PD ---
History of Present Illness Chief Complaint: Alcohol/Drug Intoxication Time Seen by Provider: 11:00 Travel History International Travel<30 Days: No Contact w/Intl Traveler<30days: No Known affected area: No Legal Status Legal Status: Valdes Act History of Present Illness: 56-year-old male presented last night while intoxicated and allegedly making suicidal threats. Patient is currently no longer intoxicated and he is calm, pleasant and cooperative. He denies any suicidal or homicidal ideation, plan or intent. His cognition is intact and he has no psychotic symptoms. He is verbally taryn for safety and he is competent to do so. PFSH Past Medical History Hx Anticoagulant Therapy: No ADD: Yes ADHD: Yes Arthritis: No Asthma: No Blood Disorders: No Bipolar Disorder: Yes Anxiety: Yes Depression: Yes Heart Rhythm Problems: No Cancer: No Cardiovascular Problems: No High Cholesterol: No Chemotherapy: No Chest Pain: No Congestive Heart Failure: No COPD: No Cerebrovascular Accident: No Diabetes: No Diminished Hearing: No Endocrine: No GERD: No Genitourinary: Yes Headaches: Yes Hepatitis: Yes (HEP C) Hiatal Hernia: No Hypertension: No Implanted Vascular Access Dvce: No Insomnia: Yes Musculoskeletal: No Neurologic: Yes Psychiatric: Yes Reproductive: No Respiratory: No Immunizations Current: Yes Migraines: Yes Radiation Therapy: No Seizures: No Sleep Apnea: No Thyroid Disease: No Ulcer: No Tetanus Vaccination: < 5 Years Past Surgical History Abdominal Surgery: Yes (HERNIA REPAIR 10/2014) AICD: No Arteriovenous Shunt: No Cardiac Surgery: No Ear Surgery: No Endocrine Surgery: No Eye Surgery: No Genitourinary Surgery: No Gynecologic Surgery: No Hysterectomy: No Insulin Pump: No Joint Replacement: No Neurologic Surgery: Yes Oral Surgery: No Pacemaker: No Thoracic Surgery: No Other Surgery: Yes (ABDOMINAL HERNIA REPAIR 10/2014) Psychiatric History Psychiatric History Hx Psychiatric Treatment: PATIENT WAS ADMITTED TO [facility] FROM 07/09/16 TO 07/19/16 FOR unintentional OVERDOSE. HX: DEPRESSION History of Inpatient Treatment: Yes Guns or firearms in home: No Social History Hx Alcohol Use: Yes (denies) Hx Tobacco Use: Yes (2ppd) Hx Substance Use: Yes (FLAKKA AND K2) Substance Use Type: Alcohol, Marijuana Other Substances Used: USES DAILY Hx of Substance Use Treatment: Yes Allergies-Medications (Allergen,Severity, Reaction): Coded Allergies: *MDRO Multi-Drug Resistant Organism (Verified Adverse Reaction, Unknown, 06/24/17) MRSA (elbow & knee wound) - 04/18/16 ESBL E.Coli (urine)-11/01/16 Reported Meds & Prescriptions Reported Meds & Active Scripts Active Klonopin (Clonazepam) 2 Mg Tab 2 Mg PO DAILY Reported Adderall (Amphetamine-Dextroamphetamine) 30 Mg Tab 30 Mg PO TID Avoid late evening doses. Space doses at least 4 to 6 hours if more than once/day dosing. Seroquel (Quetiapine Fumarate) 100 Mg Tab 100 Mg PO DAILY Seroquel (Quetiapine Fumarate) 400 Mg Tab 400 Mg PO HS Wellbutrin SR 12 HR (Bupropion HCl) 150 Mg Tab 150 Mg PO Q12HR Neurontin (Gabapentin) 800 Mg Tab 800 Mg PO BID Review of Systems Except as stated in HPI: all other systems reviewed are Neg Mental Status Examination Appearance: Appropriate Consciousness: Alert Orientation: x4 Motor Activity: Normal gait Speech: Unremarkable Language: Adequate Fund of Knowledge: Adequate Attention and Concentration: Adequate Memory: Unremarkable Mood: Appropriate Affect: Appropriate Thought Process & Associations: Intact Thought Content: Appropriate Hallucination Type: None Delusion Type: None Suicidal Ideation: No Suicidal Plan: No Suicidal Intention: No Homicidal Ideation: No Homicidal Plan: No Homicidal Intention: No Insight: Adequate Judgment: Adequate MDM Medical Decision Making Medical Record Reviewed: Yes Assessment/Plan Patient interviewed at bedside. Electronic medical record reviewed. Case discussed with nurse Ibeth. Patient does not meet criteria for Valdes act or involuntarily psychiatric hospitalization. Orders Orders Complete Blood Count With Diff (07/15/17 18:33) Comprehensive Metabolic Panel (07/15/17 18:33) Alcohol (Ethanol) (07/15/17 18:55) Psych Screen (07/15/17 18:55) Tylenol (Acetaminophen) (07/15/17 18:55) Salicylates (Aspirin) (07/15/17 18:55) Alcohol Withdrawal Asmt-Ciwa ONCE (07/16/17 01:59) Flumazenil Inj (Romazicon Inj) (07/16/17 02:00) Lorazepam (Ativan) (07/16/17 02:00) Lorazepam Inj (Ativan Inj) (07/16/17 02:00) Lorazepam (Ativan) (07/16/17 02:00) Lorazepam Inj (Ativan Inj) (07/16/17 02:00) Lorazepam Inj (Ativan Inj) (07/16/17 02:00) Lorazepam Inj (Ativan Inj) (07/16/17 02:00) Diet Regular Basic (07/16/17 Breakfast) Ed Discharge Order (07/16/17 12:58) Results Vital Signs Date Time Temp Pulse Resp B/P (MAP) Pulse Ox O2 Delivery O2 Flow Rate FiO2 07/16/17 12:37 07/16/17 07:44 95 18 160/96 (117) 95 Room Air 07/15/17 23:00 110 16 121/72 (88) 92 Nasal Cannula 3.00 07/15/17 17:35 92 16 114/79 (91) 96 Room Air 07/15/17 13:34 98.1 90 16 127/84 (98) 98 Laboratory Tests Test 07/15/17 18:53 White Blood Count 4.8 Red Blood Count 4.93 Hemoglobin 15.6 Hematocrit 46.7 Mean Corpuscular Volume 94.7 Mean Corpuscular Hemoglobin 31.6 Mean Corpuscular Hemoglobin Concent 33.4 Red Cell Distribution Width 14.3 Platelet Count 189 Mean Platelet Volume 8.1 Neutrophils (%) (Auto) 41.3 Lymphocytes (%) (Auto) 45.7 Monocytes (%) (Auto) 10.4 Eosinophils (%) (Auto) 1.6 Basophils (%) (Auto) 1.0 Neutrophils # (Auto) 2.0 Lymphocytes # (Auto) 2.2 Monocytes # (Auto) 0.5 Eosinophils # (Auto) 0.1 Basophils # (Auto) 0.0 CBC Comment DIFF FINAL Differential Comment Blood Urea Nitrogen 9 Creatinine 1.18 Random Glucose 74 Total Protein 8.2 Albumin 3.3 Calcium Level 8.3 Alkaline Phosphatase 67 Aspartate Amino Transf (AST/SGOT) 167 Alanine Aminotransferase (ALT/SGPT) 134 Total Bilirubin 0.2 Sodium Level 140 Potassium Level 4.0 Chloride Level 107 Carbon Dioxide Level 23.6 Anion Gap 9 Estimat Glomerular Filtration Rate 64 Salicylates Level 2.8 Acetaminophen Level LESS THAN 2.0 Ethyl Alcohol Level 187 Diagnosis Primary Impression: Alcohol abuse Referrals: [facility] as needed Departure Forms: Tests/Procedures Patient Instructions: General Instructions, Abuse of Alcohol (ED) Additional Instructions: Please return to emergency department if your symptoms return or worsen. Follow up at [facility]. Disposition: 01 DISCHARGE HOME Condition: Stable Orion Shelby MD Jul 16, 2017 13:15
== END 2017-07-16 13:07 | disposition home or self-care (01) ==
LOC: NEPD 13:23
DX: F10.229 Alcohol dependence with intoxication, unspecified (principal); Y90.6 Blood alcohol level of 120-199 mg/100 ml; F31.9 Bipolar disorder, unspecified; B19.20 Unspecified viral hepatitis C without hepatic coma; F15.90 Other stimulant use, unspecified, uncomplicated; F19.90 Other psychoactive substance use, unspecified, uncomplicated; Z87.891 Personal history of nicotine dependence; Z79.899 Other long term (current) drug therapy
CPT/HCPCS: 80053; 80307; 85025; 99284

== ENCOUNTER 2017-07-16 16:12 | Emergency (ER) | payer OTHER ==
[~2017-07-16] VITALS: Ht 170.2 cm; Wt 83.0 kg
[~2017-07-16 16:12] MED LIST changes: -CIPR250T52 PO; -IBUP1TAB5 PO; -THERTAB15 PO
[2017-07-16 16:13] VITALS: BP 174/81; PULSE 96; RESP 20; TEMP 97.8; O2SAT 97
--- NOTE | 2017-07-16 20:03 | PD ---
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 Patient reports a history of chronic right wrist pain and surgery. Pain is exacerbated with movement, no alleviating factors. He denies any numbness. Onset was sudden. 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 Space doses at least 4 to 6 hours if more than once/day dosing. Seroquel (Quetiapine Fumarate) 100 Mg Tab 100 Mg PO DAILY Seroquel (Quetiapine Fumarate) 400 Mg Tab 400 Mg PO HS Wellbutrin SR 12 HR (Bupropion HCl) 150 Mg Tab 150 Mg PO Q12HR Neurontin (Gabapentin) 800 Mg Tab 800 Mg PO BID Review of Systems Except as stated in HPI: all other systems reviewed are Neg Musculoskeletal: Positive: Pain Physical Exam Narrative GENERAL: Disheveled male. Presenting in no acute distress. SKIN: Warm and dry. HEAD: Normocephalic. EYES: No scleral icterus. No injection or drainage. CARDIOVASCULAR: Regular rate RESPIRATORY: No accessory muscle use. MUSCULOSKELETAL: No cyanosis, or edema. No obvious deformity Data Data Last Documented VS Vital Signs Date Time Temp Pulse Resp B/P (MAP) Pulse Ox O2 Delivery O2 Flow Rate FiO2 07/16/17 16:13 97.8 96 20 174/81 (112) 97 Room Air MDM Medical Decision Making Medical Screen Exam Complete: Yes Emergency Medical Condition: Yes Interpretation(s) Vital Signs Date Time Temp Pulse Resp B/P (MAP) Pulse Ox O2 Delivery O2 Flow Rate FiO2 07/16/17 16:13 97.8 96 20 174/81 (112) 97 Room Air Differential Diagnosis Sprain versus strain versus fracture versus malingering versus other Narrative Course Patient's 56-year-old male who is well-known to the emergency department presenting today for evaluation of right wrist pain. He states he injured his wrist 6 days ago however patient was in the emergency department yesterday and had a different chief complaint. Patient's vital signs are stable, he is awaiting bed placement. Patient left the emergency department prior to evaluation. AMA: The risks of leaving against medical advice without further evaluation treatment were discussed with the patient. These risks include cardiac dysfunction, cardiac dysrhythmia, possible heart attack, possible stroke or . The patient indicated understanding of these risks and appeared to have the capacity to make this decision. Diagnosis Primary Impression: Left against medical advice Sunita Oneill Jul 16, 2017 20:03
== END 2017-07-16 19:54 | disposition left against medical advice (07) ==
LOC: NED 16:12
DX: M25.531 Pain in right wrist (principal); Z53.21 Procedure and treatment not carried out due to patient leaving prior to being seen by health care provider; Z72.0 Tobacco use
CPT/HCPCS: 99281

== ENCOUNTER 2017-07-17 14:56 | Emergency (ER) | payer OTHER ==
--- NOTE | 2017-07-17 15:13 | PD ---
HPI Chief Complaint: act Time Seen by Provider: 15:09 Travel History International Travel<30 days: No Contact w/Intl Traveler<30days: No Traveled to known affect area: No History of Present Illness HPI The patient is a 56-year-old male who presents to the emergency department via police as a act for alcohol intoxication. The patient states he drank approximately 1-2 L of [employer] vodka last night. The patient is well-known to the emergency department with multiple visits for alcohol intoxication. The patient denies any current physical complaints including chest pain, shortness of breath, nausea, vomiting, or abdominal pain. The patient is oriented to person and place, but not to the current month or year. The patient does appear intoxicated. PFSH Past Medical History Hx Anticoagulant Therapy: No ADD: Yes ADHD: Yes Arthritis: No Asthma: No Blood Disorders: No Bipolar Disorder: Yes Anxiety: Yes Depression: Yes Heart Rhythm Problems: No Cancer: No Cardiovascular Problems: No High Cholesterol: No Chemotherapy: No Chest Pain: No Congestive Heart Failure: No COPD: No Cerebrovascular Accident: No Diabetes: No Diminished Hearing: No Endocrine: No GERD: No Genitourinary: Yes Headaches: Yes Hepatitis: Yes (HEP C) Hiatal Hernia: No Hypertension: No Implanted Vascular Access Dvce: No Insomnia: Yes Musculoskeletal: No Neurologic: Yes Psychiatric: Yes Reproductive: No Respiratory: No Immunizations Current: Yes Migraines: Yes Radiation Therapy: No Seizures: No Sleep Apnea: No Thyroid Disease: No Ulcer: No Past Surgical History Abdominal Surgery: Yes (HERNIA REPAIR 10/2014) AICD: No Arteriovenous Shunt: No Cardiac Surgery: No Ear Surgery: No Endocrine Surgery: No Eye Surgery: No Genitourinary Surgery: No Gynecologic Surgery: No Hysterectomy: No Insulin Pump: No Joint Replacement: No Neurologic Surgery: Yes Oral Surgery: No Pacemaker: No Thoracic Surgery: No Other Surgery: Yes (ABDOMINAL HERNIA REPAIR 10/2014) Social History Alcohol Use: Yes (denies) Tobacco Use: Yes (2ppd) Substance Use: Yes (FLAKKA AND K2) Allergies-Medications (Allergen,Severity, Reaction): Coded Allergies: *MDRO Multi-Drug Resistant Organism (Verified Adverse Reaction, Unknown, 06/24/17) MRSA (elbow & knee wound) - 04/18/16 ESBL E.Coli (urine)-11/01/16 Reported Meds & Prescriptions Reported Meds & Active Scripts Active Klonopin (Clonazepam) 2 Mg Tab 2 Mg PO DAILY Reported Adderall (Amphetamine-Dextroamphetamine) 30 Mg Tab 30 Mg PO TID Avoid late evening doses. Space doses at least 4 to 6 hours if more than once/day dosing. Seroquel (Quetiapine Fumarate) 100 Mg Tab 100 Mg PO DAILY Seroquel (Quetiapine Fumarate) 400 Mg Tab 400 Mg PO HS Wellbutrin SR 12 HR (Bupropion HCl) 150 Mg Tab 150 Mg PO Q12HR Neurontin (Gabapentin) 800 Mg Tab 800 Mg PO BID Review of Systems Except as stated in HPI: all other systems reviewed are Neg Psychiatric: Positive: Substance Abuse (alcohol abuse) Physical Exam Narrative GENERAL: 56-year-old male who appears his stated age and appears intoxicated. SKIN: Focused skin assessment warm/dry. HEAD: Atraumatic. Normocephalic. EYES: Pupils equal and round. Mild injection bilaterally. ENT: No nasal bleeding or discharge. Breath smells of alcohol. NECK: Trachea midline. No JVD. CARDIOVASCULAR: Regular rate and rhythm. No murmur appreciated. RESPIRATORY: No accessory muscle use. Clear to auscultation. Breath sounds equal bilaterally. GASTROINTESTINAL: Abdomen soft, non-tender, nondistended. No rebound tenderness. Clothing smells of urine. MUSCULOSKELETAL: No obvious deformities. No clubbing. No cyanosis. No edema. NEUROLOGICAL: Awake and alert. No obvious cranial nerve deficits. Motor grossly within normal limits. Normal speech. Nonfocal. Oriented to person and place but not month or year. PSYCHIATRIC: Appears intoxicated. Data Data Orders Orders Alcohol (Ethanol) (07/17/17 15:09) Basic Metabolic Panel (Bmp) (07/17/17 15:09) Restraints Non-Violent BRENT.Q3H (07/17/17 15:55) MDM Medical Decision Making Medical Screen Exam Complete: Yes Emergency Medical Condition: Yes Medical Record Reviewed: Yes Differential Diagnosis Differential diagnosis includes alcohol intoxication, hyponatremia, encephalopathy, closed head injury, substance abuse. Narrative Course The patient refused blood work. The patient appears to be intoxicated on physical examination will be monitored in the emergency department until he is able to ambulate and no longer a threat to himself and then will be discharged. The patient repetitively got out of bed, was unsteady on his feet, made threatening comments to staff and security. The patient was using vulgar language around other patients and was roaming the hallways, appeared to be a threat to fall and harm himself. Therefore, the patient was placed in soft restraints and monitored. Diagnosis Primary Impression: Alcohol intoxication Qualified Codes: F10.920 - Alcohol use, unspecified with intoxication, uncomplicated Additional Impression: Alcohol dependence Qualified Codes: F10.20 - Alcohol dependence, uncomplicated Additional Instructions: Decrease alcohol use. Follow-up at [facility]. Return if symptoms worsen or progress. Condition: Stable Miles Bahena MD Jul 17, 2017 15:13
[2017-07-17 16:11] VITALS: BP 189/79; PULSE 78; RESP 17; TEMP 98.6; O2SAT 98
[2017-07-17 16:54] LABS: BICARBONATE 23.2 MEQ/L (21.0-32.0); CALCIUM 8.1 MG/DL (8.5-10.1); CREATININE 0.78 MG/DL (0.60-1.30)
[2017-07-17 18:15] VITALS: BP 189/82; PULSE 92; RESP 17; O2SAT 98
[2017-07-18 01:49] VITALS: BP 141/68
== END 2017-07-18 01:51 | disposition home or self-care (01) ==
LOC: NEPD 14:56 → NEDAMB 07-18 01:51
DX: F10.129 Alcohol abuse with intoxication, unspecified (principal); F31.9 Bipolar disorder, unspecified; F41.9 Anxiety disorder, unspecified; F90.9 Attention-deficit hyperactivity disorder, unspecified type; B19.20 Unspecified viral hepatitis C without hepatic coma; F17.200 Nicotine dependence, unspecified, uncomplicated; F19.90 Other psychoactive substance use, unspecified, uncomplicated; G47.00 Insomnia, unspecified; Z78.1 Physical restraint status
CPT/HCPCS: 80048; 80307; 99285

== ENCOUNTER 2017-08-02 16:47 | Inpatient (IN) | payer OTHER, MEDICAID, MEDICARE ==
[2017-08-02] VITALS (15 sets, daily range): BP systolic 101–142; BP diastolic 57–86; PULSE 87–114; RESP 14–26; TEMP 97.2–97.9; O2SAT 70–100
--- NOTE | 2017-08-02 17:15 | PD ---
HPI Chief Complaint: alcohol Time Seen by Provider: 17:10 Travel History International Travel<30 days: No Contact w/Intl Traveler<30days: No Traveled to known affect area: No History of Present Illness HPI 56-year-old male that presents to the ED for evaluation of alcohol abuse. Apparently patient was found by bystanders intoxicated and he was brought here for evaluation. He was brought here for alcohol abuse. Apparently when the patient was here he was urinating on the floor and the patient fell from the stretcher and hit his head. I was called to evaluate the patient secondary to the head injury which occurred in this facility. Patient appears to be acting his normal per [facility] but intoxicated. He was brought here because patient cannot ambulate on his own secondary to severe intoxication. Patient is a frequent flier and has been here multiple times for same. I cannot really get any history from the patient although he does appear to be capable of answering yes or no questions but hard to assess due to alcohol. He does smell heavily of alcohol. He does have 2 superficial lacerations to his right head. No hip pain. No arm pain. Able to move all legs and arms. Denies any pain. Continues to ask ED nurse for "a kiss". PFSH Past Medical History Hx Anticoagulant Therapy: No ADD: Yes ADHD: Yes Arthritis: No Asthma: No Blood Disorders: No Bipolar Disorder: Yes Anxiety: Yes Depression: Yes Heart Rhythm Problems: No Cancer: No Cardiovascular Problems: No High Cholesterol: No Chemotherapy: No Chest Pain: No Congestive Heart Failure: No COPD: No Cerebrovascular Accident: No Diabetes: No Diminished Hearing: No Endocrine: No GERD: No Genitourinary: Yes Headaches: Yes Hepatitis: Yes (HEP C) Hiatal Hernia: No Hypertension: No Implanted Vascular Access Dvce: No Insomnia: Yes Musculoskeletal: No Neurologic: Yes Psychiatric: Yes Reproductive: No Respiratory: No Immunizations Current: Yes Migraines: Yes Radiation Therapy: No Seizures: No Sleep Apnea: No Thyroid Disease: No Ulcer: No Past Surgical History Abdominal Surgery: Yes (HERNIA REPAIR 10/2014) AICD: No Arteriovenous Shunt: No Cardiac Surgery: No Ear Surgery: No Endocrine Surgery: No Eye Surgery: No Genitourinary Surgery: No Gynecologic Surgery: No Hysterectomy: No Insulin Pump: No Joint Replacement: No Neurologic Surgery: Yes Oral Surgery: No Pacemaker: No Thoracic Surgery: No Other Surgery: Yes (ABDOMINAL HERNIA REPAIR 10/2014) Social History Alcohol Use: Yes Tobacco Use: Yes (2ppd) Substance Use: Yes (FLAKKA AND K2) Allergies-Medications (Allergen,Severity, Reaction): Coded Allergies: *MDRO Multi-Drug Resistant Organism (Verified Adverse Reaction, Unknown, 06/24/17) MRSA (elbow & knee wound) - 04/18/16 ESBL E.Coli (urine)-11/01/16 Reported Meds & Prescriptions Reported Meds & Active Scripts Active Klonopin (Clonazepam) 2 Mg Tab 2 Mg PO DAILY Reported Adderall (Amphetamine-Dextroamphetamine) 30 Mg Tab 30 Mg PO TID Avoid late evening doses. Space doses at least 4 to 6 hours if more than once/day dosing. Seroquel (Quetiapine Fumarate) 100 Mg Tab 100 Mg PO DAILY Seroquel (Quetiapine Fumarate) 400 Mg Tab 400 Mg PO HS Wellbutrin SR 12 HR (Bupropion HCl) 150 Mg Tab 150 Mg PO Q12HR Neurontin (Gabapentin) 800 Mg Tab 800 Mg PO BID Review of Systems ROS Limitations: Intoxication Except as stated in HPI: all other systems reviewed are Neg Physical Exam Exam Limitations: Intoxication Narrative GENERAL: SKIN: Warm and dry. Patient has a superficial laceration about less than 1 cm on the right cheek as well as on the right eyebrow HEAD: Atraumatic. Normocephalic. EYES: Pupils equal and round 4 mm reactive to light and accommodation. No scleral icterus. No injection or drainage. ENT: No nasal bleeding or discharge. Mucous membranes pink and moist. Tongue is midline. No uvula deviation. NECK: Trachea midline. No JVD. CARDIOVASCULAR: Regular rate and rhythm. No murmurs, S3, S4. RESPIRATORY: No accessory muscle use. Clear to auscultation. Breath sounds equal bilaterally. GASTROINTESTINAL: Abdomen soft, non-tender, nondistended. Hepatic and splenic margins not palpable. MUSCULOSKELETAL: Extremities without clubbing, cyanosis, or edema. No obvious deformities. Full range of motion of the upper and lower extremities bilaterally. No cervical, thoracic, lumbar spine tenderness to palpation. 2+ pulses bilaterally. NEUROLOGICAL: Awake and alert. No obvious cranial nerve deficits. Motor grossly within normal limits. Five out of 5 muscle strength in the arms and legs. Normal speech. PSYCHIATRIC: Very intoxicated mood and affect; insight and judgment minimal Data Data Last Documented VS Vital Signs Date Time Temp Pulse Resp B/P (MAP) Pulse Ox O2 Delivery O2 Flow Rate FiO2 08/02/17 19:00 97.2 87 14 137/78 (97) 100 Ventilator 08/02/17 18:19 40 08/02/17 17:[address] Brain W/O Iv Contrast(Rout) (08/02/17 16:59) Ct Facial Bones W/O Iv Cont (08/02/17 ) Ct Cerv Spine W/O Contrast (08/02/17 ) Chest, Single Ap (08/02/17 ) Etomidate Inj (Amidate Inj) (08/02/17 17:55) Succinylcholine Inj (Quelicin Inj) (08/02/17 17:55) Lorazepam Inj (Ativan Inj) (08/02/17 18:15) Propofol 500 Mg/50 Ml Inj (Diprivan 500 (08/02/17 18:12) Complete Blood Count With Diff (08/02/17 18:13) Comprehensive Metabolic Panel (08/02/17 18:13) Prothrombin Time / Inr (Pt) (08/02/17 18:13) Act Partial Throm Time (Ptt) (08/02/17 18:13) Cath For Specimen (08/02/17 18:13) Magnesium (Mg) (08/02/17 18:13) Iv Access Insert/Monitor (08/02/17 18:13) Ecg Monitoring (08/02/17 18:13) Oximetry (08/02/17 18:13) Type And Screen (08/02/17 18:13) Drug Screen, Random Urine (08/02/17 18:13) Alcohol (Ethanol) (08/02/17 18:13) Chest, Single Ap (08/02/17 ) Labs Laboratory Tests Test 08/02/17 18:45 08/02/17 19:00 White Blood Count 8.1 TH/MM3 Red Blood Count 4.89 MIL/MM3 Hemoglobin 15.3 GM/DL Hematocrit 45.5 % Mean Corpuscular Volume 93.0 FL Mean Corpuscular Hemoglobin 31.3 PG Mean Corpuscular Hemoglobin Concent 33.6 % Red Cell Distribution Width 14.5 % Platelet Count 273 TH/MM3 Mean Platelet Volume 8.6 FL Neutrophils (%) (Auto) 48.7 % Lymphocytes (%) (Auto) 40.2 % Monocytes (%) (Auto) 9.0 % Eosinophils (%) (Auto) 1.5 % Basophils (%) (Auto) 0.6 % Neutrophils # (Auto) 3.9 TH/MM3 Lymphocytes # (Auto) 3.3 TH/MM3 Monocytes # (Auto) 0.7 TH/MM3 Eosinophils # (Auto) 0.1 TH/MM3 Basophils # (Auto) 0.0 TH/MM3 CBC Comment DIFF FINAL Differential Comment Prothrombin Time 10.4 SEC Prothromb Time International Ratio 1.0 RATIO Activated Partial Thromboplast Time 25.3 SEC Blood Urea Nitrogen 10 MG/DL Creatinine 0.77 MG/DL Random Glucose 67 MG/DL Total Protein 8.4 GM/DL Albumin 3.5 GM/DL Calcium Level 8.3 MG/DL Magnesium Level 2.3 MG/DL Alkaline Phosphatase 67 U/L Aspartate Amino Transf (AST/SGOT) 87 U/L Alanine Aminotransferase (ALT/SGPT) 102 U/L Total Bilirubin 0.2 MG/DL Sodium Level 140 MEQ/L Potassium Level 4.3 MEQ/L Chloride Level 104 MEQ/L Carbon Dioxide Level 23.7 MEQ/L Anion Gap 12 MEQ/L Estimat Glomerular Filtration Rate 104 ML/MIN Ethyl Alcohol Level 300 MG/DL Urine Opiates Screen NEG Urine Barbiturates Screen NEG Urine Amphetamines Screen NEG Urine Benzodiazepines Screen POS Urine Cocaine Screen NEG Urine Cannabinoids Screen NEG MDM Medical Decision Making Medical Screen Exam Complete: Yes Emergency Medical Condition: Yes Medical Record Reviewed: Yes Differential Diagnosis Fall versus alcohol abuse versus polysubstance abuse versus head injury versus laceration Narrative Course 56-year-old male that presents to the ED for evaluation of alcohol abuse and fall. Patient was properly examined and was found to have signs and symptoms consistent appears to be alcohol abuse and fall. I was called to the patient's location secondary to fall from the stretcher here at this facility. Patient appears to be in no sign of acute distress but heavily intoxicated and has suffered a head injury from a fall from stretcher. He appears to have urinated on himself. Patient did suffer injury to his head and is intoxicated. Because I cannot really get a good history or physical from him so I do recommend stat imaging. Imaging was ordered by me. ED charge nurse was made aware of need for patient to be moved to a medical bed for assessment and monitoring. Case will be signed out to incoming provider pending disposition and plan. Procedures Procedure Narrative LACERATION LOCATION: right cheek LENGTH: 1 cm NUMBER OF STITCHES/SOFIYA: 5 sutures REPAIR: The area of the laceration was prepped with Betadine and sterilely draped. The laceration was infiltrated with 1% Xylocaine. The wound was copiously irrigated and explored without evidence of foreign body, tendon injury or neurovascular injury. The wound was closed using 5-0 Ethilone. This was a 1 layer repair. A sterile dressing was applied. The patient was advised to keep the dressing clean and dry. Patient tolerated the procedure well. Matias Ellis Aug 02, 2017 17:15
--- NOTE | 2017-08-02 17:41 | RADRPT ---
EXAM DATE/TIME: 08/02/2017 17:25 [facility] COMPARISON: CHEST SINGLE AP, January 03, 2017, 2:40. INDICATIONS : Trauma due to fall. MEDICAL HISTORY : None. SURGICAL HISTORY : None. ENCOUNTER: Initial ACUITY: 1 day PAIN SCORE: Non-responsive. LOCATION: Bilateral chest FINDINGS: Single AP view of the chest. The lungs are clear. Cardiomediastinal silhouette within normal limits. No evidence of pleural effusion or pneumothorax. CONCLUSION: No acute cardiopulmonary disease identified. Pardeep Trujillo MD on August 02, 2017 at 17:38 Board Certified Radiologist. This report was verified electronically.
[2017-08-02] MEDS ORDERED: SUCCINYLCHOLINE CHLORIDE 200 MG/10 ML VIAL ONE (17:55)
[2017-08-02] MEDS ORDERED: ETOMIDATE 40 MG/20 ML VIAL ONE (17:55)
[2017-08-02] MEDS ORDERED: PROPOFOL 500 MG/50 ML INJ 50 ML ONE (18:12)
[2017-08-02] MEDS ORDERED: LORazepam 2 MG/ML VIAL IV PUSH ONE (18:15)
--- NOTE | 2017-08-02 18:35 | PD ---
Physical Exam Narrative Patient was transferred to medical bed from the hallway. Patient apparently was found responsive and postulating in D Pod by Dr. Layne. Patient was transferred to E Pod for me to evaluate and treat. Physical exam: Patient has pinpoint pupils. Patient has ecchymosis with soft tissue swelling right eyebrow area. Patient has abrasion to right cheek area with soft tissue swelling noted. Patient has some old blood around the right earlobe. Breath sounds decreased bilaterally. No evidence of trauma to the chest wall or abdomen. Abdomen is soft and nondistended. No evidence of extremity injury. No back injury. Patient has decelebrate posture. Data Data Last Documented VS Vital Signs Date Time Temp Pulse Resp B/P (MAP) Pulse Ox O2 Delivery O2 Flow Rate FiO2 08/02/17 18:11 100 40 08/02/17 17:43 108 24 118/79 (92) Room Air Orders Orders Ct Brain W/O Iv Contrast(Rout) (08/02/17 16:59) Ct Facial Bones W/O Iv Cont (08/02/17 ) Ct Cerv Spine W/O Contrast (08/02/17 ) Chest, Single Ap (08/02/17 ) Etomidate Inj (Amidate Inj) (08/02/17 17:55) Succinylcholine Inj (Quelicin Inj) (08/02/17 17:55) Lorazepam Inj (Ativan Inj) (08/02/17 18:15) Propofol 500 Mg/50 Ml Inj (Diprivan 500 (08/02/17 18:12) Complete Blood Count With Diff (08/02/17 18:13) Comprehensive Metabolic Panel (08/02/17 18:13) Prothrombin Time / Inr (Pt) (08/02/17 18:13) Act Partial Throm Time (Ptt) (08/02/17 18:13) Cath For Specimen (08/02/17 18:13) Magnesium (Mg) (08/02/17 18:13) Iv Access Insert/Monitor (08/02/17 18:13) Ecg Monitoring (08/02/17 18:13) Oximetry (08/02/17 18:13) Type And Screen (08/02/17 18:13) Drug Screen, Random Urine (08/02/17 18:13) Alcohol (Ethanol) (08/02/17 18:13) Chest, Single Ap (08/02/17 ) MDM Supervised Visit with JOSE ARMANDO: Yes Critical Care Narrative Aggregate critical care time was 30 minutes. Time to perform other separately billable procedures was not included in the critical care time. My time did not include minutes spent treating any other patients simultaneously or on activities that did not directly contribute to the patient's treatment. The services I provided to this patient were to treat and/or prevent clinically significant deterioration that could result in: I provided critical care services requiring my management, as noted below: Chart data review, documentation time, medication orders and management, vital sign assessments/reviewing monitor data, ordering and reviewing lab tests, ordering and interpreting/reviewing x-rays and diagnostic studies, care of the patient and discussion of the patient with the admitting physicians. Procedures Procedure Narrative After the risks and benefits were discussed the following procedure was performed: INTUBATION: The patient was put in optimal position for the procedure. Rapid sequence intubation was initiated by me using 20 milligrams of etomidate IV and 100 milligrams of succinylcholine IV. The patient was intubated with a 7.5 cuffed endotracheal tube. Tube placement was confirmed by visualization of the tube and balloon passing through the cords, capnometry and subsequent chest x- ray. Breath sounds were equal and well aerated bilaterally postintubation. No breath sounds over stomach. Patient tolerated procedure well. Deshawn Ingram MD Aug 02, 2017 18:35
--- NOTE | 2017-08-02 18:44 | RADRPT ---
EXAM DATE/TIME: 08/02/2017 18:26 [facility] COMPARISON: CHEST SINGLE AP, August 02, 2017, 17:25. INDICATIONS : Post Intubation MEDICAL HISTORY : None. SURGICAL HISTORY : None. ENCOUNTER: Subsequent ACUITY: 1 day PAIN SCORE: Non-responsive. LOCATION: chest FINDINGS: Patient is now intubated. Endotracheal tube tip is approximately 4 cm above the krystina. A nasogastric tube is present, tip in the lower esophagus. Trace bibasilar atelectasis. No pleural effusion or pneumothorax. CONCLUSION: 1. Appropriately positioned endotracheal tube tip, 4 cm above the krystina. 2. Tip of the nasogastric tube is in the lower esophagus slightly above the GE junction. 3. Trace bibasilar atelectasis. No pneumothorax. Fermín Wagner MD on August 02, 2017 at 18:41 Board Certified Radiologist. This report was verified electronically.
--- NOTE | 2017-08-02 18:51 | RADRPT ---
EXAM DATE/TIME: 08/02/2017 18:33 [facility] COMPARISON: No previous studies available for comparison. INDICATIONS : Trauma. Fall. RADIATION DOSE: 56.35 CTDIvol (mGy) MEDICAL HISTORY : Hepatitis C. ETOH abuse SURGICAL HISTORY : Inguinal hernia repair. ENCOUNTER: Initial ACUITY: 1 day PAIN SCALE: Non-responsive LOCATION: cranial TECHNIQUE: Multiple contiguous axial images were obtained of the head. Using automated exposure control and adj ustment of the mA and/or kV according to patient size, radiation dose was kept as low as reasonably a chievable to obtain optimal diagnostic quality images. DICOM format image data is available electro nically for review and comparison. FINDINGS: CEREBRUM: The ventricles are normal for age. No evidence of midline shift, mass lesion, hemorrhage or acute in farction. No extra-axial fluid collections are seen. POSTERIOR FOSSA: The cerebellum and brainstem are intact. The 4th ventricle is midline. The cerebellopontine angle i s unremarkable. EXTRACRANIAL: The visualized portion of the orbits is intact. SKULL: The calvaria is intact. No evidence of skull fracture. CONCLUSION: No bleed or other acute intracranial abnormality. Fermín Wagner MD on August 02, 2017 at 18:47 Board Certified Radiologist. This report was verified electronically.
--- NOTE | 2017-08-02 18:54 | RADRPT ---
EXAM DATE/TIME: 08/02/2017 18:35 [facility] COMPARISON: CT CERVICAL SPINE W/O CONTRAST, January 03, 2017, 2:44. INDICATIONS : Trauma. Fall. RADIATION DOSE: 27.43 CTDIvol (mGy) MEDICAL HISTORY : Diabetes mellitus type 2. ETOH abuse SURGICAL HISTORY : Inguinal hernia repair. ENCOUNTER: Initial ACUITY: 1 day PAIN SCALE: Non-responsive LOCATION: neck TECHNIQUE: Volumetric scanning of the cervical spine was performed. Multiplanar reconstructions in the sagittal, coronal and oblique axial planes were performed. Using automated exposure control and adjustment o f the mA and/or kV according to patient size, radiation dose was kept as low as reasonably achievable to obtain optimal diagnostic quality images. DICOM format image data is available electronically f or review and comparison. FINDINGS: VERTEBRAE: Normal vertebral body height. ALIGNMENT: No evidence of subluxation. C2-C3: The bony spinal canal is normal in size. No evidence of disc bulge or herniation. The neural forami na are bilaterally patent. C3-C4: Mild disc space narrowing with uncovertebral and facet osteoarthritis again noted. C4-C5: The bony spinal canal is normal in size. No evidence of disc bulge or herniation. The neural forami na are bilaterally patent. C5-C6: The bony spinal canal is normal in size. No evidence of disc bulge or herniation. The neural forami na are bilaterally patent. C6-C7: The bony spinal canal is normal in size. No evidence of disc bulge or herniation. The neural forami na are bilaterally patent. C7-T1: The bony spinal canal is normal in size. No evidence of disc bulge or herniation. The neural forami na are bilaterally patent. Emphysema seen of the visualized lung apices. CONCLUSION: Intact cervical spine. Mild degenerative changes again noted at C3/C4. Fermín Wagner MD on August 02, 2017 at 18:51 Board Certified Radiologist. This report was verified electronically.
--- NOTE | 2017-08-02 19:06 | RADRPT ---
EXAM DATE/TIME: 08/02/2017 18:36 [facility] COMPARISON: CT BRAIN W/O CONTRAST, August 02, 2017, 18:33. CT FACIAL BONES W/O CONTRAST, January 03, 2017, 2:46. INDICATIONS : Trauma. Fall. RADIATION DOSE: 26.35 CTDIvol (mGy) MEDICAL HISTORY : Hepatitis C. ETOH abuse SURGICAL HISTORY : Inguinal hernia repair. ENCOUNTER: Initial ACUITY: 1 day PAIN SCORE: Non-responsive LOCATION: facial TECHNIQUE: Volumetric scanning of the facial bones was performed. Using automated exposure control and adjustme nt of the mA and/or kV according to patient size, radiation dose was kept as low as reasonably achiev able to obtain optimal diagnostic quality images. DICOM format image data is available electronicMoontoast y for review and comparison. FINDINGS: Motion degraded study. ORBITS: The orbital and infraorbital osseous structures are intact. The retroconal structures have a normal configuration. No radiopaque foreign bodies are seen. NASAL BONE: Old comminuted nasal arch and septum fractures are again noted, healed. No acute nasal bone fracture. ZYGOMATIC ARCHES: Symmetric without evidence of fracture. SINUSES: Severe mucoperiosteal thickening of the ethmoid and maxillary air cells. NASAL CAVITY: The nasal septum is intact and midline. The lacrimal ducts are intact. SOFT TISSUES: No radiopaque foreign bodies seen. No soft-tissue swelling is seen. INTRACRANIAL: No intracranial air seen. CRIBIFORM PLATE: Grossly intact. CONCLUSION: 1. Motion degraded study. No evidence of an acute fracture. 2. Old comminuted fracturing of the nose again seen. 3. Chronic sinusitis. Fermín Wagner MD on August 02, 2017 at 19:01 Board Certified Radiologist. This report was verified electronically.
[2017-08-02 19:27] LABS: AUTOMATED NEUTROPHIL # 3.9 TH/MM3 (1.8-7.7); BASOPHIL % 0.6 % (0.0-2.0); EOSINOPHIL # 0.1 TH/MM3 (0-0.4); EOSINOPHIL % 1.5 % (0.0-4.0); HEMATOCRIT 45.5 % (39.0-51.0); HEMOGLOBIN 15.3 GM/DL (13.0-17.0); LYMPH % 40.2 % (9.0-44.0); LYMPHOCYTE # 3.3 TH/MM3 (1.0-4.8); MEAN CORPUSCULAR HEMOGLOBIN 31.3 PG (27.0-34.0); MEAN CORPUSCULAR HGB CONC 33.6 % (32.0-36.0); MEAN PLATELET VOLUME 8.6 FL (7.0-11.0); MONOCYTE # 0.7 TH/MM3 (0-0.9); NEUT % 48.7 % (16.0-70.0); PLATELET COUNT 273 TH/MM3 (150-450); RED BLOOD COUNT 4.89 MIL/MM3 (4.50-5.90); RED CELL DISTRIBUTION WIDTH 14.5 % (11.6-17.2); WHITE BLOOD COUNT 8.1 TH/MM3 (4.0-11.0)
[2017-08-02 19:39] LABS: PROTHROMBIN TIME - PATIENT 10.4 SEC (9.8-11.6)
--- NOTE | 2017-08-02 20:05 | PD ---
Data Data Last Documented VS Vital Signs Date Time Temp Pulse Resp B/P (MAP) Pulse Ox O2 Delivery O2 Flow Rate FiO2 08/02/17 18:11 100 40 08/02/17 17:45 Nasal Cannula 2.00 08/02/17 17:[address] Brain W/O Iv Contrast(Rout) (08/02/17 16:59) Ct Facial Bones W/O Iv Cont (08/02/17 ) Ct Cerv Spine W/O Contrast (08/02/17 ) Chest, Single Ap (08/02/17 ) Etomidate Inj (Amidate Inj) (08/02/17 17:55) Succinylcholine Inj (Quelicin Inj) (08/02/17 17:55) Lorazepam Inj (Ativan Inj) (08/02/17 18:15) Propofol 500 Mg/50 Ml Inj (Diprivan 500 (08/02/17 18:12) Complete Blood Count With Diff (08/02/17 18:13) Comprehensive Metabolic Panel (08/02/17 18:13) Prothrombin Time / Inr (Pt) (08/02/17 18:13) Act Partial Throm Time (Ptt) (08/02/17 18:13) Cath For Specimen (08/02/17 18:13) Magnesium (Mg) (08/02/17 18:13) Iv Access Insert/Monitor (08/02/17 18:13) Ecg Monitoring (08/02/17 18:13) Oximetry (08/02/17 18:13) Type And Screen (08/02/17 18:13) Drug Screen, Random Urine (08/02/17 18:13) Alcohol (Ethanol) (08/02/17 18:13) Chest, Single Ap (08/02/17 ) Admit Order (Ed Use Only) (08/02/17 19:33) ^ Patient Temperature (08/02/17 20:02) Labs Laboratory Tests Test 08/02/17 18:45 08/02/17 19:00 White Blood Count 8.1 TH/MM3 Red Blood Count 4.89 MIL/MM3 Hemoglobin 15.3 GM/DL Hematocrit 45.5 % Mean Corpuscular Volume 93.0 FL Mean Corpuscular Hemoglobin 31.3 PG Mean Corpuscular Hemoglobin Concent 33.6 % Red Cell Distribution Width 14.5 % Platelet Count 273 TH/MM3 Mean Platelet Volume 8.6 FL Neutrophils (%) (Auto) 48.7 % Lymphocytes (%) (Auto) 40.2 % Monocytes (%) (Auto) 9.0 % Eosinophils (%) (Auto) 1.5 % Basophils (%) (Auto) 0.6 % Neutrophils # (Auto) 3.9 TH/MM3 Lymphocytes # (Auto) 3.3 TH/MM3 Monocytes # (Auto) 0.7 TH/MM3 Eosinophils # (Auto) 0.1 TH/MM3 Basophils # (Auto) 0.0 TH/MM3 CBC Comment DIFF FINAL Differential Comment Prothrombin Time 10.4 SEC Prothromb Time International Ratio 1.0 RATIO Activated Partial Thromboplast Time 25.3 SEC Urine Opiates Screen NEG Urine Barbiturates Screen NEG Urine Amphetamines Screen NEG Urine Benzodiazepines Screen POS Urine Cocaine Screen NEG Urine Cannabinoids Screen NEG MDM Medical Record Reviewed: Yes Supervised Visit with JOSE ARMANDO: Yes Narrative Course CBC & BMP Diagram 08/02/17 18:[address] 08/02/17 1659 Signed Impressions: Service Date/Time: Wednesday, August 02, 2017 18:33 - CONCLUSION: No bleed or other acute intracranial abnormality. Fermín Wagner MD Maxillofacial CT 08/02/17 0000 Signed Impressions: Service Date/Time: Wednesday, August 02, 2017 18:36 - CONCLUSION: 1. Motion degraded study. No evidence of an acute fracture. 2. Old comminuted fracturing of the nose again seen. 3. Chronic sinusitis. Fermín Wagner MD Chest X-Ray 08/02/17 0000 Signed Impressions: Service Date/Time: Wednesday, August 02, 2017 18:26 - CONCLUSION: 1. Appropriately positioned endotracheal tube tip, 4 cm above the krystina. 2. Tip of the nasogastric tube is in the lower esophagus slightly above the GE junction. 3. Trace bibasilar atelectasis. No pneumothorax. Fermín Wagner MD Chest X-Ray 08/02/17 0000 Signed Impressions: Service Date/Time: Wednesday, August 02, 2017 17:25 - CONCLUSION: No acute cardiopulmonary disease identified. Pardeep Trujillo MD Cervical Spine CT 08/02/17 0000 Signed Impressions: Service Date/Time: Wednesday, August 02, 2017 18:35 - CONCLUSION: Intact cervical spine. Mild degenerative changes again noted at C3/C4. Fermín Wagner MD Please refer to outgoing provider's note. Patient intubated. Altered mental statu could be secondary to seizures however etiology at this time is indeterminate. The patient will be admitted to the [facility] for further evaluation and management. Discussed with Dr Ochoa. Diagnosis Primary Impression: Alcohol abuse Additional Impressions: Head contusion Qualified Codes: S00.93XA - Contusion of unspecified part of head, initial encounter Head injury Qualified Codes: S09.90XA - Unspecified injury of head, initial encounter Unresponsive Admitting Information Admitting Physician Requests: Admit Vasquez Donohue MD Aug 02, 2017 20:05
[2017-08-02 20:12] LABS: ALBUMIN 3.5 GM/DL (3.4-5.0); ALKALINE PHOSPHATASE 67 U/L (45-117); ALT (GPT) 102 U/L (12-78); AST (GOT) 87 U/L (15-37); BICARBONATE 23.7 MEQ/L (21.0-32.0); BLOOD UREA NITROGEN 10 MG/DL (7-18); CALCIUM 8.3 MG/DL (8.5-10.1); CHLORIDE 104 MEQ/L (98-107); CREATININE 0.77 MG/DL (0.60-1.30); GLOMERULAR FILTRATION RATE 104 ML/MIN (>89); GLUCOSE,RANDOM 67 MG/DL (74-106); MAGNESIUM 2.3 MG/DL (1.5-2.5); SODIUM (NA) 140 MEQ/L (136-145); TOTAL BILIRUBIN ADULT 0.2 MG/DL (0.2-1.0); TOTAL PROTEIN 8.4 GM/DL (6.4-8.2)
--- NOTE | 2017-08-02 20:40 | HHI.HP ---
HPI Service Critical Care Medicine Primary Care Physician Unknown Admission Diagnosis bilateral pleural effusion. Respiratory failure Diagnosis: (1) Acute respiratory failure Diagnosis: Principal (2) Alcohol intoxication Diagnosis: Principal (3) Alcohol dependence Diagnosis: Principal (4) Laceration of cheek, right Diagnosis: Secondary (5) Polysubstance abuse Diagnosis: Secondary (6) Transaminitis Diagnosis: Secondary (7) ALCOHOL DEPENDENCE WITH WITHDRAWAL DELIRIUM Diagnosis: Principal (8) Fall Diagnosis: Secondary (9) Hypoglycemia Diagnosis: Secondary Travel History International Travel<30 Days: No Contact w/Intl Traveler <30 Da: No Traveled to Known Affected Are: No History of Present Illness 56-year-old male with past medical history of alcohol dependence and polysubstance abuse (cocaine, THC, K2 and Flakka) who presented to [facility] emergency department by E V[facility] after he was found in the street intoxicated. He was initially conversant upon arrival and then got up and was urinating on the floor and then fell in the ED. He then had decreased level of consciousness with seizure vs tremor vs ?posturing. He was intubated for airway protection and underwent CT brain, CT C-spine, CT maxillofacial which demonstrated no acute abnormality. There was an old comminuted nasal fracture. He is afebrile without leukocytosis. Glucose is 67. I have ordered D50. He is following commands on sedation with propofol. Review of Systems ROS Limitations: Intoxication Past Family Social History Allergies: Coded Allergies: *MDRO Multi-Drug Resistant Organism (Verified Adverse Reaction, Unknown, 06/24/17) MRSA (elbow & knee wound) - 04/18/16 ESBL E.Coli (urine)-11/01/16 Past Medical History ADHD Bipolar disorder Migraines Hepatitis C Past Surgical History Ventral hernia repair October 2014 Reported Medications Unable to obtain directly from patient due to clinical condition. Reviewed EMR which indicates: Klonopin 2 mg by mouth daily Neurontin 800 mg by mouth twice a day Wellbutrin 150 mg by mouth every 12 hours Seroquel 400 mg by mouth daily at bedtime/100 mg by mouth daily Adderall 30 g by mouth 3 times a day Family History Unable to obtain from patient due to clinical condition. Social History Unable to obtain directly from patient due to intubation and clinical condition. Reviewed EMR which indicates: Daily alcohol use with repeated admissions related to alcohol dependence Polysubstance abuse including the use of Flakka and K2 cocaine, marijuana Physical Exam Vital Signs Vital Signs Date Time Temp Pulse Resp B/P (MAP) Pulse Ox O2 Delivery O2 Flow Rate FiO2 08/02/17 20:34 92 14 129/60 (83) 99 Ventilator 08/02/17 19:00 97.2 87 14 137/78 (97) 100 Ventilator 08/02/17 18:45 109 14 142/86 (104) 100 08/02/17 18:35 114 14 120/70 (87) 100 08/02/17 18:19 112 14 129/69 (89) 97 Ventilator 40 08/02/17 18:11 100 40 08/02/17 18:02 40 08/02/17 17:45 Nasal Cannula 2.00 08/02/17 17:43 108 24 118/79 (92) 80 Room Air Physical Exam GENERAL: Well-nourished, well-developed patient who is orotracheally intubated. SKIN: Warm and dry. There is 2 cm linear laceration overlying right cheek. HEAD: Atraumatic. Normocephalic. EYES: Pupils equal and round, 2mm and sluggishly reactive. No scleral icterus. Mild conjunctival injection. ENT: No nasal bleeding or discharge. Mucous membranes pink and moist. NECK: Trachea midline. No JVD. No apparent tenderness, step-offs/deformity of cervical spine CARDIOVASCULAR: Regular rate and rhythm, sinus rhythm on the monitor with rate in 80s. No murmurs rubs or gallops. RESPIRATORY: Orotracheally intubated. Clear to auscultation bilaterally. No wheezes Rales or rhonchi. GASTROINTESTINAL: Abdomen soft, non-tender, nondistended. There is a healed vertical scar in upper abdomen. MUSCULOSKELETAL: Extremities without clubbing, cyanosis, or edema. Scar overlying right wrist and hand. NEUROLOGICAL: Pupils 2 mm and reactive as per above. He is breathing over the vent. Eyes open to noxious stimuli. He follows commands with all extremities. He is tremulous Laboratory Laboratory Tests Test 08/02/17 18:45 08/02/17 19:00 White Blood Count 8.1 Red Blood Count 4.89 Hemoglobin 15.3 Hematocrit 45.5 Mean Corpuscular Volume 93.0 Mean Corpuscular Hemoglobin 31.3 Mean Corpuscular Hemoglobin Concent 33.6 Red Cell Distribution Width 14.5 Platelet Count 273 Mean Platelet Volume 8.6 Neutrophils (%) (Auto) 48.7 Lymphocytes (%) (Auto) 40.2 Monocytes (%) (Auto) 9.0 Eosinophils (%) (Auto) 1.5 Basophils (%) (Auto) 0.6 Neutrophils # (Auto) 3.9 Lymphocytes # (Auto) 3.3 Monocytes # (Auto) 0.7 Eosinophils # (Auto) 0.1 Basophils # (Auto) 0.0 CBC Comment DIFF FINAL Differential Comment Prothrombin Time 10.4 Prothromb Time International Ratio 1.0 Activated Partial Thromboplast Time 25.3 Blood Urea Nitrogen 10 Creatinine 0.77 Random Glucose 67 Total Protein 8.4 Albumin 3.5 Calcium Level 8.3 Magnesium Level 2.3 Alkaline Phosphatase 67 Aspartate Amino Transf (AST/SGOT) 87 Alanine Aminotransferase (ALT/SGPT) 102 Total Bilirubin 0.2 Sodium Level 140 Potassium Level 4.3 Chloride Level 104 Carbon Dioxide Level 23.7 Anion Gap 12 Estimat Glomerular Filtration Rate 104 Ethyl Alcohol Level 300 Urine Opiates Screen NEG Urine Barbiturates Screen NEG Urine Amphetamines Screen NEG Urine Benzodiazepines Screen POS Urine Cocaine Screen NEG Urine Cannabinoids Screen NEG Result Diagram: 08/02/17184408/02/171844 Caprini VTE Risk Assessment Caprini VTE Risk Assessment: Mod/High Risk (score >= 2) Caprini Risk Assessment Model Point Value = 1 Point Value = 2 Point Value = 3 Point Value = 5 Age 41-60 Minor surgery BMI > 25 kg/m2 Swollen legs Varicose veins or History of unexplained or recurrent spontaneous Oral contraceptives or hormone replacement Sepsis (< 1 month) Serious lung disease, including pneumonia (< 1 month) Abnormal pulmonary function Acute myocardial infarction Congestive heart failure (< 1 month) History of inflammatory bowel disease Medical patient at bed rest Age 61-74 Arthroscopic surgery Major open surgery (> 45 min) Laparoscopic surgery (> 45 min) Malignancy Confined to bed (> 72 hours) Immobilizing plaster cast Central venous access Age >= 75 History of VTE Family history of VTE Factor V Leiden Prothrombin [id number] Lupus anticoagulant Anticardiolipin antibodies Elevated serum homocysteine Heparin-induced thrombocytopenia Other congenital or acquired thrombophilia Stroke (< 1 month) Elective arthroplasty Hip, pelvis, or leg fracture Acute spinal cord injury (< 1 month) Prophylaxis Regimen Total Risk Factor Score Risk Level Prophylaxis Regimen 0-1 Low Early ambulation 2 Moderate Order ONE of the following: *Sequential Compression Device (SCD) *Heparin 5000 units SQ BID 3-4 Higher Order ONE of the following medications: *Heparin 5000 units SQ TID *Enoxaparin/Lovenox 40 mg SQ daily (WT < 150 kg, CrCl > 30 mL/min) *Enoxaparin/Lovenox 30 mg SQ daily (WT < 150 kg, CrCl > 10-29 mL/min) *Enoxaparin/Lovenox 30 mg SQ BID (WT < 150 kg, CrCl > 30 mL/min) AND/OR *Sequential Compression Device (SCD) 5 or more Highest Order ONE of the following medications: *Heparin 5000 units SQ TID (Preferred with Epidurals) *Enoxaparin/Lovenox 40 mg SQ daily (WT < 150 kg, CrCl > 30 mL/min) *Enoxaparin/Lovenox 30 mg SQ daily (WT < 150 kg, CrCl > 10-29 mL/min) *Enoxaparin/Lovenox 30 mg SQ BID (WT < 150 kg, CrCl > 30 mL/min) AND *Sequential Compression Device (SCD) Assessment and Plan Problem List: (1) Laceration of cheek, right ICD Code: S01.411A - Laceration without foreign body of right cheek and temporomandibular area, initial encounter Status: Acute (2) Acute respiratory failure ICD Code: J96.00 - Acute respiratory failure, unspecified whether with hypoxia or hypercapnia Status: Acute (3) Alcohol intoxication ICD Code: F10.129 - Alcohol abuse with intoxication, unspecified Status: Acute (4) Alcohol dependence ICD Code: F10.20 - Alcohol dependence, uncomplicated Status: Chronic (5) Fall ICD Code: W19.XXXA - Unspecified fall, initial encounter Status: Acute (6) ALCOHOL DEPENDENCE WITH WITHDRAWAL DELIRIUM ICD Code: F10.231 - ALCOHOL DEPENDENCE WITH WITHDRAWAL DELIRIUM Status: Acute (7) Polysubstance abuse ICD Code: F19.10 - Polysubstance abuse Status: Chronic (8) Tobacco abuse ICD Code: Z72.0 - Tobacco use Status: Chronic (9) Transaminitis ICD Code: R74.0 - Elevated transaminase measurement Status: Chronic (10) Hypoglycemia ICD Code: E16.2 - Hypoglycemia, unspecified Status: Acute Assessment and Plan NEURO: Alcohol dependence Alcohol withdrawal with ?alcohol withdrawal seizure Polysubstance abuse Bipolar disorder Fall ?ADHD Propofol for sedation. Target RASS -2 Alcohol level is 300 but he demonstrates evidence of alcohol withdrawal. Initially given Librium 25 mg every 8 but this was increased to 50 mg by mouth every 8. Ativan 2-4 mg IV q1 hour per CIWA protocol and prn seizure. MVI/folic acid/thiamine supplementation CT brain 05/02no acute abnormality Follow-up EEG Continue gabapentin , change to 300 tid which can also be adjunctive with EtOH w /d. Hold Wellbutrin due to possible seizure Seroquel is being resumed Hold Adderall SKIN: Laceration R cheek Discussed with PA in ED, he will irrigate wound and repair laceration. Remove sutures in 3-5 days. RESP: Acute respiratory failure Tobacco abuse Intubated in the ED for airway protection. Ventilator bundle ACV tidal volume 500/rate 14/P5/FiO2 40%. Spontaneous breathing trial and extubate when appropriate from standpoint of his alcohol withdrawal DuoNeb every 6 hours. Albuterol every 2 hours as needed CV: Monitor hemodynamics GI: OG tube has been advanced in the ED Initiate Jevity 1.5 and advance to goal rate of 55 mL per hour. Follow-up nutrition recommendations. FEN/RENAL: Bland in place. Monitor intake and output. Monitor electrolytes. Replace electrolytes as indicated per ICU electrolyte replacement protocol. D5 LR 100 L per hour ID: Monitor for signs and symptoms of infection. No fever or leukocytosis. Check UA. HEME: No apparent hematologic issues ENDO: Mild hypoglycemia Given Half amp of D50. Check glucose q1 hour. Fluids with D5LR as per above. Remained hypoglycemic and now tube feeds are initiated. PROPH: Lovenox 40 mg subcutaneous daily for DVT prophylaxis. Famotidine for stress ulcer prophylaxis. ACCESS: Peripheral IV Level III H&P Problem Qualifiers (1) Fall: Qualified Codes: W19.XXXA - Unspecified fall, initial encounter Mary Ochoa MD Aug 02, 2017 20:40
[2017-08-02] MEDS ORDERED: DEXTROSE 50% IN WATER 50 ML VIAL(D50) IV PUSH ONE (20:45)
[2017-08-02] MEDS ORDERED: SODIUM PHOSPHATE INJ 30 MMOL in SODIUM CHLOR 0.9% 250 ML INJ 240 ML IV PRN (21:00)
[2017-08-02] MEDS ORDERED: MAGNESIUM OXIDE 400 MG TAB PO PRN (21:00)
[2017-08-02] MEDS ORDERED: POTASSIUM PHOSPHATE MONOBASIC 500 MG TAB PO/TUBE PRN (21:00)
[2017-08-02] MEDS ORDERED: POTASSIUM PHOSPHATE INJ 30 MMOL in SODIUM CHLOR 0.9% 250 ML INJ 250 ML IV PRN (21:00)
[2017-08-02] MEDS ORDERED: MISCELLANEOUS NURSING INFORMATION XX SCH (21:00)
[2017-08-02] MEDS ORDERED: CHLORHEXIDINE GLUCONATE 2 % 1 PACK (2 CLOTHS) TOP PRN (21:00)
[2017-08-02] MEDS ORDERED: MAGNESIUM SULFATE INJ 2 GM in SODIUM CHLORIDE 0.9% INJ 96 ML IV PRN (21:00)
[2017-08-02] MEDS ORDERED: ONDANSETRON HCL 4 MG/2 ML VIAL IV PUSH PRN (21:00)
[2017-08-02] MEDS ORDERED: MAGNESIUM SULFATE INJ 4 GM in SODIUM CHLORIDE 0.9% INJ 92 ML IV PRN (21:00)
[2017-08-02] MEDS ORDERED: LACTULOSE SYRUP 20 GM/30 ML CUP PO PRN (21:00)
[2017-08-02] MEDS ORDERED: LORazepam 2 MG/ML VIAL IV PUSH PRN ×3 (21:00→21:15)
[2017-08-02] MEDS ORDERED: POTASSIUM CHLOR 20 MEQ PREMIX 100 ML IV PRN ×2 (21:00)
[2017-08-02] MEDS ORDERED: SENNOSIDES 8.6 MG TAB PO PRN (21:00)
[2017-08-02] MEDS ORDERED: SODIUM CHLORIDE 0.9% FLUSH 10 ML FLUSH IV FLUSH PRN ×2 (21:00→21:15)
[2017-08-02] MEDS ORDERED: SODIUM CHLORIDE 0.9% FLUSH 10 ML FLUSH IV FLUSH SCH (21:00)
[2017-08-02] MEDS ORDERED: POTASSIUM CHLOR 40 MEQ PREMIX 100 ML IV PRN ×2 (21:00)
[2017-08-02] MEDS ORDERED: BISACODYL 10 MG SUPP RECTAL PRN (21:00)
[2017-08-02] MEDS ORDERED: POTASSIUM CHLORIDE 25 MEQ EFFERVESCENT TAB PO PRN (21:00)
[2017-08-02] MEDS: FAMOTIDINE 20 MG TAB PO SCH (21:00)
[2017-08-02] MEDS ORDERED: LORazepam 1 MG TAB PO PRN (21:15)
[2017-08-02] MEDS ORDERED: FLUMAZENIL 0.5 MG/5 ML VIAL IV PUSH PRN (21:15)
[2017-08-02] MEDS ORDERED: LORazepam 2 MG TAB PO PRN (21:15)
[2017-08-02] MEDS ORDERED: chlordiazePOXIDE 25 MG CAP OG-TUBE SCH (22:00)
[2017-08-02] MEDS: DOCUSATE SODIUM 50 MG/SENNA 8.6 MG TAB PO SCH (22:18)
[2017-08-02] MEDS: FAMOTIDINE 20 MG/2 ML VIAL IV PUSH SCH (22:18)
[2017-08-02] MEDS: ENOXAPARIN SODIUM 40 MG/0.4 ML SYRINGE SQ SCH (22:19)
[2017-08-02] MEDS: D5-LR + KCL 20 MEQ INJ 1,000 ML IV SCH (22:20)
[2017-08-02] MEDS: CHLORHEXIDINE GLUCONATE 2 % 1 PACK (2 CLOTHS) TOP SCH (22:21)
[2017-08-02] MEDS: PROPOFOL 1000 MG/100 ML INJ 100 ML IV PRN (22:22)
[2017-08-02] MEDS ORDERED: MULTIVITAMIN INJ 10 ML, THIAMINE INJ 100 MG, FOLIC ACID INJ 1 MG in SODIUM CHLOR 0.45% ... IV ONE (22:45)
[2017-08-02] MEDS: LORazepam 2 MG/ML VIAL IV PUSH PRN (23:59)
[2017-08-03] VITALS (19 sets, daily range): BP systolic 94–139; BP diastolic 54–83; PULSE 66–103; RESP 17–30; TEMP 97.9; O2SAT 96–100
[2017-08-03] MEDS: RESP: ALBUTEROL 2.5 MG/IPRATROPIUM 0.5 MG NEB (SCH) INH ×5 (03:26→19:38)
[2017-08-03 03:59] LABS: AUTOMATED NEUTROPHIL # 4.7 TH/MM3 (1.8-7.7); BASOPHIL # 0.1 TH/MM3 (0-0.2); BASOPHIL % 0.8 % (0.0-2.0); EOSINOPHIL # 0.2 TH/MM3 (0-0.4); HEMATOCRIT 42.3 % (39.0-51.0); HEMOGLOBIN 14.1 GM/DL (13.0-17.0); LYMPH % 23.7 % (9.0-44.0); LYMPHOCYTE # 1.8 TH/MM3 (1.0-4.8); MEAN CORPUSCULAR HEMOGLOBIN 30.9 PG (27.0-34.0); MEAN CORPUSCULAR HGB CONC 33.2 % (32.0-36.0); MEAN PLATELET VOLUME 7.7 FL (7.0-11.0); MONO % 12.8 % (0.0-8.0); NEUT % 60.7 % (16.0-70.0); PLATELET COUNT 218 TH/MM3 (150-450); RED BLOOD COUNT 4.55 MIL/MM3 (4.50-5.90); RED CELL DISTRIBUTION WIDTH 14.4 % (11.6-17.2); WHITE BLOOD COUNT 7.8 TH/MM3 (4.0-11.0)
[2017-08-03] MEDS: LORazepam 2 MG/ML VIAL IV PUSH PRN ×3 (04:14→06:26)
[2017-08-03] MEDS ORDERED: DIAZEPAM 10 MG TAB OG-TUBE ONE (04:15)
[2017-08-03] MEDS ORDERED: LORazepam 2 MG/ML VIAL IV PUSH PRN (04:15)
[2017-08-03] MEDS ORDERED: LORazepam 2 MG/ML VIAL IV PUSH ONE (04:15)
[2017-08-03 04:32] LABS: BICARBONATE 24.3 MEQ/L (21.0-32.0); CALCIUM 7.3 MG/DL (8.5-10.1); CREATININE 0.69 MG/DL (0.60-1.30); PHOSPHORUS 2.3 MG/DL (2.5-4.9)
[2017-08-03 04:47] LABS: TOTAL BILIRUBIN ADULT 0.3 MG/DL (0.2-1.0); TOTAL PROTEIN 7.2 GM/DL (6.4-8.2)
[2017-08-03 04:49] LABS: CALCIUM-PROTEIN CORRECTED 7.3 MG/DL (8.5-10.1)
[2017-08-03] MEDS: POTASSIUM PHOSPHATE MONOBASIC 500 MG TAB PO PRN ×2 (04:50→08:05)
[2017-08-03] MEDS: PROPOFOL 1000 MG/100 ML INJ 100 ML IV PRN ×3 (05:43→15:39)
[2017-08-03] MEDS ORDERED: chlordiazePOXIDE 25 MG CAP OG-TUBE SCH (06:00)
[2017-08-03] MEDS: DEXMEDETOMIDINE INJ 200 MCG in SODIUM CHLORIDE 0.9% INJ 50 ML IV PRN ×2 (06:59→07:03)
[2017-08-03] MEDS ORDERED: DIAZEPAM 2 MG TAB PO SCH (07:00)
[2017-08-03] MEDS: cloNIDine HCL 0.3 MG TAB PO SCH ×3 (07:00→20:27)
[2017-08-03 07:39] LABS: BILIRUBIN, URINE NEG (NEG); BLOOD, URINE NEG (NEG); GLUCOSE,URINE NEG (NEG); KETONE, URINE NEG (NEG); NITRITE,URINE NEG (NEG); PH, URINE 5.5 (5.0-8.5); URINE COLOR YELLOW (YELLW/STRAW); URINE LEUKOCYTE ESTERASE NEG (NEG)
[2017-08-03] MEDS: QUEtiapine FUMARATE 100 MG TAB PO SCH ×3 (07:55→23:00)
[2017-08-03] MEDS: DIAZEPAM 10 MG TAB PO SCH ×3 (07:59→20:27)
[2017-08-03] MEDS: FAMOTIDINE 20 MG/2 ML VIAL IV PUSH SCH ×2 (08:00→20:28)
[2017-08-03] MEDS: FAMOTIDINE 20 MG TAB PO SCH ×2 (08:00→20:28)
[2017-08-03] MEDS: CHLORHEXIDINE 0.12% (ORAL KIT) 15 ML CUP MT SCH ×2 (08:00→20:00)
[2017-08-03] MEDS: DOCUSATE SODIUM 50 MG/SENNA 8.6 MG TAB PO SCH ×2 (08:01→20:29)
[2017-08-03] MEDS: D5-LR + KCL 20 MEQ INJ 1,000 ML IV SCH ×2 (08:25→17:23)
[2017-08-03] MEDS: DEXMEDETOMIDINE INJ 1,000 MCG in SODIUM CHLOR 0.9% 250 ML INJ 240 ML IV PRN ×3 (08:49→20:51)
[2017-08-03] MEDS: GABAPENTIN 300 MG CAP OG-TUBE SCH ×2 (08:59→17:23)
[2017-08-03] MEDS ORDERED: GABAPENTIN 400 MG CAP PO SCH (09:00)
[2017-08-03] MEDS ORDERED: SODIUM CHLORIDE 0.9% FLUSH 10 ML FLUSH IV FLUSH SCH (09:00)
--- NOTE | 2017-08-03 10:21 | HHI.CCPN ---
Subjective Remarks/Hospital Course Hospital Course: 56-year-old male with past medical history of alcohol dependence and polysubstance abuse (cocaine, THC, K2 and Flakka) who presented to [facility] emergency department by E VAC after he was found in the street intoxicated. He was initially conversant upon arrival and then got up and was urinating on the floor and then fell in the ED. He then had decreased level of consciousness with seizure vs tremor vs ?posturing. He was intubated for airway protection and underwent CT brain, CT C-spine, CT maxillofacial which demonstrated no acute abnormality. There was an old comminuted nasal fracture. He is afebrile without leukocytosis. Glucose is 67. I have ordered D50. He is following commands on sedation with propofol. Subjective: 08/03: remains in acute delirium and etoh withdraw. agitated on maximal sedation. tremulous. tachycardic. hypertensive. Objective Vital Signs Date Time Temp Pulse Resp B/P (MAP) Pulse Ox O2 Delivery O2 Flow Rate FiO2 08/03/17 07:21 98 40 08/03/17 06:00 100 08/03/17 04:00 99.9 25 109/62 (78) 08/02/17 21:54 Ventilator 08/02/17 17:45 2.00 Intake and Output 08/03/17 08/03/17 08/04/17 08:00 16:00 00:00 Intake Total 611.2 ml Output Total 550 ml Balance 61.2 ml Result Diagram: 08/03/17 0344 08/03/17 0344 Other Results Laboratory Tests Test 08/02/17 21:12 Blood Gas Puncture Site RT RADIAL Blood Gas Patient Temperature 98.6 Blood Gas HCO3 22 mmol/L (22-26) Blood Gas Base Excess -3.0 mmol/L (-2-2) Blood Gas Oxygen Saturation 93 % (90-100) Arterial Blood pH 7.32 (7.380-7.420) Arterial Blood Partial Pressure CO2 44 mmHg (38-42) Arterial Blood Partial Pressure O2 112 mmHG (61-120) Arterial Blood Oxygen Content 18.8 Vol % (12.0-20.0) Arterial Blood Carboxyhemoglobin 4.5 % (0-4) Arterial Blood Methemoglobin 0.7 % (0-2) Blood Gas Hemoglobin 14.4 G/DL (12.0-16.0) Oxygen Delivery Device VENT Blood Gas Ventilator Setting SEE COMMENTS Blood Gas Inspired Oxygen 40 % Objective Remarks GENERAL: middle-aged male who appears much older than stated age, in distress, agitated. tremulous. SKIN: Warm and dry. There is 2 cm linear laceration overlying right cheek. HEAD: Atraumatic. Normocephalic. EYES: Pupils equal and round, 2mm and sluggishly reactive. No scleral icterus. Mild conjunctival injection. ENT: No nasal bleeding or discharge. Mucous membranes pink and moist. NECK: Trachea midline. No JVD. CARDIOVASCULAR: tachycardic rate, regular rhythm. sinus by telemetry. hypertensive. sbp 150s. RESPIRATORY: Orotracheally intubated. equal chest rise. GASTROINTESTINAL: Abdomen soft, non-tender, nondistended. There is a healed vertical scar in upper abdomen. MUSCULOSKELETAL: Extremities without clubbing, cyanosis, or edema. Scar overlying right wrist and hand. NEUROLOGICAL: Pupils 2 mm and reactive as per above. RASS +1. CAM +. does not follow commands. very tremulous. A/P Problem List: (1) Laceration of cheek, right ICD Code: S01.411A - Laceration without foreign body of right cheek and temporomandibular area, initial encounter Status: Acute (2) Acute respiratory failure ICD Code: J96.00 - Acute respiratory failure, unspecified whether with hypoxia or hypercapnia Status: Acute (3) Alcohol intoxication ICD Code: F10.129 - Alcohol abuse with intoxication, unspecified Status: Acute (4) Alcohol dependence ICD Code: F10.20 - Alcohol dependence, uncomplicated Status: Chronic (5) Fall ICD Code: W19.XXXA - Unspecified fall, initial encounter Status: Acute (6) ALCOHOL DEPENDENCE WITH WITHDRAWAL DELIRIUM ICD Code: F10.231 - ALCOHOL DEPENDENCE WITH WITHDRAWAL DELIRIUM Status: Acute (7) Polysubstance abuse ICD Code: F19.10 - Polysubstance abuse Status: Chronic (8) Tobacco abuse ICD Code: Z72.0 - Tobacco use Status: Chronic (9) Transaminitis ICD Code: R74.0 - Elevated transaminase measurement Status: Chronic (10) Hypoglycemia ICD Code: E16.2 - Hypoglycemia, unspecified Status: Acute Assessment and Plan Assessment: 56yM who is known to me from a prior admission who has a known history of severe etoh dependency who has multiple ER visits and hospitalizations for etoh withdraw syndrome presents with seizures and etoh withdraw. his etoh withdraw is severe. will need to increase anti-delirium meds. remains critically ill in severe etoh withdraw. NEURO: Alcohol dependence Alcohol withdrawal with ?alcohol withdrawal seizure Polysubstance abuse Bipolar disorder Fall ?ADHD Severe Agitated Delirium Delirium Tremens propofol for goal RASS -2 add precedex infusion add clonidine 0.3mg po q8h add seroquel 100mg po q8h haldol 5mg iv q4h prn for breakthrough d/c ciwa and start valium 20mg po q8h Alcohol level is 300 but he demonstrates evidence of alcohol withdrawal. MVI/folic acid/thiamine supplementation CT brain 05/02no acute abnormality Follow-up EEG Continue gabapentin , change to 300 tid which can also be adjunctive with EtOH w /d. Hold Wellbutrin due to possible seizure Hold Adderall SKIN: Laceration R cheek s/p laceration repair 08/03. Remove sutures in 3-5 days. RESP: Acute hypoxic and hypercarbic respiratory failure Tobacco abuse Ventilator bundle wean fio2 for goal spo2 > 90% SBTs once etoh withdraw under improved control. nebs CV: Sinus Tachycardia Hypertension secondary to etoh withdraw clonidine 0.3mg po q8h GI: Acute protein calorie malnutrition - severe OGT. tube feeds thiamine mvi FEN/RENAL: Bland in place. Monitor intake and output. Monitor electrolytes. Replace electrolytes as indicated per ICU electrolyte replacement protocol. D5 LR 100 L per hour ID: Monitor for signs and symptoms of infection. No fever or leukocytosis. HEME: No apparent hematologic issues ENDO: Mild hypoglycemia Given Half amp of D50. Check glucose q1 hour. Fluids with D5LR as per above. Remained hypoglycemic and now tube feeds are initiated. PROPH: Lovenox 40 mg subcutaneous daily for DVT prophylaxis. Famotidine for stress ulcer prophylaxis. ACCESS: Peripheral IV Dispo: remain in icu. critically ill with escalating doses of anti-delirium agents. etoh withdraw remains life-threatening. critical care time: 49 minutes, exclusive of separately billable procedures. Problem Qualifiers (1) Fall: Qualified Codes: W19.XXXA - Unspecified fall, initial encounter Mariusz Burton MD Aug 03, 2017 10:21
[2017-08-03] MEDS: ENOXAPARIN SODIUM 40 MG/0.4 ML SYRINGE SQ SCH (20:27)
--- NOTE | 2017-08-03 20:28 | MG ---
cc: ORI TORREZ M.D. Lab No: Date: 08/03/2017 Age: Sex: M Race: REQUESTING PHYSICIAN Dr. Ochoa. INTRODUCTION An EEG was obtained on this 56-year-old patient who is sedated. MEDICATIONS Include: 1. Precedex. 2. Neurontin. 3. Seroquel. 4. Valium. 5. Librium. 6. Ativan. 7. Propofol. 8. Thiamine. DESCRIPTION The EEG shows low amplitude beta rhythms diffusely. There are intermixed theta and some alpha rhythms. There are no paroxysmal discharges. There is delta activity bilaterally. No lateralizing features present. Photic stimulation disclosed mild background reactivity. INTERPRETATION This EEG is showing normal sleep features. The findings may well be all related to sedation. No epileptiform discharge present. MD REBECCA Corbett/KK /8:05 PM /8:22 PM
[2017-08-03] MEDS: MULTIVITAMIN INJ 10 ML, THIAMINE INJ 100 MG, FOLIC ACID INJ 1 MG in SODIUM CHLOR 0.45% ... IV SCH (20:29)
[2017-08-04] VITALS (40 sets, daily range): BP systolic 99–158; BP diastolic 61–87; PULSE 71–107; RESP 21–31; TEMP 97.9–101; O2SAT 92–100
[2017-08-04] MEDS: GABAPENTIN 300 MG CAP OG-TUBE SCH ×3 (01:00→16:17)
[2017-08-04] MEDS: PROPOFOL 1000 MG/100 ML INJ 100 ML IV PRN (02:25)
[2017-08-04] MEDS: RESP: ALBUTEROL 2.5 MG/IPRATROPIUM 0.5 MG NEB (SCH) INH ×4 (03:18→20:56)
[2017-08-04] MEDS: CHLORHEXIDINE GLUCONATE 2 % 1 PACK (2 CLOTHS) TOP SCH (04:00)
[2017-08-04 04:48] LABS: BICARBONATE 27.3 MEQ/L (21.0-32.0); CALCIUM 8.4 MG/DL (8.5-10.1); CREATININE 0.76 MG/DL (0.60-1.30); MAGNESIUM 2.1 MG/DL (1.5-2.5); PHOSPHORUS 2.9 MG/DL (2.5-4.9)
[2017-08-04] MEDS: cloNIDine HCL 0.3 MG TAB PO SCH ×3 (05:34→21:23)
[2017-08-04] MEDS: DEXMEDETOMIDINE INJ 1,000 MCG in SODIUM CHLOR 0.9% 250 ML INJ 240 ML IV PRN ×3 (05:34→20:36)
[2017-08-04] MEDS: QUEtiapine FUMARATE 100 MG TAB PO SCH ×3 (05:34→23:09)
[2017-08-04] MEDS: DIAZEPAM 10 MG TAB PO SCH ×3 (05:34→21:23)
[2017-08-04] MEDS: D5-LR + KCL 20 MEQ INJ 1,000 ML IV SCH ×2 (05:35→15:39)
[2017-08-04] MEDS: FAMOTIDINE 20 MG TAB PO SCH ×2 (09:00→20:35)
--- NOTE | 2017-08-04 09:45 | HHI.CCPN ---
Subjective Remarks/Hospital Course Hospital Course: 56-year-old male with past medical history of alcohol dependence and polysubstance abuse (cocaine, THC, K2 and Flakka) who presented to [facility] emergency department by E VAC after he was found in the street intoxicated. He was initially conversant upon arrival and then got up and was urinating on the floor and then fell in the ED. He then had decreased level of consciousness with seizure vs tremor vs ?posturing. He was intubated for airway protection and underwent CT brain, CT C-spine, CT maxillofacial which demonstrated no acute abnormality. There was an old comminuted nasal fracture. He is afebrile without leukocytosis. Glucose is 67. I have ordered D50. He is following commands on sedation with propofol. Subjective: 08/03: remains in acute delirium and etoh withdraw. agitated on maximal sedation. tremulous. tachycardic. hypertensive. 08/04: remains intubated and sedated. hemodynamics better. has not followed commands yet- likely toxic/metabolic encephalopathy persists. EEG negative for ictal activity. Objective Vital Signs Date Time Temp Pulse Resp B/P (MAP) Pulse Ox O2 Delivery O2 Flow Rate FiO2 08/04/17 07:38 97 35 08/04/17 04:00 101.7 93 26 145/82 (103) 08/02/17 21:54 Ventilator 08/02/17 17:45 2.00 Intake and Output 08/04/17 08/04/17 08/05/17 08:00 16:00 00:00 Intake Total 2038 ml Output Total 1800 ml Balance 238 ml Result Diagram: 08/03/17 0344 08/04/17 0329 Imaging Last Impressions Head CT 08/02/17 1659 Signed Impressions: Service Date/Time: Wednesday, August 02, 2017 18:33 - CONCLUSION: No bleed or other acute intracranial abnormality. Fermín Wagner MD Maxillofacial CT 08/02/17 0000 Signed Impressions: Service Date/Time: Wednesday, August 02, 2017 18:36 - CONCLUSION: 1. Motion degraded study. No evidence of an acute fracture. 2. Old comminuted fracturing of the nose again seen. 3. Chronic sinusitis. Fermín Wagner MD Chest X-Ray 08/02/17 0000 Signed Impressions: Service Date/Time: Wednesday, August 02, 2017 18:26 - CONCLUSION: 1. Appropriately positioned endotracheal tube tip, 4 cm above the krystina. 2. Tip of the nasogastric tube is in the lower esophagus slightly above the GE junction. 3. Trace bibasilar atelectasis. No pneumothorax. Fermín Wagner MD Cervical Spine CT 08/02/17 0000 Signed Impressions: Service Date/Time: Wednesday, August 02, 2017 18:35 - CONCLUSION: Intact cervical spine. Mild degenerative changes again noted at C3/C4. Fermín Wagner MD Objective Remarks GENERAL: middle-aged male who appears much older than stated age, in distress, agitated. tremulous. HEAD: Atraumatic. Normocephalic. EYES: Pupils equal and round, 2mm and sluggishly reactive. No scleral icterus. Mild conjunctival injection. ENT: No nasal bleeding or discharge. Mucous membranes pink and moist. NECK: Trachea midline. No JVD. CARDIOVASCULAR: normal rate, regular rhythm. sinus by telemetry. RESPIRATORY: Orotracheally intubated. equal chest rise. GASTROINTESTINAL: Abdomen soft, non-tender, nondistended. There is a healed vertical scar in upper abdomen. MUSCULOSKELETAL: Extremities without clubbing, cyanosis, or edema. Scar overlying right wrist and hand. NEUROLOGICAL: Pupils 2 mm and reactive as per above. RASS -3. CAM +. does not follow commands. withdraws to pain x 4. no more tremors. A/P Problem List: (1) Laceration of cheek, right ICD Code: S01.411A - Laceration without foreign body of right cheek and temporomandibular area, initial encounter Status: Acute (2) Acute respiratory failure ICD Code: J96.00 - Acute respiratory failure, unspecified whether with hypoxia or hypercapnia Status: Acute (3) Alcohol intoxication ICD Code: F10.129 - Alcohol abuse with intoxication, unspecified Status: Acute (4) Alcohol dependence ICD Code: F10.20 - Alcohol dependence, uncomplicated Status: Chronic (5) Fall ICD Code: W19.XXXA - Unspecified fall, initial encounter Status: Acute (6) ALCOHOL DEPENDENCE WITH WITHDRAWAL DELIRIUM ICD Code: F10.231 - ALCOHOL DEPENDENCE WITH WITHDRAWAL DELIRIUM Status: Acute (7) Polysubstance abuse ICD Code: F19.10 - Polysubstance abuse Status: Chronic (8) Tobacco abuse ICD Code: Z72.0 - Tobacco use Status: Chronic (9) Transaminitis ICD Code: R74.0 - Elevated transaminase measurement Status: Chronic (10) Hypoglycemia ICD Code: E16.2 - Hypoglycemia, unspecified Status: Acute Assessment and Plan Assessment: 56yM who is known to me from a prior admission who has a known history of severe etoh dependency who has multiple ER visits and hospitalizations for etoh withdraw syndrome presents with seizures and etoh withdraw. his etoh withdraw is severe. remains critically ill off pathway. NEURO: Alcohol dependence Alcohol withdrawal with ?alcohol withdrawal seizure Polysubstance abuse Bipolar disorder Fall ?ADHD Severe Agitated Delirium Delirium Tremens precedex infusion for goal RASS -2. clonidine 0.3mg po q8h seroquel 100mg po q8h haldol 5mg iv q4h prn for breakthrough valium 20mg po q8h Alcohol level is 300 but he demonstrates evidence of alcohol withdrawal. MVI/folic acid/thiamine supplementation CT brain 05/02no acute abnormality EEG 08/03: negative for ictal activity. Continue gabapentin 300 tid which can also be adjunctive with EtOH w/d. Hold Wellbutrin due to possible seizure Hold Adderall SKIN: Laceration R cheek s/p laceration repair 08/03. Remove sutures in 3-5 days. RESP: Acute hypoxic and hypercarbic respiratory failure Tobacco abuse Ventilator bundle wean fio2 for goal spo2 > 90% SBTs once etoh withdraw under improved control, start SBTs today. nebs CV: Sinus Tachycardia - resolved. Hypertension - resolved. secondary to etoh withdraw clonidine 0.3mg po q8h GI: Acute protein calorie malnutrition - severe OGT. tube feeds thiamine mvi FEN/RENAL: Bland in place. Monitor intake and output. Monitor electrolytes. Replace electrolytes as indicated per ICU electrolyte replacement protocol. SLIVF. ID: Monitor for signs and symptoms of infection. No fever or leukocytosis. HEME: No apparent hematologic issues ENDO: Mild hypoglycemia- resolved. PROPH: Lovenox 40 mg subcutaneous daily for DVT prophylaxis. Famotidine for stress ulcer prophylaxis. ACCESS: Peripheral IV Dispo: remain in icu. critically ill. off pathway. delirium and encephalopathy persists. critical care time: 31 minutes, exclusive of separately billable procedures. Problem Qualifiers (1) Fall: Qualified Codes: W19.XXXA - Unspecified fall, initial encounter Mariusz Burton MD Aug 04, 2017 09:45
[2017-08-04] MEDS: DOCUSATE SODIUM 50 MG/SENNA 8.6 MG TAB PO SCH ×2 (09:56→20:35)
[2017-08-04] MEDS: FAMOTIDINE 20 MG/2 ML VIAL IV PUSH SCH ×2 (09:57→20:35)
[2017-08-04] MEDS: CHLORHEXIDINE 0.12% (ORAL KIT) 15 ML CUP MT SCH ×2 (09:57→20:35)
[2017-08-04] MEDS: ACETAMINOPHEN 325 MG TAB PO PRN (12:43)
--- NOTE | 2017-08-04 17:39 | RADRPT ---
EXAM DATE/TIME: 08/04/2017 17:23 [place] COMPARISON: CT BRAIN W/O CONTRAST, August 02, 2017, 18:33. INDICATIONS : Trauma, fall. RADIATION DOSE: 52.69 CTDIvol (mGy) MEDICAL HISTORY : Hepatitis C. SURGICAL HISTORY : Inguinal hernia repair. ENCOUNTER: Subsequent ACUITY: 1 day PAIN SCALE: Non-responsive LOCATION: Bilateral head TECHNIQUE: Multiple contiguous axial images were obtained of the head. Using automated exposure control and adj ustment of the mA and/or kV according to patient size, radiation dose was kept as low as reasonably a chievable to obtain optimal diagnostic quality images. DICOM format image data is available electro nically for review and comparison. FINDINGS: CEREBRUM: The ventricles are normal for age. No evidence of midline shift, mass lesion, hemorrhage or acute in farction. No extra-axial fluid collections are seen. POSTERIOR FOSSA: The cerebellum and brainstem are intact. The 4th ventricle is midline. The cerebellopontine angle i s unremarkable. EXTRACRANIAL: The visualized portion of the orbits is intact. Air-fluid levels are present in both maxillary sinuse s and there is mucosal thickening throughout the ethmoidal air cells with mild mucosal thickening in the sphenoid sinuses and frontal sinuses. SKULL: The calvaria is intact. No evidence of skull fracture. CONCLUSION: 1. No acute hemorrhage or mass effect. 2. Mucosal thickening in the paranasal sinuses and air-fluid levels in the maxillary sinuses. Alex Vital MD on August 04, 2017 at 17:34 Board Certified Radiologist. This report was verified electronically.
[2017-08-04] MEDS: MULTIVITAMIN INJ 10 ML, THIAMINE INJ 100 MG, FOLIC ACID INJ 1 MG in SODIUM CHLOR 0.45% ... IV SCH (21:23)
[2017-08-04] MEDS: ENOXAPARIN SODIUM 40 MG/0.4 ML SYRINGE SQ SCH (21:24)
[2017-08-05] VITALS (21 sets, daily range): BP systolic 95–136; BP diastolic 58–83; PULSE 76–104; RESP 21–35; TEMP 97.3–99; O2SAT 93–100
[2017-08-05] MEDS: GABAPENTIN 300 MG CAP OG-TUBE SCH ×3 (01:06→17:00)
[2017-08-05] MEDS: D5-LR + KCL 20 MEQ INJ 1,000 ML IV SCH (01:07)
[2017-08-05] MEDS: CHLORHEXIDINE GLUCONATE 2 % 1 PACK (2 CLOTHS) TOP SCH (01:07)
[2017-08-05] MEDS: RESP: ALBUTEROL 2.5 MG/IPRATROPIUM 0.5 MG NEB (SCH) INH ×4 (04:01→21:08)
[2017-08-05] MEDS: DEXMEDETOMIDINE INJ 1,000 MCG in SODIUM CHLOR 0.9% 250 ML INJ 240 ML IV PRN (05:08)
[2017-08-05] MEDS: cloNIDine HCL 0.3 MG TAB PO SCH ×3 (06:24→21:31)
[2017-08-05] MEDS: QUEtiapine FUMARATE 100 MG TAB PO SCH (06:24)
[2017-08-05] MEDS: DIAZEPAM 10 MG TAB PO SCH ×3 (06:25→21:31)
--- NOTE | 2017-08-05 07:13 | HHI.CCPN ---
Subjective Remarks/Hospital Course Hospital Course: 56-year-old male with past medical history of alcohol dependence and polysubstance abuse (cocaine, THC, K2 and Flakka) who presented to [facility] emergency department by E VAC after he was found in the street intoxicated. He was initially conversant upon arrival and then got up and was urinating on the floor and then fell in the ED. He then had decreased level of consciousness with seizure vs tremor vs ?posturing. He was intubated for airway protection and underwent CT brain, CT C-spine, CT maxillofacial which demonstrated no acute abnormality. There was an old comminuted nasal fracture. He is afebrile without leukocytosis. Glucose is 67. I have ordered D50. He is following commands on sedation with propofol. Subjective: 08/03: remains in acute delirium and etoh withdraw. agitated on maximal sedation. tremulous. tachycardic. hypertensive. 08/04: remains intubated and sedated. hemodynamics better. has not followed commands yet- likely toxic/metabolic encephalopathy persists. EEG negative for ictal activity. 08/05: improving mentation and agitation. on SBT this AM. Objective Vital Signs Date Time Temp Pulse Resp B/P (MAP) Pulse Ox O2 Delivery O2 Flow Rate FiO2 08/05/17 06:00 81 08/05/17 04:00 96 35 08/05/17 04:00 98.0 22 111/73 (86) 08/02/17 21:54 Ventilator 08/02/17 17:45 2.00 Intake and Output 08/05/17 08/05/17 08/06/17 08:00 16:00 00:00 Intake Total 2555.2 ml Output Total 800 ml Balance 1755.2 ml Result Diagram: 08/03/17 0344 08/04/17 0329 Imaging Last Impressions Head CT 08/02/17 1659 Signed Impressions: Service Date/Time: Wednesday, August 02, 2017 18:33 - CONCLUSION: No bleed or other acute intracranial abnormality. Fermín Wagner MD Maxillofacial CT 08/02/17 0000 Signed Impressions: Service Date/Time: Wednesday, August 02, 2017 18:36 - CONCLUSION: 1. Motion degraded study. No evidence of an acute fracture. 2. Old comminuted fracturing of the nose again seen. 3. Chronic sinusitis. Fermín Wagner MD Chest X-Ray 08/02/17 0000 Signed Impressions: Service Date/Time: Wednesday, August 02, 2017 18:26 - CONCLUSION: 1. Appropriately positioned endotracheal tube tip, 4 cm above the krystina. 2. Tip of the nasogastric tube is in the lower esophagus slightly above the GE junction. 3. Trace bibasilar atelectasis. No pneumothorax. Fermín Wagner MD Cervical Spine CT 08/02/17 0000 Signed Impressions: Service Date/Time: Wednesday, August 02, 2017 18:35 - CONCLUSION: Intact cervical spine. Mild degenerative changes again noted at C3/C4. Fermín Wagner MD Objective Remarks GENERAL: middle-aged male who appears much older than stated age, intubated, sedated. HEAD: Atraumatic. Normocephalic. EYES: Pupils equal and round, 2mm and sluggishly reactive. No scleral icterus. Mild conjunctival injection. ENT: No nasal bleeding or discharge. Mucous membranes pink and moist. NECK: Trachea midline. No JVD. CARDIOVASCULAR: normal rate, regular rhythm. sinus by telemetry. RESPIRATORY: Orotracheally intubated. equal chest rise. GASTROINTESTINAL: Abdomen soft, non-tender, nondistended. There is a healed vertical scar in upper abdomen. MUSCULOSKELETAL: Extremities without clubbing, cyanosis, or edema. Scar overlying right wrist and hand. NEUROLOGICAL: Pupils 2 mm and reactive as per above. RASS -2. CAM -. weakly follows commands. A/P Problem List: (1) Laceration of cheek, right ICD Code: S01.411A - Laceration without foreign body of right cheek and temporomandibular area, initial encounter Status: Acute (2) Acute respiratory failure ICD Code: J96.00 - Acute respiratory failure, unspecified whether with hypoxia or hypercapnia Status: Acute (3) Alcohol intoxication ICD Code: F10.129 - Alcohol abuse with intoxication, unspecified Status: Acute (4) Alcohol dependence ICD Code: F10.20 - Alcohol dependence, uncomplicated Status: Chronic (5) Fall ICD Code: W19.XXXA - Unspecified fall, initial encounter Status: Acute (6) ALCOHOL DEPENDENCE WITH WITHDRAWAL DELIRIUM ICD Code: F10.231 - ALCOHOL DEPENDENCE WITH WITHDRAWAL DELIRIUM Status: Acute (7) Polysubstance abuse ICD Code: F19.10 - Polysubstance abuse Status: Chronic (8) Tobacco abuse ICD Code: Z72.0 - Tobacco use Status: Chronic (9) Transaminitis ICD Code: R74.0 - Elevated transaminase measurement Status: Chronic (10) Hypoglycemia ICD Code: E16.2 - Hypoglycemia, unspecified Status: Acute Assessment and Plan Assessment: 56yM who is known to me from a prior admission who has a known history of severe etoh dependency who has multiple ER visits and hospitalizations for etoh withdraw syndrome presents with seizures and etoh withdraw. his etoh withdraw is severe. will work towards weaning mechanical ventilation today. NEURO: Alcohol dependence Alcohol withdrawal with ?alcohol withdrawal seizure Polysubstance abuse Bipolar disorder Fall ?ADHD Severe Agitated Delirium Delirium Tremens precedex infusion for goal RASS -2. clonidine 0.3mg po q8h seroquel 100mg po q8h haldol 5mg iv q4h prn for breakthrough valium 20mg po q8h Alcohol level is 300 but he demonstrates evidence of alcohol withdrawal. MVI/folic acid/thiamine supplementation CT brain 05/02no acute abnormality EEG 08/03: negative for ictal activity. Continue gabapentin 300 tid which can also be adjunctive with EtOH w/d. Hold Wellbutrin due to possible seizure Hold Adderall SKIN: Laceration R cheek s/p laceration repair 08/03. Remove sutures in 3-5 days. RESP: Acute hypoxic and hypercarbic respiratory failure Tobacco abuse Ventilator bundle wean fio2 for goal spo2 > 90% daily SBTs. wean to extubate today. nebs CV: Sinus Tachycardia - resolved. Hypertension - resolved. secondary to etoh withdraw clonidine 0.3mg po q8h GI: Acute protein calorie malnutrition - severe OGT. tube feeds thiamine mvi FEN/RENAL: Bland in place. Monitor intake and output. Monitor electrolytes. Replace electrolytes as indicated per ICU electrolyte replacement protocol. SLIVF. ID: Monitor for signs and symptoms of infection. HEME: No apparent hematologic issues ENDO: Mild hypoglycemia- resolved. PROPH: Lovenox 40 mg subcutaneous daily for DVT prophylaxis. Famotidine for stress ulcer prophylaxis. ACCESS: Peripheral IV Dispo: remain in icu. critically ill. off pathway. delirium and encephalopathy persists. Problem Qualifiers (1) Fall: Qualified Codes: W19.XXXA - Unspecified fall, initial encounter Mariusz Burton MD Aug 05, 2017 07:12
[2017-08-05] MEDS: FAMOTIDINE 20 MG TAB PO SCH ×2 (09:00→21:30)
[2017-08-05] MEDS: CHLORHEXIDINE 0.12% (ORAL KIT) 15 ML CUP MT SCH ×2 (09:06→20:00)
[2017-08-05] MEDS: FAMOTIDINE 20 MG/2 ML VIAL IV PUSH SCH (09:06)
[2017-08-05] MEDS: DOCUSATE SODIUM 50 MG/SENNA 8.6 MG TAB PO SCH (09:06)
[2017-08-05 09:29] LABS: HEMATOCRIT 42.9 % (39.0-51.0); HEMOGLOBIN 14.6 GM/DL (13.0-17.0); MEAN CELL VOLUME 93.4 FL (80.0-100.0); MEAN CORPUSCULAR HEMOGLOBIN 31.7 PG (27.0-34.0); MEAN PLATELET VOLUME 8.4 FL (7.0-11.0); PLATELET COUNT 148 TH/MM3 (150-450); RED CELL DISTRIBUTION WIDTH 13.9 % (11.6-17.2); WHITE BLOOD COUNT 10.1 TH/MM3 (4.0-11.0)
[2017-08-05 09:48] LABS: BICARBONATE 24.5 MEQ/L (21.0-32.0); CALCIUM 8.3 MG/DL (8.5-10.1); CREATININE 0.55 MG/DL (0.60-1.30)
[2017-08-05] MEDS ORDERED: DEXTROSE 50% IN WATER 50 ML SYRINGE ONE (14:10)
[2017-08-05] MEDS: ENOXAPARIN SODIUM 40 MG/0.4 ML SYRINGE SQ SCH (21:31)
[2017-08-05] MEDS: MULTIVITAMIN INJ 10 ML, THIAMINE INJ 100 MG, FOLIC ACID INJ 1 MG in SODIUM CHLOR 0.45% ... IV SCH (21:32)
[2017-08-05] MEDS: HALOPERIDOL LACTATE 5 MG/ML AMP IV PUSH PRN (23:32)
[2017-08-06] VITALS (20 sets, daily range): BP systolic 109–167; BP diastolic 63–85; PULSE 82–101; RESP 18–33; TEMP 97.8–98.4; O2SAT 91–96
[2017-08-06] MEDS ORDERED: LORazepam 2 MG/ML VIAL IV PUSH PRN (03:45)
[2017-08-06] MEDS ORDERED: FLUMAZENIL 0.5 MG/5 ML VIAL IV PUSH PRN (03:45)
[2017-08-06] MEDS: CHLORHEXIDINE GLUCONATE 2 % 1 PACK (2 CLOTHS) TOP SCH (04:00)
[2017-08-06] MEDS: RESP: ALBUTEROL 2.5 MG/IPRATROPIUM 0.5 MG NEB (SCH) INH ×4 (04:02→21:00)
[2017-08-06] MEDS: LORazepam 2 MG/ML VIAL IV PUSH PRN ×3 (04:10→20:04)
[2017-08-06] MEDS: HALOPERIDOL LACTATE 5 MG/ML AMP IV PUSH PRN (04:28)
[2017-08-06 04:37] LABS: HEMATOCRIT 40.7 % (39.0-51.0); HEMOGLOBIN 13.9 GM/DL (13.0-17.0); MEAN CELL VOLUME 92.5 FL (80.0-100.0); MEAN CORPUSCULAR HEMOGLOBIN 31.6 PG (27.0-34.0); MEAN CORPUSCULAR HGB CONC 34.1 % (32.0-36.0); MEAN PLATELET VOLUME 8.7 FL (7.0-11.0); PLATELET COUNT 189 TH/MM3 (150-450); RED CELL DISTRIBUTION WIDTH 14.3 % (11.6-17.2)
[2017-08-06 04:54] LABS: BICARBONATE 24.9 MEQ/L (21.0-32.0); CALCIUM 8.1 MG/DL (8.5-10.1); CREATININE 0.57 MG/DL (0.60-1.30)
[2017-08-06] MEDS: GABAPENTIN 300 MG CAP OG-TUBE SCH ×4 (05:18→21:37)
[2017-08-06] MEDS: cloNIDine HCL 0.3 MG TAB PO SCH ×3 (05:18→21:37)
[2017-08-06] MEDS: DIAZEPAM 10 MG TAB PO SCH ×2 (05:19→13:50)
[2017-08-06] MEDS: DOCUSATE SODIUM 50 MG/SENNA 8.6 MG TAB PO SCH ×3 (05:19→20:04)
[2017-08-06] MEDS: CHLORHEXIDINE 0.12% (ORAL KIT) 15 ML CUP MT SCH ×2 (08:00→20:00)
[2017-08-06] MEDS: FAMOTIDINE 20 MG TAB PO SCH ×2 (08:28→20:04)
--- NOTE | 2017-08-06 14:45 | HHI.PR ---
Subjective Remarks Patient unable to provide history today. He continues to be delirious. He is admitted secondary to alcohol withdrawal seizures. No seizure activity recently. Objective Vital Signs Date Time Temp Pulse Resp B/P (MAP) Pulse Ox O2 Delivery O2 Flow Rate FiO2 08/06/17 12:00 83 08/06/17 12:00 97.8 83 28 110/69 (83) 93 08/06/17 11:00 83 08/06/17 11:00 83 24 120/63 (82) 95 08/06/17 10:00 89 08/06/17 10:00 89 18 119/73 (88) 96 08/06/17 09:00 89 08/06/17 09:00 91 33 109/71 (84) 93 08/06/17 08:00 89 08/06/17 08:00 97.9 89 20 109/66 (80) 93 08/06/17 07:26 96 Nasal Cannula 2.00 08/06/17 07:00 88 23 115/66 (82) 93 08/06/17 07:00 88 08/06/17 06:00 99 08/06/17 04:00 98.3 86 24 118/68 (85) 94 08/06/17 04:00 86 08/06/17 02:00 84 08/06/17 00:00 90 08/06/17 00:00 98.4 90 26 115/66 (82) 95 08/05/17 22:00 97 08/05/17 21:08 96 Nasal Cannula 4.00 08/05/17 20:00 98.5 92 24 110/66 (81) 95 08/05/17 20:00 92 08/05/17 18:00 94 08/05/17 17:00 93 25 113/62 (79) 94 08/05/17 16:00 98.4 102 21 129/72 (91) 95 08/05/17 16:00 102 08/05/17 15:00 104 28 127/68 (87) 94 I/O 08/05/17 08/05/17 08/05/17 08/06/17 08/06/17 08/06/17 07:00 15:00 23:00 07:00 15:00 23:00 Intake Total 2555.2 ml 979 ml Output Total 800 ml 2900 ml 2000 ml Balance 1755.2 ml 979 ml -2900 ml -2000 ml IV Total 1872.2 ml 675 ml Tube Feeding 583 ml 204 ml Tube Irrigant 100 ml Other 100 ml Output Urine Total 800 ml 2900 ml 2000 ml Stool Total 0 ml # Bowel Movements 1 2 Result Diagram: 08/06/17 0346 08/06/17 0346 Objective Remarks GENERAL: NAD, A&Ox0, restrained with soft restraints HEAD: Normocephalic. NECK: Supple, trachea midline. No lymphadenopathy. EYES: No scleral icterus. No injection or drainage. CARDIOVASCULAR: Regular rate and rhythm without murmurs, gallops, or rubs. RESPIRATORY: Breath sounds equal bilaterally. No accessory muscle use. GASTROINTESTINAL: Abdomen soft, non-tender, nondistended. MUSCULOSKELETAL: No cyanosis, or edema. SKIN: Warm and dry. NEURO: No focal neurological deficitis. A/P Problem List: (1) Seizure ICD Code: R56.9 - Unspecified convulsions (2) Alcohol dependence ICD Code: F10.20 - Alcohol dependence, uncomplicated Status: Chronic (3) Alcohol intoxication ICD Code: F10.129 - Alcohol abuse with intoxication, unspecified Status: Acute (4) ALCOHOL DEPENDENCE WITH WITHDRAWAL DELIRIUM ICD Code: F10.231 - ALCOHOL DEPENDENCE WITH WITHDRAWAL DELIRIUM Status: Acute Assessment and Plan 56-year-old male admitted secondary to alcohol withdrawal with seizure activity and respiratory failure. Alcohol dependence Alcohol withdrawal with alcohol withdrawal seizure Polysubstance abuse Bipolar disorder Severe Agitated Delirium Delirium Tremens Transitioned to CIWA protocol Continue Seroquel Monitor for further seizure activity MVI/folic acid/thiamine supplementation Laceration R cheek s/p laceration repair 08/03. Remove sutures in between 08/07/17 and 08/09/17 Acute hypoxia hypercarbic respiratory failure Resolved, patient extubated Oxygen supplementation as needed Acute protein calorie malnutrition Continue tube feedings via OG tube Continue thiamine Continue multivitamin DVT prophylaxis Vasquez Mckay MD Aug 06, 2017 14:45
[2017-08-06] MEDS: ENOXAPARIN SODIUM 40 MG/0.4 ML SYRINGE SQ SCH (20:04)
[2017-08-06] MEDS: MULTIVITAMIN INJ 10 ML, THIAMINE INJ 100 MG, FOLIC ACID INJ 1 MG in SODIUM CHLOR 0.45% ... IV SCH (21:36)
[2017-08-07] VITALS (19 sets, daily range): BP systolic 126–149; BP diastolic 73–99; PULSE 96–123; RESP 25–47; TEMP 98.6–99.2; O2SAT 91–96
[2017-08-07] MEDS: RESP: ALBUTEROL 2.5 MG/IPRATROPIUM 0.5 MG NEB (SCH) INH ×4 (03:01→20:34)
[2017-08-07] MEDS: CHLORHEXIDINE GLUCONATE 2 % 1 PACK (2 CLOTHS) TOP SCH (03:35)
[2017-08-07] MEDS: cloNIDine HCL 0.3 MG TAB PO SCH ×3 (03:36→20:28)
[2017-08-07] MEDS: LORazepam 2 MG/ML VIAL IV PUSH PRN ×2 (04:30→21:47)
[2017-08-07 05:52] LABS: AUTOMATED NEUTROPHIL # 5.3 TH/MM3 (1.8-7.7); BASOPHIL % 0.3 % (0.0-2.0); EOSINOPHIL # 0.1 TH/MM3 (0-0.4); EOSINOPHIL % 0.8 % (0.0-4.0); HEMATOCRIT 42.9 % (39.0-51.0); HEMOGLOBIN 14.6 GM/DL (13.0-17.0); LYMPH % 15.9 % (9.0-44.0); LYMPHOCYTE # 1.2 TH/MM3 (1.0-4.8); MEAN CELL VOLUME 91.7 FL (80.0-100.0); MEAN CORPUSCULAR HEMOGLOBIN 31.2 PG (27.0-34.0); MEAN CORPUSCULAR HGB CONC 34.1 % (32.0-36.0); MEAN PLATELET VOLUME 8.1 FL (7.0-11.0); MONO % 11.4 % (0.0-8.0); MONOCYTE # 0.8 TH/MM3 (0-0.9); NEUT % 71.6 % (16.0-70.0); PLATELET COUNT 240 TH/MM3 (150-450); RED BLOOD COUNT 4.68 MIL/MM3 (4.50-5.90); RED CELL DISTRIBUTION WIDTH 13.7 % (11.6-17.2); WHITE BLOOD COUNT 7.3 TH/MM3 (4.0-11.0)
[2017-08-07 06:23] LABS: ALBUMIN 2.6 GM/DL (3.4-5.0); ALKALINE PHOSPHATASE 63 U/L (45-117); ALT (GPT) 55 U/L (12-78); AST (GOT) 41 U/L (15-37); BICARBONATE 23.6 MEQ/L (21.0-32.0); BLOOD UREA NITROGEN 9 MG/DL (7-18); CALCIUM 9.4 MG/DL (8.5-10.1); CHLORIDE 106 MEQ/L (98-107); CREATININE 0.53 MG/DL (0.60-1.30); GLOMERULAR FILTRATION RATE 160 ML/MIN (>89); GLUCOSE,RANDOM 99 MG/DL (74-106); SODIUM (NA) 137 MEQ/L (136-145); TOTAL BILIRUBIN ADULT 0.6 MG/DL (0.2-1.0); TOTAL PROTEIN 7.9 GM/DL (6.4-8.2)
[2017-08-07] MEDS: CHLORHEXIDINE 0.12% (ORAL KIT) 15 ML CUP MT SCH ×2 (08:00→20:00)
[2017-08-07] MEDS: GABAPENTIN 300 MG CAP OG-TUBE SCH ×2 (09:00→17:00)
[2017-08-07] MEDS: FAMOTIDINE 20 MG TAB PO SCH ×2 (09:00→20:28)
[2017-08-07] MEDS: DOCUSATE SODIUM 50 MG/SENNA 8.6 MG TAB PO SCH ×2 (09:00→20:28)
[2017-08-07] MEDS: LORazepam 2 MG TAB PO PRN ×2 (09:06→16:54)
--- NOTE | 2017-08-07 12:12 | HHI.PR ---
Subjective Remarks Patient is still delirious but he is more alert compared to previous day. Delirium tremens is under control. He is still withdrawing and not stable for any consideration for discharge at this time. Objective Vital Signs Date Time Temp Pulse Resp B/P (MAP) Pulse Ox O2 Delivery O2 Flow Rate FiO2 08/07/17 09:00 100 08/07/17 09:00 100 26 132/77 (95) 08/07/17 08:00 98.6 96 28 143/81 (101) 93 08/07/17 08:00 96 08/07/17 07:00 107 28 126/80 (95) 93 08/07/17 07:00 107 08/07/17 06:00 96 08/07/17 04:00 98.9 108 33 140/99 (113) 91 08/07/17 04:00 108 08/07/17 02:00 103 08/07/17 00:00 98 08/07/17 00:00 98.6 98 32 138/98 (111) 93 08/06/17 22:00 98 08/06/17 21:00 96 08/06/17 20:00 98.2 101 24 144/80 (101) 93 08/06/17 20:00 101 08/06/17 18:00 101 08/06/17 17:00 93 26 167/85 (112) 08/06/17 17:00 93 08/06/17 16:00 91 08/06/17 16:00 97.9 91 23 114/79 (91) 08/06/17 15:00 93 08/06/17 15:00 93 26 115/68 (84) 08/06/17 14:00 88 22 122/68 (86) 93 08/06/17 14:00 88 08/06/17 13:00 82 08/06/17 13:00 82 28 122/71 (88) 91 I/O 08/06/17 08/06/17 08/06/17 08/07/17 08/07/17 08/07/17 07:00 15:00 23:00 07:00 15:00 23:00 Intake Total 751 ml Output Total 2000 ml 2500 ml 2500 ml Balance -2000 ml -1749 ml -2500 ml Intake Oral 240 ml IV Total 511 ml Output Urine Total 2000 ml 2500 ml 2500 ml Stool Total 0 ml # Bowel Movements 0 0 Result Diagram: 08/07/17 0535 08/07/17 0535 Objective Remarks GENERAL: NAD, A&Ox1, restrained with soft restraints HEAD: Normocephalic. NECK: Supple, trachea midline. No lymphadenopathy. EYES: No scleral icterus. No injection or drainage. CARDIOVASCULAR: Regular rate and rhythm without murmurs, gallops, or rubs. RESPIRATORY: Breath sounds equal bilaterally. No accessory muscle use. GASTROINTESTINAL: Abdomen soft, non-tender, nondistended. MUSCULOSKELETAL: No cyanosis, or edema. SKIN: Warm and dry. NEURO: No focal neurological deficitis. A/P Problem List: (1) Seizure ICD Code: R56.9 - Unspecified convulsions (2) Alcohol dependence ICD Code: F10.20 - Alcohol dependence, uncomplicated Status: Chronic (3) Alcohol intoxication ICD Code: F10.129 - Alcohol abuse with intoxication, unspecified Status: Acute (4) ALCOHOL DEPENDENCE WITH WITHDRAWAL DELIRIUM ICD Code: F10.231 - ALCOHOL DEPENDENCE WITH WITHDRAWAL DELIRIUM Status: Acute Assessment and Plan 56-year-old male admitted secondary to alcohol withdrawal with seizure activity and respiratory failure. No signs of return of respiratory failure. Stable for transition out of ICU. Continue CIWA protocol and lorazepam administration for control delirium tremens. Plan to start physical therapy tomorrow if patient's orientation improves. Continue seizure precautions. Alcohol dependence Alcohol withdrawal with alcohol withdrawal seizure Polysubstance abuse Bipolar disorder Severe Agitated Delirium Delirium Tremens Transitioned to CIWA protocol Continue Seroquel Monitor for further seizure activity MVI/folic acid/thiamine supplementation Laceration R cheek s/p laceration repair 08/03. Remove sutures in between 08/07/17 and 08/09/17 Acute hypoxia hypercarbic respiratory failure Resolved, patient extubated Oxygen supplementation as needed Acute protein calorie malnutrition Continue tube feedings via OG tube Continue thiamine Continue multivitamin DVT prophylaxis Vasquez Mckay MD Aug 07, 2017 12:12
[2017-08-07] MEDS: ENOXAPARIN SODIUM 40 MG/0.4 ML SYRINGE SQ SCH (20:28)
[2017-08-07] MEDS: MULTIVITAMIN INJ 10 ML, THIAMINE INJ 100 MG, FOLIC ACID INJ 1 MG in SODIUM CHLOR 0.45% ... IV SCH (20:29)
[2017-08-08] VITALS (11 sets, daily range): BP systolic 108–171; BP diastolic 63–82; PULSE 72–109; RESP 18–36; TEMP 97.8–98.8; O2SAT 91–96
[2017-08-08] MEDS: GABAPENTIN 300 MG CAP OG-TUBE SCH ×3 (01:00→17:29)
[2017-08-08] MEDS: cloNIDine HCL 0.3 MG TAB PO SCH ×3 (02:25→21:28)
[2017-08-08] MEDS: CHLORHEXIDINE GLUCONATE 2 % 1 PACK (2 CLOTHS) TOP SCH (02:25)
[2017-08-08] MEDS: RESP: ALBUTEROL 2.5 MG/IPRATROPIUM 0.5 MG NEB (SCH) INH ×4 (02:31→21:00)
[2017-08-08] MEDS: LORazepam 2 MG/ML VIAL IV PUSH PRN ×4 (04:58→21:28)
[2017-08-08 06:09] LABS: HEMATOCRIT 46.7 % (39.0-51.0); MEAN CELL VOLUME 92.1 FL (80.0-100.0); MEAN CORPUSCULAR HEMOGLOBIN 31.6 PG (27.0-34.0); MEAN CORPUSCULAR HGB CONC 34.3 % (32.0-36.0); MEAN PLATELET VOLUME 8.4 FL (7.0-11.0); PLATELET COUNT 248 TH/MM3 (150-450); RED BLOOD COUNT 5.07 MIL/MM3 (4.50-5.90); RED CELL DISTRIBUTION WIDTH 13.7 % (11.6-17.2); WHITE BLOOD COUNT 7.7 TH/MM3 (4.0-11.0)
[2017-08-08 06:26] LABS: BICARBONATE 23.3 MEQ/L (21.0-32.0); CALCIUM 8.8 MG/DL (8.5-10.1); CREATININE 0.69 MG/DL (0.60-1.30)
[2017-08-08] MEDS: CHLORHEXIDINE 0.12% (ORAL KIT) 15 ML CUP MT SCH ×2 (08:00→20:00)
[2017-08-08] MEDS: FAMOTIDINE 20 MG TAB PO SCH ×2 (08:05→21:26)
[2017-08-08] MEDS: DOCUSATE SODIUM 50 MG/SENNA 8.6 MG TAB PO SCH ×2 (08:05→21:25)
--- NOTE | 2017-08-08 16:26 | HHI.PR ---
Subjective Remarks Patient still exhibits confusion and delirium that this is slowly improving through time. I think he should be able to tolerate physical therapy at this point. His baseline functional status is not known but chronic wheelchair dependence is suspected. Objective Vital Signs Date Time Temp Pulse Resp B/P (MAP) Pulse Ox O2 Delivery O2 Flow Rate FiO2 08/08/17 15:07 95 Nasal Cannula 2.00 08/08/17 12:20 98.5 107 18 130/75 (93) 95 08/08/17 10:00 96 08/08/17 08:00 98.2 100 24 171/82 (111) 08/08/17 08:00 100 08/08/17 07:49 96 Nasal Cannula 2.00 08/08/17 06:00 105 08/08/17 04:00 83 08/08/17 04:00 98.5 83 21 151/78 (102) 08/08/17 02:00 72 08/08/17 00:00 98.6 80 36 148/73 (98) 08/08/17 00:00 80 08/07/17 22:00 104 08/07/17 20:34 93 Nasal Cannula 2.00 08/07/17 20:00 100 08/07/17 20:00 99.0 100 25 149/77 (101) 96 08/07/17 17:00 123 I/O 08/07/17 08/07/17 08/07/17 08/08/17 08/08/17 08/08/17 07:00 15:00 23:00 07:00 15:00 23:00 Intake Total 240 ml Output Total 2500 ml 975 ml 1300 ml Balance -2500 ml -735 ml -1300 ml Intake Oral 240 ml Output Urine Total 2500 ml 975 ml 1300 ml # Bowel Movements 0 0 0 Result Diagram: 08/08/17 0447 08/08/177 Objective Remarks GENERAL: NAD, A&Ox1, restrained with soft restraints HEAD: Normocephalic. NECK: Supple, trachea midline. No lymphadenopathy. EYES: No scleral icterus. No injection or drainage. CARDIOVASCULAR: Regular rate and rhythm without murmurs, gallops, or rubs. RESPIRATORY: Breath sounds equal bilaterally. No accessory muscle use. GASTROINTESTINAL: Abdomen soft, non-tender, nondistended. MUSCULOSKELETAL: No cyanosis, or edema. SKIN: Warm and dry. NEURO: No focal neurological deficitis. A/P Problem List: (1) Seizure ICD Code: R56.9 - Unspecified convulsions (2) Alcohol dependence ICD Code: F10.20 - Alcohol dependence, uncomplicated Status: Chronic (3) Alcohol intoxication ICD Code: F10.129 - Alcohol abuse with intoxication, unspecified Status: Acute (4) ALCOHOL DEPENDENCE WITH WITHDRAWAL DELIRIUM ICD Code: F10.231 - ALCOHOL DEPENDENCE WITH WITHDRAWAL DELIRIUM Status: Acute Assessment and Plan 56-year-old male admitted secondary to alcohol withdrawal with seizure activity and respiratory failure. No signs of return of respiratory failure. Start physical therapy. Continue to treat delirium tremens and monitor for improvement. Alcohol dependence Alcohol withdrawal with alcohol withdrawal seizure Polysubstance abuse Bipolar disorder Severe Agitated Delirium Delirium Tremens Transitioned to CIWA protocol Continue Seroquel Monitor for further seizure activity MVI/folic acid/thiamine supplementation Laceration R cheek s/p laceration repair 08/03. Remove sutures in between 08/07/17 and 08/09/17 Acute hypoxia hypercarbic respiratory failure Resolved, patient extubated Oxygen supplementation as needed Acute protein calorie malnutrition Continue tube feedings via OG tube Continue thiamine Continue multivitamin DVT prophylaxis Vasquez Mckay MD Aug 08, 2017 16:26
[2017-08-08] MEDS: MULTIVITAMIN INJ 10 ML, THIAMINE INJ 100 MG, FOLIC ACID INJ 1 MG in SODIUM CHLOR 0.45% ... IV SCH (21:26)
[2017-08-08] MEDS: ENOXAPARIN SODIUM 40 MG/0.4 ML SYRINGE SQ SCH (21:27)
[2017-08-09] VITALS: BP 134/75; PULSE 93; RESP 20; TEMP 97.9; O2SAT 90
[2017-08-09] MEDS: LORazepam 2 MG TAB PO PRN ×2 (00:05→04:56)
[2017-08-09] MEDS: GABAPENTIN 300 MG CAP OG-TUBE SCH ×3 (00:05→16:34)
[2017-08-09] MEDS: CHLORHEXIDINE GLUCONATE 2 % 1 PACK (2 CLOTHS) TOP SCH (00:07)
[2017-08-09] MEDS: LORazepam 2 MG/ML VIAL IV PUSH PRN (03:16)
[2017-08-09] MEDS: RESP: ALBUTEROL 2.5 MG/IPRATROPIUM 0.5 MG NEB (SCH) INH ×4 (03:26→21:06)
[2017-08-09] MEDS: cloNIDine HCL 0.3 MG TAB PO SCH ×3 (04:57→21:22)
[2017-08-09 06:11] LABS: HEMATOCRIT 42.1 % (39.0-51.0); HEMOGLOBIN 14.8 GM/DL (13.0-17.0); MEAN CORPUSCULAR HGB CONC 35.1 % (32.0-36.0); MEAN PLATELET VOLUME 8.2 FL (7.0-11.0); PLATELET COUNT 251 TH/MM3 (150-450); RED BLOOD COUNT 4.62 MIL/MM3 (4.50-5.90); RED CELL DISTRIBUTION WIDTH 13.7 % (11.6-17.2); WHITE BLOOD COUNT 9.3 TH/MM3 (4.0-11.0)
[2017-08-09 06:15] LABS: BICARBONATE 24.1 MEQ/L (21.0-32.0); CALCIUM 8.6 MG/DL (8.5-10.1); CREATININE 0.74 MG/DL (0.60-1.30)
[2017-08-09 08:00] VITALS: BP 95/62; PULSE 86; RESP 18; TEMP 98.4; O2SAT 96
[2017-08-09] MEDS: CHLORHEXIDINE 0.12% (ORAL KIT) 15 ML CUP MT SCH ×2 (08:00→20:00)
[2017-08-09 08:50] VITALS: O2SAT 96
[2017-08-09] MEDS: FAMOTIDINE 20 MG TAB PO SCH ×2 (10:36→21:00)
[2017-08-09] MEDS: DOCUSATE SODIUM 50 MG/SENNA 8.6 MG TAB PO SCH ×2 (10:36→21:00)
[2017-08-09 12:00] VITALS: BP 113/74; PULSE 84; RESP 18; TEMP 98.2; O2SAT 97
--- NOTE | 2017-08-09 12:45 | HHI.PR ---
Subjective Remarks 56-year-old male with past medical history of alcohol dependence and polysubstance abuse (cocaine, THC, K2 and Flakka) who presented to [facility] emergency department by E VAC after he was found in the street intoxicated. He was initially conversant upon arrival and then got up and was urinating on the floor and then fell in the ED. He then had decreased level of consciousness with seizure vs tremor vs ?posturing. He was intubated for airway protection and underwent CT brain, CT C-spine, CT maxillofacial which demonstrated no acute abnormality. There was an old comminuted nasal fracture. He is afebrile without leukocytosis. Glucose is 67. I have ordered D50. He is following commands on sedation with propofol. Subjective: 08/03: remains in acute delirium and etoh withdraw. agitated on maximal sedation. tremulous. tachycardic. hypertensive. 08/04: remains intubated and sedated. hemodynamics better. has not followed commands yet- likely toxic/metabolic encephalopathy persists. EEG negative for ictal activity. 08/05: improving mentation and agitation. on SBT this AM. 08-06 TRANSFERRED TO OUR SERVICE Patient unable to provide history today. He continues to be delirious. He is admitted secondary to alcohol withdrawal seizures. No seizure activity recently. 2-1 Patient is still delirious but he is more alert compared to previous day. Delirium tremens is under control. He is still withdrawing and not stable for any consideration for discharge at this time. 2-2 Patient still exhibits confusion and delirium that this is slowly improving through time. I think he should be able to tolerate physical therapy at this point. His baseline functional status is not known but chronic wheelchair dependence is suspected. 2-3 patient still remains very confused. He knew he was at [place] He thought the president was still [place] Thought it was August 11 Still confused We'll consult psychiatry Will add Librium Objective Vitals Vital Signs Date Time Temp Pulse Resp B/P (MAP) Pulse Ox O2 Delivery O2 Flow Rate FiO2 08/09/17 08:50 96 Nasal Cannula 2.00 08/09/17 08:00 98.4 86 18 95/62 (73) 96 08/09/17 00:00 97.9 93 20 134/75 (94) 90 08/08/17 20:00 97.8 107 20 108/63 (78) 91 08/08/17 16:00 98.8 109 19 118/67 (84) 92 08/08/17 15:07 95 Nasal Cannula 2.00 I/O 08/08/17 08/08/17 08/08/17 08/09/17 08/09/17 08/09/17 07:00 15:00 23:00 07:00 15:00 23:00 Intake Total 511 ml Output Total 1300 ml 550 ml Balance -1300 ml -39 ml IV Total 511 ml Output Urine Total 1300 ml 550 ml # Bowel Movements 0 Result Diagram: 08/09/17 0446 08/09/17 0446 Other Results Laboratory Tests Test 08/07/17 05:35 08/08/17 04:47 08/09/17 04:46 White Blood Count 7.3 TH/MM3 7.7 TH/MM3 9.3 TH/MM3 Red Blood Count 4.68 MIL/MM3 5.07 MIL/MM3 4.62 MIL/MM3 Hemoglobin 14.6 GM/DL 16.0 GM/DL 14.8 GM/DL Hematocrit 42.9 % 46.7 % 42.1 % Mean Corpuscular Volume 91.7 FL 92.1 FL 91.0 FL Mean Corpuscular Hemoglobin 31.2 PG 31.6 PG 32.0 PG Mean Corpuscular Hemoglobin Concent 34.1 % 34.3 % 35.1 % Red Cell Distribution Width 13.7 % 13.7 % 13.7 % Platelet Count 240 TH/MM3 248 TH/MM3 251 TH/MM3 Mean Platelet Volume 8.1 FL 8.4 FL 8.2 FL Neutrophils (%) (Auto) 71.6 % Lymphocytes (%) (Auto) 15.9 % Monocytes (%) (Auto) 11.4 % Eosinophils (%) (Auto) 0.8 % Basophils (%) (Auto) 0.3 % Neutrophils # (Auto) 5.3 TH/MM3 Lymphocytes # (Auto) 1.2 TH/MM3 Monocytes # (Auto) 0.8 TH/MM3 Eosinophils # (Auto) 0.1 TH/MM3 Basophils # (Auto) 0.0 TH/MM3 CBC Comment DIFF FINAL Differential Comment Blood Urea Nitrogen 9 MG/DL 13 MG/DL 16 MG/DL Creatinine 0.53 MG/DL 0.69 MG/DL 0.74 MG/DL Random Glucose 99 MG/DL 78 MG/DL 84 MG/DL Total Protein 7.9 GM/DL Albumin 2.6 GM/DL Calcium Level 9.4 MG/DL 8.8 MG/DL 8.6 MG/DL Alkaline Phosphatase 63 U/L Aspartate Amino Transf (AST/SGOT) 41 U/L Alanine Aminotransferase (ALT/SGPT) 55 U/L Total Bilirubin 0.6 MG/DL Sodium Level 137 MEQ/L 141 MEQ/L 142 MEQ/L Potassium Level 3.6 MEQ/L 3.6 MEQ/L 3.4 MEQ/L Chloride Level 106 MEQ/L 107 MEQ/L 108 MEQ/L Carbon Dioxide Level 23.6 MEQ/L 23.3 MEQ/L 24.1 MEQ/L Anion Gap 7 MEQ/L 11 MEQ/L 10 MEQ/L Estimat Glomerular Filtration Rate 160 ML/MIN 118 ML/MIN 109 ML/MIN Imaging Last Impressions Head CT 08/03/17 0000 Signed Impressions: Service Date/Time: Friday, August 04, 2017 17:23 - CONCLUSION: 1. No acute hemorrhage or mass effect. 2. Mucosal thickening in the paranasal sinuses and air-fluid levels in the maxillary sinuses. Alex Vital MD Maxillofacial CT 08/02/17 0000 Signed Impressions: Service Date/Time: Wednesday, August 02, 2017 18:36 - CONCLUSION: 1. Motion degraded study. No evidence of an acute fracture. 2. Old comminuted fracturing of the nose again seen. 3. Chronic sinusitis. Fermín Wagner MD Chest X-Ray 08/02/17 0000 Signed Impressions: Service Date/Time: Wednesday, August 02, 2017 18:26 - CONCLUSION: 1. Appropriately positioned endotracheal tube tip, 4 cm above the krystina. 2. Tip of the nasogastric tube is in the lower esophagus slightly above the GE junction. 3. Trace bibasilar atelectasis. No pneumothorax. Fermín Wagner MD Cervical Spine CT 08/02/17 0000 Signed Impressions: Service Date/Time: Wednesday, August 02, 2017 18:35 - CONCLUSION: Intact cervical spine. Mild degenerative changes again noted at C3/C4. Fermín Wagner MD Objective Remarks GENERAL: Arousable but confused able to move all 4 extremities has some bruising on his face SKIN: Warm and dry. HEAD: Atraumatic. Normocephalic. EYES: Pupils equal and round. No scleral icterus. No injection or drainage. Extraocular muscles grossly intact ENT: No nasal bleeding or discharge. Mucous membranes pink and moist. Tongue is midline NECK: Trachea midline. No JVD. Supple CARDIOVASCULAR: Regular rate and rhythm. S1 and S2 no S3 or S4 RESPIRATORY: No accessory muscle use. Clear to auscultation. Breath sounds equal bilaterally. GASTROINTESTINAL: Abdomen soft, non-tender, nondistended. Hepatic and splenic margins not palpable. MUSCULOSKELETAL: Extremities without clubbing, cyanosis, or edema. No obvious deformities. NEUROLOGICAL: Awake and alert. No obvious cranial nerve deficits. Motor grossly within normal limits. 4 out of 5 muscle strength in the arms and legs. Normal speech. PSYCHIATRIC: INAppropriate mood and affect; insight and judgment ABnormal. Medications and IVs Current Medications Etomidate (Amidate Inj) 40 mg STK-MED ONCE .ROUTE ; Start 08/02/17 at 17:55; Stop 08/02/17 at 17:56; Status DC Succinylcholine Chloride (Quelicin Inj) 200 mg STK-MED ONCE .ROUTE ; Start 08/02 at 17:55; Stop 08/02/17 at 17:56; Status DC Lorazepam (Ativan Inj) 2 mg ONCE ONCE IV PUSH Last administered on 08/02/17at 19:12; Start 08/02/17 at 18:15; Stop 08/02/17 at 18:16; Status DC Propofol 50 ml @ As Directed STK-MED ONCE .ROUTE Last administered on at 20:24; Start 08/02/17 at 18:12; Stop 08/02/17 at 18:13; Status DC Dextrose (D50w (Vial) Inj) 25 ml ONCE ONCE IV PUSH Last administered on at 22:19; Start 08/02/17 at 20:45; Stop 08/02/17 at 21:46; Status DC Multivitamins 10 ml/Thiamine HCl 100 mg/Folic Acid 1 mg/Sodium Chloride 511.2 ml @ 125 mls/hr ONCE ONCE IV Last administered on 08/02/17at 22:20; Start at 22:45; Stop 08/03/17 at 02:50; Status DC Multivitamins 10 ml/Thiamine HCl 100 mg/Folic Acid 1 mg/Sodium Chloride 511.2 ml @ 125 mls/hr Q24H IV Last administered on 08/08/17at 21:26; Start 08/03/17 at 22:00 Potassium Cl/ Dextrose/Lact Ringer's 1,000 ml @ 100 mls/hr Q10H IV Last administered on 08/05/17at 01:07; Start 08/02/17 at 20:45; Stop 08/05/17 at 12:27 ; Status DC Potassium Chloride 100 ml @ 50 mls/hr Q2H PRN IV For Potassium 2.8 - 3.2 mEq/L ; Start 08/02/17 at 21:00; Stop 08/08/17 at 15:22; Status DC Potassium Chloride 100 ml @ 50 mls/hr Q2H PRN IV For Potassium 2.8 - 3.2 mEq/L ; Start 08/02/17 at 21:00; Stop 08/08/17 at 15:22; Status DC Potassium Bicarb/ Potassium Chloride (K-Lyte Cl Eff) 50 meq UNSCH PRN PO For Potassium 3.3 - 3.5 mEq/L; Start 08/02/17 at 21:00; Stop 08/08/17 at 15:22; Status DC Potassium Chloride 100 ml @ 25 mls/hr UNSCH PRN IV For Potassium 3.3 - 3.5 mEq /L; Start 08/02/17 at 21:00; Stop 08/08/17 at 15:22; Status DC Potassium Chloride 100 ml @ 50 mls/hr Q2H PRN IV For Potassium 3.3 - 3.5 mEq/L ; Start 08/02/17 at 21:00; Stop 08/08/17 at 15:22; Status DC Magnesium Sulfate 4 gm/Sodium Chloride 100 ml @ 50 mls/hr UNSCH PRN IV For Magnesium 0.9 - 1.1 mg/dL; Start 08/02/17 at 21:00; Stop 08/08/17 at 15:22; Status DC Magnesium Oxide (Mag-Ox) 800 mg UNSCH PRN PO For Magnesium 1.2 - 1.6 mg/dL; Start 08/02/17 at 21:00; Stop 08/08/17 at 15:22; Status DC Magnesium Sulfate 2 gm/Sodium Chloride 100 ml @ 50 mls/hr UNSCH PRN IV For Magnesium 1.2 - 1.6 mg/dL; Start 08/02/17 at 21:00; Stop 08/08/17 at 15:23; Status DC Potassium Phosphate (K-Phos) 2,000 mg Q4H PRN PO For Phosphorus < 2.5 mg/dL Last administered on 08/03/17at 08:05; Start 08/02/17 at 21:00; Stop 08/08/17 at 15:23; Status DC Sodium Phosphate 30 mmol/Sodium Chloride 250 ml @ 42 mls/hr UNSCH PRN IV For Phosphorus < 2.5 mg/dL; Start 08/02/17 at 21:00; Stop 08/08/17 at 15:23; Status DC Potassium Phosphate (K-Phos) 2,000 mg UNSCH PRN PO/TUBE SEE LABEL COMMENTS; Start 08/02/17 at 21:00; Stop 08/08/17 at 15:23; Status DC Potassium Phosphate 30 mmol/ Sodium Chloride 260 ml @ 42 mls/hr UNSCH PRN IV SEE LABEL COMMENTS; Start 08/02/17 at 21:00; Stop 08/08/17 at 15:23; Status DC Chlorhexidine Gluconate (Peridex 0.12% Liq) 15 ml BID@08,20 MT Last administered on 08/05/17at 20:00; Start 08/03/17 at 08:00 Propofol 100 ml @ 2.46 mls/hr TITRATE PRN IV SEDATION Last administered on at 02:25; Start 08/02/17 at 21:00; Stop 08/05/17 at 12:27; Status DC Sodium Chloride (NS Flush) 2 ml UNSCH PRN IV FLUSH FLUSH AFTER USING IV ACCESS ; Start 08/02/17 at 21:00; Stop 08/02/17 at 21:47; Status DC Sodium Chloride (NS Flush) 2 ml BID IV FLUSH ; Start 08/02/17 at 21:00; Stop at 21:47; Status DC Acetaminophen (Tylenol) 650 mg Q6H PRN PO PAIN 1-5 AND/OR FEVER >101F Last administered on 08/04/17at 12:43; Start 08/02/17 at 21:00 Fentanyl Citrate (fentaNYL INJ) 50 mcg Q1H PRN IV PUSH Pain scale 6-10 &/or sedation; Start 08/02/17 at 21:00; Stop 08/03/17 at 06:48; Status DC Famotidine (Pepcid Inj) 20 mg Q12HR IV PUSH Last administered on 08/05/17at 09: 06; Start 08/02/17 at 21:00; Stop 08/05/17 at 12:27; Status DC Famotidine (Pepcid) 20 mg Q12HR PO Last administered on 08/09/17at 10:36; Start 08/02/17 at 21:00 Lorazepam (Ativan Inj) 2 mg Q5M PRN IV PUSH SEIZURE; Start 08/02/17 at 21:00; Stop 08/03/17 at 06:48; Status DC Ondansetron HCl (Zofran Inj) 4 mg Q6H PRN IV PUSH NAUSEA OR VOMITING; Start at 21:00 Albuterol/ Ipratropium (Duoneb Neb) 1 ampule Q6HR NEB INH Last administered on 08/06/17at 04:02; Start 08/02/17 at 22:00; Stop 08/06/17 at 06:11; Status DC Albuterol Sulfate (Albuterol Neb) 2.5 mg Q2HR NEB PRN INH SOB/WHEEZING; Start 08/02/17 at 21:00 Enoxaparin Sodium (Lovenox Inj) 40 mg Q24H SQ Last administered on 08/08/17at 21: 27; Start 08/02/17 at 22:00 Miscellaneous Information 1 [id number] XX Last administered on 08/02/17at 21:00; Start 08/02/17 at 21:00 Chlorhexidine Gluconate (Chlorhexidine 2% Cloth) Taper DAILY@04 TOP Last administered on 08/07/17at 03:35; Start 08/03/17 at 04:00; Stop 07/30/18 at 03:59 Chlorhexidine Gluconate (Chlorhexidine 2% Cloth) 3 pack UNSCH PRN TOP HYGIENIC CARE; Start 08/02/17 at 21:00 Senna/Docusate Sodium (Candy-Colace) 1 tab BID PO Last administered on 08/09/17at 10:36; Start 08/02/17 at 21:00 Magnesium Hydroxide (Milk Of Magnesia Liq) 30 ml Q12H PRN PO Mild constipation ; Start 08/02/17 at 21:00 Sennosides (Senokot) 17.2 mg Q12H PRN PO Moderate constipation; Start 08/02/17 at 21:00 Bisacodyl (Dulcolax Supp) 10 mg DAILY PRN RECTAL SEVERE CONSITIPATION; Start at 21:00 Lactulose (Lactulose Liq) 30 ml DAILY PRN PO SEVERE CONSITIPATION; Start at 21:00 Sodium Chloride (NS Flush) 2 ml UNSCH PRN IV FLUSH FLUSH AFTER USING IV ACCESS ; Start 08/02/17 at 21:15; Stop 08/03/17 at 06:48; Status DC Sodium Chloride (NS Flush) 2 ml BID IV FLUSH ; Start 08/03/17 at 09:00; Stop at 09:00; Status DC Flumazenil (Romazicon Inj) 0.2 mg Q1M PRN IV PUSH SEE LABEL COMMENTS; Start at 21:15; Stop 08/03/17 at 06:48; Status DC Lorazepam (Ativan) 1 mg Q4H PRN PO CIWA 8 - 10; Start 08/02/17 at 21:15; Stop 08/03/17 at 06:48; Status DC Lorazepam (Ativan Inj) 1 mg Q4H PRN IV PUSH CIWA 8 - 10; Start 08/02/17 at 21: 15; Stop 08/03/17 at 06:48; Status DC Lorazepam (Ativan) 2 mg Q2H PRN PO CIWA 11-14; Start 08/02/17 at 21:15; Stop at 06:48; Status DC Lorazepam (Ativan Inj) 2 mg Q2H PRN IV PUSH CIWA 11-14 Last administered on at 06:26; Start 08/02/17 at 21:15; Stop 08/03/17 at 06:48; Status DC Lorazepam (Ativan Inj) 2 mg Q1H PRN IV PUSH CIWA 15-20 Last administered on at 03:58; Start 08/02/17 at 21:15; Stop 08/03/17 at 04:11; Status DC Lorazepam (Ativan Inj) 2 mg Q15M PRN IV PUSH CIWA > 20 Last administered on at 05:35; Start 08/02/17 at 21:15; Stop 08/03/17 at 06:48; Status DC Chlordiazepoxide (Librium) 25 mg Q8H OG-TUBE Last administered on 08/02/17at 22: 18; Start 08/02/17 at 22:00; Stop 08/03/17 at 05:30; Status DC Diazepam (Valium) 10 mg ONCE ONCE OG-TUBE Last administered on 08/03/17at 04:48 ; Start 08/03/17 at 04:15; Stop 08/03/17 at 04:16; Status DC Lorazepam (Ativan Inj) 4 mg Q1H PRN IV PUSH CIWA 15-20; Start 08/03/17 at 04:15 ; Stop 08/03/17 at 06:48; Status DC Lorazepam (Ativan Inj) 4 mg ONCE ONCE IV PUSH ; Start 08/03/17 at 04:15; Stop 08/03/17 at 04:16; Status DC Chlordiazepoxide (Librium) 50 mg Q8H OG-TUBE Last administered on 08/03/17at 05: 36; Start 08/03/17 at 06:00; Stop 08/03/17 at 06:48; Status DC Dexmedetomidine HCl 200 mcg/ Sodium Chloride 52 ml @ 4.26 mls/hr TITRATE PRN IV SEDATION Last administered on 08/03/17at 07:03; Start 08/03/17 at 06:45; Stop 08/03/17 at 07:07; Status DC Diazepam (Valium) 20 mg Q8HR PO ; Start 08/03/17 at 07:00; Status Cancel Quetiapine Fumarate (SEROquel) 100 mg Q8H PO Last administered on 08/05/17at 06: 24; Start 08/03/17 at 07:00; Stop 08/05/17 at 12:27; Status DC Haloperidol Lactate (Haldol Inj) 5 mg Q4H PRN IV PUSH agitation Last administered on 08/06/17at 04:28; Start 08/03/17 at 07:00; Stop 08/06/17 at 14:47 ; Status DC Clonidine (Catapres) 0.3 mg Q8HR PO Last administered on 08/09/17at 04:57; Start 08/03/17 at 07:00 Diazepam (Valium) 20 mg Q8HR PO Last administered on 08/05/17at 14:41; Start at 07:00; Stop 08/05/17 at 19:18; Status DC Dexmedetomidine HCl 1000 mcg/ Sodium Chloride 250 ml @ 4.1 mls/hr TITRATE PRN IV SEDATION Last administered on 08/05/17at 05:08; Start 08/03/17 at 07:15; Stop 08/05/17 at 19:18; Status DC Gabapentin (Neurontin) 800 mg BID PO ; Start 08/03/17 at 09:00; Stop 08/03/17 at 09:00; Status DC Gabapentin (Neurontin) 300 mg Q8H OG-TUBE Last administered on 08/09/17at 10:37; Start 08/03/17 at 09:00 Dextrose (D50w (Syr) Inj) 50 ml STK-MED ONCE .ROUTE Last administered on at 14:42; Start 08/05/17 at 14:10; Stop 08/05/17 at 14:11; Status DC Diazepam (Valium) 15 mg Taper Q8H PO Last administered on 08/06/17at 13:50; Start 08/05/17 at 22:00; Stop 08/06/17 at 14:47; Status DC Flumazenil (Romazicon Inj) 0.2 mg Q1M PRN IV PUSH SEE LABEL COMMENTS; Start at 03:45 Lorazepam (Ativan) 1 mg Q4H PRN PO CIWA 8 - 10; Start 08/06/17 at 03:45 Lorazepam (Ativan Inj) 1 mg Q4H PRN IV PUSH CIWA 8 - 10 Last administered on 08/08/17at 10:36; Start 08/06/17 at 03:45 Lorazepam (Ativan) 2 mg Q2H PRN PO CIWA 11-14 Last administered on 08/09/17at 04: 56; Start 08/06/17 at 03:45 Lorazepam (Ativan Inj) 2 mg Q2H PRN IV PUSH CIWA 11-14 Last administered on 08/09at 03:16; Start 08/06/17 at 03:45 Lorazepam (Ativan Inj) 2 mg Q1H PRN IV PUSH CIWA 15-20 Last administered on at 20:04; Start 08/06/17 at 03:45 Lorazepam (Ativan Inj) 2 mg Q15M PRN IV PUSH CIWA > 20 Last administered on at 21:37; Start 08/06/17 at 03:45 Albuterol/ Ipratropium (Duoneb Neb) 1 ampule Q6HR NEB INH Last administered on 08/09/17at 08:50; Start 08/06/17 at 10:00 A/P Problem List: (1) Acute respiratory failure ICD Code: J96.00 - Acute respiratory failure, unspecified whether with hypoxia or hypercapnia Status: Acute (2) Alcohol intoxication ICD Code: F10.129 - Alcohol abuse with intoxication, unspecified Status: Acute (3) Alcohol dependence ICD Code: F10.20 - Alcohol dependence, uncomplicated Status: Chronic (4) Laceration of cheek, right ICD Code: S01.411A - Laceration without foreign body of right cheek and temporomandibular area, initial encounter Status: Acute (5) Polysubstance abuse ICD Code: F19.10 - Polysubstance abuse Status: Chronic (6) Transaminitis ICD Code: R74.0 - Elevated transaminase measurement Status: Chronic (7) ALCOHOL DEPENDENCE WITH WITHDRAWAL DELIRIUM ICD Code: F10.231 - ALCOHOL DEPENDENCE WITH WITHDRAWAL DELIRIUM Status: Acute (8) Fall ICD Code: W19.XXXA - Unspecified fall, initial encounter Status: Acute (9) Hypoglycemia ICD Code: E16.2 - Hypoglycemia, unspecified Status: Acute Assessment and Plan Assessment and Plan 56-year-old male admitted secondary to alcohol withdrawal with seizure activity and respiratory failure. No signs of return of respiratory failure. Start physical therapy. Continue to treat delirium tremens and monitor for improvement. Alcohol dependence Alcohol withdrawal with alcohol withdrawal seizure Polysubstance abuse Bipolar disorder Severe Agitated Delirium Delirium Tremens Transitioned to CIWA protocol Continue Seroquel Monitor for further seizure activity MVI/folic acid/thiamine supplementation Consult psychiatry add Librium Laceration R cheek s/p laceration repair 08/03. Remove sutures in between 08/07/17 and 08/09/17 Acute hypoxia hypercarbic respiratory failure Resolved, patient extubated Oxygen supplementation as needed Acute protein calorie malnutrition Continue thiamine Continue multivitamin Diet as tolerated DVT prophylaxis Lovenox Discharge Planning Pending improvement Problem Qualifiers (1) Fall: Qualified Codes: W19.XXXA - Unspecified fall, initial encounter Steven Perez DO Aug 09, 2017 12:45
[2017-08-09 16:00] VITALS: BP 106/74; PULSE 91; RESP 17; TEMP 97.9; O2SAT 99
[2017-08-09] MEDS: LORazepam 1 MG TAB PO PRN (16:34)
[2017-08-09] MEDS: chlordiazePOXIDE 25 MG CAP PO PRN (16:34)
[2017-08-09 20:00] VITALS: BP 100/60; PULSE 78; RESP 26; TEMP 98.1; O2SAT 97
[2017-08-09] MEDS: MULTIVITAMIN INJ 10 ML, THIAMINE INJ 100 MG, FOLIC ACID INJ 1 MG in SODIUM CHLOR 0.45% ... IV SCH (21:22)
[2017-08-09] MEDS: ENOXAPARIN SODIUM 40 MG/0.4 ML SYRINGE SQ SCH (21:23)
[2017-08-09] MEDS: RESP: ALBUTEROL 2.5 MG/3 ML NEB (PRN) INH (23:17)
[2017-08-10] VITALS (7 sets, daily range): BP systolic 92–127; BP diastolic 50–79; PULSE 74–101; RESP 14–24; TEMP 96–97.9; O2SAT 91–94
[2017-08-10] MEDS: GABAPENTIN 300 MG CAP OG-TUBE SCH ×3 (00:12→16:15)
[2017-08-10] MEDS: LORazepam 2 MG TAB PO PRN ×2 (00:12→05:53)
[2017-08-10] MEDS: chlordiazePOXIDE 25 MG CAP PO PRN ×3 (02:13→14:08)
[2017-08-10] MEDS: CHLORHEXIDINE GLUCONATE 2 % 1 PACK (2 CLOTHS) TOP SCH (02:15)
[2017-08-10] MEDS: RESP: ALBUTEROL 2.5 MG/IPRATROPIUM 0.5 MG NEB (SCH) INH ×2 (04:00→09:20)
[2017-08-10 04:35] LABS: AUTOMATED NEUTROPHIL # 4.7 TH/MM3 (1.8-7.7); BASOPHIL % 0.5 % (0.0-2.0); EOSINOPHIL # 0.3 TH/MM3 (0-0.4); EOSINOPHIL % 3.8 % (0.0-4.0); HEMATOCRIT 44.2 % (39.0-51.0); HEMOGLOBIN 15.3 GM/DL (13.0-17.0); LYMPH % 20.9 % (9.0-44.0); LYMPHOCYTE # 1.7 TH/MM3 (1.0-4.8); MEAN CORPUSCULAR HEMOGLOBIN 31.5 PG (27.0-34.0); MEAN CORPUSCULAR HGB CONC 34.6 % (32.0-36.0); MEAN PLATELET VOLUME 7.9 FL (7.0-11.0); MONO % 17.1 % (0.0-8.0); MONOCYTE # 1.4 TH/MM3 (0-0.9); NEUT % 57.7 % (16.0-70.0); PLATELET COUNT 242 TH/MM3 (150-450); RED BLOOD COUNT 4.85 MIL/MM3 (4.50-5.90); RED CELL DISTRIBUTION WIDTH 13.6 % (11.6-17.2); WHITE BLOOD COUNT 8.2 TH/MM3 (4.0-11.0)
[2017-08-10 04:55] LABS: ALBUMIN 2.7 GM/DL (3.4-5.0); AST (GOT) 29 U/L (15-37); BICARBONATE 25.2 MEQ/L (21.0-32.0); BLOOD UREA NITROGEN 15 MG/DL (7-18); CALCIUM 8.8 MG/DL (8.5-10.1); CHLORIDE 108 MEQ/L (98-107); CREATININE 0.82 MG/DL (0.60-1.30); GLOMERULAR FILTRATION RATE 97 ML/MIN (>89); GLUCOSE,RANDOM 92 MG/DL (74-106); MAGNESIUM 2.2 MG/DL (1.5-2.5); SODIUM (NA) 141 MEQ/L (136-145)
[2017-08-10 04:56] LABS: ALT (GPT) 50 U/L (12-78); PHOSPHORUS 3.6 MG/DL (2.5-4.9)
[2017-08-10 05:05] LABS: ALKALINE PHOSPHATASE 57 U/L (45-117); FREE T4 1.37 NG/DL (0.76-1.46); TOTAL BILIRUBIN ADULT 0.4 MG/DL (0.2-1.0); TOTAL PROTEIN 7.9 GM/DL (6.4-8.2)
[2017-08-10] MEDS: cloNIDine HCL 0.3 MG TAB PO SCH ×3 (05:53→21:12)
[2017-08-10] MEDS: CHLORHEXIDINE 0.12% (ORAL KIT) 15 ML CUP MT SCH ×2 (08:00→20:00)
[2017-08-10] MEDS: FAMOTIDINE 20 MG TAB PO SCH ×2 (09:09→21:12)
[2017-08-10] MEDS: DOCUSATE SODIUM 50 MG/SENNA 8.6 MG TAB PO SCH ×2 (09:09→21:12)
--- NOTE | 2017-08-10 11:06 | HHI.PR ---
Subjective Remarks 56-year-old male with past medical history of alcohol dependence and polysubstance abuse (cocaine, THC, K2 and Flakka) who presented to [facility] emergency department by E VAC after he was found in the street intoxicated. He was initially conversant upon arrival and then got up and was urinating on the floor and then fell in the ED. He then had decreased level of consciousness with seizure vs tremor vs ?posturing. He was intubated for airway protection and underwent CT brain, CT C-spine, CT maxillofacial which demonstrated no acute abnormality. There was an old comminuted nasal fracture. He is afebrile without leukocytosis. Glucose is 67. I have ordered D50. He is following commands on sedation with propofol. Subjective: 08/03: remains in acute delirium and etoh withdraw. agitated on maximal sedation. tremulous. tachycardic. hypertensive. 08/04: remains intubated and sedated. hemodynamics better. has not followed commands yet- likely toxic/metabolic encephalopathy persists. EEG negative for ictal activity. 08/05: improving mentation and agitation. on SBT this AM. 08-06 TRANSFERRED TO OUR SERVICE Patient unable to provide history today. He continues to be delirious. He is admitted secondary to alcohol withdrawal seizures. No seizure activity recently. 2-1 Patient is still delirious but he is more alert compared to previous day. Delirium tremens is under control. He is still withdrawing and not stable for any consideration for discharge at this time. 2-2 Patient still exhibits confusion and delirium that this is slowly improving through time. I think he should be able to tolerate physical therapy at this point. His baseline functional status is not known but chronic wheelchair dependence is suspected. 2-3 patient still remains very confused. He knew he was at [place] He thought the president was still [place] Thought it was August 11 Still confused We'll consult psychiatry Will add Librium 2-4 AWAIT PSYCHIATRY INPUT LESS TREMORS MAY NEED SNF [place] VERY CONFUSED STILL THOUGHT HE WAS IN [place] Objective Vitals Vital Signs Date Time Temp Pulse Resp B/P (MAP) Pulse Ox O2 Delivery O2 Flow Rate FiO2 08/10/17 09:24 91 Nasal Cannula 4.00 08/10/17 08:00 96.6 74 24 92/50 (64) 94 08/10/17 04:00 96.5 91 24 116/69 (85) 92 08/10/17 00:00 96.8 92 24 127/70 (89) 93 08/09/17 20:00 98.1 78 26 100/60 (73) 97 08/09/17 16:00 97.9 91 17 106/74 (85) 99 08/09/17 12:00 98.2 84 18 113/74 (87) 97 I/O 08/09/17 08/09/17 08/09/17 08/10/17 08/10/17 08/10/17 06:59 14:59 22:59 06:59 14:59 22:59 Intake Total 511 ml 1200 ml 120 ml 511 ml Output Total 550 ml 625 ml Balance -39 ml 1200 ml -505 ml 511 ml Intake Oral 1200 ml 120 ml IV Total 511 ml 511 ml Output Urine Total 550 ml 625 ml # Voids 7 # Bowel Movements 0 0 Result Diagram: 08/10/17 0404 08/10/17 0404 Other Results Laboratory Tests Test 08/08/17 04:47 08/09/17 04:46 08/10/17 04:04 White Blood Count 7.7 TH/MM3 9.3 TH/MM3 8.2 TH/MM3 Red Blood Count 5.07 MIL/MM3 4.62 MIL/MM3 4.85 MIL/MM3 Hemoglobin 16.0 GM/DL 14.8 GM/DL 15.3 GM/DL Hematocrit 46.7 % 42.1 % 44.2 % Mean Corpuscular Volume 92.1 FL 91.0 FL 91.0 FL Mean Corpuscular Hemoglobin 31.6 PG 32.0 PG 31.5 PG Mean Corpuscular Hemoglobin Concent 34.3 % 35.1 % 34.6 % Red Cell Distribution Width 13.7 % 13.7 % 13.6 % Platelet Count 248 TH/MM3 251 TH/MM3 242 TH/MM3 Mean Platelet Volume 8.4 FL 8.2 FL 7.9 FL Blood Urea Nitrogen 13 MG/DL 16 MG/DL 15 MG/DL Creatinine 0.69 MG/DL 0.74 MG/DL 0.82 MG/DL Random Glucose 78 MG/DL 84 MG/DL 92 MG/DL Calcium Level 8.8 MG/DL 8.6 MG/DL 8.8 MG/DL Sodium Level 141 MEQ/L 142 MEQ/L 141 MEQ/L Potassium Level 3.6 MEQ/L 3.4 MEQ/L 3.8 MEQ/L Chloride Level 107 MEQ/L 108 MEQ/L 108 MEQ/L Carbon Dioxide Level 23.3 MEQ/L 24.1 MEQ/L 25.2 MEQ/L Anion Gap 11 MEQ/L 10 MEQ/L 8 MEQ/L Estimat Glomerular Filtration Rate 118 ML/MIN 109 ML/MIN 97 ML/MIN Neutrophils (%) (Auto) 57.7 % Lymphocytes (%) (Auto) 20.9 % Monocytes (%) (Auto) 17.1 % Eosinophils (%) (Auto) 3.8 % Basophils (%) (Auto) 0.5 % Neutrophils # (Auto) 4.7 TH/MM3 Lymphocytes # (Auto) 1.7 TH/MM3 Monocytes # (Auto) 1.4 TH/MM3 Eosinophils # (Auto) 0.3 TH/MM3 Basophils # (Auto) 0.0 TH/MM3 CBC Comment DIFF FINAL Differential Comment Total Protein 7.9 GM/DL Albumin 2.7 GM/DL Phosphorus Level 3.6 MG/DL Magnesium Level 2.2 MG/DL Alkaline Phosphatase 57 U/L Aspartate Amino Transf (AST/SGOT) 29 U/L Alanine Aminotransferase (ALT/SGPT) 50 U/L Total Bilirubin 0.4 MG/DL Free Thyroxine 1.37 NG/DL Thyroid Stimulating Hormone 3rd Gen 1.700 uIU/ML Imaging Last Impressions Head CT 08/03/17 0000 Signed Impressions: Service Date/Time: Friday, August 04, 2017 17:23 - CONCLUSION: 1. No acute hemorrhage or mass effect. 2. Mucosal thickening in the paranasal sinuses and air-fluid levels in the maxillary sinuses. Alex Vital MD Maxillofacial CT 08/02/17 0000 Signed Impressions: Service Date/Time: Wednesday, August 02, 2017 18:36 - CONCLUSION: 1. Motion degraded study. No evidence of an acute fracture. 2. Old comminuted fracturing of the nose again seen. 3. Chronic sinusitis. Fermín Wagner MD Chest X-Ray 08/02/17 0000 Signed Impressions: Service Date/Time: Wednesday, August 02, 2017 18:26 - CONCLUSION: 1. Appropriately positioned endotracheal tube tip, 4 cm above the krystina. 2. Tip of the nasogastric tube is in the lower esophagus slightly above the GE junction. 3. Trace bibasilar atelectasis. No pneumothorax. Fermín Wagner MD Cervical Spine CT 08/02/17 0000 Signed Impressions: Service Date/Time: Wednesday, August 02, 2017 18:35 - CONCLUSION: Intact cervical spine. Mild degenerative changes again noted at C3/C4. Fermín Wagner MD Objective Remarks GENERAL: Arousable but confused able to move all 4 extremities has some bruising on his face SUTURES OR RIGHT FACE SKIN: Warm and dry. HEAD: Atraumatic. Normocephalic. EYES: Pupils equal and round. No scleral icterus. No injection or drainage. Extraocular muscles grossly intact ENT: No nasal bleeding or discharge. Mucous membranes pink and moist. Tongue is midline NECK: Trachea midline. No JVD. Supple CARDIOVASCULAR: Regular rate and rhythm. S1 and S2 no S3 or S4 RESPIRATORY: No accessory muscle use. Clear to auscultation. Breath sounds equal bilaterally. GASTROINTESTINAL: Abdomen soft, non-tender, nondistended. Hepatic and splenic margins not palpable. MUSCULOSKELETAL: Extremities without clubbing, cyanosis, or edema. No obvious deformities. NEUROLOGICAL: Awake and alert. No obvious cranial nerve deficits. Motor grossly within normal limits. 4 out of 5 muscle strength in the arms and legs. Normal speech. PSYCHIATRIC: INAppropriate mood and affect; insight and judgment ABnormal. Medications and IVs Current Medications Etomidate (Amidate Inj) 40 mg STK-MED ONCE .ROUTE ; Start 08/02/17 at 17:55; Stop 08/02/17 at 17:56; Status DC Succinylcholine Chloride (Quelicin Inj) 200 mg STK-MED ONCE .ROUTE ; Start 08/02 at 17:55; Stop 08/02/17 at 17:56; Status DC Lorazepam (Ativan Inj) 2 mg ONCE ONCE IV PUSH Last administered on 08/02/17at 19:12; Start 08/02/17 at 18:15; Stop 08/02/17 at 18:16; Status DC Propofol 50 ml @ As Directed STK-MED ONCE .ROUTE Last administered on at 20:24; Start 08/02/17 at 18:12; Stop 08/02/17 at 18:13; Status DC Dextrose (D50w (Vial) Inj) 25 ml ONCE ONCE IV PUSH Last administered on at 22:19; Start 08/02/17 at 20:45; Stop 08/02/17 at 21:46; Status DC Multivitamins 10 ml/Thiamine HCl 100 mg/Folic Acid 1 mg/Sodium Chloride 511.2 ml @ 125 mls/hr ONCE ONCE IV Last administered on 08/02/17at 22:20; Start at 22:45; Stop 08/03/17 at 02:50; Status DC Multivitamins 10 ml/Thiamine HCl 100 mg/Folic Acid 1 mg/Sodium Chloride 511.2 ml @ 125 mls/hr Q24H IV Last administered on 08/09/17at 21:22; Start 08/03/17 at 22:00 Potassium Cl/ Dextrose/Lact Ringer's 1,000 ml @ 100 mls/hr Q10H IV Last administered on 08/05/17at 01:07; Start 08/02/17 at 20:45; Stop 08/05/17 at 12:27 ; Status DC Potassium Chloride 100 ml @ 50 mls/hr Q2H PRN IV For Potassium 2.8 - 3.2 mEq/L ; Start 08/02/17 at 21:00; Stop 08/08/17 at 15:22; Status DC Potassium Chloride 100 ml @ 50 mls/hr Q2H PRN IV For Potassium 2.8 - 3.2 mEq/L ; Start 08/02/17 at 21:00; Stop 08/08/17 at 15:22; Status DC Potassium Bicarb/ Potassium Chloride (K-Lyte Cl Eff) 50 meq UNSCH PRN PO For Potassium 3.3 - 3.5 mEq/L; Start 08/02/17 at 21:00; Stop 08/08/17 at 15:22; Status DC Potassium Chloride 100 ml @ 25 mls/hr UNSCH PRN IV For Potassium 3.3 - 3.5 mEq /L; Start 08/02/17 at 21:00; Stop 08/08/17 at 15:22; Status DC Potassium Chloride 100 ml @ 50 mls/hr Q2H PRN IV For Potassium 3.3 - 3.5 mEq/L ; Start 08/02/17 at 21:00; Stop 08/08/17 at 15:22; Status DC Magnesium Sulfate 4 gm/Sodium Chloride 100 ml @ 50 mls/hr UNSCH PRN IV For Magnesium 0.9 - 1.1 mg/dL; Start 08/02/17 at 21:00; Stop 08/08/17 at 15:22; Status DC Magnesium Oxide (Mag-Ox) 800 mg UNSCH PRN PO For Magnesium 1.2 - 1.6 mg/dL; Start 08/02/17 at 21:00; Stop 08/08/17 at 15:22; Status DC Magnesium Sulfate 2 gm/Sodium Chloride 100 ml @ 50 mls/hr UNSCH PRN IV For Magnesium 1.2 - 1.6 mg/dL; Start 08/02/17 at 21:00; Stop 08/08/17 at 15:23; Status DC Potassium Phosphate (K-Phos) 2,000 mg Q4H PRN PO For Phosphorus < 2.5 mg/dL Last administered on 08/03/17at 08:05; Start 08/02/17 at 21:00; Stop 08/08/17 at 15:23; Status DC Sodium Phosphate 30 mmol/Sodium Chloride 250 ml @ 42 mls/hr UNSCH PRN IV For Phosphorus < 2.5 mg/dL; Start 08/02/17 at 21:00; Stop 08/08/17 at 15:23; Status DC Potassium Phosphate (K-Phos) 2,000 mg UNSCH PRN PO/TUBE SEE LABEL COMMENTS; Start 08/02/17 at 21:00; Stop 08/08/17 at 15:23; Status DC Potassium Phosphate 30 mmol/ Sodium Chloride 260 ml @ 42 mls/hr UNSCH PRN IV SEE LABEL COMMENTS; Start 08/02/17 at 21:00; Stop 08/08/17 at 15:23; Status DC Chlorhexidine Gluconate (Peridex 0.12% Liq) 15 ml BID@08,20 MT Last administered on 08/05/17at 20:00; Start 08/03/17 at 08:00 Propofol 100 ml @ 2.46 mls/hr TITRATE PRN IV SEDATION Last administered on at 02:25; Start 08/02/17 at 21:00; Stop 08/05/17 at 12:27; Status DC Sodium Chloride (NS Flush) 2 ml UNSCH PRN IV FLUSH FLUSH AFTER USING IV ACCESS ; Start 08/02/17 at 21:00; Stop 08/02/17 at 21:47; Status DC Sodium Chloride (NS Flush) 2 ml BID IV FLUSH ; Start 08/02/17 at 21:00; Stop at 21:47; Status DC Acetaminophen (Tylenol) 650 mg Q6H PRN PO PAIN 1-5 AND/OR FEVER >101F Last administered on 08/04/17at 12:43; Start 08/02/17 at 21:00 Fentanyl Citrate (fentaNYL INJ) 50 mcg Q1H PRN IV PUSH Pain scale 6-10 &/or sedation; Start 08/02/17 at 21:00; Stop 08/03/17 at 06:48; Status DC Famotidine (Pepcid Inj) 20 mg Q12HR IV PUSH Last administered on 08/05/17at 09: 06; Start 08/02/17 at 21:00; Stop 08/05/17 at 12:27; Status DC Famotidine (Pepcid) 20 mg Q12HR PO Last administered on 08/10/17 09:09; Start 08/02/17 at 21:00 Lorazepam (Ativan Inj) 2 mg Q5M PRN IV PUSH SEIZURE; Start 08/02/17 at 21:00; Stop 08/03/17 at 06:48; Status DC Ondansetron HCl (Zofran Inj) 4 mg Q6H PRN IV PUSH NAUSEA OR VOMITING; Start at 21:00 Albuterol/ Ipratropium (Duoneb Neb) 1 ampule Q6HR NEB INH Last administered on 08/06/17at 04:02; Start 08/02/17 at 22:00; Stop 08/06/17 at 06:11; Status DC Albuterol Sulfate (Albuterol Neb) 2.5 mg Q2HR NEB PRN INH SOB/WHEEZING Last administered on 08/09/17 23:17; Start 08/02/17 at 21:00 Enoxaparin Sodium (Lovenox Inj) 40 mg Q24H SQ Last administered on 08/09/17 21: 23; Start 08/02/17 at 22:00 Miscellaneous Information 1 [id number] Last administered on 08/02/17at 21:00; Start 08/02/17 at 21:00 Chlorhexidine Gluconate (Chlorhexidine 2% Cloth) Taper DAILY@04 TOP Last administered on 08/07/17at 03:35; Start 08/03/17 at 04:00; Stop 07/30/18 at 03:59 Chlorhexidine Gluconate (Chlorhexidine 2% Cloth) 3 pack UNSCH PRN TOP HYGIENIC CARE; Start 08/02/17 at 21:00 Senna/Docusate Sodium (Candy-Colace) 1 tab BID PO Last administered on 08/10/17at 09:09; Start 08/02/17 at 21:00 Magnesium Hydroxide (Milk Of Magnesia Liq) 30 ml Q12H PRN PO Mild constipation ; Start 08/02/17 at 21:00 Sennosides (Senokot) 17.2 mg Q12H PRN PO Moderate constipation; Start 08/02/17 at 21:00 Bisacodyl (Dulcolax Supp) 10 mg DAILY PRN RECTAL SEVERE CONSITIPATION; Start at 21:00 Lactulose (Lactulose Liq) 30 ml DAILY PRN PO SEVERE CONSITIPATION; Start at 21:00 Sodium Chloride (NS Flush) 2 ml UNSCH PRN IV FLUSH FLUSH AFTER USING IV ACCESS ; Start 08/02/17 at 21:15; Stop 08/03/17 at 06:48; Status DC Sodium Chloride (NS Flush) 2 ml BID IV FLUSH ; Start 08/03/17 at 09:00; Stop at 09:00; Status DC Flumazenil (Romazicon Inj) 0.2 mg Q1M PRN IV PUSH SEE LABEL COMMENTS; Start at 21:15; Stop 08/03/17 at 06:48; Status DC Lorazepam (Ativan) 1 mg Q4H PRN PO CIWA 8 - 10; Start 08/02/17 at 21:15; Stop 08/03/17 at 06:48; Status DC Lorazepam (Ativan Inj) 1 mg Q4H PRN IV PUSH CIWA 8 - 10; Start 08/02/17 at 21: 15; Stop 08/03/17 at 06:48; Status DC Lorazepam (Ativan) 2 mg Q2H PRN PO CIWA 11-14; Start 08/02/17 at 21:15; Stop at 06:48; Status DC Lorazepam (Ativan Inj) 2 mg Q2H PRN IV PUSH CIWA 11-14 Last administered on at 06:26; Start 08/02/17 at 21:15; Stop 08/03/17 at 06:48; Status DC Lorazepam (Ativan Inj) 2 mg Q1H PRN IV PUSH CIWA 15-20 Last administered on at 03:58; Start 08/02/17 at 21:15; Stop 08/03/17 at 04:11; Status DC Lorazepam (Ativan Inj) 2 mg Q15M PRN IV PUSH CIWA > 20 Last administered on at 05:35; Start 08/02/17 at 21:15; Stop 08/03/17 at 06:48; Status DC Chlordiazepoxide (Librium) 25 mg Q8H OG-TUBE Last administered on 08/02/17at 22: 18; Start 08/02/17 at 22:00; Stop 08/03/17 at 05:30; Status DC Diazepam (Valium) 10 mg ONCE ONCE OG-TUBE Last administered on 08/03/17at 04:48 ; Start 08/03/17 at 04:15; Stop 08/03/17 at 04:16; Status DC Lorazepam (Ativan Inj) 4 mg Q1H PRN IV PUSH CIWA 15-20; Start 08/03/17 at 04:15 ; Stop 08/03/17 at 06:48; Status DC Lorazepam (Ativan Inj) 4 mg ONCE ONCE IV PUSH ; Start 08/03/17 at 04:15; Stop 08/03/17 at 04:16; Status DC Chlordiazepoxide (Librium) 50 mg Q8H OG-TUBE Last administered on 08/03/17at 05: 36; Start 08/03/17 at 06:00; Stop 08/03/17 at 06:48; Status DC Dexmedetomidine HCl 200 mcg/ Sodium Chloride 52 ml @ 4.26 mls/hr TITRATE PRN IV SEDATION Last administered on 08/03/17at 07:03; Start 08/03/17 at 06:45; Stop 08/03/17 at 07:07; Status DC Diazepam (Valium) 20 mg Q8HR PO ; Start 08/03/17 at 07:00; Status Cancel Quetiapine Fumarate (SEROquel) 100 mg Q8H PO Last administered on 08/05/17at 06: 24; Start 08/03/17 at 07:00; Stop 08/05/17 at 12:27; Status DC Haloperidol Lactate (Haldol Inj) 5 mg Q4H PRN IV PUSH agitation Last administered on 08/06/17at 04:28; Start 08/03/17 at 07:00; Stop 08/06/17 at 14:47 ; Status DC Clonidine (Catapres) 0.3 mg Q8HR PO Last administered on 08/10/17at 05:53; Start 08/03/17 at 07:00 Diazepam (Valium) 20 mg Q8HR PO Last administered on 08/05/17at 14:41; Start at 07:00; Stop 08/05/17 at 19:18; Status DC Dexmedetomidine HCl 1000 mcg/ Sodium Chloride 250 ml @ 4.1 mls/hr TITRATE PRN IV SEDATION Last administered on 08/05/17at 05:08; Start 08/03/17 at 07:15; Stop 08/05/17 at 19:18; Status DC Gabapentin (Neurontin) 800 mg BID PO ; Start 08/03/17 at 09:00; Stop 08/03/17 at 09:00; Status DC Gabapentin (Neurontin) 300 mg Q8H OG-TUBE Last administered on 08/10/17at 09:09; Start 08/03/17 at 09:00 Dextrose (D50w (Syr) Inj) 50 ml STK-MED ONCE .ROUTE Last administered on at 14:42; Start 08/05/17 at 14:10; Stop 08/05/17 at 14:11; Status DC Diazepam (Valium) 15 mg Taper Q8H PO Last administered on 08/06/17at 13:50; Start 08/05/17 at 22:00; Stop 08/06/17 at 14:47; Status DC Flumazenil (Romazicon Inj) 0.2 mg Q1M PRN IV PUSH SEE LABEL COMMENTS; Start at 03:45 Lorazepam (Ativan) 1 mg Q4H PRN PO CIWA 8 - 10 Last administered on 08/09/17at 16 :34; Start 08/06/17 at 03:45 Lorazepam (Ativan Inj) 1 mg Q4H PRN IV PUSH CIWA 8 - 10 Last administered on 08/08/17at 10:36; Start 08/06/17 at 03:45 Lorazepam (Ativan) 2 mg Q2H PRN PO CIWA 11-14 Last administered on 08/10/17at 05: 53; Start 08/06/17 at 03:45 Lorazepam (Ativan Inj) 2 mg Q2H PRN IV PUSH CIWA 11-14 Last administered on 08/09at 03:16; Start 08/06/17 at 03:45 Lorazepam (Ativan Inj) 2 mg Q1H PRN IV PUSH CIWA 15-20 Last administered on at 20:04; Start 08/06/17 at 03:45 Lorazepam (Ativan Inj) 2 mg Q15M PRN IV PUSH CIWA > 20 Last administered on at 21:37; Start 08/06/17 at 03:45 Albuterol/ Ipratropium (Duoneb Neb) 1 ampule Q6HR NEB INH Last administered on 08/10/17at 09:20; Start 08/06/17 at 10:00; Stop 08/10/17 at 09:59; Status DC Chlordiazepoxide (Librium) 25 mg TID PRN PO SEVERE ANXIETY OR AGITATION Last administered on 08/10/17at 09:10; Start 08/09/17 at 12:45 A/P Problem List: (1) Acute respiratory failure ICD Code: J96.00 - Acute respiratory failure, unspecified whether with hypoxia or hypercapnia Status: Acute (2) Alcohol intoxication ICD Code: F10.129 - Alcohol abuse with intoxication, unspecified Status: Acute (3) Alcohol dependence ICD Code: F10.20 - Alcohol dependence, uncomplicated Status: Chronic (4) Laceration of cheek, right ICD Code: S01.411A - Laceration without foreign body of right cheek and temporomandibular area, initial encounter Status: Acute (5) Polysubstance abuse ICD Code: F19.10 - Polysubstance abuse Status: Chronic (6) Transaminitis ICD Code: R74.0 - Elevated transaminase measurement Status: Chronic (7) ALCOHOL DEPENDENCE WITH WITHDRAWAL DELIRIUM ICD Code: F10.231 - ALCOHOL DEPENDENCE WITH WITHDRAWAL DELIRIUM Status: Acute (8) Fall ICD Code: W19.XXXA - Unspecified fall, initial encounter Status: Acute (9) Hypoglycemia ICD Code: E16.2 - Hypoglycemia, unspecified Status: Acute Assessment and Plan Assessment and Plan 56-year-old male admitted secondary to alcohol withdrawal with seizure activity and respiratory failure. No signs of return of respiratory failure. Start physical therapy. Continue to treat delirium tremens and monitor for improvement. Alcohol dependence Alcohol withdrawal with alcohol withdrawal seizure Polysubstance abuse Bipolar disorder Severe Agitated Delirium Delirium Tremens Transitioned to CIWA protocol Continue Seroquel Monitor for further seizure activity MVI/folic acid/thiamine supplementation Consult psychiatry add Librium Laceration R cheek s/p laceration repair 08/03. Remove sutures in between 08/07/17 and 08/09/17 Acute hypoxia hypercarbic respiratory failure Resolved, patient extubated Oxygen supplementation as needed Acute protein calorie malnutrition Continue thiamine Continue multivitamin Diet as tolerated DVT prophylaxis Lovenox REMAINS CONFUSED WILL NEED SNF VS INPT PSYCHIATRY DW RN AND PT AND CM Discharge Planning Pending improvement FROM WITHDRAWALS Problem Qualifiers (1) Fall: Qualified Codes: W19.XXXA - Unspecified fall, initial encounter Steven Perez DO Aug 10, 2017 11:06
[2017-08-10 11:52] LABS: HEMOGLOBIN A1C 5.8 % (4.3-6.0)
[2017-08-10] MEDS: ACETAMINOPHEN 325 MG TAB PO PRN (16:15)
[2017-08-10] MEDS: LORazepam 1 MG TAB PO PRN (16:50)
[2017-08-10] MEDS: RESP: ALBUTEROL 2.5 MG/3 ML NEB (PRN) INH ×2 (17:55→20:37)
[2017-08-10] MEDS: MULTIVITAMIN INJ 10 ML, THIAMINE INJ 100 MG, FOLIC ACID INJ 1 MG in SODIUM CHLOR 0.45% ... IV SCH (21:11)
[2017-08-10] MEDS: ENOXAPARIN SODIUM 40 MG/0.4 ML SYRINGE SQ SCH (21:12)
[2017-08-11] VITALS: BP 121/75; PULSE 90; RESP 15; TEMP 98.1; O2SAT 94
[2017-08-11] MEDS: GABAPENTIN 300 MG CAP OG-TUBE SCH ×3 (01:15→17:34)
[2017-08-11 04:00] VITALS: BP 138/72; PULSE 92; RESP 15; TEMP 96.1; O2SAT 95
[2017-08-11] MEDS: CHLORHEXIDINE GLUCONATE 2 % 1 PACK (2 CLOTHS) TOP SCH ×2 (04:00→21:12)
[2017-08-11] MEDS: LORazepam 2 MG/ML VIAL IV PUSH PRN (04:02)
[2017-08-11] MEDS: cloNIDine HCL 0.3 MG TAB PO SCH ×3 (04:11→21:10)
[2017-08-11] MEDS: chlordiazePOXIDE 25 MG CAP PO PRN ×3 (04:12→21:11)
[2017-08-11 06:11] LABS: AUTOMATED NEUTROPHIL # 5.1 TH/MM3 (1.8-7.7); BASOPHIL % 0.6 % (0.0-2.0); EOSINOPHIL # 0.4 TH/MM3 (0-0.4); EOSINOPHIL % 4.6 % (0.0-4.0); HEMATOCRIT 43.2 % (39.0-51.0); HEMOGLOBIN 14.9 GM/DL (13.0-17.0); LYMPH % 16.6 % (9.0-44.0); LYMPHOCYTE # 1.3 TH/MM3 (1.0-4.8); MEAN CELL VOLUME 91.2 FL (80.0-100.0); MEAN CORPUSCULAR HEMOGLOBIN 31.5 PG (27.0-34.0); MEAN CORPUSCULAR HGB CONC 34.6 % (32.0-36.0); MONO % 13.3 % (0.0-8.0); NEUT % 64.9 % (16.0-70.0); PLATELET COUNT 263 TH/MM3 (150-450); RED BLOOD COUNT 4.74 MIL/MM3 (4.50-5.90); RED CELL DISTRIBUTION WIDTH 13.7 % (11.6-17.2); WHITE BLOOD COUNT 7.9 TH/MM3 (4.0-11.0)
[2017-08-11 06:41] LABS: ALBUMIN 2.6 GM/DL (3.4-5.0); AST (GOT) 27 U/L (15-37); BICARBONATE 25.3 MEQ/L (21.0-32.0); BLOOD UREA NITROGEN 13 MG/DL (7-18); CALCIUM 8.9 MG/DL (8.5-10.1); CHLORIDE 109 MEQ/L (98-107); CREATININE 0.75 MG/DL (0.60-1.30); GLOMERULAR FILTRATION RATE 107 ML/MIN (>89); GLUCOSE,RANDOM 105 MG/DL (74-106); MAGNESIUM 2.1 MG/DL (1.5-2.5); SODIUM (NA) 141 MEQ/L (136-145)
[2017-08-11 06:42] LABS: ALT (GPT) 48 U/L (12-78)
[2017-08-11 06:45] LABS: ALKALINE PHOSPHATASE 56 U/L (45-117); PHOSPHORUS 3.1 MG/DL (2.5-4.9); TOTAL BILIRUBIN ADULT 0.4 MG/DL (0.2-1.0); TOTAL PROTEIN 7.6 GM/DL (6.4-8.2)
[2017-08-11] MEDS: CHLORHEXIDINE 0.12% (ORAL KIT) 15 ML CUP MT SCH ×2 (07:52→20:00)
[2017-08-11] MEDS: DOCUSATE SODIUM 50 MG/SENNA 8.6 MG TAB PO SCH ×2 (07:54→21:00)
[2017-08-11] MEDS: FAMOTIDINE 20 MG TAB PO SCH ×2 (07:54→21:10)
[2017-08-11 08:00] VITALS: BP 115/60; PULSE 71; RESP 18; TEMP 97; O2SAT 96
--- NOTE | 2017-08-11 09:27 | HHI.PR ---
Subjective Remarks in no acute distress. noted that was on four-point restraints. reportedly has on and off hallucinations. d/w the RN. Objective Vitals Vital Signs Date Time Temp Pulse Resp B/P (MAP) Pulse Ox O2 Delivery O2 Flow Rate FiO2 08/11/17 08:00 97.0 71 18 115/60 (78) 96 08/11/17 04:00 96.1 92 15 138/72 (94) 95 08/11/17 00:00 98.1 90 15 121/75 (90) 94 08/10/17 20:00 97.9 101 14 119/74 (89) 93 08/10/17 16:00 96.4 82 20 127/74 (91) 92 08/10/17 12:00 96.0 94 20 122/79 (93) 93 I/O 08/10/17 08/10/17 08/10/17 08/11/17 08/11/17 08/11/17 07:00 15:00 23:00 07:00 15:00 23:00 Intake Total 120 ml 511 ml 600 ml 991.2 ml Output Total 625 ml 450 ml 600 ml Balance -505 ml 511 ml 150 ml 391.2 ml Intake Oral 120 ml 600 ml 480 ml IV Total 511 ml 511.2 ml Output Urine Total 625 ml 450 ml 600 ml # Voids 1 4 # Bowel Movements 0 1 2 Result Diagram: 08/11/17 0549 08/11/17 0549 Imaging Last Impressions Head CT 08/03/17 0000 Signed Impressions: Service Date/Time: Friday, August 04, 2017 17:23 - CONCLUSION: 1. No acute hemorrhage or mass effect. 2. Mucosal thickening in the paranasal sinuses and air-fluid levels in the maxillary sinuses. Alex Vital MD Maxillofacial CT 08/02/17 0000 Signed Impressions: Service Date/Time: Wednesday, August 02, 2017 18:36 - CONCLUSION: 1. Motion degraded study. No evidence of an acute fracture. 2. Old comminuted fracturing of the nose again seen. 3. Chronic sinusitis. Fermín Wagner MD Chest X-Ray 08/02/17 0000 Signed Impressions: Service Date/Time: Wednesday, August 02, 2017 18:26 - CONCLUSION: 1. Appropriately positioned endotracheal tube tip, 4 cm above the krystina. 2. Tip of the nasogastric tube is in the lower esophagus slightly above the GE junction. 3. Trace bibasilar atelectasis. No pneumothorax. Fermín Wagner MD Cervical Spine CT 08/02/17 0000 Signed Impressions: Service Date/Time: Friday, August 02, 2017 18:35 - CONCLUSION: Intact cervical spine. Mild degenerative changes again noted at C3/C4. Fermín Wagner MD Objective Remarks GENERAL: This is a well-nourished, well-developed patient, in no apparent distress. CARDIOVASCULAR: Regular rate and regular rhythm without murmurs, gallops, or rubs. RESPIRATORY: Clear to auscultation. Breath sounds equal bilaterally. No wheezes , rales, or rhonchi. GASTROINTESTINAL: Abdomen soft, non-tender, nondistended. Normal, active bowel sounds MUSCULOSKELETAL: Extremities without clubbing, cyanosis, or edema. NEURO: awake and alert. Medications and IVs Inpatient Medications Acetaminophen (Tylenol) 650 mg Q6H PRN PO PAIN 1-5 AND/OR FEVER >101F Last administered on 08/10/17 16:15; Start 08/02/17 at 21:00 Albuterol Sulfate (Albuterol Neb) 2.5 mg Q2HR NEB PRN INH SOB/WHEEZING Last administered on 08/10/17 20:37; Start 08/02/17 at 21:00 Albuterol/ Ipratropium (Duoneb Neb) 1 ampule Q6HR NEB INH Last administered on 08/10/17 09:20; Start 08/06/17 at 10:00; Stop 08/10/17 at 09:59; Status DC Bisacodyl (Dulcolax Supp) 10 mg DAILY PRN RECTAL SEVERE CONSITIPATION; Start at 21:00 Chlordiazepoxide (Librium) 25 mg TID PRN PO SEVERE ANXIETY OR AGITATION Last administered on 08/11/17at 04:12; Start 08/09/17 at 12:45 Chlorhexidine Gluconate (Chlorhexidine 2% Cloth) 3 pack UNSCH PRN TOP HYGIENIC CARE; Start 08/02/17 at 21:00 Chlorhexidine Gluconate (Peridex 0.12% Liq) 15 ml BID@08,20 MT Last administered on 08/05/17at 20:00; Start 08/03/17 at 08:00 Clonidine (Catapres) 0.3 mg Q8HR PO Last administered on 08/11/17at 04:11; Start 08/03/17 at 07:00 Dexmedetomidine HCl 1000 mcg/ Sodium Chloride 250 ml @ 4.1 mls/hr TITRATE PRN IV SEDATION Last administered on 08/05/17at 05:08; Start 08/03/17 at 07:15; Stop 08/05/17 at 19:18; Status DC Dexmedetomidine HCl 200 mcg/ Sodium Chloride 52 ml @ 4.26 mls/hr TITRATE PRN IV SEDATION Last administered on 08/03/17at 07:03; Start 08/03/17 at 06:45; Stop 08/03/17 at 07:07; Status DC Dextrose (D50w (Vial) Inj) 25 ml ONCE ONCE IV PUSH Last administered on at 22:19; Start 08/02/17 at 20:45; Stop 08/02/17 at 21:46; Status DC Diazepam (Valium) 15 mg Taper Q8H PO Last administered on 08/06/17at 13:50; Start 08/05/17 at 22:00; Stop 08/06/17 at 14:47; Status DC Enoxaparin Sodium (Lovenox Inj) 40 mg Q24H SQ Last administered on 08/10/17at 21: 12; Start 08/02/17 at 22:00 Famotidine (Pepcid Inj) 20 mg Q12HR IV PUSH Last administered on 08/05/17at 09: 06; Start 08/02/17 at 21:00; Stop 08/05/17 at 12:27; Status DC Famotidine (Pepcid) 20 mg Q12HR PO Last administered on 08/11/17at 07:54; Start 08/02/17 at 21:00 Fentanyl Citrate (fentaNYL INJ) 50 mcg Q1H PRN IV PUSH Pain scale 6-10 &/or sedation; Start 08/02/17 at 21:00; Stop 08/03/17 at 06:48; Status DC Flumazenil (Romazicon Inj) 0.2 mg Q1M PRN IV PUSH SEE LABEL COMMENTS; Start at 03:45 Gabapentin (Neurontin) 300 mg Q8H OG-TUBE Last administered on 08/11/17at 07:54; Start 08/03/17 at 09:00 Haloperidol Lactate (Haldol Inj) 5 mg Q4H PRN IV PUSH agitation Last administered on 08/06/17at 04:28; Start 08/03/17 at 07:00; Stop 08/06/17 at 14:47 ; Status DC Lactulose (Lactulose Liq) 30 ml DAILY PRN PO SEVERE CONSITIPATION; Start at 21:00 Lorazepam (Ativan Inj) 2 mg Q15M PRN IV PUSH CIWA > 20 Last administered on at 21:37; Start 08/06/17 at 03:45 Lorazepam (Ativan) 2 mg Q2H PRN PO CIWA 11-14 Last administered on 08/10/17at 05: 53; Start 08/06/17 at 03:45 Magnesium Hydroxide (Milk Of Magnesia Liq) 30 ml Q12H PRN PO Mild constipation ; Start 08/02/17 at 21:00 Magnesium Oxide (Mag-Ox) 800 mg UNSCH PRN PO For Magnesium 1.2 - 1.6 mg/dL; Start 08/02/17 at 21:00; Stop 08/08/17 at 15:22; Status DC Magnesium Sulfate 2 gm/Sodium Chloride 100 ml @ 50 mls/hr UNSCH PRN IV For Magnesium 1.2 - 1.6 mg/dL; Start 08/02/17 at 21:00; Stop 08/08/17 at 15:23; Status DC Magnesium Sulfate 4 gm/Sodium Chloride 100 ml @ 50 mls/hr UNSCH PRN IV For Magnesium 0.9 - 1.1 mg/dL; Start 08/02/17 at 21:00; Stop 08/08/17 at 15:22; Status DC Miscellaneous Information 1 Q361D XX Last administered on 08/02/17at 21:00; Start 08/02/17 at 21:00 Multivitamins 10 ml/Thiamine HCl 100 mg/Folic Acid 1 mg/Sodium Chloride 511.2 ml @ 125 mls/hr Q24H IV Last administered on 08/10/17at 21:11; Start 08/03/17 at 22:00 Ondansetron HCl (Zofran Inj) 4 mg Q6H PRN IV PUSH NAUSEA OR VOMITING; Start at 21:00 Potassium Phosphate (K-Phos) 2,000 mg UNSCH PRN PO/TUBE SEE LABEL COMMENTS; Start 08/02/17 at 21:00; Stop 08/08/17 at 15:23; Status DC Potassium Phosphate 30 mmol/ Sodium Chloride 260 ml @ 42 mls/hr UNSCH PRN IV SEE LABEL COMMENTS; Start 08/02/17 at 21:00; Stop 08/08/17 at 15:23; Status DC Potassium Bicarb/ Potassium Chloride (K-Lyte Cl Eff) 50 meq UNSCH PRN PO For Potassium 3.3 - 3.5 mEq/L; Start 08/02/17 at 21:00; Stop 08/08/17 at 15:22; Status DC Potassium Chloride 100 ml @ 50 mls/hr Q2H PRN IV For Potassium 3.3 - 3.5 mEq/L ; Start 08/02/17 at 21:00; Stop 08/08/17 at 15:22; Status DC Potassium Cl/ Dextrose/Lact Ringer's 1,000 ml @ 100 mls/hr Q10H IV Last administered on 08/05/17at 01:07; Start 08/02/17 at 20:45; Stop 08/05/17 at 12:27 ; Status DC Propofol 100 ml @ 2.46 mls/hr TITRATE PRN IV SEDATION Last administered on at 02:25; Start 08/02/17 at 21:00; Stop 08/05/17 at 12:27; Status DC Quetiapine Fumarate (SEROquel) 100 mg Q8H PO Last administered on 08/05/17at 06: 24; Start 08/03/17 at 07:00; Stop 08/05/17 at 12:27; Status DC Senna/Docusate Sodium (Candy-Colace) 1 tab BID PO Last administered on 08/11/17at 07:54; Start 08/02/17 at 21:00 Sennosides (Senokot) 17.2 mg Q12H PRN PO Moderate constipation; Start 08/02/17 at 21:00 Sodium Chloride (NS Flush) 2 ml BID IV FLUSH ; Start 08/03/17 at 09:00; Stop at 09:00; Status DC Sodium Phosphate 30 mmol/Sodium Chloride 250 ml @ 42 mls/hr UNSCH PRN IV For Phosphorus < 2.5 mg/dL; Start 08/02/17 at 21:00; Stop 08/08/17 at 15:23; Status DC A/P Problem List: (1) Acute respiratory failure ICD Code: J96.00 - Acute respiratory failure, unspecified whether with hypoxia or hypercapnia Status: Acute (2) Alcohol intoxication ICD Code: F10.129 - Alcohol abuse with intoxication, unspecified Status: Acute (3) Alcohol dependence ICD Code: F10.20 - Alcohol dependence, uncomplicated Status: Chronic (4) Laceration of cheek, right ICD Code: S01.411A - Laceration without foreign body of right cheek and temporomandibular area, initial encounter Status: Acute (5) Polysubstance abuse ICD Code: F19.10 - Polysubstance abuse Status: Chronic (6) Transaminitis ICD Code: R74.0 - Elevated transaminase measurement Status: Chronic (7) ALCOHOL DEPENDENCE WITH WITHDRAWAL DELIRIUM ICD Code: F10.231 - ALCOHOL DEPENDENCE WITH WITHDRAWAL DELIRIUM Status: Acute (8) Fall ICD Code: W19.XXXA - Unspecified fall, initial encounter Status: Acute (9) Hypoglycemia ICD Code: E16.2 - Hypoglycemia, unspecified Status: Acute Assessment and Plan Alcohol dependence Alcohol withdrawal with alcohol withdrawal seizure Polysubstance abuse Bipolar disorder Severe Agitated Delirium Delirium Tremens Transitioned to CIWA protocol Continue Seroquel Monitor for further seizure activity MVI/folic acid/thiamine supplementation continue librium- will add Haldol prn. Consulted psychiatry Laceration R cheek s/p laceration repair 08/03. Acute hypoxia/hypercarbic respiratory failure Resolved. Oxygen supplementation as needed Acute protein calorie malnutrition Continue thiamine Continue multivitamin Diet as tolerated DVT prophylaxis Lovenox Discharge Planning still on restraints. awaiting psych evaluation. Problem Qualifiers (1) Fall: Qualified Codes: W19.XXXA - Unspecified fall, initial encounter Michelle Reyes MD Aug 11, 2017 09:27
--- NOTE | 2017-08-11 10:20 | PD.PSY.CON ---
Provisional Diagnosis Admission Date Aug 02, 2017 at 19:33 [place] I. Polysubstance dependence, including amphetamines, cocaine, alcohol, cannabis, history of bipolar disorder [place] II. Unspecified personality disorder [place] III. Hypertension History of Present Illness Service Psychiatry Consult Requested By Medical team Reason for Consult Agitation Primary Care Physician Unknown HPI Note is documented a day after the patient was seen. Patient seen August 10, 2017 4:30 PM. The patient is a 56-year-old man, he is homeless, unemployed, single, with psychiatric history of self reported bipolar disorder, no previous psychiatric hospitalizations, no previous suicidal attempts, he has an extensive history of polysubstance dependence, including alcohol, amphetamines, cocaine and cannabis , patient has history of aggressive behavior, poor impulse control, incarcerations, she has medical history hypertension, who presented to [facility] emergency department by [facility] after he was found in the street intoxicated. He was initially conversant upon arrival and then got up and was urinating on the floor and then fell in the ED. He then had decreased level of consciousness with seizure vs tremor vs ?posturing. He was intubated for airway protection and underwent CT brain, CT C-spine, CT maxillofacial which demonstrated no acute abnormality. There was an old comminuted nasal fracture. He is afebrile without leukocytosis. Glucose is 67. I have ordered D50. He is following commands on sedation with propofol. Consulted to psychiatry due to agitation and disorganized behavior. Chart was reviewed. No collateral information available. On psychiatric evaluation today the patient is very disorganized, agitated, he is restrained in 4 points due to the level of disorganization and restlessness. He is just able to provide some limited information due to the level of psychosis. She is just partially oriented. Denies suicidal and homicidal ideation, he denies visual and auditory hallucinations. He told me that he uses cocaine almost every day, alcohol every day at least 6 beers. He has an extensive history of withdrawal, DTs, detox/rehabilitation programs. Review of Systems Constitutional: DENIES: Diaphoretic episodes, Fatigue, Fever, Weight gain, Weight loss, Chills, Dizziness, Change in appetite, Night Sweats Endocrine: DENIES: Heat/cold intolerance, Polydipsia, Polyuria, Polyphagia Eyes: DENIES: Blurred vision, Diplopia, Eye inflammation, Eye pain, Vision loss , Photosensitivity, Double Vision Ears, nose, mouth, throat: DENIES: Tinnitus, Hearing loss, Vertigo, Nasal discharge, Oral lesions, Throat pain, Hoarseness, Ear Pain, Running Nose, Epistaxis, Sinus Pain, Toothache, Odynophagia Respiratory: DENIES: Apneas, Cough, Snoring, Wheezing, Hemoptysis, Sputum production, Shortness of breath Cardiovascular: DENIES: Chest pain, Palpitations, Syncope, Dyspnea on Exertion , PND, Lower Extremity Edema, Orthopnea, Claudication Gastrointestinal: DENIES: Abdominal pain, Black stools, Bloody stools, Constipation, Diarrhea, Nausea, Vomiting, Difficulty Swallowing, Anorexia Genitourinary: DENIES: Sexual dysfunction, Urinary frequency, Urinary incontinence, Urgency, Hematuria, Dysuria, Nocturia, Penile Discharge, Testicular Pain, Testicular Swelling Musculoskeletal: DENIES: Joint pain, Muscle aches, Stiffness, Joint Swelling, Back pain, Neck pain Integumentary: DENIES: Abnormal pigmentation, Nail changes, Pruritus, Rash Hematologic/lymphatic: DENIES: Bruising, Lymphadenopathy Immunologic/allergic: DENIES: Eczema, Urticaria Neurologic: DENIES: Abnormal gait, Headache, Localized weakness, Paresthesias, Seizures, Speech Problems, Tremor, Poor Balance Psychiatric: DENIES: Anxiety, Confusion, Mood changes, Depression, Hallucinations, Agitation, Suicidal Ideation, Homicidal Ideation, Delusions Past Family Social History Coded Allergies: *MDRO Multi-Drug Resistant Organism (Verified Adverse Reaction, Unknown, 06/24/17) MRSA (elbow & knee wound) - 04/18/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 Space doses at least 4 to 6 hours if more than once/day dosing. 11/05/16 Quetiapine (Seroquel) 100 Mg Tab, 100 MG PO DAILY, #60 TAB 0 Refills 05/11/16 Quetiapine (Seroquel) 400 Mg Tab, 400 MG PO HS, #30 TAB 0 Refills 05/11/16 Bupropion HCl ER 12 HR (Wellbutrin SR 12 HR) 150 Mg Tab, 150 MG PO Q12HR for Control Depression, TAB 0 Refills 05/11/16 Gabapentin (Neurontin) 800 Mg Tab, 800 MG PO BID, #90 TAB 0 Refills 05/11/16 Current Medications Medications (Trade) Dose Ordered Sig/Sayra Route Start Time Stop Time Status Last Admin Multivitamins 10 ml/Thiamine HCl 100 mg/Folic Acid 1 mg/Sodium Chloride 511.2 ml @ 125 mls/hr Q24H IV 08/03/17 22:00 08/10/17 21:11 (Peridex 0.12% Liq) 15 ml BID@08,20 MT 08/03/17 08:00 08/05/17 20:00 (Tylenol) 650 mg Q6H PRN PO 08/02/17 21:00 08/10/17 16:15 (Pepcid) 20 mg Q12HR PO 08/02/17 21:00 08/11/17 07:54 (Zofran Inj) 4 mg Q6H PRN IV PUSH 08/02/17 21:00 (Albuterol Neb) 2.5 mg Q2HR NEB PRN INH 08/02/17 21:00 08/10/17 20:37 (Lovenox Inj) 40 mg Q24H SQ 08/02/17 22:00 08/10/17 21:12 Miscellaneous Information 1 Q361D XX 08/02/17 21:00 08/02/17 21:00 (Chlorhexidine 2% Cloth) Taper DAILY@04 TOP 08/03/17 04:00 07/30/18 03:59 08/07/17 03:35 (Chlorhexidine 2% Cloth) 3 pack UNSCH PRN TOP 08/02/17 21:00 (Candy-Colace) 1 tab BID PO 08/02/17 21:00 08/11/17 07:54 (Milk Of Magnesia Liq) 30 ml Q12H PRN PO 08/02/17 21:00 (Senokot) 17.2 mg Q12H PRN PO 08/02/17 21:00 (Dulcolax Supp) 10 mg DAILY PRN RECTAL 08/02/17 21:00 (Lactulose Liq) 30 ml DAILY PRN PO 08/02/17 21:00 (Catapres) 0.3 mg Q8HR PO 08/03/17 07:00 08/11/17 04:11 (Neurontin) 300 mg Q8H OG-TUBE 08/03/17 09:00 08/11/17 07:54 (Romazicon Inj) 0.2 mg Q1M PRN IV PUSH 08/06/17 03:45 (Ativan) 1 mg Q4H PRN PO 08/06/17 03:45 08/10/17 16:50 (Ativan Inj) 1 mg Q4H PRN IV PUSH 08/06/17 03:45 08/08/17 10:36 (Ativan) 2 mg Q2H PRN PO 08/06/17 03:45 08/10/17 05:53 (Ativan Inj) 2 mg Q2H PRN IV PUSH 08/06/17 03:45 08/11/17 04:02 (Ativan Inj) 2 mg Q1H PRN IV PUSH 08/06/17 03:45 08/06/17 20:04 (Ativan Inj) 2 mg Q15M PRN IV PUSH 08/06/17 03:45 08/06/17 21:37 (Librium) 25 mg TID PRN PO 08/09/17 12:45 08/11/17 09:23 (Haldol Inj) 2 mg Q6H PRN IM 08/11/17 09:30 Family Psych History He denies family psychiatric history Social History Patient was born in [place], he is homeless, single, unemployed Patient's Strengths (min. 2) Under observation Physical Exam Vital Signs Vital Signs Date Time Temp Pulse Resp B/P (MAP) Pulse Ox O2 Delivery O2 Flow Rate FiO2 08/11/17 08:00 97.0 71 18 115/60 (78) 96 08/10/17 09:24 Nasal Cannula 4.00 I/O 08/11/17 08/11/17 08/12/17 08:00 16:00 00:00 Intake Total 991.2 ml Output Total 600 ml Balance 391.2 ml Lab Results Test 08/11/17 05:49 White Blood Count 7.9 TH/MM3 Red Blood Count 4.74 MIL/MM3 Hemoglobin 14.9 GM/DL Hematocrit 43.2 % Mean Corpuscular Volume 91.2 FL Mean Corpuscular Hemoglobin 31.5 PG Mean Corpuscular Hemoglobin Concent 34.6 % Red Cell Distribution Width 13.7 % Platelet Count 263 TH/MM3 Mean Platelet Volume 8.0 FL Neutrophils (%) (Auto) 64.9 % Lymphocytes (%) (Auto) 16.6 % Monocytes (%) (Auto) 13.3 % Eosinophils (%) (Auto) 4.6 % Basophils (%) (Auto) 0.6 % Neutrophils # (Auto) 5.1 TH/MM3 Lymphocytes # (Auto) 1.3 TH/MM3 Monocytes # (Auto) 1.0 TH/MM3 Eosinophils # (Auto) 0.4 TH/MM3 Basophils # (Auto) 0.0 TH/MM3 CBC Comment DIFF FINAL Differential Comment Blood Urea Nitrogen 13 MG/DL Creatinine 0.75 MG/DL Random Glucose 105 MG/DL Total Protein 7.6 GM/DL Albumin 2.6 GM/DL Calcium Level 8.9 MG/DL Phosphorus Level 3.1 MG/DL Magnesium Level 2.1 MG/DL Alkaline Phosphatase 56 U/L Aspartate Amino Transf (AST/SGOT) 27 U/L Alanine Aminotransferase (ALT/SGPT) 48 U/L Total Bilirubin 0.4 MG/DL Sodium Level 141 MEQ/L Potassium Level 3.6 MEQ/L Chloride Level 109 MEQ/L Carbon Dioxide Level 25.3 MEQ/L Anion Gap 7 MEQ/L Estimat Glomerular Filtration Rate 107 ML/MIN Mental Status Examination Appearance: Dirty, Disheveled, Malodorous Consciousness: Clouded Orientation: Person Memory: Impaired Mood: Oppositional, Irritable Affect: Irritable Thought Process & Associations: Loose associations Thought Content: Bizarre thinking Hallucination Type: None Delusion Type: None Suicidal Ideation: No Suicidal Plan: No Suicidal Intention: No Homicidal Ideation: No Homicidal Plan: No Homicidal Intention: No Insight: Poor Judgment: Poor Assessment & Plan Problem List: (1) Polysubstance abuse ICD Codes: F19.10 - Polysubstance abuse Status: Chronic Assessment & Plan: At the moment of this evaluation the patient is very disorganized, agitated, restless, unable to provide a lot of information for the psychiatric assessment. Patient definitely is in acute alcohol withdrawal. My recommendation would be continuing the CIWA protocol, Librium 25 mg 4 times per day, to be tapered down by 25% every day recommended. For agitation Seroquel 25 mg twice a day. Haldol 5 mg IM every 8 hours when necessary severe agitation and aggressive behavior. Make sure that QTc interval is less than 480. No psychiatric hospitalization recommended at this moment. I will follow- up Assessment & Plan Estimated LOS: Jean Claude Siddiqi MD Aug 11, 2017 10:19
[2017-08-11] MEDS: HALOPERIDOL LACTATE 5 MG/ML AMP IM PRN (11:10)
[2017-08-11] MEDS: QUEtiapine FUMARATE 25 MG TAB PO SCH (11:42)
[2017-08-11 12:00] VITALS: BP 124/75; PULSE 78; RESP 18; TEMP 96.2; O2SAT 96
[2017-08-11 16:00] VITALS: BP 125/66; TEMP 98.7
[2017-08-11] MEDS: ENOXAPARIN SODIUM 40 MG/0.4 ML SYRINGE SQ SCH (21:10)
[2017-08-11] MEDS: MULTIVITAMIN INJ 10 ML, THIAMINE INJ 100 MG, FOLIC ACID INJ 1 MG in SODIUM CHLOR 0.45% ... IV SCH (21:10)
[2017-08-11 22:00] VITALS: BP 106/57; PULSE 92; RESP 20
[2017-08-12] MEDS: LORazepam 1 MG TAB PO PRN (01:42)
[2017-08-12] MEDS: GABAPENTIN 300 MG CAP OG-TUBE SCH ×3 (01:42→17:52)
[2017-08-12 04:30] LABS: HEMATOCRIT 46.3 % (39.0-51.0); HEMOGLOBIN 15.9 GM/DL (13.0-17.0); MEAN CELL VOLUME 92.2 FL (80.0-100.0); MEAN CORPUSCULAR HEMOGLOBIN 31.8 PG (27.0-34.0); MEAN CORPUSCULAR HGB CONC 34.5 % (32.0-36.0); MEAN PLATELET VOLUME 8.1 FL (7.0-11.0); PLATELET COUNT 316 TH/MM3 (150-450); RED BLOOD COUNT 5.02 MIL/MM3 (4.50-5.90); RED CELL DISTRIBUTION WIDTH 13.7 % (11.6-17.2); WHITE BLOOD COUNT 9.2 TH/MM3 (4.0-11.0)
[2017-08-12 04:56] LABS: BICARBONATE 25.7 MEQ/L (21.0-32.0); CALCIUM 8.9 MG/DL (8.5-10.1); CREATININE 0.83 MG/DL (0.60-1.30)
[2017-08-12] MEDS: chlordiazePOXIDE 25 MG CAP PO PRN (06:19)
[2017-08-12] MEDS: cloNIDine HCL 0.3 MG TAB PO SCH ×3 (06:19→22:33)
[2017-08-12] MEDS: CHLORHEXIDINE 0.12% (ORAL KIT) 15 ML CUP MT SCH ×2 (06:59→20:00)
[2017-08-12 08:00] VITALS: BP 114/68; PULSE 79; RESP 17; TEMP 96.7; O2SAT 88
[2017-08-12] MEDS: FAMOTIDINE 20 MG TAB PO SCH ×2 (08:50→22:33)
[2017-08-12] MEDS: QUEtiapine FUMARATE 25 MG TAB PO SCH ×2 (08:50→11:12)
[2017-08-12] MEDS: DOCUSATE SODIUM 50 MG/SENNA 8.6 MG TAB PO SCH ×2 (08:51→22:34)
--- NOTE | 2017-08-12 09:14 | HHI.PR ---
Subjective Remarks in no acute distress. still on restraints. afebrile. Objective Vitals Vital Signs Date Time Temp Pulse Resp B/P (MAP) Pulse Ox O2 Delivery O2 Flow Rate FiO2 08/12/17 08:00 96.7 79 17 114/68 (83) 88 08/11/17 22:03 Nasal Cannula 4.00 08/11/17 22:00 92 20 106/57 (73) 08/11/17 16:00 98.7 125/66 (85) 08/11/17 12:00 96.2 78 18 124/75 (91) 96 I/O 08/11/17 08/11/17 08/11/17 08/12/17 08/12/17 08/12/17 07:00 15:00 23:00 07:00 15:00 23:00 Intake Total 991.2 ml Output Total 600 ml Balance 391.2 ml Intake Oral 480 ml IV Total 511.2 ml Output Urine Total 600 ml # Voids 4 3 # Bowel Movements 2 Result Diagram: 08/12/17 0413 08/12/17 0413 Imaging Last Impressions Head CT 08/03/17 0000 Signed Impressions: Service Date/Time: Friday, August 04, 2017 17:23 - CONCLUSION: 1. No acute hemorrhage or mass effect. 2. Mucosal thickening in the paranasal sinuses and air-fluid levels in the maxillary sinuses. Alex Vital MD Maxillofacial CT 08/02/17 0000 Signed Impressions: Service Date/Time: Wednesday, August 02, 2017 18:36 - CONCLUSION: 1. Motion degraded study. No evidence of an acute fracture. 2. Old comminuted fracturing of the nose again seen. 3. Chronic sinusitis. Fermín Wagner MD Chest X-Ray 08/02/17 0000 Signed Impressions: Service Date/Time: Wednesday, August 02, 2017 18:26 - CONCLUSION: 1. Appropriately positioned endotracheal tube tip, 4 cm above the krystina. 2. Tip of the nasogastric tube is in the lower esophagus slightly above the GE junction. 3. Trace bibasilar atelectasis. No pneumothorax. Fermín Wagner MD Cervical Spine CT 08/02/17 0000 Signed Impressions: Service Date/Time: Wednesday, August 02, 2017 18:35 - CONCLUSION: Intact cervical spine. Mild degenerative changes again noted at C3/C4. Fermín Wagner MD Objective Remarks GENERAL: This is a well-nourished, well-developed patient, in no apparent distress. CARDIOVASCULAR: Regular rate and regular rhythm without murmurs, gallops, or rubs. RESPIRATORY: Clear to auscultation. Breath sounds equal bilaterally. No wheezes , rales, or rhonchi. GASTROINTESTINAL: Abdomen soft, non-tender, nondistended. Normal, active bowel sounds MUSCULOSKELETAL: Extremities without clubbing, cyanosis, or edema. NEURO: awake and alert. Medications and IVs Inpatient Medications Acetaminophen (Tylenol) 650 mg Q6H PRN PO PAIN 1-5 AND/OR FEVER >101F Last administered on 08/10/17 16:15; Start 08/02/17 at 21:00 Albuterol Sulfate (Albuterol Neb) 2.5 mg Q2HR NEB PRN INH SOB/WHEEZING Last administered on 08/10/17 20:37; Start 08/02/17 at 21:00 Albuterol/ Ipratropium (Duoneb Neb) 1 ampule Q6HR NEB INH Last administered on 08/10/17 09:20; Start 08/06/17 at 10:00; Stop 08/10/17 at 09:59; Status DC Bisacodyl (Dulcolax Supp) 10 mg DAILY PRN RECTAL SEVERE CONSITIPATION; Start at 21:00 Chlordiazepoxide (Librium) 25 mg TID PRN PO SEVERE ANXIETY OR AGITATION Last administered on 08/12/17 06:19; Start 08/09/17 at 12:45 Chlorhexidine Gluconate (Chlorhexidine 2% Cloth) 3 pack UNSCH PRN TOP HYGIENIC CARE; Start 08/02/17 at 21:00 Chlorhexidine Gluconate (Peridex 0.12% Liq) 15 ml BID@08,20 MT Last administered on 08/05/17 20:00; Start 08/03/17 at 08:00 Clonidine (Catapres) 0.3 mg Q8HR PO Last administered on 08/12/17 06:19; Start 08/03/17 at 07:00 Dexmedetomidine HCl 1000 mcg/ Sodium Chloride 250 ml @ 4.1 mls/hr TITRATE PRN IV SEDATION Last administered on 1/30/18at 05:08; Start 08/03/17 at 07:15; Stop 08/05/17 at 19:18; Status DC Dexmedetomidine HCl 200 mcg/ Sodium Chloride 52 ml @ 4.26 mls/hr TITRATE PRN IV SEDATION Last administered on 08/03/17at 07:03; Start 08/03/17 at 06:45; Stop 08/03/17 at 07:07; Status DC Dextrose (D50w (Vial) Inj) 25 ml ONCE ONCE IV PUSH Last administered on at 22:19; Start 08/02/17 at 20:45; Stop 08/02/17 at 21:46; Status DC Diazepam (Valium) 15 mg Taper Q8H PO Last administered on 08/06/17at 13:50; Start 08/05/17 at 22:00; Stop 08/06/17 at 14:47; Status DC Enoxaparin Sodium (Lovenox Inj) 40 mg Q24H SQ Last administered on 08/11/17at 21: 10; Start 08/02/17 at 22:00 Famotidine (Pepcid Inj) 20 mg Q12HR IV PUSH Last administered on 08/05/17at 09: 06; Start 08/02/17 at 21:00; Stop 08/05/17 at 12:27; Status DC Famotidine (Pepcid) 20 mg Q12HR PO Last administered on 08/12/17at 08:50; Start 08/02/17 at 21:00 Fentanyl Citrate (fentaNYL INJ) 50 mcg Q1H PRN IV PUSH Pain scale 6-10 &/or sedation; Start 08/02/17 at 21:00; Stop 08/03/17 at 06:48; Status DC Flumazenil (Romazicon Inj) 0.2 mg Q1M PRN IV PUSH SEE LABEL COMMENTS; Start at 03:45 Gabapentin (Neurontin) 300 mg Q8H OG-TUBE Last administered on 08/12/17at 08:50; Start 08/03/17 at 09:00 Haloperidol Lactate (Haldol Inj) 2 mg Q6H PRN IM AGITATION AND/OR HALLUCINATION Last administered on 08/11/17at 11:10; Start 08/11/17 at 09:30 Lactulose (Lactulose Liq) 30 ml DAILY PRN PO SEVERE CONSITIPATION; Start at 21:00 Lorazepam (Ativan Inj) 2 mg Q15M PRN IV PUSH CIWA > 20 Last administered on at 21:37; Start 08/06/17 at 03:45 Lorazepam (Ativan) 2 mg Q2H PRN PO CIWA 11-14 Last administered on 08/10/17at 05: 53; Start 08/06/17 at 03:45 Magnesium Hydroxide (Milk Of Magnesia Liq) 30 ml Q12H PRN PO Mild constipation ; Start 08/02/17 at 21:00 Magnesium Oxide (Mag-Ox) 800 mg UNSCH PRN PO For Magnesium 1.2 - 1.6 mg/dL; Start 08/02/17 at 21:00; Stop 08/08/17 at 15:22; Status DC Magnesium Sulfate 2 gm/Sodium Chloride 100 ml @ 50 mls/hr UNSCH PRN IV For Magnesium 1.2 - 1.6 mg/dL; Start 08/02/17 at 21:00; Stop 08/08/17 at 15:23; Status DC Magnesium Sulfate 4 gm/Sodium Chloride 100 ml @ 50 mls/hr UNSCH PRN IV For Magnesium 0.9 - 1.1 mg/dL; Start 08/02/17 at 21:00; Stop 08/08/17 at 15:22; Status DC Miscellaneous Information 1 Q361D XX Last administered on 08/02/17at 21:00; Start 08/02/17 at 21:00 Multivitamins 10 ml/Thiamine HCl 100 mg/Folic Acid 1 mg/Sodium Chloride 511.2 ml @ 125 mls/hr Q24H IV Last administered on 08/11/17at 21:10; Start 08/03/17 at 22:00 Ondansetron HCl (Zofran Inj) 4 mg Q6H PRN IV PUSH NAUSEA OR VOMITING; Start at 21:00 Potassium Phosphate (K-Phos) 2,000 mg UNSCH PRN PO/TUBE SEE LABEL COMMENTS; Start 08/02/17 at 21:00; Stop 08/08/17 at 15:23; Status DC Potassium Phosphate 30 mmol/ Sodium Chloride 260 ml @ 42 mls/hr UNSCH PRN IV SEE LABEL COMMENTS; Start 08/02/17 at 21:00; Stop 08/08/17 at 15:23; Status DC Potassium Bicarb/ Potassium Chloride (K-Lyte Cl Eff) 50 meq UNSCH PRN PO For Potassium 3.3 - 3.5 mEq/L; Start 08/02/17 at 21:00; Stop 08/08/17 at 15:22; Status DC Potassium Chloride 100 ml @ 50 mls/hr Q2H PRN IV For Potassium 3.3 - 3.5 mEq/L ; Start 08/02/17 at 21:00; Stop 08/08/17 at 15:22; Status DC Potassium Cl/ Dextrose/Lact Ringer's 1,000 ml @ 100 mls/hr Q10H IV Last administered on 08/05/17at 01:07; Start 08/02/17 at 20:45; Stop 08/05/17 at 12:27 ; Status DC Propofol 100 ml @ 2.46 mls/hr TITRATE PRN IV SEDATION Last administered on at 02:25; Start 08/02/17 at 21:00; Stop 08/05/17 at 12:27; Status DC Quetiapine Fumarate (SEROquel) 25 mg BID@09,12 PO Last administered on at 08:50; Start 08/11/17 at 12:00 Senna/Docusate Sodium (Candy-Colace) 1 tab BID PO Last administered on 08/12/17at 08:51; Start 08/02/17 at 21:00 Sennosides (Senokot) 17.2 mg Q12H PRN PO Moderate constipation; Start 08/02/17 at 21:00 Sodium Chloride (NS Flush) 2 ml BID IV FLUSH ; Start 08/03/17 at 09:00; Stop at 09:00; Status DC Sodium Phosphate 30 mmol/Sodium Chloride 250 ml @ 42 mls/hr UNSCH PRN IV For Phosphorus < 2.5 mg/dL; Start 08/02/17 at 21:00; Stop 08/08/17 at 15:23; Status DC A/P Problem List: (1) Acute respiratory failure ICD Code: J96.00 - Acute respiratory failure, unspecified whether with hypoxia or hypercapnia Status: Acute (2) Alcohol intoxication ICD Code: F10.129 - Alcohol abuse with intoxication, unspecified Status: Acute (3) Alcohol dependence ICD Code: F10.20 - Alcohol dependence, uncomplicated Status: Chronic (4) Laceration of cheek, right ICD Code: S01.411A - Laceration without foreign body of right cheek and temporomandibular area, initial encounter Status: Acute (5) Polysubstance abuse ICD Code: F19.10 - Polysubstance abuse Status: Chronic (6) Transaminitis ICD Code: R74.0 - Elevated transaminase measurement Status: Chronic (7) ALCOHOL DEPENDENCE WITH WITHDRAWAL DELIRIUM ICD Code: F10.231 - ALCOHOL DEPENDENCE WITH WITHDRAWAL DELIRIUM Status: Acute (8) Fall ICD Code: W19.XXXA - Unspecified fall, initial encounter Status: Acute (9) Hypoglycemia ICD Code: E16.2 - Hypoglycemia, unspecified Status: Acute Assessment and Plan Alcohol dependence Alcohol withdrawal with alcohol withdrawal seizure Polysubstance abuse Bipolar disorder Severe Agitated Delirium Delirium Tremens Transitioned to CIWA protocol Continue Seroquel Monitor for further seizure activity MVI/folic acid/thiamine supplementation continue librium-; changed to scheduled- will taper down slowly over the next few days. Haldol prn. psych consult appreciated. Laceration R cheek s/p laceration repair 08/03. Acute hypoxia/hypercarbic respiratory failure Resolved. Oxygen supplementation as needed Acute protein calorie malnutrition Continue thiamine Continue multivitamin Diet as tolerated DVT prophylaxis Lovenox Discharge Planning still on restraints. changed librium to scheduled. not ready for discharge. Problem Qualifiers (1) Fall: Qualified Codes: W19.XXXA - Unspecified fall, initial encounter Michelle Reyes MD Aug 12, 2017 09:14
[2017-08-12] MEDS: chlordiazePOXIDE 25 MG CAP PO SCH ×2 (11:12→17:52)
[2017-08-12 12:00] VITALS: BP 116/71; PULSE 82; RESP 17; TEMP 96.8; O2SAT 93
[2017-08-12] MEDS: LORazepam 2 MG TAB PO PRN ×2 (15:12→22:33)
--- NOTE | 2017-08-12 15:53 | EKG ---
Date Performed: 08/11/2017 Time Performed: 13:38:47 PTAGE: 56 years EKG: Sinus rhythm BORDERLINE LEFT AXIS DEVIATION BORDERLINE ECG Since the prior tracing, there has been no significant change PREVIOUS TRACING : 11/05/2016 01.08 DOCTOR: Phylicia Menezes Interpretating Date/Time 08/12/2017 15:51:04
[2017-08-12 16:00] VITALS: BP 119/76; PULSE 85; RESP 18; TEMP 97.3; O2SAT 93
[2017-08-12 20:00] VITALS: BP 129/58; PULSE 80; RESP 16; TEMP 97.5; O2SAT 92
[2017-08-12 20:42] VITALS: O2SAT 93
[2017-08-12] MEDS: MULTIVITAMIN INJ 10 ML, THIAMINE INJ 100 MG, FOLIC ACID INJ 1 MG in SODIUM CHLOR 0.45% ... IV SCH (22:33)
[2017-08-12] MEDS: ENOXAPARIN SODIUM 40 MG/0.4 ML SYRINGE SQ SCH (22:36)
[2017-08-12] MEDS: CHLORHEXIDINE GLUCONATE 2 % 1 PACK (2 CLOTHS) TOP SCH (22:46)
[2017-08-13] VITALS: BP 131/60; PULSE 81; RESP 22; TEMP 98.4; O2SAT 94
[2017-08-13] MEDS: GABAPENTIN 300 MG CAP OG-TUBE SCH ×3 (01:00→18:29)
[2017-08-13 04:00] VITALS: BP 146/67; PULSE 80; RESP 20; TEMP 96.4; O2SAT 91
[2017-08-13] MEDS: cloNIDine HCL 0.3 MG TAB PO SCH ×3 (06:03→22:15)
[2017-08-13 08:00] VITALS: BP 136/66; PULSE 84; RESP 18; TEMP 97.9; O2SAT 94
[2017-08-13] MEDS: CHLORHEXIDINE 0.12% (ORAL KIT) 15 ML CUP MT SCH ×2 (08:00→20:00)
[2017-08-13] MEDS: QUEtiapine FUMARATE 25 MG TAB PO SCH ×2 (08:18→12:28)
[2017-08-13] MEDS: DOCUSATE SODIUM 50 MG/SENNA 8.6 MG TAB PO SCH ×2 (08:18→21:00)
[2017-08-13] MEDS: FAMOTIDINE 20 MG TAB PO SCH ×2 (08:18→22:15)
[2017-08-13] MEDS: chlordiazePOXIDE 25 MG CAP PO SCH (08:19)
--- NOTE | 2017-08-13 09:11 | HHI.PR ---
Subjective Remarks in no acute distress. mildly lethargic. still on restraints. no fever. Objective Vitals Vital Signs Date Time Temp Pulse Resp B/P (MAP) Pulse Ox O2 Delivery O2 Flow Rate FiO2 08/13/17 08:00 97.9 84 18 136/66 (89) 94 08/13/17 04:00 96.4 80 20 146/67 (93) 91 08/13/17 00:00 98.4 81 22 131/60 (83) 94 08/12/17 20:42 93 Nasal Cannula 4.00 08/12/17 20:00 97.5 80 16 129/58 (81) 92 08/12/17 16:00 97.3 85 18 119/76 (90) 93 08/12/17 12:00 96.8 82 17 116/71 (86) 93 I/O 08/12/17 08/12/17 08/12/17 08/13/17 08/13/17 08/13/17 07:00 15:00 23:00 07:00 15:00 23:00 Intake Total 511.2 ml 400 ml 480 ml Balance 511.2 ml 400 ml 480 ml Intake Oral 480 ml IV Total 511.2 ml 400 ml # Voids 3 # Bowel Movements 0 Result Diagram: 08/12/17 0413 08/12/17 0413 Imaging Last Impressions Head CT 08/03/17 0000 Signed Impressions: Service Date/Time: Friday, August 04, 2017 17:23 - CONCLUSION: 1. No acute hemorrhage or mass effect. 2. Mucosal thickening in the paranasal sinuses and air-fluid levels in the maxillary sinuses. Alex Vital MD Maxillofacial CT 08/02/17 0000 Signed Impressions: Service Date/Time: Wednesday, August 02, 2017 18:36 - CONCLUSION: 1. Motion degraded study. No evidence of an acute fracture. 2. Old comminuted fracturing of the nose again seen. 3. Chronic sinusitis. Fermín Wagner MD Chest X-Ray 08/02/17 0000 Signed Impressions: Service Date/Time: Wednesday, August 02, 2017 18:26 - CONCLUSION: 1. Appropriately positioned endotracheal tube tip, 4 cm above the krystina. 2. Tip of the nasogastric tube is in the lower esophagus slightly above the GE junction. 3. Trace bibasilar atelectasis. No pneumothorax. Fermín Wagner MD Cervical Spine CT 08/02/17 0000 Signed Impressions: Service Date/Time: Wednesday, August 02, 2017 18:35 - CONCLUSION: Intact cervical spine. Mild degenerative changes again noted at C3/C4. Fermín Wagner MD Objective Remarks GENERAL: This is a well-nourished, well-developed patient, in no apparent distress. CARDIOVASCULAR: Regular rate and regular rhythm without murmurs, gallops, or rubs. RESPIRATORY: Clear to auscultation. Breath sounds equal bilaterally. No wheezes , rales, or rhonchi. GASTROINTESTINAL: Abdomen soft, non-tender, nondistended. Normal, active bowel sounds MUSCULOSKELETAL: Extremities without clubbing, cyanosis, or edema. NEURO: mildly lethargic. Medications and IVs Inpatient Medications Acetaminophen (Tylenol) 650 mg Q6H PRN PO PAIN 1-5 AND/OR FEVER >101F Last administered on 08/10/17 16:15; Start 08/02/17 at 21:00 Albuterol Sulfate (Albuterol Neb) 2.5 mg Q2HR NEB PRN INH SOB/WHEEZING Last administered on 08/10/17 20:37; Start 08/02/17 at 21:00 Albuterol/ Ipratropium (Duoneb Neb) 1 ampule Q6HR NEB INH Last administered on 08/10/17 09:20; Start 08/06/17 at 10:00; Stop 08/10/17 at 09:59; Status DC Bisacodyl (Dulcolax Supp) 10 mg DAILY PRN RECTAL SEVERE CONSITIPATION; Start at 21:00 Chlordiazepoxide (Librium) 25 mg TID PO Last administered on 08/13/17at 08:19; Start 08/12/17 at 13:00 Chlorhexidine Gluconate (Chlorhexidine 2% Cloth) 3 pack UNSCH PRN TOP HYGIENIC CARE; Start 08/02/17 at 21:00 Chlorhexidine Gluconate (Peridex 0.12% Liq) 15 ml BID@08,20 MT Last administered on 08/05/17at 20:00; Start 08/03/17 at 08:00 Clonidine (Catapres) 0.3 mg Q8HR PO Last administered on 08/13/17at 06:03; Start 08/03/17 at 07:00 Dexmedetomidine HCl 1000 mcg/ Sodium Chloride 250 ml @ 4.1 mls/hr TITRATE PRN IV SEDATION Last administered on 08/05/17at 05:08; Start 08/03/17 at 07:15; Stop 08/05/17 at 19:18; Status DC Dexmedetomidine HCl 200 mcg/ Sodium Chloride 52 ml @ 4.26 mls/hr TITRATE PRN IV SEDATION Last administered on 08/03/17at 07:03; Start 08/03/17 at 06:45; Stop 08/03/17 at 07:07; Status DC Dextrose (D50w (Vial) Inj) 25 ml ONCE ONCE IV PUSH Last administered on at 22:19; Start 08/02/17 at 20:45; Stop 08/02/17 at 21:46; Status DC Diazepam (Valium) 15 mg Taper Q8H PO Last administered on 08/06/17at 13:50; Start 08/05/17 at 22:00; Stop 08/06/17 at 14:47; Status DC Enoxaparin Sodium (Lovenox Inj) 40 mg Q24H SQ Last administered on 08/12/17at 22: 36; Start 08/02/17 at 22:00 Famotidine (Pepcid Inj) 20 mg Q12HR IV PUSH Last administered on 08/05/17at 09: 06; Start 08/02/17 at 21:00; Stop 08/05/17 at 12:27; Status DC Famotidine (Pepcid) 20 mg Q12HR PO Last administered on 08/13/17at 08:18; Start 08/02/17 at 21:00 Fentanyl Citrate (fentaNYL INJ) 50 mcg Q1H PRN IV PUSH Pain scale 6-10 &/or sedation; Start 08/02/17 at 21:00; Stop 08/03/17 at 06:48; Status DC Flumazenil (Romazicon Inj) 0.2 mg Q1M PRN IV PUSH SEE LABEL COMMENTS; Start at 03:45 Gabapentin (Neurontin) 300 mg Q8H OG-TUBE Last administered on 08/13/17at 08:18; Start 08/03/17 at 09:00 Haloperidol Lactate (Haldol Inj) 2 mg Q6H PRN IM AGITATION AND/OR HALLUCINATION Last administered on 08/11/17at 11:10; Start 08/11/17 at 09:30 Lactulose (Lactulose Liq) 30 ml DAILY PRN PO SEVERE CONSITIPATION; Start at 21:00 Lorazepam (Ativan Inj) 2 mg Q15M PRN IV PUSH CIWA > 20 Last administered on at 21:37; Start 08/06/17 at 03:45 Lorazepam (Ativan) 2 mg Q2H PRN PO CIWA 11-14 Last administered on 08/12/17at 22: 33; Start 08/06/17 at 03:45 Magnesium Hydroxide (Milk Of Magnesia Liq) 30 ml Q12H PRN PO Mild constipation ; Start 08/02/17 at 21:00 Magnesium Oxide (Mag-Ox) 800 mg UNSCH PRN PO For Magnesium 1.2 - 1.6 mg/dL; Start 08/02/17 at 21:00; Stop 08/08/17 at 15:22; Status DC Magnesium Sulfate 2 gm/Sodium Chloride 100 ml @ 50 mls/hr UNSCH PRN IV For Magnesium 1.2 - 1.6 mg/dL; Start 08/02/17 at 21:00; Stop 08/08/17 at 15:23; Status DC Magnesium Sulfate 4 gm/Sodium Chloride 100 ml @ 50 mls/hr UNSCH PRN IV For Magnesium 0.9 - 1.1 mg/dL; Start 08/02/17 at 21:00; Stop 08/08/17 at 15:22; Status DC Miscellaneous Information 1 Q361D XX Last administered on 08/02/17at 21:00; Start 08/02/17 at 21:00 Multivitamins 10 ml/Thiamine HCl 100 mg/Folic Acid 1 mg/Sodium Chloride 511.2 ml @ 125 mls/hr Q24H IV Last administered on 08/12/17at 22:33; Start 08/03/17 at 22:00 Ondansetron HCl (Zofran Inj) 4 mg Q6H PRN IV PUSH NAUSEA OR VOMITING; Start at 21:00 Potassium Phosphate (K-Phos) 2,000 mg UNSCH PRN PO/TUBE SEE LABEL COMMENTS; Start 08/02/17 at 21:00; Stop 08/08/17 at 15:23; Status DC Potassium Phosphate 30 mmol/ Sodium Chloride 260 ml @ 42 mls/hr UNSCH PRN IV SEE LABEL COMMENTS; Start 08/02/17 at 21:00; Stop 08/08/17 at 15:23; Status DC Potassium Bicarb/ Potassium Chloride (K-Lyte Cl Eff) 50 meq UNSCH PRN PO For Potassium 3.3 - 3.5 mEq/L; Start 08/02/17 at 21:00; Stop 08/08/17 at 15:22; Status DC Potassium Chloride 100 ml @ 50 mls/hr Q2H PRN IV For Potassium 3.3 - 3.5 mEq/L ; Start 08/02/17 at 21:00; Stop 08/08/17 at 15:22; Status DC Potassium Cl/ Dextrose/Lact Ringer's 1,000 ml @ 100 mls/hr Q10H IV Last administered on 08/05/17at 01:07; Start 08/02/17 at 20:45; Stop 08/05/17 at 12:27 ; Status DC Propofol 100 ml @ 2.46 mls/hr TITRATE PRN IV SEDATION Last administered on at 02:25; Start 08/02/17 at 21:00; Stop 08/05/17 at 12:27; Status DC Quetiapine Fumarate (SEROquel) 25 mg BID@09,12 PO Last administered on at 08:18; Start 08/11/17 at 12:00 Senna/Docusate Sodium (Candy-Colace) 1 tab BID PO Last administered on 08/13/17at 08:18; Start 08/02/17 at 21:00 Sennosides (Senokot) 17.2 mg Q12H PRN PO Moderate constipation; Start 08/02/17 at 21:00 Sodium Chloride (NS Flush) 2 ml BID IV FLUSH ; Start 08/03/17 at 09:00; Stop at 09:00; Status DC Sodium Phosphate 30 mmol/Sodium Chloride 250 ml @ 42 mls/hr UNSCH PRN IV For Phosphorus < 2.5 mg/dL; Start 08/02/17 at 21:00; Stop 08/08/17 at 15:23; Status DC A/P Problem List: (1) Acute respiratory failure ICD Code: J96.00 - Acute respiratory failure, unspecified whether with hypoxia or hypercapnia Status: Acute (2) Alcohol intoxication ICD Code: F10.129 - Alcohol abuse with intoxication, unspecified Status: Acute (3) Alcohol dependence ICD Code: F10.20 - Alcohol dependence, uncomplicated Status: Chronic (4) Laceration of cheek, right ICD Code: S01.411A - Laceration without foreign body of right cheek and temporomandibular area, initial encounter Status: Acute (5) Polysubstance abuse ICD Code: F19.10 - Polysubstance abuse Status: Chronic (6) Transaminitis ICD Code: R74.0 - Elevated transaminase measurement Status: Chronic (7) ALCOHOL DEPENDENCE WITH WITHDRAWAL DELIRIUM ICD Code: F10.231 - ALCOHOL DEPENDENCE WITH WITHDRAWAL DELIRIUM Status: Acute (8) Fall ICD Code: W19.XXXA - Unspecified fall, initial encounter Status: Acute (9) Hypoglycemia ICD Code: E16.2 - Hypoglycemia, unspecified Status: Acute Assessment and Plan Alcohol dependence Alcohol withdrawal with alcohol withdrawal seizure Polysubstance abuse Bipolar disorder Severe Agitated Delirium Delirium Tremens Transitioned to CIWA protocol Continue Seroquel Monitor for further seizure activity MVI/folic acid/thiamine supplementation continue librium-; will continue to taper down. Haldol prn. psych consult appreciated. Laceration R cheek s/p laceration repair 08/03. Acute hypoxia/hypercarbic respiratory failure Resolved. Oxygen supplementation as needed Acute protein calorie malnutrition Continue thiamine Continue multivitamin Diet as tolerated DVT prophylaxis Lovenox Discharge Planning still on restraints. tapering down librium. not ready for discharge. Problem Qualifiers (1) Fall: Qualified Codes: W19.XXXA - Unspecified fall, initial encounter Michelle Reyes MD Aug 13, 2017 09:11
[2017-08-13 12:00] VITALS: BP 129/69; PULSE 81; RESP 17; TEMP 97.4; O2SAT 95
[2017-08-13] MEDS: HALOPERIDOL LACTATE 5 MG/ML AMP IM PRN (14:33)
[2017-08-13 16:00] VITALS: BP 127/69; PULSE 83; RESP 17; TEMP 98; O2SAT 95
[2017-08-13] MEDS: LORazepam 2 MG/ML VIAL IV PUSH PRN (19:19)
[2017-08-13] MEDS: CHLORHEXIDINE GLUCONATE 2 % 1 PACK (2 CLOTHS) TOP SCH (19:55)
[2017-08-13 20:00] VITALS: BP 99/63; PULSE 84; RESP 20; TEMP 95.9; O2SAT 98
[2017-08-13] MEDS: ENOXAPARIN SODIUM 40 MG/0.4 ML SYRINGE SQ SCH (22:15)
[2017-08-13] MEDS: MULTIVITAMIN INJ 10 ML, THIAMINE INJ 100 MG, FOLIC ACID INJ 1 MG in SODIUM CHLOR 0.45% ... IV SCH (22:16)
[2017-08-14] VITALS: BP 95/56; PULSE 78; RESP 20; TEMP 96.7; O2SAT 90
[2017-08-14] MEDS: LORazepam 1 MG TAB PO PRN (00:40)
[2017-08-14] MEDS: GABAPENTIN 300 MG CAP OG-TUBE SCH ×3 (00:40→15:29)
[2017-08-14 04:00] VITALS: BP 120/67; PULSE 74; RESP 20; TEMP 97.2; O2SAT 90
[2017-08-14] MEDS: cloNIDine HCL 0.3 MG TAB PO SCH ×2 (05:20→14:00)
[2017-08-14 08:00] VITALS: BP 97/62; PULSE 72; RESP 20; TEMP 98.4; O2SAT 95
[2017-08-14] MEDS: CHLORHEXIDINE 0.12% (ORAL KIT) 15 ML CUP MT SCH ×2 (08:00→19:55)
[2017-08-14] MEDS: FAMOTIDINE 20 MG TAB PO SCH ×2 (11:06→20:01)
[2017-08-14] MEDS: QUEtiapine FUMARATE 25 MG TAB PO SCH ×2 (11:06→15:29)
[2017-08-14] MEDS: DOCUSATE SODIUM 50 MG/SENNA 8.6 MG TAB PO SCH ×2 (11:06→20:01)
[2017-08-14 12:00] VITALS: BP 100/61; PULSE 72; RESP 19; TEMP 97.8; O2SAT 96
[2017-08-14] MEDS: ACETAMINOPHEN 325 MG TAB PO PRN (15:30)
--- NOTE | 2017-08-14 15:37 | HHI.PR ---
Subjective Remarks Patient laying in bed currently in restraints. Keeps his eyes closed and is somnolent. He whispers when he talks to me. Asking for Lortab and says that he "broke [place] rib [place] the [place]". No nausea or vomiting. Objective Vitals Vital Signs Date Time Temp Pulse Resp B/P (MAP) Pulse Ox O2 Delivery O2 Flow Rate FiO2 08/14/17 12:00 97.8 72 19 100/61 (74) 96 08/14/17 08:00 98.4 72 20 97/62 (74) 95 08/14/17 04:00 97.2 74 20 120/67 (84) 90 08/14/17 00:00 96.7 78 20 95/56 (69) 90 08/13/17 20:00 95.9 84 20 99/63 (75) 98 08/13/17 16:00 98.0 83 17 127/69 (88) 95 I/O 08/13/17 08/13/17 08/13/17 08/14/17 08/14/17 08/14/17 07:00 15:00 23:00 07:00 15:00 23:00 Intake Total 240 ml 120 ml Output Total 400 ml Balance 240 ml -400 ml 120 ml Intake Oral 240 ml 120 ml Output Urine Total 400 ml # Voids 5 2 # Bowel Movements 0 Result Diagram: 08/12/17 0413 08/12/17 0413 Imaging Last Impressions Head CT 08/03/17 0000 Signed Impressions: Service Date/Time: Friday, August 04, 2017 17:23 - CONCLUSION: 1. No acute hemorrhage or mass effect. 2. Mucosal thickening in the paranasal sinuses and air-fluid levels in the maxillary sinuses. Alex Vital MD Maxillofacial CT 08/02/17 0000 Signed Impressions: Service Date/Time: Wednesday, August 02, 2017 18:36 - CONCLUSION: 1. Motion degraded study. No evidence of an acute fracture. 2. Old comminuted fracturing of the nose again seen. 3. Chronic sinusitis. Fermín Wagner MD Chest X-Ray 08/02/17 0000 Signed Impressions: Service Date/Time: Wednesday, August 02, 2017 18:26 - CONCLUSION: 1. Appropriately positioned endotracheal tube tip, 4 cm above the krystina. 2. Tip of the nasogastric tube is in the lower esophagus slightly above the GE junction. 3. Trace bibasilar atelectasis. No pneumothorax. Fermín Wagner MD Cervical Spine CT 08/02/17 0000 Signed Impressions: Service Date/Time: Friday, August 02, 2017 18:35 - CONCLUSION: Intact cervical spine. Mild degenerative changes again noted at C3/C4. Fermín Wagner MD Objective Remarks GENERAL: Laying in bed with restraints on. CARDIOVASCULAR: Regular rate and regular rhythm without murmurs RESPIRATORY: Clear to auscultation. Breath sounds equal bilaterally. No wheezes GASTROINTESTINAL: Abdomen soft, non-tender, nondistended. Normal, active bowel sounds MUSCULOSKELETAL: Extremities without edema. NEURO: mildly lethargic but awake enough to tell me he wants Lortab. A/P Problem List: (1) Acute respiratory failure ICD Code: J96.00 - Acute respiratory failure, unspecified whether with hypoxia or hypercapnia Status: Acute (2) Alcohol intoxication ICD Code: F10.129 - Alcohol abuse with intoxication, unspecified Status: Acute (3) Alcohol dependence ICD Code: F10.20 - Alcohol dependence, uncomplicated Status: Chronic (4) Laceration of cheek, right ICD Code: S01.411A - Laceration without foreign body of right cheek and temporomandibular area, initial encounter Status: Acute (5) Polysubstance abuse ICD Code: F19.10 - Polysubstance abuse Status: Chronic (6) Transaminitis ICD Code: R74.0 - Elevated transaminase measurement Status: Chronic (7) ALCOHOL DEPENDENCE WITH WITHDRAWAL DELIRIUM ICD Code: F10.231 - ALCOHOL DEPENDENCE WITH WITHDRAWAL DELIRIUM Status: Acute (8) Fall ICD Code: W19.XXXA - Unspecified fall, initial encounter Status: Acute (9) Hypoglycemia ICD Code: E16.2 - Hypoglycemia, unspecified Status: Acute Assessment and Plan Alcohol dependence Alcohol withdrawal with alcohol withdrawal seizure Polysubstance abuse Bipolar disorder Severe Agitated Delirium Delirium Tremens Currently on CIWA protocol and getting Librium scheduled and continue to taper down. I have decreased Librium dose to 10 mg 3 times daily Continue Seroquel Monitor for further seizure activity MVI/folic acid/thiamine supplementation Haldol prn. psych consult appreciated. Laceration R cheek s/p laceration repair 1/28. Acute hypoxia/hypercarbic respiratory failure Resolved. Oxygen supplementation as needed Acute protein calorie malnutrition Continue thiamine/folate Continue multivitamin Diet as tolerated DVT prophylaxis Lovenox I did review patient's chest x-ray and there is no mention of rib fractures and I did not appreciate any fractures when reviewing x-ray myself. Patient appears comfortable. Continue Tylenol as needed. Discharge Planning still on restraints. tapering down librium. not ready for discharge. Problem Qualifiers (1) Fall: Qualified Codes: W19.XXXA - Unspecified fall, initial encounter Paloma Morris MD Aug 14, 2017 15:37
[2017-08-14 16:00] VITALS: BP 118/79; PULSE 80; RESP 20; TEMP 98.4; O2SAT 95
[2017-08-14] MEDS ORDERED: cloNIDine HCL 0.3 MG TAB PO PRN (16:45)
[2017-08-14 20:00] VITALS: BP 95/56; PULSE 92; RESP 18; TEMP 96.6; O2SAT 96
[2017-08-14] MEDS: ENOXAPARIN SODIUM 40 MG/0.4 ML SYRINGE SQ SCH (21:53)
[2017-08-15 00:07] VITALS: BP 126/88; PULSE 89; RESP 18; TEMP 98.9; O2SAT 97
[2017-08-15] MEDS: GABAPENTIN 300 MG CAP OG-TUBE SCH ×3 (00:19→18:28)
[2017-08-15] MEDS: CHLORHEXIDINE GLUCONATE 2 % 1 PACK (2 CLOTHS) TOP SCH (00:19)
[2017-08-15] MEDS: QUEtiapine FUMARATE 25 MG TAB PO SCH ×2 (09:33→13:46)
[2017-08-15] MEDS: FAMOTIDINE 20 MG TAB PO SCH ×2 (09:33→23:13)
[2017-08-15] MEDS: DOCUSATE SODIUM 50 MG/SENNA 8.6 MG TAB PO SCH ×2 (09:33→23:13)
[2017-08-15] MEDS: MULTIVITAMIN TAB PO SCH (09:33)
[2017-08-15] MEDS: THIAMINE HCL 100 MG TAB PO SCH (09:33)
[2017-08-15] MEDS: FOLIC ACID 1 MG TAB PO SCH (09:33)
[2017-08-15] MEDS: CHLORHEXIDINE 0.12% (ORAL KIT) 15 ML CUP MT SCH ×2 (10:04→20:00)
[2017-08-15 12:00] VITALS: BP 132/87; PULSE 109; RESP 17; TEMP 96.3; O2SAT 90
[2017-08-15 16:00] VITALS: BP 111/56; PULSE 117; RESP 17; TEMP 97.3; O2SAT 90
--- NOTE | 2017-08-15 16:20 | HHI.PR ---
Subjective Remarks Pt currently in restraints. upset to be tied up, states that he if he could, he would hit (then smacks his hand into his fist). Then he later states that he "doesn't hit chics". SOCIAL MEDIA CAMPAIGN MANAGER present, tells me that pt use foul language w her, was very agitated. They did attempt to loosen up the restraints today as planned but pt wasn't very cooperative. Pt denies this but does become agitated later as I try to explain to him the reason why we are worried that he will fall and hurt himself He then states he has a lot on his plate, he is worried. He also states that last night "there was a constitution party, people were drinking and smoking weed". Objective Vitals Vital Signs Date Time Temp Pulse Resp B/P (MAP) Pulse Ox O2 Delivery O2 Flow Rate FiO2 08/15/17 12:00 96.3 109 17 132/87 (102) 90 08/15/17 00:07 98.9 89 18 126/88 (101) 97 08/14/17 20:00 96.6 92 18 95/56 (69) 96 I/O 08/14/17 08/14/17 08/14/17 08/15/17 08/15/17 08/15/17 07:00 15:00 23:00 07:00 15:00 23:00 Intake Total 120 ml 760 ml 580 ml Output Total 400 ml 400 ml 1200 ml Balance -400 ml 120 ml 360 ml -620 ml Intake Oral 120 ml 760 ml 580 ml Output Urine Total 400 ml 400 ml 1200 ml # Voids 2 # Bowel Movements 0 Result Diagram: 08/12/17 0413 08/12/17 0413 Imaging Last Impressions Head CT 08/03/17 0000 Signed Impressions: Service Date/Time: Friday, August 04, 2017 17:23 - CONCLUSION: 1. No acute hemorrhage or mass effect. 2. Mucosal thickening in the paranasal sinuses and air-fluid levels in the maxillary sinuses. Alex Vital MD Maxillofacial CT 08/02/17 0000 Signed Impressions: Service Date/Time: Wednesday, August 02, 2017 18:36 - CONCLUSION: 1. Motion degraded study. No evidence of an acute fracture. 2. Old comminuted fracturing of the nose again seen. 3. Chronic sinusitis. Fermín Wagner MD Chest X-Ray 08/02/17 0000 Signed Impressions: Service Date/Time: Wednesday, August 02, 2017 18:26 - CONCLUSION: 1. Appropriately positioned endotracheal tube tip, 4 cm above the krystina. 2. Tip of the nasogastric tube is in the lower esophagus slightly above the GE junction. 3. Trace bibasilar atelectasis. No pneumothorax. Fermín Wagner MD Cervical Spine CT 08/02/17 0000 Signed Impressions: Service Date/Time: Wednesday, August 02, 2017 18:35 - CONCLUSION: Intact cervical spine. Mild degenerative changes again noted at C3/C4. Fermín Wagner MD Objective Remarks GENERAL: Laying in bed with restraints on. CARDIOVASCULAR: Regular rate and regular rhythm without murmurs RESPIRATORY: Clear to auscultation. Breath sounds equal bilaterally. No wheezes GASTROINTESTINAL: Abdomen soft, non-tender, nondistended. Normal, active bowel sounds MUSCULOSKELETAL: Extremities without edema. NEURO: agitated, gets upset at times. A/P Problem List: (1) Acute respiratory failure ICD Code: J96.00 - Acute respiratory failure, unspecified whether with hypoxia or hypercapnia Status: Acute (2) Alcohol intoxication ICD Code: F10.129 - Alcohol abuse with intoxication, unspecified Status: Acute (3) Alcohol dependence ICD Code: F10.20 - Alcohol dependence, uncomplicated Status: Chronic (4) Laceration of cheek, right ICD Code: S01.411A - Laceration without foreign body of right cheek and temporomandibular area, initial encounter Status: Acute (5) Polysubstance abuse ICD Code: F19.10 - Polysubstance abuse Status: Chronic (6) Transaminitis ICD Code: R74.0 - Elevated transaminase measurement Status: Chronic (7) ALCOHOL DEPENDENCE WITH WITHDRAWAL DELIRIUM ICD Code: F10.231 - ALCOHOL DEPENDENCE WITH WITHDRAWAL DELIRIUM Status: Acute (8) Fall ICD Code: W19.XXXA - Unspecified fall, initial encounter Status: Acute (9) Hypoglycemia ICD Code: E16.2 - Hypoglycemia, unspecified Status: Acute Assessment and Plan Alcohol dependence Alcohol withdrawal with alcohol withdrawal seizure Polysubstance abuse Bipolar disorder Severe Agitated Delirium Delirium Tremens Currently on CIWA protocol and getting Librium scheduled and continue to taper down. I have decreased Librium dose to 10 mg 3 times daily. I will keep current dose as pt more interactive today Continue Seroquel Monitor for further seizure activity MVI/folic acid/thiamine supplementation Haldol prn. psych consult appreciated. however will reconsult as we are unable to remove restraints due to agitation, foul language and concerns that pt will hurt himself. Laceration R cheek s/p laceration repair 08/03. Acute hypoxia/hypercarbic respiratory failure Resolved. Oxygen supplementation as needed Acute protein calorie malnutrition Continue thiamine/folate Continue multivitamin Diet as tolerated DVT prophylaxis Lovenox I did review patient's chest x-ray and there is no mention of rib fractures and I did not appreciate any fractures when reviewing x-ray myself. Patient appears comfortable. Continue Tylenol as needed. Discharge Planning still on restraints. tapering down librium. not ready for discharge. psych reconsult in place Problem Qualifiers (1) Fall: Qualified Codes: W19.XXXA - Unspecified fall, initial encounter Paloma Morris MD Aug 15, 2017 16:20
[2017-08-15 20:00] VITALS: BP 142/74; PULSE 100; RESP 20; TEMP 97.8; O2SAT 97
[2017-08-15] MEDS: ENOXAPARIN SODIUM 40 MG/0.4 ML SYRINGE SQ SCH (23:13)
[2017-08-15] MEDS: LORazepam 2 MG/ML VIAL IV PUSH PRN (23:26)
[2017-08-16] VITALS: BP 127/87; PULSE 99; RESP 20; TEMP 96.9; O2SAT 96
[2017-08-16] MEDS: LORazepam 2 MG/ML VIAL IV PUSH PRN ×2 (01:33→14:18)
[2017-08-16] MEDS: GABAPENTIN 300 MG CAP OG-TUBE SCH ×3 (01:35→17:02)
[2017-08-16] MEDS: CHLORHEXIDINE GLUCONATE 2 % 1 PACK (2 CLOTHS) TOP SCH (04:00)
[2017-08-16 08:00] VITALS: BP 134/87; PULSE 109; RESP 16; TEMP 98.5; O2SAT 90
[2017-08-16] MEDS: CHLORHEXIDINE 0.12% (ORAL KIT) 15 ML CUP MT SCH ×2 (08:00→20:00)
[2017-08-16] MEDS: QUEtiapine FUMARATE 25 MG TAB PO SCH ×2 (08:37→12:04)
[2017-08-16] MEDS: FAMOTIDINE 20 MG TAB PO SCH ×2 (08:39→23:43)
[2017-08-16] MEDS: FOLIC ACID 1 MG TAB PO SCH (08:39)
[2017-08-16] MEDS: THIAMINE HCL 100 MG TAB PO SCH (08:39)
[2017-08-16] MEDS: DOCUSATE SODIUM 50 MG/SENNA 8.6 MG TAB PO SCH ×2 (08:39→23:43)
[2017-08-16] MEDS: MULTIVITAMIN TAB PO SCH (08:39)
[2017-08-16 12:00] VITALS: BP 122/64; PULSE 99; RESP 16; TEMP 98.1; O2SAT 95
--- NOTE | 2017-08-16 13:03 | PD.PSY.CON ---
Provisional Diagnosis Admission Date Aug 02, 2017 at 19:33 [place] I. Polysubstance dependence, including amphetamines, cocaine, alcohol, cannabis, history of bipolar disorder [place] II. Unspecified personality disorder [place] III. Hypertension History of Present Illness Service Psychiatry Consult Requested By Dr. Morris Reason for Consult Agitation and restraints Primary Care Physician Unknown HPI Note is documented a day after the patient was seen. Patient seen August 10, 2017 4:30 PM. The patient is a 56-year-old man, he is homeless, unemployed, single, with psychiatric history of self reported bipolar disorder, no previous psychiatric hospitalizations, no previous suicidal attempts, he has an extensive history of polysubstance dependence, including alcohol, amphetamines, cocaine and cannabis , patient has history of aggressive behavior, poor impulse control, incarcerations, she has medical history hypertension, who presented to [facility] emergency department by [facility] after he was found in the street intoxicated. He was initially conversant upon arrival and then got up and was urinating on the floor and then fell in the ED. He then had decreased level of consciousness with seizure vs tremor vs ?posturing. He was intubated for airway protection and underwent CT brain, CT C-spine, CT maxillofacial which demonstrated no acute abnormality. There was an old comminuted nasal fracture. He is afebrile without leukocytosis. Glucose is 67. I have ordered D50. He is following commands on sedation with propofol. Consulted to psychiatry due to agitation and disorganized behavior. Chart was reviewed. No collateral information available. On psychiatric evaluation today the patient is very disorganized, agitated, he is restrained in 4 points due to the level of disorganization and restlessness. He is just able to provide some limited information due to the level of psychosis. She is just partially oriented. Denies suicidal and homicidal ideation, he denies visual and auditory hallucinations. He told me that he uses cocaine almost every day, alcohol every day at least 6 beers. He has an extensive history of withdrawal, DTs, detox/rehabilitation programs. 08/16/17 - The patient is a 56-year-old man, he is homeless, unemployed, single , with psychiatric history of self reported bipolar disorder, no previous psychiatric hospitalizations, no previous suicidal attempts, he has an extensive history of polysubstance dependence, including alcohol, amphetamines, cocaine and cannabis, patient has history of aggressive behavior, poor impulse control, incarcerations, she has medical history hypertension, admitted to the medical service for acute alcohol intoxication and currently being managed for alcohol withdrawal. Consulted to psychiatry previously on 08/11/17 which patient was noted to be agitated and recommendations were provided at that time to manage behavior. Psychiatry was consulted again due to concerns that patient has been aggressive with staff and continues to be on restraints. Discussion with nursing staff reported that patient has not had any behavioral issues overnight, was cordial this morning after being assisted with washing up. Patient was found lying on hospital bed, in four point restraints, calm and cooperative, alert and oriented to person, date and partial to place but later was able to state being in the hospital. Patient noted to have poor recollection of events prior to his admission, aware that he is in restraints but unable to express clear understanding why. Patient states that he has continually been having visual hallucinations of people sitting in the chair next to his bed but denies any auditory hallucinations. He states that he is hallucinating and aware that they are hallucinations. He states that he was brought to the hospital because he was scared of people in chairs. Currently he states feeling ok, states wanting to continue with his treatment; denies any SI, HI, AH or delusions but persists with occasional visual hallucinations. Past Family Social History Coded Allergies: *MDRO Multi-Drug Resistant Organism (Verified Adverse Reaction, Unknown, 06/24/17) MRSA (elbow & knee wound) - 04/18/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 Space doses at least 4 to 6 hours if more than once/day dosing. 11/05/16 Quetiapine (Seroquel) 100 Mg Tab, 100 MG PO DAILY, #60 TAB 0 Refills 05/11/16 Quetiapine (Seroquel) 400 Mg Tab, 400 MG PO HS, #30 TAB 0 Refills 05/11/16 Bupropion HCl ER 12 HR (Wellbutrin SR 12 HR) 150 Mg Tab, 150 MG PO Q12HR for Control Depression, TAB 0 Refills 05/11/16 Gabapentin (Neurontin) 800 Mg Tab, 800 MG PO BID, #90 TAB 0 Refills 05/11/16 Current Medications Medications (Trade) Dose Ordered Sig/Sayra Route Start Time Stop Time Status Last Admin (Peridex 0.12% Liq) 15 ml BID@08,20 MT 08/03/17 08:00 08/16/17 08:00 (Tylenol) 650 mg Q6H PRN PO 08/02/17 21:00 08/14/17 15:30 (Pepcid) 20 mg Q12HR PO 08/02/17 21:00 08/16/17 08:39 (Zofran Inj) 4 mg Q6H PRN IV PUSH 08/02/17 21:00 (Albuterol Neb) 2.5 mg Q2HR NEB PRN INH 08/02/17 21:00 08/10/17 20:37 (Lovenox Inj) 40 mg Q24H SQ 08/02/17 22:00 08/15/17 23:13 Miscellaneous Information 1 Q361D XX 08/02/17 21:00 08/02/17 21:00 (Chlorhexidine 2% Cloth) Taper DAILY@04 TOP 08/03/17 04:00 07/30/18 03:59 08/07/17 03:35 (Chlorhexidine 2% Cloth) 3 pack UNSCH PRN TOP 08/02/17 21:00 (Candy-Colace) 1 tab BID PO 08/02/17 21:00 08/16/17 08:39 (Milk Of Magnesia Liq) 30 ml Q12H PRN PO 08/02/17 21:00 (Senokot) 17.2 mg Q12H PRN PO 08/02/17 21:00 (Dulcolax Supp) 10 mg DAILY PRN RECTAL 08/02/17 21:00 (Lactulose Liq) 30 ml DAILY PRN PO 08/02/17 21:00 (Neurontin) 300 mg Q8H OG-TUBE 08/03/17 09:00 08/16/17 08:39 (Romazicon Inj) 0.2 mg Q1M PRN IV PUSH 08/06/17 03:45 (Ativan) 1 mg Q4H PRN PO 08/06/17 03:45 08/14/17 00:40 (Ativan Inj) 1 mg Q4H PRN IV PUSH 08/06/17 03:45 08/08/17 10:36 (Ativan) 2 mg Q2H PRN PO 08/06/17 03:45 08/12/17 22:33 (Ativan Inj) 2 mg Q2H PRN IV PUSH 08/06/17 03:45 08/16/17 01:33 (Ativan Inj) 2 mg Q1H PRN IV PUSH 08/06/17 03:45 08/06/17 20:04 (Ativan Inj) 2 mg Q15M PRN IV PUSH 08/06/17 03:45 08/06/17 21:37 (Haldol Inj) 2 mg Q6H PRN IM 08/11/17 09:30 08/13/17 14:33 (SEROquel) 25 mg BID@09,12 PO 08/11/17 12:00 08/16/17 12:04 (Theragran) 1 tab DAILY PO 08/15/17 09:00 08/16/17 08:39 (Folate) 1 mg DAILY PO 08/15/17 09:00 08/16/17 08:39 (Vitamin B1) 100 mg DAILY PO 08/15/17 09:00 08/16/17 08:39 (Librium) 10 mg TID PO 08/14/17 18:00 08/16/17 12:04 (Catapres) 0.3 mg Q8H PRN PO 08/14/17 16:45 Patient's Strengths (min. 2) Under observation Physical Exam Vital Signs Vital Signs Date Time Temp Pulse Resp B/P (MAP) Pulse Ox O2 Delivery O2 Flow Rate FiO2 08/16/17 12:00 98.1 99 16 122/64 (83) 95 08/12/17 20:42 Nasal Cannula 4.00 I/O 08/16/17 08/16/17 08/17/17 08:00 16:00 00:00 Intake Total 480 ml Output Total 1300 ml Balance -820 ml Mental Status Examination Appearance: Dirty, Disheveled, Malodorous, Other (in four point restraints) Consciousness: Alert, Clouded Orientation: Person, Date/Time Speech: Slow Language: Adequate Fund of Knowledge: Inadequate Attention and Concentration: Adequate Memory: Impaired Mood: Appropriate Affect: Blunt Thought Process & Associations: Linear, Other (concrete) Thought Content: Bizarre thinking Hallucination Type: None Delusion Type: None Suicidal Ideation: No Suicidal Plan: No Suicidal Intention: No Homicidal Ideation: No Homicidal Plan: No Homicidal Intention: No Insight: Poor Judgment: Poor Assessment & Plan Problem List: (1) Polysubstance abuse ICD Codes: F19.10 - Polysubstance abuse Status: Chronic Assessment & Plan Patient is a 56 y/o man who carries a diagnosis of polysubstance use disorder who currently is admitted for recent intoxication and undergoing alcohol withdrawal which has had previous episodes of agitation and continues to require four-point restraints which psychiatry was consulted for recommendations. As per chart patient has last received Haldol IM for agitation on 08/13/17 but was only 2mg IM. No recent further ETOs since that time. Patient will continue to be confused and disoriented due to withdrawal and would improve as he clears from this. Will increase quetiapine to 50mg PO BID, would recommend Haldol 5mg IM q8hrs PRN for severe agitation. Continue to monitor QTc in that it is less than 480. Continue CIWA protocol and medical management of withdrawal. No indication for psychiatric admission at this time. Consult appreciated. Nick Callaway MD Aug 16, 2017 13:03
[2017-08-16] MEDS: HALOPERIDOL LACTATE 5 MG/ML AMP IM PRN (14:31)
[2017-08-16 16:00] VITALS: BP 131/76; PULSE 108; RESP 18; TEMP 97.6; O2SAT 95
--- NOTE | 2017-08-16 18:45 | HHI.PR ---
Subjective Remarks 56M with recent seizures and pleural effusions. He was not able to be awaken for our visit today. Exam was performed. He was very agitated by report from yesterday's note, and received some new medications for agitation that may be sedating him. Objective Vitals Vital Signs Date Time Temp Pulse Resp B/P (MAP) Pulse Ox O2 Delivery O2 Flow Rate FiO2 08/16/17 16:00 97.6 108 18 131/76 (94) 95 08/16/17 12:00 98.1 99 16 122/64 (83) 95 08/16/17 08:00 98.5 109 16 134/87 (103) 90 08/16/17 00:00 96.9 99 20 127/87 (100) 96 08/15/17 20:00 97.8 100 20 142/74 (96) 97 I/O 08/15/17 08/15/17 08/15/17 08/16/17 08/16/17 08/16/17 07:00 15:00 23:00 07:00 15:00 23:00 Intake Total 580 ml 722 ml 480 ml 560 ml Output Total 1200 ml 875 ml 1300 ml 300 ml Balance -620 ml -153 ml -820 ml 260 ml Intake Oral 580 ml 720 ml 480 ml 560 ml IV Total 2 ml Output Urine Total 1200 ml 875 ml 1300 ml 300 ml # Bowel Movements 0 0 0 Result Diagram: 08/12/17 0413 08/12/17 0413 Objective Remarks GENERAL: Well-nourished, well-developed patient, sleeping SKIN: Warm and dry. HEAD: Normocephalic. EYES: No scleral icterus. No injection or drainage. NECK: Supple, trachea midline. No JVD or lymphadenopathy. CARDIOVASCULAR: Regular rate and rhythm without murmurs, gallops, or rubs. RESPIRATORY: Breath sounds equal bilaterally. No accessory muscle use. GASTROINTESTINAL: Abdomen soft, non-tender, nondistended. EXTREMITIES: No cyanosis, or edema. NEUROLOGICAL: Asleep A/P Problem List: (1) Acute respiratory failure ICD Code: J96.00 - Acute respiratory failure, unspecified whether with hypoxia or hypercapnia Status: Acute (2) Alcohol intoxication ICD Code: F10.129 - Alcohol abuse with intoxication, unspecified Status: Acute (3) Alcohol dependence ICD Code: F10.20 - Alcohol dependence, uncomplicated Status: Chronic (4) Laceration of cheek, right ICD Code: S01.411A - Laceration without foreign body of right cheek and temporomandibular area, initial encounter Status: Acute (5) Polysubstance abuse ICD Code: F19.10 - Polysubstance abuse Status: Chronic (6) Transaminitis ICD Code: R74.0 - Elevated transaminase measurement Status: Chronic (7) ALCOHOL DEPENDENCE WITH WITHDRAWAL DELIRIUM ICD Code: F10.231 - ALCOHOL DEPENDENCE WITH WITHDRAWAL DELIRIUM Status: Acute (8) Fall ICD Code: W19.XXXA - Unspecified fall, initial encounter Status: Acute (9) Hypoglycemia ICD Code: E16.2 - Hypoglycemia, unspecified Status: Acute Assessment and Plan Seizure, Polysubstance abuse, Alcoholism, Delirium Tremens Bipolar disorder, Agitation with threats Currently on CIWA protocol and getting Librium scheduled, with tapering. MVI/folic acid/thiamine supplementation Seizure Precautions Haldol PRN for agitation Seroquel increased by psych to 50mg BID Appreciate Psych Consult Laceration R cheek s/p laceration repair 08/03. Acute protein calorie malnutrition Continue thiamine/folate Continue multivitamin Diet as tolerated DVT prophylaxis Lovenox Problem Qualifiers (1) Fall: Qualified Codes: W19.XXXA - Unspecified fall, initial encounter Francesco Bolton MD Aug 16, 2017 18:45
[2017-08-16 20:00] VITALS: BP 135/70; PULSE 96; RESP 18; TEMP 96.7; O2SAT 98
[2017-08-16] MEDS: ENOXAPARIN SODIUM 40 MG/0.4 ML SYRINGE SQ SCH (23:43)
[2017-08-17] VITALS: BP 170/70; PULSE 108; RESP 18; TEMP 100.2; O2SAT 95
[2017-08-17] MEDS: LORazepam 2 MG/ML VIAL IV PUSH PRN ×2 (00:21→06:01)
[2017-08-17 01:35] VITALS: BP 107/69; PULSE 111; RESP 18; TEMP 99.6; O2SAT 95
[2017-08-17] MEDS: CHLORHEXIDINE GLUCONATE 2 % 1 PACK (2 CLOTHS) TOP SCH (04:00)
[2017-08-17] MEDS ORDERED: SODIUM CHLORID 0.9% IV ONE (04:00)
[2017-08-17] MEDS ORDERED: VANCOMYCIN IV ONE (04:00)
[2017-08-17] MEDS ORDERED: VANCOMYCIN INJ 1,000 MG in SODIUM CHLOR 0.9% 250 ML INJ 250 ML IV ONE (04:00)
[2017-08-17 08:00] VITALS: BP 135/81; PULSE 114; RESP 18; TEMP 101.5; O2SAT 94
[2017-08-17] MEDS: CHLORHEXIDINE 0.12% (ORAL KIT) 15 ML CUP MT SCH ×2 (08:42→20:00)
[2017-08-17] MEDS: QUEtiapine FUMARATE 25 MG TAB PO SCH ×2 (08:47→12:46)
[2017-08-17] MEDS: MULTIVITAMIN TAB PO SCH (08:47)
[2017-08-17] MEDS: FAMOTIDINE 20 MG TAB PO SCH ×2 (08:47→23:19)
[2017-08-17] MEDS: FOLIC ACID 1 MG TAB PO SCH (08:47)
[2017-08-17] MEDS: THIAMINE HCL 100 MG TAB PO SCH (08:47)
[2017-08-17] MEDS: DOCUSATE SODIUM 50 MG/SENNA 8.6 MG TAB PO SCH ×2 (08:47→23:19)
[2017-08-17] MEDS: ACETAMINOPHEN 325 MG TAB PO PRN (08:47)
[2017-08-17] MEDS: GABAPENTIN 300 MG CAP OG-TUBE SCH ×2 (08:48)
[2017-08-17 12:00] VITALS: BP 100/60; PULSE 112; RESP 17; TEMP 98.9; O2SAT 91
--- NOTE | 2017-08-17 14:23 | HHI.PR ---
Subjective Remarks Patient again would not awaken for my visit. He appears comfortable, regular heart rate. Recently he has exhibited agitated threatening behavior, and had his psych meds adjusted. Objective Vitals Vital Signs Date Time Temp Pulse Resp B/P (MAP) Pulse Ox O2 Delivery O2 Flow Rate FiO2 08/17/17 12:00 98.9 112 17 100/60 (73) 91 08/17/17 08:00 101.5 114 18 135/81 (99) 94 08/17/17 01:35 99.6 111 18 107/69 (82) 95 08/17/17 00:00 100.2 108 18 170/70 (103) 95 08/16/17 20:00 96.7 96 18 135/70 (91) 98 08/16/17 16:00 97.6 108 18 131/76 (94) 95 I/O 08/16/17 08/16/17 08/16/17 08/17/17 08/17/17 08/17/17 07:00 15:00 23:00 07:00 15:00 23:00 Intake Total 480 ml 560 ml 240 ml 260 ml Output Total 1300 ml 300 ml 400 ml Balance -820 ml 260 ml -160 ml 260 ml Intake Oral 480 ml 560 ml 240 ml IV Total 260 ml Output Urine Total 1300 ml 300 ml 400 ml # Bowel Movements 0 0 0 Objective Remarks GENERAL: Well-nourished, well-developed patient, sleeping SKIN: Warm and dry. HEAD: Normocephalic. EYES: No scleral icterus. No injection or drainage. NECK: Supple, trachea midline. No JVD or lymphadenopathy. CARDIOVASCULAR: Regular rate and rhythm without murmurs, gallops, or rubs. RESPIRATORY: Breath sounds equal bilaterally. No accessory muscle use. GASTROINTESTINAL: Abdomen soft, non-tender, nondistended. EXTREMITIES: No cyanosis, or edema. NEUROLOGICAL: Asleep A/P Problem List: (1) Acute respiratory failure ICD Code: J96.00 - Acute respiratory failure, unspecified whether with hypoxia or hypercapnia Status: Acute (2) Alcohol intoxication ICD Code: F10.129 - Alcohol abuse with intoxication, unspecified Status: Acute (3) Alcohol dependence ICD Code: F10.20 - Alcohol dependence, uncomplicated Status: Chronic (4) Laceration of cheek, right ICD Code: S01.411A - Laceration without foreign body of right cheek and temporomandibular area, initial encounter Status: Acute (5) Polysubstance abuse ICD Code: F19.10 - Polysubstance abuse Status: Chronic (6) Transaminitis ICD Code: R74.0 - Elevated transaminase measurement Status: Chronic (7) ALCOHOL DEPENDENCE WITH WITHDRAWAL DELIRIUM ICD Code: F10.231 - ALCOHOL DEPENDENCE WITH WITHDRAWAL DELIRIUM Status: Acute (8) Fall ICD Code: W19.XXXA - Unspecified fall, initial encounter Status: Acute (9) Hypoglycemia ICD Code: E16.2 - Hypoglycemia, unspecified Status: Acute Assessment and Plan Seizure, Polysubstance abuse, Alcoholism, Delirium Tremens Bipolar disorder, Agitation with threats Currently on CIWA protocol and getting Librium scheduled, with tapering. Seizure Precautions MVI/folic acid/thiamine supplementation Haldol PRN for agitation Seroquel 50mg BID Appreciate Psych Consult Laceration R cheek s/p laceration repair 08/03. Acute protein calorie malnutrition Continue thiamine/folate Continue multivitamin Diet as tolerated DVT prophylaxis Lovenox Problem Qualifiers (1) Fall: Qualified Codes: W19.XXXA - Unspecified fall, initial encounter Francesco Bolton MD Aug 17, 2017 14:22
[2017-08-17 16:00] VITALS: BP 114/71; PULSE 119; RESP 18; TEMP 101.8; O2SAT 91
[2017-08-17] MEDS ORDERED: LORazepam 2 MG/ML VIAL IV PUSH PRN (17:00)
[2017-08-17 18:09] LABS: AMORPHOUS SEDIMENT, URINE RARE; BACTERIA, URINE MANY /hpf; BILIRUBIN, URINE NEG (NEG); BLOOD, URINE SMALL (NEG); GLUCOSE,URINE NEG (NEG); KETONE, URINE 10 mg/dL (NEG); MUCUS URINE MOD /lpf (OCC); NITRITE,URINE POS (NEG); PH, URINE 5.5 (5.0-8.5); URINE COLOR DARK-YELLOW (YELLW/STRAW); URINE LEUKOCYTE ESTERASE LARGE (NEG); WHITE BLOOD CELL CLUMPS MOD
[2017-08-17 18:56] LABS: BICARBONATE 21.2 MEQ/L (21.0-32.0); CALCIUM 9.4 MG/DL (8.5-10.1); CREATININE 1.04 MG/DL (0.60-1.30)
[2017-08-17 20:00] VITALS: BP 114/74; PULSE 114; RESP 18; TEMP 101; O2SAT 93
--- NOTE | 2017-08-17 20:40 | RADRPT ---
EXAM DATE/TIME: 08/17/2017 20:14 [place] COMPARISON: No previous studies available for comparison. INDICATIONS : Evaluate plural effusion MEDICAL HISTORY : Hepatitis C. SURGICAL HISTORY : Inguinal hernia repair ENCOUNTER: Subsequent ACUITY: 2 weeks PAIN SCORE: Non-responsive. LOCATION: chest FINDINGS: Frontal and lateral view of the chest demonstrate patchy areas of partially consolidated infiltrate p resent in the infrahilar region bilaterally and posterior causing loss of delineation of the posterio r left hemidiaphragm. The heart is normal in size. There is moderate elevation of the left hemidiap hragm. CONCLUSION: Bilateral partially consolidative lower lung infiltrates, left greater than right with associated stefano vation of the left hemidiaphragm. Fabrice Holm MD on August 17, 2017 at 20:36 Board Certified Radiologist. This report was verified electronically.
[2017-08-17 21:47] LABS: AUTOMATED NEUTROPHIL # 10.3 TH/MM3 (1.8-7.7); BASOPHIL # 0.1 TH/MM3 (0-0.2); BASOPHIL % 0.6 % (0.0-2.0); EOSINOPHIL % 0.2 % (0.0-4.0); HEMATOCRIT 50.7 % (39.0-51.0); HEMOGLOBIN 17.1 GM/DL (13.0-17.0); LYMPHOCYTE # 1.6 TH/MM3 (1.0-4.8); MEAN CELL VOLUME 92.3 FL (80.0-100.0); MEAN CORPUSCULAR HEMOGLOBIN 31.1 PG (27.0-34.0); MEAN CORPUSCULAR HGB CONC 33.7 % (32.0-36.0); MEAN PLATELET VOLUME 8.1 FL (7.0-11.0); MONO % 10.1 % (0.0-8.0); MONOCYTE # 1.3 TH/MM3 (0-0.9); NEUT % 77.1 % (16.0-70.0); PLATELET COUNT 448 TH/MM3 (150-450); RED BLOOD COUNT 5.49 MIL/MM3 (4.50-5.90); RED CELL DISTRIBUTION WIDTH 13.9 % (11.6-17.2); WHITE BLOOD COUNT 13.4 TH/MM3 (4.0-11.0)
[2017-08-17] MEDS ORDERED: cefTRIAXone INJ 1,000 MG in SODIUM CHLORIDE 0.9% INJ 100 ML IV ONE (22:00)
[2017-08-17] MEDS: HALOPERIDOL LACTATE 5 MG/ML AMP IM PRN (23:18)
[2017-08-17] MEDS: ENOXAPARIN SODIUM 40 MG/0.4 ML SYRINGE SQ SCH (23:19)
[2017-08-18] VITALS: BP 129/69; PULSE 107; RESP 20; O2SAT 92
[2017-08-18] MEDS: CHLORHEXIDINE GLUCONATE 2 % 1 PACK (2 CLOTHS) TOP SCH (04:00)
[2017-08-18 08:00] VITALS: BP 141/63; PULSE 107; RESP 18; TEMP 98.4; O2SAT 90
[2017-08-18] MEDS: CHLORHEXIDINE 0.12% (ORAL KIT) 15 ML CUP MT SCH ×2 (08:00→20:00)
[2017-08-18] MEDS: THIAMINE HCL 100 MG TAB PO SCH (08:04)
[2017-08-18] MEDS: FAMOTIDINE 20 MG TAB PO SCH ×2 (08:04→21:03)
[2017-08-18] MEDS: DOCUSATE SODIUM 50 MG/SENNA 8.6 MG TAB PO SCH ×2 (08:04→21:03)
[2017-08-18] MEDS: FOLIC ACID 1 MG TAB PO SCH (08:05)
[2017-08-18] MEDS: MULTIVITAMIN TAB PO SCH (08:05)
[2017-08-18] MEDS: QUEtiapine FUMARATE 25 MG TAB PO SCH ×2 (08:05→11:23)
[2017-08-18] MEDS: HALOPERIDOL LACTATE 5 MG/ML AMP IM PRN ×2 (08:22→18:45)
[2017-08-18 12:00] VITALS: BP 98/63; PULSE 100; RESP 25; TEMP 99.3; O2SAT 90
--- NOTE | 2017-08-18 12:21 | PD.WCN.NOT ---
Wound Consult Description: Wound consult ordered by Jessica BLACKMAN for right buttocks Communicated with: Adali ARELLANO , Dr.Miller GROVES Recommendation: 1) Cleanse right buttocks abscess with normal saline pat dry 2) Skin prep periwound Apply Calcium alginate AG to Open area 3) Cover with 4x4 boarder gauze date and sign.Change every 3 days or as needed for exudate/dislodgement. 4) Reconsult wound nurse if worsens Additional Information: Patient was seen today by continuity writer on for right buttocks wound. Patient alert in bed with confusion continuously stated " Can't believe he's in [facility]'.Patient currently in 4 point restraints. Right side restraints removed to reposition patient to Left side.Dressing removed to Right buttocks to reveal open area measuring 0.2cm x0.2cm with scant bloody drainage noted with no odor.Wound has characteristics of abscess with induration/discolored skin measuring ~2.0cm x~3.0cm.Skin is blanchable in all areas.Wound cleansed with normal saline pat dry.covered with dry dressing till supplies available.Patient tolerated wound care well.Patient currently being treated with antibiotics.Abscess seems to be improving per wound assessments. Al[facility] Molina [facility] Aug 18, 2017 12:21
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
[2017-08-18 16:00] VITALS: BP 112/69; PULSE 104; RESP 17; TEMP 98.9; O2SAT 90
[2017-08-18] MEDS: TOBRAMYCIN SULF 0.3% OPHT SOLN 5 ML BTL EACH EYE SCH ×2 (18:15→23:49)
[2017-08-18 20:00] VITALS: BP 115/69; PULSE 100; RESP 17; TEMP 98.6; O2SAT 91
[2017-08-18] MEDS: ENOXAPARIN SODIUM 40 MG/0.4 ML SYRINGE SQ SCH (21:03)
[2017-08-18] MEDS: cefTRIAXone INJ 1,000 MG in SODIUM CHLORIDE 0.9% INJ 100 ML IV SCH (21:03)
[2017-08-18] MEDS: GABAPENTIN 300 MG CAP PO SCH (21:03)
[2017-08-19] VITALS: BP 116/70; PULSE 105; RESP 17; TEMP 98.9; O2SAT 97
[2017-08-19] MEDS: CHLORHEXIDINE GLUCONATE 2 % 1 PACK (2 CLOTHS) TOP SCH (04:00)
[2017-08-19] MEDS: TOBRAMYCIN SULF 0.3% OPHT SOLN 5 ML BTL EACH EYE SCH ×3 (05:44→17:10)
[2017-08-19] MEDS: CHLORHEXIDINE 0.12% (ORAL KIT) 15 ML CUP MT SCH ×2 (07:49→20:00)
[2017-08-19 08:00] VITALS: BP 108/72; PULSE 97; RESP 17; TEMP 96.2; O2SAT 90
[2017-08-19] MEDS: DOCUSATE SODIUM 50 MG/SENNA 8.6 MG TAB PO SCH ×2 (09:05→20:13)
[2017-08-19] MEDS: FOLIC ACID 1 MG TAB PO SCH (09:05)
[2017-08-19] MEDS: THIAMINE HCL 100 MG TAB PO SCH (09:05)
[2017-08-19] MEDS: FAMOTIDINE 20 MG TAB PO SCH ×2 (09:05→20:13)
[2017-08-19] MEDS: QUEtiapine FUMARATE 25 MG TAB PO SCH ×2 (09:06→12:21)
[2017-08-19] MEDS: MULTIVITAMIN TAB PO SCH (09:06)
--- NOTE | 2017-08-19 11:57 | HHI.PR ---
Subjective Remarks The Cecile-chair on the floor is broken, so there was a concern for patient safety given lack of cooperation in recent past. He wants his restraints off, but is unreliable and has been violent in the past. Once Cecile-chair is available, PT requested to assist with transfer and evaluate balance. Objective Vitals Vital Signs Date Time Temp Pulse Resp B/P (MAP) Pulse Ox O2 Delivery O2 Flow Rate FiO2 08/19/17 08:00 96.2 97 17 108/72 (84) 90 08/19/17 00:00 98.9 105 17 116/70 (85) 97 08/18/17 20:00 98.6 100 17 115/69 (84) 91 08/18/17 16:00 98.9 104 17 112/69 (83) 90 08/18/17 12:00 99.3 100 25 98/63 (75) 90 I/O 08/18/17 08/18/17 08/18/17 08/19/17 08/19/17 08/19/17 07:00 15:00 23:00 07:00 15:00 23:00 Intake Total 340 ml 620 ml 50 ml Output Total 400 ml 350 ml 500 ml Balance -60 ml 270 ml -450 ml Intake Oral 240 ml 520 ml 50 ml IV Total 100 ml 100 ml Output Urine Total 400 ml 350 ml 500 ml # Voids 1 # Bowel Movements 0 0 0 Result Diagram: 08/17/17211208/17/171821 Objective Remarks GENERAL: Well-nourished, well-developed patient, AAO x 3 today SKIN: Warm and dry. HEAD: Normocephalic. EYES: No scleral icterus. No injection or drainage. NECK: Supple, trachea midline. No JVD or lymphadenopathy. CARDIOVASCULAR: Regular rate and rhythm without murmurs, gallops, or rubs. RESPIRATORY: Breath sounds equal bilaterally. No accessory muscle use. GASTROINTESTINAL: Abdomen soft, non-tender, nondistended. EXTREMITIES: No cyanosis, or edema. NEUROLOGICAL: Grossly intact, no deficits, AAO x 3 A/P Problem List: (1) Acute respiratory failure ICD Code: J96.00 - Acute respiratory failure, unspecified whether with hypoxia or hypercapnia Status: Acute (2) Alcohol intoxication ICD Code: F10.129 - Alcohol abuse with intoxication, unspecified Status: Acute (3) Alcohol dependence ICD Code: F10.20 - Alcohol dependence, uncomplicated Status: Chronic (4) Laceration of cheek, right ICD Code: S01.411A - Laceration without foreign body of right cheek and temporomandibular area, initial encounter Status: Acute (5) Polysubstance abuse ICD Code: F19.10 - Polysubstance abuse Status: Chronic (6) Transaminitis ICD Code: R74.0 - Elevated transaminase measurement Status: Chronic (7) ALCOHOL DEPENDENCE WITH WITHDRAWAL DELIRIUM ICD Code: F10.231 - ALCOHOL DEPENDENCE WITH WITHDRAWAL DELIRIUM Status: Acute (8) Fall ICD Code: W19.XXXA - Unspecified fall, initial encounter Status: Acute (9) Hypoglycemia ICD Code: E16.2 - Hypoglycemia, unspecified Status: Acute Assessment and Plan Seizure, Polysubstance abuse, Alcoholism, Delirium Tremens Bipolar disorder, Agitation with threats Seizure Precautions, PRN ativan. Librium reduced and CIWA protocol stopped due to oversedation, he is awake now MVI/folic acid/thiamine supplementation Haldol PRN for agitation Seroquel 50mg BID Appreciate Psych Consult Urinary Tract Infection Remains Afebrile Continue Rocephin Small Abcess Right buttock Dressing placed Cultures grew out MRSA, sensitivities pending Appreciate wound care nurse consult Bilteral lower lobe infiltrates "infiltrates with partial consolidation" Rocephin started, remaining afebrile Laceration R cheek s/p laceration repair 08/03. Acute protein calorie malnutrition Continue thiamine/folate, multivitamin, diet as tolerated DVT prophylaxis Lovenox Problem Qualifiers (1) Fall: Qualified Codes: W19.XXXA - Unspecified fall, initial encounter Francesco Bolton MD Aug 19, 2017 11:57
[2017-08-19 12:00] VITALS: BP_SYST 133; BP_SYST 140; BP_DIAS 74; BP_DIAS 78; PULSE 111; PULSE 116; RESP 17; RESP 18; TEMP 97.5; TEMP 97.7; O2SAT 90
[2017-08-19 20:00] VITALS: BP 142/79; PULSE 112; RESP 17; TEMP 97.9; O2SAT 91
[2017-08-19] MEDS: cefTRIAXone INJ 1,000 MG in SODIUM CHLORIDE 0.9% INJ 100 ML IV SCH (20:13)
[2017-08-19] MEDS: GABAPENTIN 300 MG CAP PO SCH (20:13)
[2017-08-19] MEDS: ENOXAPARIN SODIUM 40 MG/0.4 ML SYRINGE SQ SCH (20:14)
[2017-08-19] MEDS: HALOPERIDOL LACTATE 5 MG/ML AMP IM PRN (20:50)
[2017-08-20] VITALS: BP 146/73; PULSE 108; RESP 17; TEMP 97.9; O2SAT 92
[2017-08-20] MEDS: CHLORHEXIDINE GLUCONATE 2 % 1 PACK (2 CLOTHS) TOP SCH (04:00)
[2017-08-20] MEDS: TOBRAMYCIN SULF 0.3% OPHT SOLN 5 ML BTL EACH EYE SCH ×5 (05:25→22:24)
[2017-08-20 08:00] VITALS: BP 124/84; PULSE 107; RESP 17; TEMP 98.2; O2SAT 90
[2017-08-20] MEDS: CHLORHEXIDINE 0.12% (ORAL KIT) 15 ML CUP MT SCH ×2 (09:19→22:23)
[2017-08-20] MEDS: FAMOTIDINE 20 MG TAB PO SCH ×2 (10:16→22:26)
[2017-08-20] MEDS: DOCUSATE SODIUM 50 MG/SENNA 8.6 MG TAB PO SCH ×2 (10:16→22:26)
[2017-08-20] MEDS: QUEtiapine FUMARATE 25 MG TAB PO SCH ×2 (10:16→12:57)
[2017-08-20] MEDS: MULTIVITAMIN TAB PO SCH (10:16)
[2017-08-20] MEDS: FOLIC ACID 1 MG TAB PO SCH (10:16)
[2017-08-20] MEDS: THIAMINE HCL 100 MG TAB PO SCH (10:16)
[2017-08-20 12:00] VITALS: BP 121/73; PULSE 96; RESP 17; TEMP 98.6; O2SAT 91
--- NOTE | 2017-08-20 14:51 | HHI.PR ---
Subjective Remarks Mr Olivera is a bit sedated today, received a dose of Haldol overnight in addition to his BID Seroquel. He remains in restraints, still intermittently confused and unreliable for standing/walking. Objective Vitals Vital Signs Date Time Temp Pulse Resp B/P (MAP) Pulse Ox O2 Delivery O2 Flow Rate FiO2 08/20/17 12:00 98.6 96 17 121/73 (89) 91 08/20/17 08:00 98.2 107 17 124/84 (97) 90 08/20/17 00:00 97.9 108 17 146/73 (97) 92 08/19/17 20:00 97.9 112 17 142/79 (100) 91 I/O 08/19/17 08/19/17 08/19/17 08/20/17 08/20/17 08/20/17 07:00 15:00 23:00 07:00 15:00 23:00 Intake Total 50 ml 340 ml 0 ml Output Total 500 ml 150 ml Balance -450 ml 190 ml 0 ml Intake Oral 50 ml 240 ml 0 ml IV Total 100 ml Output Urine Total 500 ml 150 ml # Voids 1 2 3 # Bowel Movements 0 0 0 Result Diagram: 08/17/17211208/17/171821 Objective Remarks GENERAL: Well-nourished, well-developed patient SKIN: Warm and dry. HEAD: Normocephalic. EYES: No scleral icterus. No injection or drainage. NECK: Supple, trachea midline. No JVD or lymphadenopathy. CARDIOVASCULAR: Regular rate and rhythm without murmurs, gallops, or rubs. RESPIRATORY: Breath sounds equal bilaterally. No accessory muscle use. GASTROINTESTINAL: Abdomen soft, non-tender, nondistended. EXTREMITIES: No cyanosis, or edema. NEUROLOGICAL: Grossly intact, no deficits, AAO x 3, but with intermittent confusion A/P Problem List: (1) Acute respiratory failure ICD Code: J96.00 - Acute respiratory failure, unspecified whether with hypoxia or hypercapnia Status: Acute (2) Alcohol intoxication ICD Code: F10.129 - Alcohol abuse with intoxication, unspecified Status: Acute (3) Alcohol dependence ICD Code: F10.20 - Alcohol dependence, uncomplicated Status: Chronic (4) Laceration of cheek, right ICD Code: S01.411A - Laceration without foreign body of right cheek and temporomandibular area, initial encounter Status: Acute (5) Polysubstance abuse ICD Code: F19.10 - Polysubstance abuse Status: Chronic (6) Transaminitis ICD Code: R74.0 - Elevated transaminase measurement Status: Chronic (7) ALCOHOL DEPENDENCE WITH WITHDRAWAL DELIRIUM ICD Code: F10.231 - ALCOHOL DEPENDENCE WITH WITHDRAWAL DELIRIUM Status: Acute (8) Fall ICD Code: W19.XXXA - Unspecified fall, initial encounter Status: Acute (9) Hypoglycemia ICD Code: E16.2 - Hypoglycemia, unspecified Status: Acute Assessment and Plan Seizure, Polysubstance abuse, Alcoholism, Delirium Tremens Bipolar disorder, Agitation with threats Seizure Precautions, PRN ativan. Librium to 5mg TID PRN MVI/folic acid/thiamine supplementation Haldol PRN for agitation Seroquel 50mg BID Appreciate Psych Consult Confusion May be related to recent seizures and alcohol withdrawal as above Will recheck CBC, BMP and review results Urinary Tract Infection Remains Afebrile Continue Rocephin Small Abcess Right buttock Dressing placed Cultures grew out MRSA, sensitivities pending Appreciate wound care nurse consult Bilteral lower lobe infiltrates "infiltrates with partial consolidation" Rocephin started, remaining afebrile Laceration R cheek s/p laceration repair 08/03. Acute protein calorie malnutrition Continue thiamine/folate, multivitamin, diet as tolerated DVT prophylaxis Lovenox Problem Qualifiers (1) Fall: Qualified Codes: W19.XXXA - Unspecified fall, initial encounter Francesco Bolton MD Aug 20, 2017 14:51
[2017-08-20 16:00] VITALS: BP 107/71; PULSE 100; RESP 17; TEMP 97.9; O2SAT 90
[2017-08-20 19:40] LABS: AUTOMATED NEUTROPHIL # 4.4 TH/MM3 (1.8-7.7); BASOPHIL # 0.1 TH/MM3 (0-0.2); BASOPHIL % 0.9 % (0.0-2.0); EOSINOPHIL # 0.1 TH/MM3 (0-0.4); HEMATOCRIT 47.5 % (39.0-51.0); HEMOGLOBIN 16.7 GM/DL (13.0-17.0); LYMPH % 20.7 % (9.0-44.0); LYMPHOCYTE # 1.4 TH/MM3 (1.0-4.8); MEAN CELL VOLUME 91.6 FL (80.0-100.0); MEAN CORPUSCULAR HEMOGLOBIN 32.2 PG (27.0-34.0); MEAN CORPUSCULAR HGB CONC 35.2 % (32.0-36.0); MEAN PLATELET VOLUME 8.5 FL (7.0-11.0); MONO % 12.8 % (0.0-8.0); MONOCYTE # 0.9 TH/MM3 (0-0.9); NEUT % 63.6 % (16.0-70.0); PLATELET COUNT 443 TH/MM3 (150-450); RED BLOOD COUNT 5.19 MIL/MM3 (4.50-5.90)
[2017-08-20 20:00] VITALS: BP 110/56; PULSE 101; RESP 16; TEMP 98.4; O2SAT 93
[2017-08-20 20:08] LABS: BICARBONATE 27.7 MEQ/L (21.0-32.0); CALCIUM 9.6 MG/DL (8.5-10.1); CREATININE 0.83 MG/DL (0.60-1.30)
[2017-08-20] MEDS: cefTRIAXone INJ 1,000 MG in SODIUM CHLORIDE 0.9% INJ 100 ML IV SCH (22:20)
[2017-08-20] MEDS: ENOXAPARIN SODIUM 40 MG/0.4 ML SYRINGE SQ SCH (22:24)
[2017-08-20] MEDS: GABAPENTIN 300 MG CAP PO SCH (22:26)
[2017-08-21] VITALS: BP 132/62; PULSE 99; RESP 18; TEMP 98.1; O2SAT 93
[2017-08-21] MEDS: CHLORHEXIDINE GLUCONATE 2 % 1 PACK (2 CLOTHS) TOP SCH (04:00)
[2017-08-21] MEDS: TOBRAMYCIN SULF 0.3% OPHT SOLN 5 ML BTL EACH EYE SCH ×3 (05:56→17:17)
[2017-08-21] MEDS: CHLORHEXIDINE 0.12% (ORAL KIT) 15 ML CUP MT SCH ×2 (07:37→20:00)
[2017-08-21 08:00] VITALS: BP 108/73; PULSE 88; RESP 20; TEMP 97.1; O2SAT 95
[2017-08-21] MEDS: FAMOTIDINE 20 MG TAB PO SCH ×2 (08:57→21:34)
[2017-08-21] MEDS: QUEtiapine FUMARATE 25 MG TAB PO SCH ×3 (08:57→21:34)
[2017-08-21] MEDS: DOCUSATE SODIUM 50 MG/SENNA 8.6 MG TAB PO SCH ×2 (08:57→21:34)
[2017-08-21] MEDS: THIAMINE HCL 100 MG TAB PO SCH (08:57)
[2017-08-21] MEDS: MULTIVITAMIN TAB PO SCH (08:57)
[2017-08-21] MEDS: FOLIC ACID 1 MG TAB PO SCH (08:57)
[2017-08-21 12:00] VITALS: BP_SYST 108; BP_SYST 118; BP_DIAS 72; BP_DIAS 73; PULSE 88; PULSE 99; RESP 20; TEMP 97.1; TEMP 97.8; O2SAT 96
--- NOTE | 2017-08-21 14:33 | HHI.PR ---
Subjective Remarks Patient is up in the chair today smiling about his changes. He is still somewhat confused but has insight to understand that he is weakened following his withdrawal seizures. Objective Vitals Vital Signs Date Time Temp Pulse Resp B/P (MAP) Pulse Ox O2 Delivery O2 Flow Rate FiO2 08/21/17 12:00 97.8 99 20 118/72 (87) 96 08/21/17 08:00 97.1 88 20 108/73 (85) 95 08/21/17 00:00 98.1 99 18 132/62 (85) 93 08/20/17 20:00 98.4 101 16 110/56 (74) 93 08/20/17 16:00 97.9 100 17 107/71 (83) 90 I/O 08/20/17 08/20/17 08/20/17 08/21/17 08/21/17 08/21/17 07:00 15:00 23:00 07:00 15:00 23:00 Intake Total 0 ml 100 ml 120 ml Output Total 0 ml 200 ml 200 ml Balance 0 ml 100 ml -200 ml -80 ml Intake Oral 0 ml 0 ml 120 ml IV Total 100 ml Output Urine Total 0 ml 200 ml 200 ml # Voids 3 # Bowel Movements 0 0 0 Result Diagram: 08/20/17185408/20/171854 Objective Remarks GENERAL: Weak appearing, somewhat confused SKIN: Warm and dry. HEAD: Normocephalic. EYES: No scleral icterus. No injection or drainage. NECK: Supple, trachea midline. No JVD or lymphadenopathy. CARDIOVASCULAR: Regular rate and rhythm without murmurs, gallops, or rubs. RESPIRATORY: Breath sounds equal bilaterally. No accessory muscle use. GASTROINTESTINAL: Abdomen soft, non-tender, nondistended. EXTREMITIES: No cyanosis, or edema. NEUROLOGICAL: Grossly intact, no deficits, AAO x 3, but with intermittent confusion A/P Problem List: (1) Acute respiratory failure ICD Code: J96.00 - Acute respiratory failure, unspecified whether with hypoxia or hypercapnia Status: Acute (2) Alcohol intoxication ICD Code: F10.129 - Alcohol abuse with intoxication, unspecified Status: Acute (3) Alcohol dependence ICD Code: F10.20 - Alcohol dependence, uncomplicated Status: Chronic (4) Laceration of cheek, right ICD Code: S01.411A - Laceration without foreign body of right cheek and temporomandibular area, initial encounter Status: Acute (5) Polysubstance abuse ICD Code: F19.10 - Polysubstance abuse Status: Chronic (6) Transaminitis ICD Code: R74.0 - Elevated transaminase measurement Status: Chronic (7) ALCOHOL DEPENDENCE WITH WITHDRAWAL DELIRIUM ICD Code: F10.231 - ALCOHOL DEPENDENCE WITH WITHDRAWAL DELIRIUM Status: Acute (8) Fall ICD Code: W19.XXXA - Unspecified fall, initial encounter Status: Acute (9) Hypoglycemia ICD Code: E16.2 - Hypoglycemia, unspecified Status: Acute Assessment and Plan Seizure, Polysubstance abuse, Alcoholism, Delirium Tremens Bipolar disorder, Agitation with threats Seizure Precautions, PRN ativan. Librium to 5mg TID PRN MVI/folic acid/thiamine supplementation Haldol PRN for agitation Seroquel 50mg HS Appreciate Psych Consult Confusion May be related to recent seizures and alcohol withdrawal as above Will recheck CBC, BMP and review results We will change Seroquel back to p.m. dosing given patient's improved behavior Urinary Tract Infection Remains Afebrile Continue Rocephin Small Abcess Right buttock Dressing placed Cultures grew out MRSA, sensitivities pending Appreciate wound care nurse consult Bilteral lower lobe infiltrates "infiltrates with partial consolidation" Rocephin started, remaining afebrile Laceration R cheek s/p laceration repair 08/03. Acute protein calorie malnutrition Continue thiamine/folate, multivitamin, diet as tolerated DVT prophylaxis Lovenox Problem Qualifiers (1) Fall: Qualified Codes: W19.XXXA - Unspecified fall, initial encounter Francesco Bolton MD Aug 21, 2017 14:33
[2017-08-21 18:00] VITALS: BP 131/86; PULSE 90; RESP 20; TEMP 98.7; O2SAT 95
[2017-08-21 20:00] VITALS: BP 122/57; PULSE 95; RESP 22; TEMP 98.9; O2SAT 92
[2017-08-21] MEDS: ENOXAPARIN SODIUM 40 MG/0.4 ML SYRINGE SQ SCH (21:34)
[2017-08-21] MEDS: GABAPENTIN 300 MG CAP PO SCH (21:34)
[2017-08-21] MEDS: cefTRIAXone INJ 1,000 MG in SODIUM CHLORIDE 0.9% INJ 100 ML IV SCH (21:35)
[2017-08-22] VITALS: BP 110/62; PULSE 80; RESP 18; TEMP 97.5; O2SAT 92
[2017-08-22] MEDS: CHLORHEXIDINE GLUCONATE 2 % 1 PACK (2 CLOTHS) TOP SCH (00:49)
[2017-08-22] MEDS: TOBRAMYCIN SULF 0.3% OPHT SOLN 5 ML BTL EACH EYE SCH ×5 (00:49→23:37)
[2017-08-22] MEDS: CHLORHEXIDINE 0.12% (ORAL KIT) 15 ML CUP MT SCH ×2 (07:18→20:00)
[2017-08-22] MEDS: MULTIVITAMIN TAB PO SCH (07:57)
[2017-08-22] MEDS: FOLIC ACID 1 MG TAB PO SCH (07:57)
[2017-08-22] MEDS: DOCUSATE SODIUM 50 MG/SENNA 8.6 MG TAB PO SCH ×2 (07:57→21:15)
[2017-08-22] MEDS: FAMOTIDINE 20 MG TAB PO SCH ×2 (07:57→21:15)
[2017-08-22] MEDS: THIAMINE HCL 100 MG TAB PO SCH (07:57)
[2017-08-22 08:00] VITALS: BP 107/67; PULSE 90; RESP 18; TEMP 97.7; O2SAT 92
[2017-08-22 12:00] VITALS: BP 115/69; PULSE 85; RESP 18; TEMP 97.9; O2SAT 92
[2017-08-22 15:48] VITALS: BP 115/69; PULSE 88; RESP 18; TEMP 98.8; O2SAT 95
[2017-08-22] MEDS ORDERED: SERO25TA PO (16:43)
--- NOTE | 2017-08-22 17:00 | HHI.DS ---
Discharge Summary Admission Date Aug 02, 2017 at 19:33 Discharge Date: Aug 22, 2017 Admitting Diagnosis bilateral pleural effusion. Respiratory failure (1) Acute respiratory failure ICD Code: J96.00 - Acute respiratory failure, unspecified whether with hypoxia or hypercapnia Diagnosis: Principal Status: Acute (2) Alcohol intoxication ICD Code: F10.129 - Alcohol abuse with intoxication, unspecified Diagnosis: Principal Status: Acute (3) Alcohol dependence ICD Code: F10.20 - Alcohol dependence, uncomplicated Diagnosis: Principal Status: Chronic (4) Laceration of cheek, right ICD Code: S01.411A - Laceration without foreign body of right cheek and temporomandibular area, initial encounter Diagnosis: Secondary Status: Acute (5) Polysubstance abuse ICD Code: F19.10 - Polysubstance abuse Diagnosis: Secondary Status: Chronic (6) Transaminitis ICD Code: R74.0 - Elevated transaminase measurement Diagnosis: Secondary Status: Chronic (7) ALCOHOL DEPENDENCE WITH WITHDRAWAL DELIRIUM ICD Code: F10.231 - ALCOHOL DEPENDENCE WITH WITHDRAWAL DELIRIUM Diagnosis: Principal Status: Acute (8) Fall ICD Code: W19.XXXA - Unspecified fall, initial encounter Diagnosis: Secondary Status: Acute (9) Hypoglycemia ICD Code: E16.2 - Hypoglycemia, unspecified Diagnosis: Secondary Status: Acute Procedures none Brief History - From Admission 56-year-old male with past medical history of alcohol dependence and polysubstance abuse (cocaine, THC, K2 and Flakka) who presented to [facility] emergency department by [facility] after he was found in the street intoxicated. He was initially conversant upon arrival and then got up and was urinating on the floor and then fell in the ED. He then had decreased level of consciousness with seizure vs tremor vs ?posturing. He was intubated for airway protection and underwent CT brain, CT C-spine, CT maxillofacial which demonstrated no acute abnormality. There was an old comminuted nasal fracture. He is afebrile without leukocytosis. Glucose is 67. I have ordered D50. He is following commands on sedation with propofol. CBC/BMP: 2185408/20/171854 Significant Findings Laboratory Tests Test 08/20/17 18:55 Monocytes (%) (Auto) 12.8 % (0.0-8.0) PE at Discharge GENERAL: Weak appearing, somewhat confused SKIN: Warm and dry. HEAD: Normocephalic. EYES: No scleral icterus. No injection or drainage. NECK: Supple, trachea midline. No JVD or lymphadenopathy. CARDIOVASCULAR: Regular rate and rhythm without murmurs, gallops, or rubs. RESPIRATORY: Breath sounds equal bilaterally. No accessory muscle use. GASTROINTESTINAL: Abdomen soft, non-tender, nondistended. EXTREMITIES: No cyanosis, or edema. NEUROLOGICAL: Grossly intact, no deficits, AAO x 3, but with intermittent confusion Hospital Course 56-year-old male with history of polysubstance abuse presented to our ER on August 02 after being found down due to alcohol intoxication. He proceeded to go into tremors and alcohol withdrawal. After onset of seizure he was intubated and placed in the ICU for a few days. He came onto my service following his days in the ICU and has throughout his stay demonstrated aggressive behavior with threats to the staff and fist swings when he is off restraints. He is alert and oriented intermittently, but inappropriate and aggressive with staff as well. He was treated with 3 days of IV Rocephin for urinary tract infection. His hyponatremia noted a few days ago has fully resolved. He seems to have reached maximum medical improvement and there is nothing left for us to do from a medical standpoint therefore his affect can at this point only be blamed on underlying psychiatric disorder. Psychiatry has been consulted to determine if he is appropriate for their service to resume care if appropriate. Pt Condition on Discharge: Stable Discharge Disposition: Disc to Psych Care Fac Discharge Time: <= 30 minutes Discharge Instructions DIET: Follow Instructions for: As Tolerated, No Restrictions Speech Therapy-Diet Recommends: Pureed, [place] Thickened Liquids Activities you can perform: Weight Bearing as Emily Other Activity Instructions: Fall Risk Francesco Bolton MD Aug 22, 2017 16:59
[2017-08-22 20:00] VITALS: BP 119/72; PULSE 80; RESP 19; TEMP 96.7; O2SAT 90
[2017-08-22] MEDS: QUEtiapine FUMARATE 25 MG TAB PO SCH (21:15)
[2017-08-22] MEDS: GABAPENTIN 300 MG CAP PO SCH (21:15)
[2017-08-22] MEDS: ENOXAPARIN SODIUM 40 MG/0.4 ML SYRINGE SQ SCH (21:16)
[2017-08-22] MEDS: cefTRIAXone INJ 1,000 MG in SODIUM CHLORIDE 0.9% INJ 100 ML IV SCH (21:16)
[2017-08-22] MEDS: MAGNESIUM HYDROXIDE SUSP 30 ML CUP PO PRN (21:31)
[2017-08-23] VITALS: BP 130/78; PULSE 94; RESP 19; TEMP 96.5; O2SAT 92
[2017-08-23] MEDS: CHLORHEXIDINE GLUCONATE 2 % 1 PACK (2 CLOTHS) TOP SCH (03:35)
[2017-08-23] MEDS: TOBRAMYCIN SULF 0.3% OPHT SOLN 5 ML BTL EACH EYE SCH ×4 (05:13→23:48)
[2017-08-23 08:00] VITALS: BP 121/72; PULSE 90; RESP 17; TEMP 97.1; O2SAT 90
[2017-08-23] MEDS: FOLIC ACID 1 MG TAB PO SCH (09:35)
[2017-08-23] MEDS: FAMOTIDINE 20 MG TAB PO SCH ×2 (09:35→22:06)
[2017-08-23] MEDS: THIAMINE HCL 100 MG TAB PO SCH (09:35)
[2017-08-23] MEDS: DOCUSATE SODIUM 50 MG/SENNA 8.6 MG TAB PO SCH ×2 (09:35→22:06)
[2017-08-23] MEDS: MULTIVITAMIN TAB PO SCH (09:35)
[2017-08-23] MEDS: MAGNESIUM HYDROXIDE SUSP 30 ML CUP PO PRN ×2 (09:35→22:09)
[2017-08-23] MEDS: CHLORHEXIDINE 0.12% (ORAL KIT) 15 ML CUP MT SCH ×2 (09:47→19:27)
--- NOTE | 2017-08-23 11:45 | HHI.PYPN ---
Subjective Remarks Patient seen in his room with nurse, chart review, patient discussed with nurse also discussed with patient's attending. Does give a long involved history of alcohol dependency/abuse with Lonnylori Scott and rehabs. He states he has a mental health history and [place] him medication including psychostimulants. Benzodiazepines. Antidepressants. This time patient is alert is fairly well oriented. Somewhat irritable labile but overall cooperative with me. He denies suicidality homicidality voices or visions. States he is states he has some place to stay. At this time patient does not meet criteria for acute inpatient psychiatric hospitalization. I would recommend the medications as recommended by Dr. Callaway on 08/16 on Seroquel 50 mg twice a day. He can otherwise continue his psychotropics per his outpatient psychiatrist. I recommend the patient continue some type of rehabilitation for alcohol counseling also. Thus as okay by psychiatry for patient to be discharged when medically cleared and stable by medicine thanks for consult will set off the present time Review of Systems Except as stated in HPI: all other systems reviewed are Neg Mental Status Examination Appearance: Dirty, Disheveled, Malodorous, Other (in four point restraints) Consciousness: Alert, Clouded Orientation: Person, Date/Time Speech: Slow Language: Adequate Fund of Knowledge: Inadequate Attention and Concentration: Adequate Memory: Impaired Mood: Appropriate Affect: Blunt Thought Process & Associations: Linear, Other (concrete) Thought Content: Bizarre thinking Hallucination Type: None Delusion Type: None Suicidal Ideation: No Suicidal Plan: No Suicidal Intention: No Homicidal Ideation: No Homicidal Plan: No Homicidal Intention: No Insight: Poor Judgment: Poor Results Labs Date/Time Source Procedure Growth Status 08/17/17 17:15 Urine Clean Catch Urine Culture - Final Escherichia Coli Esbl Positive Complete 08/17/17 03:45 Wound Buttock Gram Stain - Final Complete 08/17/17 03:45 Wound Culture - Final S. Aureus Mrsa Complete Vitals/IOs Vital Signs Date Time Temp Pulse Resp B/P (MAP) Pulse Ox O2 Delivery O2 Flow Rate FiO2 08/23/17 08:00 97.1 90 17 121/72 (88) 90 Intake and Output 08/23/17 08/23/17 08/24/17 08:00 16:00 00:00 Intake Total 900 ml Output Total 500 ml Balance 400 ml Assessment & Plan Problem List: (1) Polysubstance abuse ICD Codes: F19.10 - Polysubstance abuse Status: Chronic Assessment & Plan Estimated LOS: days is okay by psychiatry for patient to be discharged. Patient does not meet criteria for acute inpatient psychiatric hospitalization. He may continue his outpatient psychotropic medications, would also suggest the addition of the Seroquel at 50 mg twice a day he may follow-up with his current psychiatrist out of state or perhaps referred to [facility] Justification for Cont. Inpt. Okay by psych for discharge Discharge Planning Okay by psych for discharge Fermín Lobo MD Aug 23, 2017 11:45
[2017-08-23 12:00] VITALS: BP 114/74; PULSE 93; RESP 16; TEMP 96.8; O2SAT 98
--- NOTE | 2017-08-23 13:43 | HHI.PR ---
Subjective Remarks Pt seen and examined. AFVSS. States he wants to get out of the hospital and go back to the motel he rents from. Doesn't have transportation. Tolerating PO. Denies abdominal pain, N/V, CP, or SOB. Ambulating. Bland in place; reports at baseline he has problems urinating and requests Flomax. Objective Vitals Vital Signs Date Time Temp Pulse Resp B/P (MAP) Pulse Ox O2 Delivery O2 Flow Rate FiO2 08/23/17 08:00 97.1 90 17 121/72 (88) 90 08/23/17 00:00 96.5 94 19 130/78 (95) 92 08/22/17 20:00 96.7 80 19 119/72 (88) 90 08/22/17 15:48 98.8 88 18 115/69 (84) 95 I/O 08/22/17 08/22/17 08/22/17 08/23/17 08/23/17 08/23/17 07:00 15:00 23:00 07:00 15:00 23:00 Intake Total 1840 ml 900 ml Output Total 450 ml 1400 ml 500 ml Balance -450 ml 440 ml 400 ml Intake Oral 1840 ml 900 ml Output Urine Total 450 ml 1400 ml 500 ml # Voids 3 # Bowel Movements 0 1 Result Diagram: 08/20/17185408/20/[id number] Objective Remarks GENERAL: male sitting up eating. SKIN: Warm and dry. Hyperpigmented and several tattoos. HEENT: Pupils equal and round. MMM. NECK: Supple no tender LAD or JVD. HEART: RRR no m/r/g. LUNGS: CTAB without wheezes or crackles. ABDOMEN: Soft, NT, ND. EXTREMITIES: No LE edema or calf tenderness. NEURO: Awake and alert. A/P Problem List: (1) Acute respiratory failure ICD Code: J96.00 - Acute respiratory failure, unspecified whether with hypoxia or hypercapnia Status: Acute (2) Alcohol intoxication ICD Code: F10.129 - Alcohol abuse with intoxication, unspecified Status: Acute (3) Alcohol dependence ICD Code: F10.20 - Alcohol dependence, uncomplicated Status: Chronic (4) Laceration of cheek, right ICD Code: S01.411A - Laceration without foreign body of right cheek and temporomandibular area, initial encounter Status: Acute (5) Polysubstance abuse ICD Code: F19.10 - Polysubstance abuse Status: Chronic (6) Transaminitis ICD Code: R74.0 - Elevated transaminase measurement Status: Chronic (7) ALCOHOL DEPENDENCE WITH WITHDRAWAL DELIRIUM ICD Code: F10.231 - ALCOHOL DEPENDENCE WITH WITHDRAWAL DELIRIUM Status: Acute (8) Fall ICD Code: W19.XXXA - Unspecified fall, initial encounter Status: Acute (9) Hypoglycemia ICD Code: E16.2 - Hypoglycemia, unspecified Status: Resolved Assessment and Plan Seizure, Polysubstance abuse, Alcoholism, Delirium Tremens Bipolar disorder, Agitation with threats Seizure Precautions, PRN Ativan MVI/folic acid/thiamine supplementation Haldol PRN for agitation Increase Seroquel to 100 mg PO BID Not a candidate for inpatient psych - Appreciate Psych Consult Urinary Tract Infection Urine culture growing ESBL E. coli resistant to Rocephin Change to Cipro and consult ID Small Abcess Right buttock Dressing placed Cultures grew out MRSA ID cosnutled to assist with management of antibiotics for MRSA + ESBL E. coli in urine Appreciate wound care nurse consult Laceration R cheek s/p laceration repair 08/03 Acute protein calorie malnutrition Continue thiamine/folate, multivitamin, diet as tolerated DVT prophylaxis Lovenox FEN Regular diet Monitor electrolytes Problem Qualifiers (1) Fall: Qualified Codes: W19.XXXA - Unspecified fall, initial encounter Sara Jacobson MD Aug 23, 2017 13:43
[2017-08-23 16:00] VITALS: BP 100/62; PULSE 91; RESP 18; TEMP 98.4; O2SAT 92
[2017-08-23] MEDS ORDERED: VANCOMYCIN INJ 1,000 MG in SODIUM CHLOR 0.9% 250 ML INJ 250 ML IV SCH (17:00)
[2017-08-23 20:00] VITALS: BP 125/71; PULSE 91; RESP 21; TEMP 97; O2SAT 95
[2017-08-23] MEDS: CIPROFLOXACIN 500 MG TAB PO SCH (22:06)
[2017-08-23] MEDS: GABAPENTIN 300 MG CAP PO SCH (22:06)
[2017-08-23] MEDS: QUEtiapine FUMARATE 100 MG TAB PO SCH (22:06)
[2017-08-23] MEDS: ENOXAPARIN SODIUM 40 MG/0.4 ML SYRINGE SQ SCH (22:07)
[2017-08-24] VITALS: BP 136/74; PULSE 92; RESP 18; TEMP 98.5; O2SAT 94
[2017-08-24] MEDS: CHLORHEXIDINE GLUCONATE 2 % 1 PACK (2 CLOTHS) TOP SCH (03:51)
[2017-08-24] MEDS: TOBRAMYCIN SULF 0.3% OPHT SOLN 5 ML BTL EACH EYE SCH ×2 (05:05→12:00)
[2017-08-24 08:00] VITALS: BP 121/82; PULSE 96; RESP 18; TEMP 96.4; O2SAT 95
[2017-08-24] MEDS: CHLORHEXIDINE 0.12% (ORAL KIT) 15 ML CUP MT SCH (08:00)
[2017-08-24 08:41] LABS: AUTOMATED NEUTROPHIL # 3.2 TH/MM3 (1.8-7.7); BASOPHIL # 0.1 TH/MM3 (0-0.2); BASOPHIL % 1.1 % (0.0-2.0); EOSINOPHIL # 0.2 TH/MM3 (0-0.4); EOSINOPHIL % 4.1 % (0.0-4.0); HEMATOCRIT 45.6 % (39.0-51.0); HEMOGLOBIN 15.6 GM/DL (13.0-17.0); MEAN CELL VOLUME 92.6 FL (80.0-100.0); MEAN CORPUSCULAR HEMOGLOBIN 31.8 PG (27.0-34.0); MEAN CORPUSCULAR HGB CONC 34.3 % (32.0-36.0); MEAN PLATELET VOLUME 8.5 FL (7.0-11.0); MONO % 11.1 % (0.0-8.0); MONOCYTE # 0.7 TH/MM3 (0-0.9); NEUT % 51.7 % (16.0-70.0); PLATELET COUNT 337 TH/MM3 (150-450); RED BLOOD COUNT 4.92 MIL/MM3 (4.50-5.90); RED CELL DISTRIBUTION WIDTH 13.9 % (11.6-17.2); WHITE BLOOD COUNT 6.1 TH/MM3 (4.0-11.0)
[2017-08-24] MEDS: CIPROFLOXACIN 500 MG TAB PO SCH (08:57)
[2017-08-24] MEDS: QUEtiapine FUMARATE 100 MG TAB PO SCH (08:57)
[2017-08-24] MEDS: DOCUSATE SODIUM 50 MG/SENNA 8.6 MG TAB PO SCH (08:57)
[2017-08-24] MEDS: MULTIVITAMIN TAB PO SCH (08:57)
[2017-08-24] MEDS: FAMOTIDINE 20 MG TAB PO SCH (08:57)
[2017-08-24] MEDS: THIAMINE HCL 100 MG TAB PO SCH (08:57)
[2017-08-24 08:58] LABS: BICARBONATE 29.5 MEQ/L (21.0-32.0); CREATININE 0.82 MG/DL (0.60-1.30)
[2017-08-24] MEDS: FOLIC ACID 1 MG TAB PO SCH (08:58)
[2017-08-24] MEDS ORDERED: TAMSULOSIN HCL 0.4 MG CAP PO SCH (09:00)
--- NOTE | 2017-08-24 11:20 | HHI.PR ---
Subjective Remarks Pt seen and examined. AFVSS. No acute events overnight. Pt up in the chair eating and in good spirits. Eager to be discharged. Has already paid rent for the month at a local motel. Denies pain anywhere, CP, SOB, N/V. Tolerating PO. Ambulating. Feels he is thinking clearly. Objective Vitals Vital Signs Date Time Temp Pulse Resp B/P (MAP) Pulse Ox O2 Delivery O2 Flow Rate FiO2 08/24/17 08:00 96.4 96 18 121/82 (95) 95 08/24/17 00:00 98.5 92 18 136/74 (94) 94 08/23/17 20:00 97.0 91 21 125/71 (89) 95 08/23/17 16:00 98.4 91 18 100/62 (75) 92 08/23/17 12:00 96.8 93 16 114/74 (87) 98 I/O 08/23/17 08/23/17 08/23/17 08/24/17 08/24/17 08/24/17 06:59 14:59 22:59 06:59 14:59 22:59 Intake Total 900 ml 975 ml 480 ml Output Total 500 ml 450 ml Balance 400 ml 525 ml 480 ml Intake Oral 900 ml 975 ml 480 ml Output Urine Total 500 ml 450 ml # Voids 3 2 3 # Bowel Movements 1 Result Diagram: 08/24/17 0755 08/24/17 0755 Objective Remarks GENERAL: male sitting up eating. SKIN: Warm and dry. Hyperpigmented and several tattoos. Old wounds healed on buttocks and shins. HEENT: Pupils equal and round. MMM. NECK: Supple no tender LAD or JVD. HEART: RRR no m/r/g. LUNGS: CTAB without wheezes or crackles. ABDOMEN: Soft, NT, ND. EXTREMITIES: No LE edema or calf tenderness. NEURO: Awake and alert. A/P Problem List: (1) Acute respiratory failure ICD Code: J96.00 - Acute respiratory failure, unspecified whether with hypoxia or hypercapnia Status: Acute (2) Alcohol intoxication ICD Code: F10.129 - Alcohol abuse with intoxication, unspecified Status: Acute (3) Alcohol dependence ICD Code: F10.20 - Alcohol dependence, uncomplicated Status: Chronic (4) Laceration of cheek, right ICD Code: S01.411A - Laceration without foreign body of right cheek and temporomandibular area, initial encounter Status: Acute (5) Polysubstance abuse ICD Code: F19.10 - Polysubstance abuse Status: Chronic (6) Transaminitis ICD Code: R74.0 - Elevated transaminase measurement Status: Chronic (7) ALCOHOL DEPENDENCE WITH WITHDRAWAL DELIRIUM ICD Code: F10.231 - ALCOHOL DEPENDENCE WITH WITHDRAWAL DELIRIUM Status: Acute (8) Fall ICD Code: W19.XXXA - Unspecified fall, initial encounter Status: Acute (9) Hypoglycemia ICD Code: E16.2 - Hypoglycemia, unspecified Status: Resolved Assessment and Plan Seizure, Polysubstance abuse, Alcoholism, Delirium Tremens Bipolar disorder, Agitation with threats Patient off of all anxiolytics and CIWA Completed rally pack Off of restraints Not a candidate for inpatient psych - Appreciate Psych Consult Mentation clear Urinary Tract Infection Urine culture growing ESBL E. coli resistant to Rocephin Change to Cipro and consult ID for duration Right buttock wound with MRSA Wound is healed Laceration R cheek s/p laceration repair 08/03 FEN Regular diet Discharge Planning D/C today Problem Qualifiers (1) Acute respiratory failure: Qualified Codes: J96.01 - Acute respiratory failure with hypoxia (2) Fall: Qualified Codes: W19.XXXA - Unspecified fall, initial encounter Sara Jacobson MD Aug 24, 2017 11:20
[2017-08-24] MEDS ORDERED: QUET1TAB8 PO (11:43)
[2017-08-24] MEDS ORDERED: TAMS5CAP PO (11:43)
[2017-08-24 12:00] VITALS: BP 130/69; PULSE 103; RESP 19; TEMP 97.3; O2SAT 93
--- NOTE | 2017-08-24 19:22 | HHI.PR ---
Addendum to Inpatient Note Additional Information Pt was seen earlier today and was dw Lou Lee MD Aug 24, 2017 19:22
[2017-08-24] MEDS ORDERED: CIPR500T2 PO (19:29)
--- NOTE | 2017-08-24 19:33 | PD.ID.CON ---
History of Present Illness Service ID Consult Requested By Dr Gilbert Reason for Consult Buttock abscess and UTI Primary Care Physician Unknown Diagnoses: History of Present Illness 56 yo male with chronic alcoholism and polisubstance abuse admitted sp fall with mariettarijacy trem Pt was noted to have a boil type lesion on his R buttock , the culture was positive for MRSA He also was diagnosed with UTYI, urine clx posiitive for E.coli ESBL+ though sensitive to cipro He endorses some prostate issues Review of Systems Except as stated in HPI: all other systems reviewed are Neg Past Family Social History Allergies: Coded Allergies: *MDRO Multi-Drug Resistant Organism (Verified Adverse Reaction, Unknown, 06/24/17) MRSA (elbow & knee wound) - 04/18/16 ESBL E.Coli (urine)-11/01/16 Past Medical History ADHD Bipolar disorder Migraines Hepatitis C Past Surgical History Ventral hernia repair October 2014 Active Ordered Medications Medications where reviewed in EMR Antibiotics Include: cipro vancomycin Family History Unable to obtain from patient due to clinical condition. Social History Unable to obtain directly from patient due to intubation and clinical condition. Reviewed EMR which indicates: Daily alcohol use with repeated admissions related to alcohol dependence Polysubstance abuse including the use of Flakka and K2 cocaine, marijuana Physical Exam Vital Signs Vital Signs Date Time Temp Pulse Resp B/P (MAP) Pulse Ox O2 Delivery O2 Flow Rate FiO2 08/24/17 12:00 97.3 103 19 130/69 (89) 93 08/24/17 08:00 96.4 96 18 121/82 (95) 95 08/24/17 00:00 98.5 92 18 136/74 (94) 94 08/23/17 20:00 97.0 91 21 125/71 (89) 95 Physical Exam CONSTITUTIONAL/GENERAL: This is an adequately nourished patient, in no apparent distress. TUBES/LINES/DRAINS: SKIN: No jaundice, rashes Small nearly healed dry non fluctuant non purulent R buttock lesion l Skin temperature appropriate. Not diaphoretic. HEAD: Atraumatic. Normocephalic. EYES: Pupils equal and round and reactive. Extraocular motions intact. No scleral icterus. No injection or drainage. Fundi not examined. ENT: Hearing grossly normal. Nose without bleeding or purulent drainage. Edentulous NECK: Trachea midline. Supple, nontender. No palpable thyroid enlargement or nodularity. CARDIOVASCULAR: Regular rate and rhythm without murmurs, gallops, or rubs. No JVD. Peripheral pulses symmetric. RESPIRATORY/CHEST: Symmetric, unlabored respirations. Clear to auscultation. Breath sounds equal bilaterally. No wheezes, rales, or rhonchi. GASTROINTESTINAL: Abdomen soft, non-tender, nondistended. No hepato-splenomegaly , or palpable masses. No guarding. Bowel sounds present. GENITOURINARY: Without palpable bladder distension. MUSCULOSKELETAL: Extremities without clubbing, cyanosis, or edema. No joint tenderness or effusion noted. No calf tenderness. No mottling or clubbing. LYMPHATICS: No palpable cervical or supraclavicular adenopathy. NEUROLOGICAL: Awake and alert. Motor and sensory grossly within normal limits. Follows commands. Clear speech. Moves all extremities. PSYCHIATRIC: No obvious anxiety/depression. no apparent hallucinations or other psychotic thought process. Laboratory Laboratory Tests Test 08/24/17 07:55 White Blood Count 6.1 Red Blood Count 4.92 Hemoglobin 15.6 Hematocrit 45.6 Mean Corpuscular Volume 92.6 Mean Corpuscular Hemoglobin 31.8 Mean Corpuscular Hemoglobin Concent 34.3 Red Cell Distribution Width 13.9 Platelet Count 337 Mean Platelet Volume 8.5 Neutrophils (%) (Auto) 51.7 Lymphocytes (%) (Auto) 32.0 Monocytes (%) (Auto) 11.1 Eosinophils (%) (Auto) 4.1 Basophils (%) (Auto) 1.1 Neutrophils # (Auto) 3.2 Lymphocytes # (Auto) 2.0 Monocytes # (Auto) 0.7 Eosinophils # (Auto) 0.2 Basophils # (Auto) 0.1 CBC Comment DIFF FINAL Differential Comment Blood Urea Nitrogen 11 Creatinine 0.82 Random Glucose 86 Calcium Level 9.0 Sodium Level 140 Potassium Level 3.9 Chloride Level 105 Carbon Dioxide Level 29.5 Anion Gap 6 Estimat Glomerular Filtration Rate 97 Date/Time Source Procedure Growth Status 08/17/17 17:15 Urine Clean Catch Urine Culture - Final Escherichia Coli Esbl Positive Complete 08/17/17 03:45 Wound Buttock Gram Stain - Final Complete 08/17/17 03:45 Wound Culture - Final S. Aureus Mrsa Complete Result Diagram: 08/24/17 0755 08/24/17 0755 Imaging Last Impressions Chest X-Ray 08/17/17 0000 Signed Impressions: Service Date/Time: Thursday, August 17, 2017 20:14 - CONCLUSION: Bilateral partially consolidative lower lung infiltrates, left greater than right with associated elevation of the left hemidiaphragm. Fabrice Holm MD Head CT 08/03/17 0000 Signed Impressions: Service Date/Time: Friday, August 04, 2017 17:23 - CONCLUSION: 1. No acute hemorrhage or mass effect. 2. Mucosal thickening in the paranasal sinuses and air-fluid levels in the maxillary sinuses. Alex Vital MD Maxillofacial CT 08/02/17 0000 Signed Impressions: Service Date/Time: Wednesday, August 02, 2017 18:36 - CONCLUSION: 1. Motion degraded study. No evidence of an acute fracture. 2. Old comminuted fracturing of the nose again seen. 3. Chronic sinusitis. Fermín Wagner MD Cervical Spine CT 08/02/17 0000 Signed Impressions: Service Date/Time: Wednesday, August 02, 2017 18:35 - CONCLUSION: Intact cervical spine. Mild degenerative changes again noted at C3/C4. Fermín Wagner MD Assessment and Plan Assessment and Plan R buttock small abscess, MRSA - clincially resolved, UTI ESBL + E.coli; pt reports prostate pbroblems complete total of 14 days of UTI treatment with cipro dc bvancomycin OK to dc p home Discussed Condition With Dr Ofelia Gonzales,Lou Miner MD Aug 24, 2017 19:33
== END 2017-08-24 13:51 | disposition home or self-care (01) | DRG 208 ==
LOC: NEPE 16:47 → NEDA 19:33 → HIME 22:00 → N07A 08-08 11:40
PROVIDERS: ADMIT Family Medicine; ATTEND Family Medicine
PROC: 0HQ1XZZ Repair Face Skin, External Approach (ICD-10-PCS; principal; 2017-08-02)
PROC: 5A1945Z Respiratory Ventilation, 24-96 Consecutive Hours (ICD-10-PCS; 2017-08-02)
PROC: 0BH17EZ Insertion of Endotracheal Airway into Trachea, Via Natural or Artificial Opening (ICD-10-PCS; 2017-08-02)
DX: J96.01 Acute respiratory failure with hypoxia (principal); E43 Unspecified severe protein-calorie malnutrition; G92 Toxic encephalopathy; F10.221 Alcohol dependence with intoxication delirium; F10.231 Alcohol dependence with withdrawal delirium; J90 Pleural effusion, not elsewhere classified; R56.9 Unspecified convulsions; N39.0 Urinary tract infection, site not specified; L02.31 Cutaneous abscess of buttock; F14.10 Cocaine abuse, uncomplicated; S01.411A Laceration without foreign body of right cheek and temporomandibular area, initial encounter; S00.93XA Contusion of unspecified part of head, initial encounter; F31.9 Bipolar disorder, unspecified; B95.62 Methicillin resistant Staphylococcus aureus infection as the cause of diseases classified elsewhere; B19.20 Unspecified viral hepatitis C without hepatic coma; F90.9 Attention-deficit hyperactivity disorder, unspecified type; F41.9 Anxiety disorder, unspecified; G47.00 Insomnia, unspecified; F17.210 Nicotine dependence, cigarettes, uncomplicated; Z86.14 Personal history of Methicillin resistant Staphylococcus aureus infection; W17.89XA Other fall from one level to another, initial encounter; Y93.89 Activity, other specified; Y92.238 Other place in hospital as the place of occurrence of the external cause; L02.92 Furuncle, unspecified; F12.10 Cannabis abuse, uncomplicated; R74.0 Nonspecific elevation of levels of transaminase and lactic acid dehydrogenase [LDH]; E16.2 Hypoglycemia, unspecified; Y90.8 Blood alcohol level of 240 mg/100 ml or more; Z78.1 Physical restraint status; Z59.0 Homelessness; B96.20 Unspecified Escherichia coli [E. coli] as the cause of diseases classified elsewhere; I10 Essential (primary) hypertension; J96.02 Acute respiratory failure with hypercapnia; Z16.19 Resistance to other specified beta lactam antibiotics; R45.4 Irritability and anger
CPT/HCPCS: 12011; 31500; 36600; 70450; 70486; 71045; 71046; 72125; 80048; 80053; 80307; 81001; 82805; 82948; 83036; 83690; 83735; 84100; 84439; 84443; 85025; 85027; 85379; 85610; 85730; 86403; 86850; 86900; 86901; 87070; 87077; 87086; 87147; 87186; 87205; 87641; 93005; 94002; 94003; 94150; 94640; 94664; 94667; 94668; 95819; J0330; J0696; J1630; J1650; J2060; J3370; J3411; J3480; J7050; J7613; P9612

== ENCOUNTER 2017-08-30 17:41 | Emergency (ER) | payer OTHER ==
[~2017-08-30] VITALS: Ht 167.6 cm; Wt 78.0 kg
[~2017-08-30 17:41] MED LIST changes: -ADDE30TA PO; -BUPR150CR PO; +CIPR500T2 PO; -KLON2TAB PO; -SERO100T PO; +SERO25TA PO; -SERO400T PO; +TAMS5CAP PO; +Z.0.NO CURRENT MEDS
[2017-08-30 17:57] VITALS: BP 118/85; PULSE 93; RESP 14; TEMP 98.1; O2SAT 96
[2017-08-30 18:42] LABS: AUTOMATED NEUTROPHIL # 3.8 TH/MM3 (1.8-7.7); BASOPHIL # 0.1 TH/MM3 (0-0.2); BASOPHIL % 0.7 % (0.0-2.0); EOSINOPHIL # 0.4 TH/MM3 (0-0.4); EOSINOPHIL % 4.9 % (0.0-4.0); HEMATOCRIT 41.1 % (39.0-51.0); LYMPH % 39.4 % (9.0-44.0); LYMPHOCYTE # 3.3 TH/MM3 (1.0-4.8); MEAN CELL VOLUME 92.8 FL (80.0-100.0); MEAN CORPUSCULAR HEMOGLOBIN 31.6 PG (27.0-34.0); MEAN CORPUSCULAR HGB CONC 34.1 % (32.0-36.0); MEAN PLATELET VOLUME 7.7 FL (7.0-11.0); MONO % 9.9 % (0.0-8.0); MONOCYTE # 0.8 TH/MM3 (0-0.9); NEUT % 45.1 % (16.0-70.0); PLATELET COUNT 267 TH/MM3 (150-450); RED BLOOD COUNT 4.43 MIL/MM3 (4.50-5.90); WHITE BLOOD COUNT 8.4 TH/MM3 (4.0-11.0)
[2017-08-30 18:49] LABS: AST (GOT) 31 U/L (15-37); BICARBONATE 25.1 MEQ/L (21.0-32.0); BLOOD UREA NITROGEN 7 MG/DL (7-18); CALCIUM 8.2 MG/DL (8.5-10.1); CHLORIDE 101 MEQ/L (98-107); CREATININE 0.71 MG/DL (0.60-1.30); GLOMERULAR FILTRATION RATE 114 ML/MIN (>89); GLUCOSE,RANDOM 74 MG/DL (74-106); SODIUM (NA) 134 MEQ/L (136-145)
[2017-08-30 18:50] LABS: ALT (GPT) 44 U/L (12-78)
[2017-08-30 18:52] LABS: ALKALINE PHOSPHATASE 62 U/L (45-117); TOTAL BILIRUBIN ADULT 0.2 MG/DL (0.2-1.0); TOTAL PROTEIN 7.6 GM/DL (6.4-8.2)
--- NOTE | 2017-08-30 19:42 | PD ---
HPI Chief Complaint: Psychiatric Symptoms Time Seen by Provider: 19:41 Travel History International Travel<30 days: No Contact w/Intl Traveler<30days: No Traveled to known affect area: No History of Present Illness HPI 56-year-old male presents to emergency department under Valdes act for psychiatric evaluation. Patient was found lying down on the side of the road. He stated that he wanted to kill himself. His plan is to jump in front of a semitruck. Patient has been drinking alcohol today. States that he is supposed to take antidepressants but has not been taking them for at least a month. Denies any acute medical needs at this time. Has no other symptoms to report. PFSH Past Medical History Hx Anticoagulant Therapy: No ADD: Yes ADHD: Yes Arthritis: No Asthma: No Blood Disorders: No Bipolar Disorder: Yes Anxiety: Yes Depression: Yes Heart Rhythm Problems: No Cancer: No Cardiovascular Problems: No High Cholesterol: No Chemotherapy: No Chest Pain: No Congestive Heart Failure: No COPD: No Cerebrovascular Accident: No Diabetes: No Diminished Hearing: No Endocrine: No GERD: No Genitourinary: Yes Headaches: Yes Hepatitis: Yes (HEP C) Hiatal Hernia: No Hypertension: No Implanted Vascular Access Dvce: No Insomnia: Yes Musculoskeletal: No Neurologic: Yes Psychiatric: Yes Reproductive: No Respiratory: No Immunizations Current: Yes Migraines: Yes Radiation Therapy: No Seizures: No Sleep Apnea: No Thyroid Disease: No Ulcer: No Past Surgical History Abdominal Surgery: Yes (HERNIA REPAIR 10/2014) AICD: No Arteriovenous Shunt: No Cardiac Surgery: No Ear Surgery: No Endocrine Surgery: No Eye Surgery: No Genitourinary Surgery: No Gynecologic Surgery: No Hysterectomy: No Insulin Pump: No Joint Replacement: No Neurologic Surgery: Yes Oral Surgery: No Pacemaker: No Thoracic Surgery: No Other Surgery: Yes (ABDOMINAL HERNIA REPAIR 10/2014) Social History Alcohol Use: Yes (DAILY) Tobacco Use: Yes (2ppd) Substance Use: Yes (FLAKKA AND K2) Allergies-Medications (Allergen,Severity, Reaction): Coded Allergies: No Known Allergies (Unverified Allergy, Unknown, 08/30/17) *MDRO Multi-Drug Resistant Organism (Verified Adverse Reaction, Unknown, ) MRSA (elbow & knee wound) - 04/18/16 ESBL E.Coli (urine)-11/01/16 Reported Meds & Prescriptions Reported Meds & Active Scripts Active No Active Prescriptions or Reported Medications Review of Systems Except as stated in HPI: all other systems reviewed are Neg Physical Exam Narrative GENERAL: Unkempt male patient, ambulatory and in no acute distress. SKIN: Focused skin assessment warm/dry. HEAD: Patient to the forehead and nasal bridge. Normocephalic. EYES: Pupils equal and round. No scleral icterus. No injection or drainage. ENT: No nasal bleeding or discharge. Mucous membranes pink and moist. NECK: Trachea midline. No JVD. CARDIOVASCULAR: Regular rate and rhythm. No murmur appreciated. RESPIRATORY: No accessory muscle use. Clear to auscultation. Breath sounds equal bilaterally. GASTROINTESTINAL: Abdomen soft, non-tender, nondistended. Hepatic and splenic margins not palpable. MUSCULOSKELETAL: No obvious deformities. No clubbing. No cyanosis. No edema. NEUROLOGICAL: Awake and alert. No obvious cranial nerve deficits. Motor grossly within normal limits. Slurred speech. Data Data Last Documented VS Vital Signs Date Time Temp Pulse Resp B/P (MAP) Pulse Ox O2 Delivery O2 Flow Rate FiO2 08/30/17 17:57 98.1 93 14 118/85 (96) 96 Orders Orders Complete Blood Count With Diff (08/30/17 17:50) Comprehensive Metabolic Panel (08/30/17 17:50) Psych Screen (08/30/17 17:50) Diet Regular Basic (08/30/17 Dinner) Drug Screen, Random Urine (08/30/17 17:50) Salicylates (Aspirin) (08/30/17 17:50) Ct Brain W/O Iv Contrast(Rout) (08/30/17 ) Labs Laboratory Tests Test 08/30/17 18:10 White Blood Count 8.4 TH/MM3 Red Blood Count 4.43 MIL/MM3 Hemoglobin 14.0 GM/DL Hematocrit 41.1 % Mean Corpuscular Volume 92.8 FL Mean Corpuscular Hemoglobin 31.6 PG Mean Corpuscular Hemoglobin Concent 34.1 % Red Cell Distribution Width 14.0 % Platelet Count 267 TH/MM3 Mean Platelet Volume 7.7 FL Neutrophils (%) (Auto) 45.1 % Lymphocytes (%) (Auto) 39.4 % Monocytes (%) (Auto) 9.9 % Eosinophils (%) (Auto) 4.9 % Basophils (%) (Auto) 0.7 % Neutrophils # (Auto) 3.8 TH/MM3 Lymphocytes # (Auto) 3.3 TH/MM3 Monocytes # (Auto) 0.8 TH/MM3 Eosinophils # (Auto) 0.4 TH/MM3 Basophils # (Auto) 0.1 TH/MM3 CBC Comment DIFF FINAL Differential Comment Blood Urea Nitrogen 7 MG/DL Creatinine 0.71 MG/DL Random Glucose 74 MG/DL Total Protein 7.6 GM/DL Albumin 3.0 GM/DL Calcium Level 8.2 MG/DL Alkaline Phosphatase 62 U/L Aspartate Amino Transf (AST/SGOT) 31 U/L Alanine Aminotransferase (ALT/SGPT) 44 U/L Total Bilirubin 0.2 MG/DL Sodium Level 134 MEQ/L Potassium Level 3.7 MEQ/L Chloride Level 101 MEQ/L Carbon Dioxide Level 25.1 MEQ/L Anion Gap 8 MEQ/L Estimat Glomerular Filtration Rate 114 ML/MIN Salicylates Level LESS THAN 1.7 MG/DL MDM Medical Decision Making Medical Screen Exam Complete: Yes Emergency Medical Condition: Yes Medical Record Reviewed: Yes Differential Diagnosis Mood disorder versus personality disorder versus adjustment reaction disorder versus intoxication Narrative Course 56-year-old male presents to emergency department under Valdes act for psychiatric evaluation. Patient appears clinically intoxicated. He has slurred speech and strong smell of alcohol. He does admit to drinking alcohol today. Patient has abrasion to his forehead and nasal bridge. CT imaging of the brain is without acute intracranial abnormality. Lab work is reviewed. Patient is medically cleared for psychiatric screening for further evaluation and disposition. Mental health screening discussed with the patient. Psychiatric screen ordered. Diagnosis Primary Impression: Drug-induced mood disorder Additional Impression: Alcohol dependence Qualified Codes: F10.29 - Alcohol dependence with unspecified alcohol-induced disorder Scripts No Active Prescriptions or Reported Meds Condition: Stable SammyYunPilialondra BLACKMAN Aug 30, 2017 19:42
--- NOTE | 2017-08-30 20:30 | RADRPT ---
EXAM DATE/TIME: 08/30/2017 20:16 [facility] COMPARISON: CT BRAIN W/O CONTRAST, August 04, 2017, 17:23. INDICATIONS : Altered mental status; ETOH. Unknown trauma. RADIATION DOSE: 56.35 CTDIvol (mGy) MEDICAL HISTORY : Hepatitis C. ETOH and substance abuse SURGICAL HISTORY : Hernia repair ENCOUNTER: Initial ACUITY: 1 day PAIN SCALE: Non-responsive LOCATION: cranial TECHNIQUE: Multiple contiguous axial images were obtained of the head. Using automated exposure control and adj ustment of the mA and/or kV according to patient size, radiation dose was kept as low as reasonably a chievable to obtain optimal diagnostic quality images. DICOM format image data is available electro nically for review and comparison. FINDINGS: CEREBRUM: There is stable mild generalized atrophy. Ventricles are normal in size. There is stable encephalomal acia at the left frontoparietal high convexity. No evidence of midline shift, mass lesion, hemorrhag e or acute infarction. No extra-axial fluid collections are seen. POSTERIOR FOSSA: The cerebellum and brainstem are intact. The 4th ventricle is midline. The cerebellopontine angle i s unremarkable. EXTRACRANIAL: There are is mild mucoperiosteal thickening within the left maxillary antrum. Nasal bones have a stab le configuration consistent with old fracture. SKULL: The calvaria is intact. No evidence of skull fracture. CONCLUSION: Stable noncontrast head CT. No acute intracranial abnormality is identified. Fermín Alvarez MD on August 30, 2017 at 20:26 Board Certified Radiologist. This report was verified electronically.
[2017-08-30 22:54] VITALS: BP 129/71; PULSE 92; RESP 18; TEMP 98.2; O2SAT 95
[2017-08-31 03:13] VITALS: BP 101/58; PULSE 98; RESP 18; TEMP 98; O2SAT 96
[2017-08-31 06:58] VITALS: BP 107/70; PULSE 91; RESP 19; TEMP 98.2; O2SAT 95
--- NOTE | 2017-08-31 07:35 | PD.PSY.CON ---
Provisional Diagnosis Admission Date Date of consultation: 08/31/17 [place] I. 1. Polysubstance dependence 2. Suspected malingering for intermediate [place] II. 1. Antisocial personality traits History of Present Illness Service Psychiatry Consult Requested By ED Reason for Consult BA Primary Care Physician Unknown HPI Mr. Olivera is a 56 year-old male with a lengthy history of substance use issues, well known to the psychiatric service here at [place]. He presents to the ED under a [place] Act from [facility] alleging that the patient advised officers that he was intoxicated and suicidal. Patient's urine toxicology is positive for benzodiazepines, and the patient also reports that he has been using K2. Reviewing the electronic medical record, I note the patient was seen most recently in consultation by Dr. Lobo about a week ago during a medical admission. Patient seen and examined. Chart reviewed. Case discussed with nursing staff. On my examination today, the patient presents as quite manipulative. He seems to be seeking for intermediate. He is clinically sober. He does not describe any current suicidal ideation but instead issues threats about what he might do in the future if he is released from the ED. He threatens to jump in front of a bus or perhaps a train. Later he says that he would never kill himself except by overdose on drugs or perhaps by alcohol poisoning. Still later he tells me that he might jump off a bridge. He tells me what he is really in need of is someone to talk to noting "I just need a friend." However, a little bit later he tells me "I need to be committed." He is noted to be bargaining to stay in the ED longer, I suspect for intermediate. Besides some dysphoria, the patient does not articulate any earnest rafael depressive or hypomanic/manic symptoms. He does not describe any audiovisual hallucinations, nor are there any delusional beliefs, and there is no evidence of any impairment in reality construction. He does not verbalize any homicidal ideation. Antisocial personality traits are noted. The remainder of the psychiatric ROS is negative. No physical complaints presently. Past psychiatric history: Patient reports a history of "PTSD, organic mood, bipolar." He is not following up with outpatient psychiatry and is nonadherent with treatment when it is prescribed to him. He was most recently admitted to [facility] he tells me. He denies any history of actual suicide attempts. Family history: The patient reports that he has "somewhat" of a mental illness history in the family, although he cannot say what. He does note that a cousin may have attempted suicide. Chemical dependency history: The patient reports that he regularly smokes K2 and says "I need it." He also uses alcohol and "Xannies." Social history: The patient is homeless. He is high school educated. He is on disability. He has 3 children but has no contact with them. He denies any history. Denies any legal history. Denies any access to guns or firearms. He is of the [place]. Review of Systems Except as stated in HPI: all other systems reviewed are Neg Past Family Social History Coded Allergies: No Known Allergies (Unverified Allergy, Unknown, 08/30/17) *MDRO Multi-Drug Resistant Organism (Verified Adverse Reaction, Unknown, ) MRSA (elbow & knee wound) - 04/18/16 ESBL E.Coli (urine)-11/01/16 Past Medical History See EMR Discontinued Reported Medications Gabapentin (Neurontin) 800 Mg Tab, 800 MG PO BID, #90 TAB 0 Refills 05/11/16 Quetiapine (Seroquel) 100 Mg Tab, 100 MG PO DAILY, #60 TAB 0 Refills 05/11/16 Quetiapine (Seroquel) 400 Mg Tab, 400 MG PO HS, #30 TAB 0 Refills 05/11/16 Bupropion HCl ER 12 HR (Wellbutrin SR 12 HR) 150 Mg Tab, 150 MG PO Q12HR for Control Depression, TAB 0 Refills 05/11/16 Discontinued Scripts Ciprofloxacin (Ciprofloxacin) 500 Mg Tab, 500 MG PO BID for Infection for 10 Days, #20 TAB 0 Refills Prov:Saar Jacobson MD 08/24/17 Tamsulosin (Flomax) 0.4 Mg Cap, 0.4 MG PO DAILY for BPH, #30 CAP 0 Refills Prov:Sara Jacobson MD 08/24/17 Quetiapine (Seroquel) 25 Mg Tab, 50 MG PO HS for Agitation for 10 Days, #10 TAB Prov:Francesco Bolton MD 08/22/17 Clonazepam (Klonopin) 2 Mg Tab, 2 MG PO DAILY, #20 TAB 0 Refills Prov:Ander Castorena MD 07/17/16 Patient's Strengths (min. 2) Able to access clinical care. Verbally fluent. Physical Exam Physical exam was completed by the ED provider. On my examination today, the patient appears to be in no acute physical distress. No motor abnormalities noted. No signs of intoxication or withdrawal noted. Labs and vital signs reviewed: Vital Signs Vital Signs Date Time Temp Pulse Resp B/P (MAP) Pulse Ox O2 Delivery O2 Flow Rate FiO2 08/31/17 06:58 98.2 91 19 107/70 (82) 95 Room Air Lab Results Test 08/30/17 18:10 08/30/17 22:25 White Blood Count 8.4 TH/MM3 Red Blood Count 4.43 MIL/MM3 Hemoglobin 14.0 GM/DL Hematocrit 41.1 % Mean Corpuscular Volume 92.8 FL Mean Corpuscular Hemoglobin 31.6 PG Mean Corpuscular Hemoglobin Concent 34.1 % Red Cell Distribution Width 14.0 % Platelet Count 267 TH/MM3 Mean Platelet Volume 7.7 FL Neutrophils (%) (Auto) 45.1 % Lymphocytes (%) (Auto) 39.4 % Monocytes (%) (Auto) 9.9 % Eosinophils (%) (Auto) 4.9 % Basophils (%) (Auto) 0.7 % Neutrophils # (Auto) 3.8 TH/MM3 Lymphocytes # (Auto) 3.3 TH/MM3 Monocytes # (Auto) 0.8 TH/MM3 Eosinophils # (Auto) 0.4 TH/MM3 Basophils # (Auto) 0.1 TH/MM3 CBC Comment DIFF FINAL Differential Comment Blood Urea Nitrogen 7 MG/DL Creatinine 0.71 MG/DL Random Glucose 74 MG/DL Total Protein 7.6 GM/DL Albumin 3.0 GM/DL Calcium Level 8.2 MG/DL Alkaline Phosphatase 62 U/L Aspartate Amino Transf (AST/SGOT) 31 U/L Alanine Aminotransferase (ALT/SGPT) 44 U/L Total Bilirubin 0.2 MG/DL Sodium Level 134 MEQ/L Potassium Level 3.7 MEQ/L Chloride Level 101 MEQ/L Carbon Dioxide Level 25.1 MEQ/L Anion Gap 8 MEQ/L Estimat Glomerular Filtration Rate 114 ML/MIN Salicylates Level LESS THAN 1.7 MG/DL Urine Opiates Screen NEG Urine Barbiturates Screen NEG Urine Amphetamines Screen NEG Urine Benzodiazepines Screen POS Urine Cocaine Screen NEG Urine Cannabinoids Screen NEG Mental Status Examination Appearance: Disheveled (but maintaining basic hygiene) Consciousness: Alert Orientation: x4 Motor Activity: Normal gait Speech: Unremarkable Language: Adequate Fund of Knowledge: Adequate Attention and Concentration: Adequate Memory: Unremarkable Mood: Other (somewhat dysphoric) Affect: Other (consistent with mood) Thought Process & Associations: Intact, Logical, Goal directed, Linear Thought Content: Appropriate Hallucination Type: None Delusion Type: None Suicidal Ideation: Yes (Threats of what he might do. No current SI.) Suicidal Plan: No Suicidal Intention: No Homicidal Ideation: No Homicidal Plan: No Homicidal Intention: No Mental Status Exam Remarks Insight and judgment are chronically fair to poor at best Assessment & Plan Problem List: (1) Polysubstance dependence ICD Codes: F19.20 - Other psychoactive substance dependence, uncomplicated (2) Malingering ICD Codes: Z76.5 - Malingerer [conscious simulation] Status: Acute (3) Antisocial personality traits Assessment & Plan This is a 56-year-old male with psychiatric history as detailed above who presents under a Valdes act. Patient's presentation is quite manipulative with goal of obtaining intermediate, and malingering is suspected. To the extent that he has actual psychiatric symptoms, it seems that these are wholly substance related. I cannot detect any evidence of a mental illness as defined under the Valdes act in this patient at this time. Therefore, he does not meet the Valdes act criteria and I have lifted the Valdes act.. Substance use likely represents the greatest modifiable risk factor for self-harm, and I will instruct the nursing staff to try to refer the patient for chemical dependency treatment today at [facility]. If [facility] is full, the patient will be referred for outpatient chemical dependency treatment as well as outpatient mental health follow-up, and I have instructed the patient to pursue both of these. I have also counseled the patient regarding warning signs for need to return to the psychiatric emergency room as part of a general safety plan. Antisocial personality traits represent a chronic, non-modifiable risk factor, and the patient's current malingering behavior also represents a non-modifiable risk factor. The patient would not benefit from general inpatient psychiatric hospitalization presently, and in fact it would be counter therapeutic in the long-term to give in to his manipulations. Valdes act lifted. Plan as above. Case discussed with RN. Thank you very much for this consultation. Tommy Khanna MD Aug 31, 2017 07:35
--- NOTE | 2017-08-31 09:02 | PD ---
Physical Exam Time Seen by Provider: 09:[address] Little has evaluated the patient, lifted the Valdes act, and cleared the patient for discharge. Data Data Last Documented VS Vital Signs Date Time Temp Pulse Resp B/P (MAP) Pulse Ox O2 Delivery O2 Flow Rate FiO2 08/31/17 06:58 98.2 91 19 107/70 (82) 95 Room Air Orders Orders Complete Blood Count With Diff (08/30/17 17:50) Comprehensive Metabolic Panel (08/30/17 17:50) Psych Screen (08/30/17 17:50) Diet Regular Basic (08/30/17 Dinner) Drug Screen, Random Urine (08/30/17 17:50) Salicylates (Aspirin) (08/30/17 17:50) Ct Brain W/O Iv Contrast(Rout) (08/30/17 ) Diet Regular Basic (08/31/17 Breakfast) Labs Laboratory Tests Test 08/30/17 18:10 08/30/17 22:25 White Blood Count 8.4 TH/MM3 Red Blood Count 4.43 MIL/MM3 Hemoglobin 14.0 GM/DL Hematocrit 41.1 % Mean Corpuscular Volume 92.8 FL Mean Corpuscular Hemoglobin 31.6 PG Mean Corpuscular Hemoglobin Concent 34.1 % Red Cell Distribution Width 14.0 % Platelet Count 267 TH/MM3 Mean Platelet Volume 7.7 FL Neutrophils (%) (Auto) 45.1 % Lymphocytes (%) (Auto) 39.4 % Monocytes (%) (Auto) 9.9 % Eosinophils (%) (Auto) 4.9 % Basophils (%) (Auto) 0.7 % Neutrophils # (Auto) 3.8 TH/MM3 Lymphocytes # (Auto) 3.3 TH/MM3 Monocytes # (Auto) 0.8 TH/MM3 Eosinophils # (Auto) 0.4 TH/MM3 Basophils # (Auto) 0.1 TH/MM3 CBC Comment DIFF FINAL Differential Comment Blood Urea Nitrogen 7 MG/DL Creatinine 0.71 MG/DL Random Glucose 74 MG/DL Total Protein 7.6 GM/DL Albumin 3.0 GM/DL Calcium Level 8.2 MG/DL Alkaline Phosphatase 62 U/L Aspartate Amino Transf (AST/SGOT) 31 U/L Alanine Aminotransferase (ALT/SGPT) 44 U/L Total Bilirubin 0.2 MG/DL Sodium Level 134 MEQ/L Potassium Level 3.7 MEQ/L Chloride Level 101 MEQ/L Carbon Dioxide Level 25.1 MEQ/L Anion Gap 8 MEQ/L Estimat Glomerular Filtration Rate 114 ML/MIN Salicylates Level LESS THAN 1.7 MG/DL Urine Opiates Screen NEG Urine Barbiturates Screen NEG Urine Amphetamines Screen NEG Urine Benzodiazepines Screen POS Urine Cocaine Screen NEG Urine Cannabinoids Screen NEG MDM Supervised Visit with JOSE ARMANDO: No Narrative Course Dr. Little has evaluated the patient, lifted the [place] act, and cleared the patient for discharge. Patient contracts safety. Denies suicidal or homicidal ideations. Patient will be provided community resource packet to [facility] for follow-up. Has friends and family for support. Patient was medically cleared by alternate provider prior to psych screening. Patient has been evaluated by psychiatry and and is now cleared for discharge. Diagnosis Primary Impression: Drug-induced mood disorder Additional Impression: Alcohol dependence Qualified Codes: F10.29 - Alcohol dependence with unspecified alcohol-induced disorder Referrals: [facility] (Out patient) [facility] Primary Care Physician Psychiatrist [facility] Patient Instructions: Abuse of Alcohol (ED), Alcohol Dependence (ED), Alcohol Intoxication (ED), General Instructions, Polysubstance Abuse (ED) Additional Instruction: Contract safety to your self and others Stop drinking alcohol Follow-up in the community for community support, such as Alcoholics Anonymous Follow-up with psychiatry Follow-up with primary care provider Follow-up with [facility] Return to the emergency department immediately with worsening of symptoms Med/Other Pt SpecificInfo: No Change to Meds, No Meds Exist/No RX given Scripts No Active Prescriptions or Reported Meds Disposition: 01 DISCHARGE HOME Condition: Stable Do Mcdonough Aug 31, 2017 09:02
== END 2017-08-31 11:15 | disposition home or self-care (01) ==
LOC: NEDAMB 17:41 → NEPJ 08-31 11:15
DX: F19.94 Other psychoactive substance use, unspecified with psychoactive substance-induced mood disorder (principal); F10.29 Alcohol dependence with unspecified alcohol-induced disorder; F17.200 Nicotine dependence, unspecified, uncomplicated
CPT/HCPCS: 70450; 80053; 80307; 85025; 99284

== ENCOUNTER 2017-09-12 14:25 | Emergency (ER) | payer MEDICARE, OTHER ==
[~2017-09-12] VITALS: Ht 170.2 cm; Wt 76.0 kg
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
[2017-09-12] MEDS ORDERED: LORazepam 2 MG TAB PO PRN (15:30)
[2017-09-12] MEDS ORDERED: GABAPENTIN 300 MG CAP PO ONE (15:30)
[2017-09-12] MEDS ORDERED: FLUMAZENIL 0.5 MG/5 ML VIAL IV PUSH PRN (15:30)
[2017-09-12] MEDS ORDERED: LORazepam 2 MG/ML VIAL IV PUSH PRN ×4 (15:30)
[2017-09-12] MEDS ORDERED: LORazepam 1 MG TAB PO PRN (15:30)
[2017-09-12 16:10] VITALS: BP 131/70; PULSE 96; RESP 16; TEMP 98.4; O2SAT 98
[2017-09-12 16:54] LABS: BILIRUBIN, URINE NEG (NEG); BLOOD, URINE NEG (NEG); GLUCOSE,URINE NEG (NEG); KETONE, URINE NEG (NEG); MUCUS URINE FEW /lpf (OCC); NITRITE,URINE NEG (NEG); PH, URINE 5.5 (5.0-8.5); URINE COLOR YELLOW (YELLW/STRAW); URINE LEUKOCYTE ESTERASE NEG (NEG)
[2017-09-12 17:23] LABS: AUTOMATED NEUTROPHIL # 1.7 TH/MM3 (1.8-7.7); EOSINOPHIL # 0.1 TH/MM3 (0-0.4); EOSINOPHIL % 2.8 % (0.0-4.0); HEMATOCRIT 41.5 % (39.0-51.0); LYMPH % 39.2 % (9.0-44.0); LYMPHOCYTE # 1.6 TH/MM3 (1.0-4.8); MEAN CELL VOLUME 93.7 FL (80.0-100.0); MEAN CORPUSCULAR HEMOGLOBIN 31.7 PG (27.0-34.0); MEAN CORPUSCULAR HGB CONC 33.8 % (32.0-36.0); MEAN PLATELET VOLUME 7.8 FL (7.0-11.0); MONO % 14.6 % (0.0-8.0); MONOCYTE # 0.6 TH/MM3 (0-0.9); NEUT % 42.4 % (16.0-70.0); PLATELET COUNT 133 TH/MM3 (150-450); RED BLOOD COUNT 4.42 MIL/MM3 (4.50-5.90); RED CELL DISTRIBUTION WIDTH 15.7 % (11.6-17.2); WHITE BLOOD COUNT 4.1 TH/MM3 (4.0-11.0)
[2017-09-12 17:37] LABS: ALT (GPT) 114 U/L (12-78); AST (GOT) 118 U/L (15-37); BICARBONATE 25.8 MEQ/L (21.0-32.0); BLOOD UREA NITROGEN 5 MG/DL (7-18); CALCIUM 7.8 MG/DL (8.5-10.1); CHLORIDE 105 MEQ/L (98-107); CREATININE 0.81 MG/DL (0.60-1.30); GLOMERULAR FILTRATION RATE 98 ML/MIN (>89); GLUCOSE,RANDOM 89 MG/DL (74-106); SODIUM (NA) 139 MEQ/L (136-145)
[2017-09-12 17:48] LABS: ALKALINE PHOSPHATASE 58 U/L (45-117); TOTAL BILIRUBIN ADULT 0.2 MG/DL (0.2-1.0); TOTAL PROTEIN 7.4 GM/DL (6.4-8.2)
[2017-09-12 17:49] VITALS: BP 138/75; PULSE 104; RESP 16; TEMP 97.8; O2SAT 95
[2017-09-12 22:25] VITALS: BP 126/67; PULSE 93; RESP 18; TEMP 97.9; O2SAT 97
[2017-09-13 02:13] VITALS: BP 145/66; PULSE 92; RESP 18; TEMP 98.7; O2SAT 94
[2017-09-13 06:30] VITALS: BP 140/73; PULSE 92; RESP 18; TEMP 98.7; O2SAT 98
[2017-09-13 10:00] VITALS: BP 121/64; PULSE 107; RESP 18
--- NOTE | 2017-09-13 11:27 | PD ---
Physical Exam Date Seen by Provider: Sep 13, 2017 Time Seen by Provider: 11:25 Narrative 56-year-old male previously medically cleared for psychiatric evaluation, has been seen by psychiatric staff and it is felt the patient would benefit from transfer to [facility], for further treatment. Patient remains medically stable at this time. Data Data Last Documented VS Vital Signs Date Time Temp Pulse Resp B/P (MAP) Pulse Ox O2 Delivery O2 Flow Rate FiO2 09/13/17 10:00 107 18 121/64 (83) 09/13/17 06:30 98.7 98 Room Air Orders Orders Complete Blood Count With Diff (09/12/17 15:00) Comprehensive Metabolic Panel (09/12/17 15:00) Thyroid Stimulating Hormone (09/12/17 15:00) Urinalysis - C+S If Indicated (09/12/17 15:00) Psych Screen (09/12/17 15:00) Drug Screen, Random Urine (09/12/17 15:00) Alcohol (Ethanol) (09/12/17 15:00) Alcohol Withdrawal Asmt-Ciwa Q4HX18 (09/12/17 15:23) Flumazenil Inj (Romazicon Inj) (09/12/17 15:30) Lorazepam (Ativan) (09/12/17 15:30) Lorazepam Inj (Ativan Inj) (09/12/17 15:30) Lorazepam (Ativan) (09/12/17 15:30) Lorazepam Inj (Ativan Inj) (09/12/17 15:30) Lorazepam Inj (Ativan Inj) (09/12/17 15:30) Lorazepam Inj (Ativan Inj) (09/12/17 15:30) Gabapentin (Neurontin) (09/12/17 15:30) Oxycodone (Roxicodone) (09/12/17 15:30) Diet Regular Basic (09/12/17 Dinner) Diet Regular Basic (09/13/17 Breakfast) Diet Regular Basic (09/13/17 Lunch) Labs Laboratory Tests Test 09/12/17 15:00 09/12/17 16:45 Urine Color YELLOW Urine Turbidity CLEAR Urine pH 5.5 Urine Specific [place] 1.009 Urine Protein NEG mg/dL Urine Glucose (UA) NEG mg/dL Urine Ketones NEG mg/dL Urine Occult Blood NEG Urine Nitrite NEG Urine Bilirubin NEG Urine Urobilinogen LESS THAN 2.0 MG/DL Urine Leukocyte Esterase NEG Urine WBC 2 /hpf Urine Mucus FEW /lpf Microscopic Urinalysis Comment CULT NOT INDICATED Urine Opiates Screen NEG Urine Barbiturates Screen NEG Urine Amphetamines Screen NEG Urine Benzodiazepines Screen POS Urine Cocaine Screen NEG Urine Cannabinoids Screen NEG White Blood Count 4.1 TH/MM3 Red Blood Count 4.42 MIL/MM3 Hemoglobin 14.0 GM/DL Hematocrit 41.5 % Mean Corpuscular Volume 93.7 FL Mean Corpuscular Hemoglobin 31.7 PG Mean Corpuscular Hemoglobin Concent 33.8 % Red Cell Distribution Width 15.7 % Platelet Count 133 TH/MM3 Mean Platelet Volume 7.8 FL Neutrophils (%) (Auto) 42.4 % Lymphocytes (%) (Auto) 39.2 % Monocytes (%) (Auto) 14.6 % Eosinophils (%) (Auto) 2.8 % Basophils (%) (Auto) 1.0 % Neutrophils # (Auto) 1.7 TH/MM3 Lymphocytes # (Auto) 1.6 TH/MM3 Monocytes # (Auto) 0.6 TH/MM3 Eosinophils # (Auto) 0.1 TH/MM3 Basophils # (Auto) 0.0 TH/MM3 CBC Comment DIFF FINAL Differential Comment Blood Urea Nitrogen 5 MG/DL Creatinine 0.81 MG/DL Random Glucose 89 MG/DL Total Protein 7.4 GM/DL Albumin 3.0 GM/DL Calcium Level 7.8 MG/DL Alkaline Phosphatase 58 U/L Aspartate Amino Transf (AST/SGOT) 118 U/L Alanine Aminotransferase (ALT/SGPT) 114 U/L Total Bilirubin 0.2 MG/DL Sodium Level 139 MEQ/L Potassium Level 3.8 MEQ/L Chloride Level 105 MEQ/L Carbon Dioxide Level 25.8 MEQ/L Anion Gap 8 MEQ/L Estimat Glomerular Filtration Rate 98 ML/MIN Thyroid Stimulating Hormone 3rd Gen 2.610 uIU/ML Ethyl Alcohol Level 42 MG/DL [facility] Medical Record Reviewed: Yes Supervised Visit with JOSE ARMANDO: Yes Narrative Course 56-year-old male previously medically cleared for psychiatric evaluation, has been seen by psychiatric staff and it is felt the patient would benefit from transfer to [facility], for further treatment. Patient remains medically stable at this time. Patient Instructions: General Instructions Scripts No Active Prescriptions or Reported Meds Disposition: 70 TRANSFER TO OTHER FACILITY Condition: Stable Kaleb Arguello. PA Sep 13, 2017 11:27
== END 2017-09-13 11:57 | disposition short-term general hospital (02) ==
LOC: NEPJ 14:25
DX: R45.851 Suicidal ideations (principal); B19.20 Unspecified viral hepatitis C without hepatic coma; F17.200 Nicotine dependence, unspecified, uncomplicated; F10.129 Alcohol abuse with intoxication, unspecified; Y90.2 Blood alcohol level of 40-59 mg/100 ml
CPT/HCPCS: 80053; 80307; 81001; 84443; 85025; 99285

== ENCOUNTER 2017-10-16 16:09 | Emergency (ER) | payer MEDICARE, OTHER ==
[~2017-10-16] VITALS: Ht 162.6 cm; Wt 70.5 kg
[2017-10-16 17:00] VITALS: BP 128/70; PULSE 102; RESP 16; TEMP 98; O2SAT 98
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
[2017-10-16 18:36] LABS: BICARBONATE 24.8 MEQ/L (21.0-32.0); CALCIUM 8.1 MG/DL (8.5-10.1); CREATININE 0.78 MG/DL (0.60-1.30)
[2017-10-16 23:00] VITALS: BP 122/62; PULSE 84; RESP 16; O2SAT 99
[2017-10-16] MEDS ORDERED: RANITIDINE HCL SYRUP 150 MG/10 ML UDC PO ONE (23:00)
== END 2017-10-17 01:04 | disposition home or self-care (01) ==
LOC: NEDAMB 16:09
DX: F10.129 Alcohol abuse with intoxication, unspecified (principal); F17.200 Nicotine dependence, unspecified, uncomplicated; Y90.7 Blood alcohol level of 200-239 mg/100 ml
CPT/HCPCS: 80048; 80307; 99283

== ENCOUNTER 2017-11-25 11:36 | Emergency (ER) | payer OTHER ==
[2017-11-25 11:43] VITALS: BP 104/55; PULSE 107; RESP 20; TEMP 98.8; O2SAT 96
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
[2017-11-25 15:46] VITALS: BP 125/80; PULSE 98; RESP 16; O2SAT 93
== END 2017-11-25 16:07 | disposition home or self-care (01) ==
LOC: NEPE 11:36 → NEDAMB 16:07
DX: F10.129 Alcohol abuse with intoxication, unspecified (principal); F17.200 Nicotine dependence, unspecified, uncomplicated
CPT/HCPCS: 99282

== ENCOUNTER 2017-11-28 14:49 | Emergency (ER) | payer OTHER ==
[2017-11-28] MEDS ORDERED: SODIUM CHLOR 0.9% 1000 ML INJ 1,000 ML IV ONE (15:15)
[2017-11-28] MEDS ORDERED: THIAMINE INJ 100 MG in SODIUM CHLORIDE 0.9% INJ 100 ML IV ONE (15:15)
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
[2017-11-28 15:52] LABS: AUTOMATED NEUTROPHIL # 3.3 TH/MM3 (1.8-7.7); BASOPHIL # 0.1 TH/MM3 (0-0.2); BASOPHIL % 1.2 % (0.0-2.0); EOSINOPHIL # 0.1 TH/MM3 (0-0.4); EOSINOPHIL % 1.9 % (0.0-4.0); HEMATOCRIT 43.9 % (39.0-51.0); HEMOGLOBIN 14.7 GM/DL (13.0-17.0); LYMPH % 42.1 % (9.0-44.0); MEAN CELL VOLUME 93.1 FL (80.0-100.0); MEAN CORPUSCULAR HEMOGLOBIN 31.2 PG (27.0-34.0); MEAN CORPUSCULAR HGB CONC 33.6 % (32.0-36.0); MEAN PLATELET VOLUME 7.9 FL (7.0-11.0); MONO % 8.1 % (0.0-8.0); MONOCYTE # 0.6 TH/MM3 (0-0.9); NEUT % 46.7 % (16.0-70.0); PLATELET COUNT 236 TH/MM3 (150-450); RED BLOOD COUNT 4.72 MIL/MM3 (4.50-5.90); RED CELL DISTRIBUTION WIDTH 15.6 % (11.6-17.2)
[2017-11-28 16:02] LABS: BILIRUBIN, URINE NEG (NEG); BLOOD, URINE NEG (NEG); GLUCOSE,URINE NEG (NEG); KETONE, URINE NEG (NEG); NITRITE,URINE NEG (NEG); URINE COLOR LIGHT-YELLOW (YELLW/STRAW); URINE LEUKOCYTE ESTERASE NEG (NEG)
[2017-11-28 16:08] LABS: ALBUMIN 3.3 GM/DL (3.4-5.0); ALT (GPT) 71 U/L (12-78); AST (GOT) 59 U/L (15-37); BICARBONATE 23.2 MEQ/L (21.0-32.0); BLOOD UREA NITROGEN 7 MG/DL (7-18); CALCIUM 8.4 MG/DL (8.5-10.1); CHLORIDE 107 MEQ/L (98-107); CREATININE 0.85 MG/DL (0.60-1.30); GLOMERULAR FILTRATION RATE 93 ML/MIN (>89); GLUCOSE,RANDOM 72 MG/DL (74-106); SODIUM (NA) 140 MEQ/L (136-145)
[2017-11-28 16:19] LABS: ALKALINE PHOSPHATASE 60 U/L (45-117); TOTAL BILIRUBIN ADULT 0.3 MG/DL (0.2-1.0)
[2017-11-28] MEDS ORDERED: TAMS5CAP PO (17:45)
[2017-11-28] MEDS ORDERED: WELLTAB39 PO (17:45)
[2017-11-28] MEDS ORDERED: SERO400T PO (17:45)
[2017-11-28] MEDS ORDERED: KLON2TAB PO (17:45)
[2017-11-28] MEDS ORDERED: ADDE30TA PO (17:45)
[2017-11-28 19:05] VITALS: BP 120/55; PULSE 97; RESP 20; O2SAT 96
[2017-11-29 04:42] VITALS: BP 145/101; PULSE 91; RESP 18; O2SAT 96
[2017-11-29 10:13] VITALS: BP 138/72
== END 2017-11-29 12:28 ==
LOC: NEPD 14:49
DX: F10.129 Alcohol abuse with intoxication, unspecified (principal); F17.200 Nicotine dependence, unspecified, uncomplicated; F31.9 Bipolar disorder, unspecified; Y90.7 Blood alcohol level of 200-239 mg/100 ml; Z79.899 Other long term (current) drug therapy
CPT/HCPCS: 80053; 80307; 81001; 83690; 84443; 85025; 96361; 96374; 99284; J3411; J7030

== ENCOUNTER 2017-12-20 20:31 | Emergency (ER) | payer OTHER ==
[~2017-12-20] VITALS: Ht 175.3 cm; Wt 100.0 kg
[~2017-12-20 20:31] MED LIST changes: +ADDE30TA PO; -CIPR500T2 PO; +KLON2TAB PO; -NEUR800T PO; -SERO25TA PO; +SERO400T PO; +WELLTAB39 PO; -Z.0.NO CURRENT MEDS
[2017-12-20 20:43] VITALS: BP 150/75; PULSE 82; RESP 16; TEMP 98.6; O2SAT 97
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
[2017-12-21] MEDS ORDERED: diphenhydrAMINE HCL 50 MG/ML VIAL IM ONE (00:45)
[2017-12-21] MEDS ORDERED: LORazepam 2 MG/ML VIAL IV PUSH ONE (00:45)
[2017-12-21] MEDS ORDERED: HALOPERIDOL LACTATE 5 MG/ML AMP IM ONE (00:45)
[2017-12-21] MEDS ORDERED: LORazepam 2 MG/ML VIAL IM ONE (04:00)
[2017-12-21 07:26] VITALS: BP 145/82; PULSE 80; RESP 18; TEMP 98.3; O2SAT 97
== END 2017-12-21 09:48 | disposition home or self-care (01) ==
LOC: NEDAMB 20:31 → NEPD 12-21 09:48
DX: F10.129 Alcohol abuse with intoxication, unspecified (principal); F17.200 Nicotine dependence, unspecified, uncomplicated; G47.00 Insomnia, unspecified; F41.9 Anxiety disorder, unspecified; F31.9 Bipolar disorder, unspecified; F90.9 Attention-deficit hyperactivity disorder, unspecified type; Z79.899 Other long term (current) drug therapy; Z86.19 Personal history of other infectious and parasitic diseases
CPT/HCPCS: 96372; 99283; J1200; J1630; J2060